=== PATIENT | male | born 1955 | race African-American/Black ===

== ENCOUNTER → 2016-09-01 | Outpatient (CLI) | payer MEDICAID ==
--- NOTE | 2016-09-01 10:53 | RADIOLOGY REPORT (SQ) ---
EXAM DESCRIPTION: HIP RIGHT AP/LATERAL COMPLETED DATE/TIME: 09/01/2016 10:40 am REASON FOR STUDY: PAIN IN RIGHT HIP M25.551 PAIN IN RIGHT HIP COMPARISON: None. NUMBER OF VIEWS: Two views. TECHNIQUE: AP and frog-leg view of the right hip. LIMITATIONS: None. FINDINGS: MINERALIZATION: Normal. RIGHT HIP: There is asymmetric flattening of the right femoral head. There is asymmetric sclerosis. Avascular necrosis cannot be excluded. MRI is recommended for further evaluation. No acute fractur e or dislocation. OPPOSITE HIP: No fracture or dislocation. No worrisome bone lesions. SOFT TISSUES: No findings. OTHER: No other significant finding. IMPRESSION: Asymmetric remodeling and sclerosis of the superior aspect of the femoral head. Recomme nd MRI for further evaluation. Avascular necrosis cannot be excluded. TECHNICAL DOCUMENTATION: JOB ID: [id number] [employer]- All Rights Reserved
== END ==
LOC: OD 10:01
PROVIDERS: ATTEND Family Medicine
DX: M25.551 Pain in right hip (principal)

== ENCOUNTER 2016-11-01 16:22 | Emergency (ER) | payer MEDICAID ==
[2016-11-01] MEDS ORDERED: NORMAL SALINE 1000 ML 1,000 ML IV ONE (17:35)
[2016-11-01] MEDS ORDERED: KETOROLAC TROMETHAMINE INJ/PF 30 MG/1 ML SDV IV ONE (17:36)
[2016-11-01] MEDS ORDERED: ONDANSETRON HCL INJ/PF 4 MG/2 ML SDV IV ONE (17:36)
--- NOTE | 2016-11-01 17:39 | ER Document Report ---
ED Medical Screen (RME) - General Chief Complaint: Nausea/Vomiting Stated Complaint: NAUSEA Time Seen by Provider: 11/01/16 17:35 Mode of Arrival: Wheelchair Information source: Patient TRAVEL OUTSIDE OF THE [place] IN LAST 30 DAYS: No - HPI Patient complains to provider of: Nausea Onset: This morning - pt. is scheduled to see ortho for R hip pain later in the week. Ran out of his narcotic pain meds and now is having nausea - Related Data Allergies/Adverse Reactions: haloperidol [From Haldol] Adverse Reaction (Intermediate, Verified 11/01/16 16: 46) Cramping, "couldn't breathe" lorazepam [From Ativan] Adverse Reaction (Intermediate, Verified 11/01/16 16:46) Nausea, nightmares promethazine HCl [From Phenergan] Adverse Reaction (Unknown, Verified 11/01/16 16:46) "Messes my veins up" Past Medical History - Social History Frequency of alcohol use: None Drug Abuse: Marijuana - Past Medical History Cardiac Medical History: Denies: Hx Congestive Heart Failure, Hx Coronary Artery Disease, Hx Heart Attack, Hx Hypertension Pulmonary Medical History: Denies: Hx Asthma, Hx Bronchitis, Hx COPD, Hx Pneumonia Neurological Medical History: Reports: Hx Seizures - ETOH withdrawal seizures. Denies: Hx Cerebrovascular Accident Renal/ Medical History: Denies: Hx Peritoneal Dialysis Malignancy Medical History: Reports Hx Prostate Cancer GI Medical History: Reports: Hx Cirrhosis, Hx Hepatitis - Hepatitis C, Hx Liver Failure Musculoskeltal Medical History: Denies Hx Arthritis Infectious Medical History: Reports: Hx Hepatitis - Hepatitis C Past Surgical History: Reports: Hx Pancreatic Surgery - Pancreatic bx, Hx Urinary Tract Surgery - Laser TURP - Immunizations Hx Diphtheria, Pertussis, Tetanus Vaccination: No Physical Exam - Vital signs Vitals: Temp Pulse Resp BP Pulse Ox 98.7 F 57 L 22 H 143/80 H 100 11/01/16 16:47 11/01/16 16:47 11/01/16 16:47 11/01/16 16:47 11/01/16 16:47 Course - Vital Signs Vital signs: Temp Pulse Resp BP Pulse Ox 98.7 F 57 L 22 H 143/80 H 100 11/01/16 16:47 11/01/16 16:47 11/01/16 16:47 11/01/16 16:47 11/01/16 16:47
--- NOTE | 2016-11-01 19:28 | ER Document Report ---
ED General - General Chief Complaint: Nausea/Vomiting Stated Complaint: NAUSEA Time Seen by Provider: 11/01/16 17:35 Mode of Arrival: Wheelchair Notes: Patient is a 61-year-old male who presents with concerns of opiate withdrawal as well as chronic right hip pain. Patient states he is scheduled to have a right hip replacement and is being prescribed oxycodone through his primary care doctor but he ran out of this medication "over 2 weeks ago". Patient states that since that time he has felt anxious, diaphoretic, nauseated and had multiple episodes of vomiting. He contacted his primary doctor to attempt to get a refill but was unable to do so. He denies a history of similar episodes in the past. He is unable to explain why he is out of his pain medication other than taking more than he was prescribed which he does admit to. Patient does also complain of a dull, constant aching pain to the right hip which is unchanged today. Any attempt at moving or walking worsens the pain. He states the oxycodone does help control the pain. TRAVEL OUTSIDE OF THE [place] IN LAST 30 DAYS: No - Related Data Allergies/Adverse Reactions: haloperidol [From Haldol] Adverse Reaction (Intermediate, Verified 11/01/16 16: 46) Cramping, "couldn't breathe" lorazepam [From Ativan] Adverse Reaction (Intermediate, Verified 11/01/16 16:46) Nausea, nightmares promethazine HCl [From Phenergan] Adverse Reaction (Unknown, Verified 11/01/16 16:46) "Messes my veins up" Past Medical History - General Information source: Patient - Social History Smoking Status: Current Every Day Smoker Frequency of alcohol use: None Drug Abuse: Marijuana Family History: Hypertension, Malignancy - Brother with pancreatic cancer and mother with breast cancer, Other - Father was murdered, sister with lupus - Past Medical History Cardiac Medical History: Denies: Hx Congestive Heart Failure, Hx Coronary Artery Disease, Hx Heart Attack, Hx Hypertension Pulmonary Medical History: Denies: Hx Asthma, Hx Bronchitis, Hx COPD, Hx Pneumonia Neurological Medical History: Reports: Hx Seizures - ETOH withdrawal seizures. Denies: Hx Cerebrovascular Accident Renal/ Medical History: Denies: Hx Peritoneal Dialysis Malignancy Medical History: Reports Hx Prostate Cancer GI Medical History: Reports: Hx Cirrhosis, Hx Hepatitis - Hepatitis C, Hx Liver Failure Musculoskeltal Medical History: Denies Hx Arthritis Infectious Medical History: Reports: Hx Hepatitis - Hepatitis C Past Surgical History: Reports: Hx Pancreatic Surgery - Pancreatic bx, Hx Urinary Tract Surgery - Laser TURP - Immunizations Hx Diphtheria, Pertussis, Tetanus Vaccination: No Review of Systems - Review of Systems Notes: Constitutional: Negative for fever. HENT: Negative for sore throat. Eyes: Negative for visual changes. Cardiovascular: Negative for chest pain. Respiratory: Negative for shortness of breath. Gastrointestinal: Positive for nausea and vomiting Genitourinary: Negative for dysuria. Musculoskeletal: Positive for right hip pain Skin: Negative for rash. Neurological: Negative for headaches, weakness or numbness. 10 point ROS negative except as marked above and in HPI. Physical Exam - Vital signs Vitals: Temp Pulse Resp BP Pulse Ox 98.7 F 57 L 22 H 143/80 H 100 11/01/16 16:47 11/01/16 16:47 11/01/16 16:47 11/01/16 16:47 11/01/16 16:47 Interpretation: Hypertensive Notes: PHYSICAL EXAMINATION: GENERAL: Somewhat disheveled, no acute distress HEAD: Atraumatic, normocephalic. EYES: Pupils equal round and reactive to light, extraocular movements intact, sclera anicteric, conjunctiva are normal. ENT: nares patent, oropharynx clear without exudates. Moist mucous membranes. NECK: Normal range of motion, supple without lymphadenopathy LUNGS: Breath sounds clear to auscultation bilaterally and equal. No wheezes rales or rhonchi. HEART: Regular rate and rhythm without murmurs ABDOMEN: Soft, nontender, normoactive bowel sounds. No guarding, no rebound. No masses appreciated. EXTREMITIES: Normal range of motion, no pitting or edema. No cyanosis. NEUROLOGICAL: No focal neurological deficits. Moves all extremities spontaneously and on command. PSYCH: Normal mood, normal affect. SKIN: Warm, Dry, normal turgor, no rashes or lesions noted. Course - Re-evaluation Re-evalutation: 11/01/16 19:43 Patient presents with symptoms consistent with opiate withdrawal, complaining of nausea and vomiting as well as tremulousness ever since he ran out of oxycodone. He initially states to me that he ran out over 2 weeks ago. A review of the [place] controlled substance database reveals that patient did receive 60 oxycodone 5 mg tablets on 18 October and this was written as a 15 day supply. The patient should not be out of this medication. I did inform the patient that it appears that he has misused this medication and may be developing an addiction to this long-term opiate use. His development of physiologic dependence is also apparent based on his presenting symptoms. Patient did request additional opiates here which I have declined to provide. I have informed him that he should consider seeking help for withdrawal from this medication and have provided him gabapentin 600 mg nightly for withdrawal as well as Lidoderm patches for his chronic right hip pain. Basic laboratories were obtained to evaluate for alternative etiology of his epigastric abdominal pain nausea and vomiting and are noted to be unremarkable. At this time will discharge with return precautions and follow-up recommendations. Verbal discharge instructions given a the bedside and opportunity for questions given. Medication warnings reviewed. Patient is in agreement with this plan and has verbalized understanding of return precautions and the need for primary care follow-up in the next 24-72 hours. - Vital Signs Vital signs: Temp Pulse Resp BP Pulse Ox 99.8 F 53 L 22 H 162/80 H 98 11/01/16 21:05 11/01/16 21:05 11/01/16 16:47 11/01/16 21:05 11/01/16 21:05 - Laboratory Result Diagrams: 11/01/16 19:45 Laboratory results interpreted by me: 11/01/16 19:45 Sodium 147.0 H Potassium 3.5 L Carbon Dioxide 20 L Anion Gap 21 H Glucose 143 H Calcium 10.5 H Total Bilirubin 1.5 H Direct Bilirubin 0.5 H ALT 15 L Total Protein 8.8 H Albumin 5.1 H Discharge - Discharge Clinical Impression: Chronic right hip pain Opiate dependence Qualifiers: Substance use status: in withdrawal Qualified Code(s): F11.23 - Opioid dependence with withdrawal Condition: Good Disposition: HOME, SELF-CARE Additional Instructions: Your seen today for concern of withdrawal from opiates. You should not yet be out of oxycodone based on your prescription that you received on the of this month. I am worried that your developing a dependency on this dangerous and addicting medication. You should discuss with your physician alternatives to use of oxycodone as this medication is not appropriate for long-term use. You may take the Zofran that you provided as needed for nausea. You may take gabapentin 600 mg nightly until you are able to receive a refill of oxycodone to assist with withdrawals. Return if you develop worsening vomiting, abdominal pain, pass out, or have any other symptoms that are worrisome to you. Prescriptions: Gabapentin 600 mg PO QHS #10 tablet Referrals: DAFNE ZENDEJAS, [Primary Care Provider] - Follow up as needed
[2016-11-01] MEDS ORDERED: LIDOCAINE 5% (700 MG) TRANSDERMAL ADH..PATCH TP ONE (19:41)
[2016-11-01] MEDS ORDERED: GABAPENTIN 300 MG CAPSULE PO ONE (19:41)
[2016-11-01] MEDS ORDERED: PROCHLORPERAZINE EDISYLATE INJ 10 MG/2 ML VIAL IV ONE (19:47)
[2016-11-01] MEDS ORDERED: ONDANSETRON ODT 4 MG TAB (6 TAB/DSPK) PO PRN (19:47)
[2016-11-01] MEDS ORDERED: DIPHENHYDRAMINE HCL 50 MG/ML VIAL IV ONE (19:47)
[2016-11-01 20:18] LABS: ALANINE AMINOTRANSFERASE 15 U/L (21-72); ALBUMIN 5.1 g/dL (3.5-5.0); ALKALINE PHOSPHATASE 66 U/L (38-126); ASPARTATE AMINO TRANSFERASE 24 U/L (17-59); BILIRUBIN,DIRECT 0.5 mg/dL (0.0-0.4); BILIRUBIN,TOTAL 1.5 mg/dL (0.2-1.3); BLOOD UREA NITROGEN 12 mg/dL (7-20); CALCIUM 10.5 mg/dL (8.4-10.2); CARBON DIOXIDE 20 mmol/L (22-30); CHLORIDE 106 mmol/L (98-107); CREATININE RESULT 0.85 mg/dL (0.52-1.25); GLUCOSE 143 mg/dL (75-110); LIPASE 66.7 U/L (23-300); POTASSIUM 3.5 mmol/L (3.6-5.0); TOTAL PROTEIN 8.8 g/dL (6.3-8.2)
[2016-11-01 20:27] LABS: ANION GAP 21 (5-19)
[2016-11-01 21:09] VITALS: BP 162/80
== END 2016-11-01 21:09 | disposition home or self-care (01) ==
LOC: ER 16:22
DX: M25.551 Pain in right hip (principal); F11.23 Opioid dependence with withdrawal; R11.2 Nausea with vomiting, unspecified; G89.29 Other chronic pain; F17.200 Nicotine dependence, unspecified, uncomplicated
CPT/HCPCS: 99284; 96361; 96374; 96375; 36415; 83690; 80053; 84484; J1200; J3490 ×2; J1885; J0780; J2405; J7030

== ENCOUNTER 2017-07-25 13:59 | Inpatient (IN) | payer MEDICAID ==
[2017-07-25 14:46] LABS: VENOUS BLOOD BASE EXCESS 10.7 mmol/L; VENOUS BLOOD HCO3 33.1 mmol/L (20-32); VENOUS BLOOD PCO2 36.5 mmHg (35-63); VENOUS BLOOD PH 7.58 (7.30-7.42)
--- NOTE | 2017-07-25 14:49 | ER Document Report ---
ED General - General Stated Complaint: UNRESPONSIVE Time Seen by Provider: 07/25/17 14:26 Mode of Arrival: Medic Information source: Relative, Emergency Med Personnel Cannot obtain history due to: Altered mental status Notes: 62-year-old male with hep C, liver failure, alcohol abuse, polysubstance abuse presents via EMS after family found him under a mattress and box spring. History is provided by EMS who states patient was somnolent but arousable upon their arrival. He was covered in a white substance and had multiple containers of glue surrounding him. 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 Last seen well was 3 days prior to arrival. TRAVEL OUTSIDE OF THE [place] IN LAST 30 DAYS: No - HPI Onset: Just prior to arrival - Related Data Allergies/Adverse Reactions: haloperidol [From Haldol] Adverse Reaction (Intermediate, Verified 11/01/16 16: 46) Cramping, "couldn't breathe" lorazepam [From Ativan] Adverse Reaction (Intermediate, Verified 11/01/16 16:46) Nausea, nightmares promethazine HCl [From Phenergan] Adverse Reaction (Unknown, Verified 11/01/16 16:46) "Messes my veins up" Past Medical History - General Information source: Relative, Emergency Med Personnel, [facility] Records Cannot obtain history due to: Altered mental status - Social History Smoking Status: Unknown if Ever Smoked Frequency of alcohol use: Occasional Drug Abuse: Methamphetamine Lives with: Alone Family History: Hypertension, Malignancy - Brother with pancreatic cancer and mother with breast cancer, Other - Father was murdered, sister with lupus - Past Medical History Cardiac Medical History: Denies: Hx Congestive Heart Failure, Hx Coronary Artery Disease, Hx Heart Attack, Hx Hypertension Pulmonary Medical History: Denies: Hx Asthma, Hx Bronchitis, Hx COPD, Hx Pneumonia Neurological Medical History: Reports: Hx Seizures - ETOH withdrawal seizures. Denies: Hx Cerebrovascular Accident Renal/ Medical History: Denies: Hx Peritoneal Dialysis Malignancy Medical History: Reports Hx Prostate Cancer GI Medical History: Reports: Hx Cirrhosis, Hx Hepatitis - Hepatitis C, Hx Liver Failure Musculoskeltal Medical History: Denies Hx Arthritis Infectious Medical History: Reports: Hx Hepatitis - Hepatitis C Past Surgical History: Reports: Hx Pancreatic Surgery - Pancreatic bx, Hx Urinary Tract Surgery - Laser TURP - Immunizations Hx Diphtheria, Pertussis, Tetanus Vaccination: No Review of Systems - Review of Systems -: Yes ROS unobtainable due to patient's medical condition Physical Exam - Vital signs Interpretation: Normal. No: Hypotensive, Tachycardic - Notes Notes: PHYSICAL EXAMINATION: GENERAL: Alert but nonverbal. HEAD: Atraumatic, normocephalic. EYES: Pupils equal round and reactive to light, extraocular movements intact, sclera anicteric, conjunctiva are normal. ENT: Nares patent, oropharynx clear without exudates. Dry mucous membranes. NECK: Normal range of motion, supple without lymphadenopathy LUNGS: Breath sounds clear to auscultation bilaterally and equal. No wheezes rales or rhonchi. HEART: Regular rate and rhythm without murmurs ABDOMEN: Soft, nontender, nondistended abdomen. No guarding, no rebound. No masses appreciated. Musculoskeletal: Normal range of motion, no pitting or edema. No cyanosis. NEUROLOGICAL: GCS 12, nonverbal. PSYCH: Normal mood, normal affect. SKIN: Warm, Dry, normal turgor, no rashes or lesions noted. Course - Re-evaluation Re-evalutation: Laboratory 07/25/17 07/25/17 07/25/17 14:26 14:26 14:26 WBC 13.2 H RBC 5.69 H Hgb 16.9 Hct 48.2 MCV 85 MCH 29.7 MCHC 35.0 RDW 13.3 Plt Count 124 L Seg Neutrophils % 80.6 H Lymphocytes % 5.4 L Monocytes % 13.9 H Eosinophils % 0.0 Basophils % 0.1 Absolute Neutrophils 10.6 H Absolute Lymphocytes 0.7 Absolute Monocytes 1.8 H Absolute Eosinophils 0.0 Absolute Basophils 0.0 PT INR VBG pH VBG pCO2 VBG HCO3 VBG Base Excess Sodium 122.2 L Potassium 2.9 L* Chloride 65 L Carbon Dioxide 30 Anion Gap 27 H BUN 54 H Creatinine 2.14 H Est GFR ( Amer) 38 L Est GFR (Non-Af Amer) 31 L Glucose 138 H Lactic Acid Calcium 10.1 Magnesium Total Bilirubin 4.6 H Direct Bilirubin 0.9 H Neonat Total Bilirubin Not Reportable Neonat Direct Bilirubin Not Reportable Neonat Indirect Bili Not Reportable AST 454 H ALT 76 H Alkaline Phosphatase 68 Ammonia Creatine Kinase 82562 H CK-MB (CK-2) 38.00 H Troponin I 0.233 NT-Pro-B Natriuret Pep 2500 H Total Protein 10.1 H Albumin 5.5 H Lipase Urine Color Urine Appearance Urine pH Ur Specific Lamont Urine Protein Urine Glucose (UA) Urine Ketones Urine Blood Urine Nitrite Urine Bilirubin Urine Urobilinogen Ur Leukocyte Esterase Urine WBC (Auto) Urine RBC (Auto) U Hyaline Cast (Auto) Squamous Epi Cells Auto Amorphous Sediment Auto Urine Mucus (Auto) Urine Ascorbic Acid Salicylates < 1.0 L Urine Opiates Screen Urine Methadone Screen Acetaminophen < 10 L Ur Barbiturates Screen Ur Phencyclidine Scrn Ur Amphetamines Screen U Benzodiazepines Scrn Urine Cocaine Screen U Marijuana (THC) Screen Serum Alcohol < 10 07/25/17 07/25/17 07/25/17 14:26 15:46 15:46 WBC RBC Hgb Hct MCV MCH MCHC RDW Plt Count Seg Neutrophils % Lymphocytes % Monocytes % Eosinophils % Basophils % Absolute Neutrophils Absolute Lymphocytes Absolute Monocytes Absolute Eosinophils Absolute Basophils PT INR VBG pH 7.58 H VBG pCO2 36.5 VBG HCO3 33.1 H VBG Base Excess 10.7 Sodium Potassium Chloride Carbon Dioxide Anion Gap BUN Creatinine Est GFR ( Amer) Est GFR (Non-Af Amer) Glucose Lactic Acid Calcium Magnesium Total Bilirubin Direct Bilirubin Neonat Total Bilirubin Neonat Direct Bilirubin Neonat Indirect Bili AST ALT Alkaline Phosphatase Ammonia Creatine Kinase CK-MB (CK-2) Troponin I NT-Pro-B Natriuret Pep Total Protein Albumin Lipase Urine Color DIPIKA Urine Appearance CLOUDY Urine pH 5.0 Ur Specific Lamont 1.017 Urine Protein 100 H Urine Glucose (UA) NEGATIVE Urine Ketones NEGATIVE Urine Blood LARGE H Urine Nitrite NEGATIVE Urine Bilirubin NEGATIVE Urine Urobilinogen NEGATIVE Ur Leukocyte Esterase NEGATIVE Urine WBC (Auto) 2 Urine RBC (Auto) 1 U Hyaline Cast (Auto) 1 Squamous Epi Cells Auto 1 Amorphous Sediment Auto TRACE Urine Mucus (Auto) RARE Urine Ascorbic Acid 40 H Salicylates Urine Opiates Screen NEGATIVE Urine Methadone Screen NEGATIVE Acetaminophen Ur Barbiturates Screen NEGATIVE Ur Phencyclidine Scrn NEGATIVE Ur Amphetamines Screen NEGATIVE U Benzodiazepines Scrn NEGATIVE Urine Cocaine Screen NEGATIVE U Marijuana (THC) Screen UNCONFIRMED POSITIVE Serum Alcohol 07/25/17 07/25/17 07/25/17 16:14 16:14 20:15 WBC RBC Hgb Hct MCV MCH MCHC RDW Plt Count Seg Neutrophils % Lymphocytes % Monocytes % Eosinophils % Basophils % Absolute Neutrophils Absolute Lymphocytes Absolute Monocytes Absolute Eosinophils Absolute Basophils PT INR VBG pH VBG pCO2 VBG HCO3 VBG Base Excess Sodium Potassium Chloride Carbon Dioxide Anion Gap BUN Creatinine Est GFR ( Amer) Est GFR (Non-Af Amer) Glucose Lactic Acid 5.1 H Calcium Magnesium 2.4 H Total Bilirubin Direct Bilirubin Neonat Total Bilirubin Neonat Direct Bilirubin Neonat Indirect Bili AST ALT Alkaline Phosphatase Ammonia 19.2 Creatine Kinase CK-MB (CK-2) Troponin I NT-Pro-B Natriuret Pep Total Protein Albumin Lipase 147.3 Urine Color Urine Appearance Urine pH Ur Specific Lamont Urine Protein Urine Glucose (UA) Urine Ketones Urine Blood Urine Nitrite Urine Bilirubin Urine Urobilinogen Ur Leukocyte Esterase Urine WBC (Auto) Urine RBC (Auto) U Hyaline Cast (Auto) Squamous Epi Cells Auto Amorphous Sediment Auto Urine Mucus (Auto) Urine Ascorbic Acid Salicylates Urine Opiates Screen Urine Methadone Screen Acetaminophen Ur Barbiturates Screen Ur Phencyclidine Scrn Ur Amphetamines Screen U Benzodiazepines Scrn Urine Cocaine Screen U Marijuana (THC) Screen Serum Alcohol 07/25/17 07/25/17 20:15 20:15 WBC RBC Hgb Hct MCV MCH MCHC RDW Plt Count Seg Neutrophils % Lymphocytes % Monocytes % Eosinophils % Basophils % Absolute Neutrophils Absolute Lymphocytes Absolute Monocytes Absolute Eosinophils Absolute Basophils PT 18.9 H INR 1.50 VBG pH VBG pCO2 VBG HCO3 VBG Base Excess Sodium Potassium Chloride Carbon Dioxide Anion Gap BUN Creatinine Est GFR ( Amer) Est GFR (Non-Af Amer) Glucose Lactic Acid Calcium Magnesium Total Bilirubin Direct Bilirubin Neonat Total Bilirubin Neonat Direct Bilirubin Neonat Indirect Bili AST ALT Alkaline Phosphatase Ammonia < 8.7 L Creatine Kinase CK-MB (CK-2) Troponin I NT-Pro-B Natriuret Pep Total Protein Albumin Lipase Urine Color Urine Appearance Urine pH Ur Specific Lam[place] Urine Protein Urine Glucose (UA) Urine Ketones Urine Blood Urine Nitrite Urine Bilirubin Urine Urobilinogen Ur Leukocyte Esterase Urine WBC (Auto) Urine RBC (Auto) U Hyaline Cast (Auto) Squamous Epi Cells Auto Amorphous Sediment Auto Urine Mucus (Auto) Urine Ascorbic Acid Salicylates Urine Opiates Screen Urine Methadone Screen Acetaminophen Ur Barbiturates Screen Ur Phencyclidine Scrn Ur Amphetamines Screen U Benzodiazepines Scrn Urine Cocaine Screen U Marijuana (THC) Screen Serum Alcohol Head CT 07/25/17 14:30 IMPRESSION: NORMAL BRAIN CT WITHOUT CONTRAST. EVIDENCE OF ACUTE STROKE: NO. Head MRI 07/25/17 16:11 IMPRESSION: Negative for acute or sub-acute infarction. EVIDENCE OF ACUTE STROKE: NO. Chest X-Ray 07/25/17 18:28 IMPRESSION: NO ACUTE RADIOGRAPHIC FINDING IN THE CHEST. 07/25/17 14:55 62-year-old male with hep C, liver failure, alcohol abuse, polysubstance abuse presents via EMS after family found him under a mattress and box spring. History is provided by EMS who states patient was somnolent but arousable upon their arrival. He was covered in a white substance and had multiple containers of glue surrounding him. 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 Last seen well was 3 days prior to arrival. Patient was seen by myself upon arrival. Vital signs were reviewed. Patient is afebrile, normotensive and not hypoxic. Patient does not appear toxic or dehydrated. They are in no acute distress. Previous medical records and nursing notes reviewed. Patient is patient is altered, unable to provide history. GCS upon arrival is 12. Patient does not follow commands. CT of the head showed no acute process, MRI of the head showed no acute process. Chest x-ray showed no acute process. CBC does show leukocytosis. CMP is significant for hypokalemia, hyponatremia. She does have an elevated BUN and creatinine. Troponin was elevated and CK is greater than 51 ,000. Patient was provided IV fluids, aspirin. Patient did start to become more alert and began speaking and stated that he was in pain. Unclear where the pain is. He did receive 1 mg of Dilaudid for this. Repeat troponin being. I did speak to Dr. Lawson from cardiology who is comfortable with the patient being admitted here. patient did receive Potassium IV. PO potassium not attempted due to AMS. 07/25/17 16:16 Family now at the bedside and states that the patient was recently stopped on his OxyContin that he has been taking since November 2016. Family reports that the patient was taking 20 mg of OxyContin daily but his primary care physician now wants him to be detox. Family tried throughout the weekend to place the patient in a detox center. They state that Sunday they came home from [facility] and the patient refused to go to the detox center that they had acquired for him because he was feeling better. Family reports that the patient is usually very verbal, normally orientated. They report that this is a complete change from his baseline. They also report that the patient has been sober from alcohol for several months. 07/25/17 21:04 07/25/17 21:06 Patient will be admitted by the hospitalist. 07/25/17 21:11 - Laboratory Result Diagrams: 07/25/17 14:26 07/25/17 20:15 Laboratory results interpreted by me: 07/25/17 07/25/17 07/25/17 14:26 14:26 14:26 WBC 13.2 H RBC 5.69 H Plt Count 124 L Seg Neutrophils % 80.6 H Lymphocytes % 5.4 L Monocytes % 13.9 H Absolute Neutrophils 10.6 H Absolute Monocytes 1.8 H VBG pH VBG HCO3 Sodium 122.2 L Potassium 2.9 L* Chloride 65 L Anion Gap 27 H BUN 54 H Creatinine 2.14 H Est GFR ( Amer) 38 L Est GFR (Non-Af Amer) 31 L Glucose 138 H Lactic Acid Total Bilirubin 4.6 H Direct Bilirubin 0.9 H AST 454 H ALT 76 H Creatine Kinase 90037 H CK-MB (CK-2) 38.00 H NT-Pro-B Natriuret Pep 2500 H Total Protein 10.1 H Albumin 5.5 H Urine Protein Urine Blood Urine Ascorbic Acid Salicylates < 1.0 L Acetaminophen < 10 L 07/25/17 07/25/17 07/25/17 14:26 15:46 16:14 WBC RBC Plt Count Seg Neutrophils % Lymphocytes % Monocytes % Absolute Neutrophils Absolute Monocytes VBG pH 7.58 H VBG HCO3 33.1 H Sodium Potassium Chloride Anion Gap BUN Creatinine Est GFR ( Amer) Est GFR (Non-Af Amer) Glucose Lactic Acid 5.1 H Total Bilirubin Direct Bilirubin AST ALT Creatine Kinase CK-MB (CK-2) NT-Pro-B Natriuret Pep Total Protein Albumin Urine Protein 100 H Urine Blood LARGE H Urine Ascorbic Acid 40 H Salicylates Acetaminophen - Diagnostic Test Radiology reviewed: Pending, Image reviewed, Reports reviewed - EKG Interpretation by Me EKG shows normal: Sinus rhythm Rate: Normal Rhythm: Other - prolonged QTC Critical Care Note - Critical Care Note Total time excluding time spent on procedures (mins): 40 - minutes of critical care time spent in direct contact evaluating and reevaluating the patient, treating symptoms, reviewing labs and studies and speaking with family and consultants excluding any procedures Discharge - Discharge Clinical Impression: Hypokalemia, Hyponatremia Rhabdomyolysis Qualifiers: Rhabdomyolysis type: non-traumatic Qualified Code(s): M62.82 - Rhabdomyolysis Altered mental status Qualifiers: Altered mental status type: unspecified Qualified Code(s): R41.82 - Altered mental status, unspecified Leukocytosis Qualifiers: Leukocytosis type: unspecified Qualified Code(s): D72.829 - Elevated white blood cell count, unspecified Condition: Fair Admitting Provider: Hospitalist Unit Admitted: [facility]
[2017-07-25 14:53] LABS: ABSOLUTE LYMPHOCYTES (AUTO) 0.7 10^3/uL (0.5-4.7); ABSOLUTE MONOCYTES (AUTO) 1.8 10^3/uL (0.1-1.4); ABSOLUTE NEUT (AUTO) 10.6 10^3/uL (1.7-8.2); BASOPHILS % (AUTO) 0.1 % (0-2); HEMATOCRIT 48.2 % (37.9-51.0); HEMOGLOBIN 16.9 g/dL (13.5-17.0); LYMPHOCYTES % (AUTO) 5.4 % (13-45); MEAN CORPUSCULAR HEMOGLOBIN 29.7 pg (27.0-33.4); MEAN CORPUSCULAR VOLUME 85 fl (80-97); MONOCYTES % (AUTO) 13.9 % (3-13); PLATELET COUNT 124 10^3/uL (150-450); RED BLOOD COUNT 5.69 10^6/uL (4.35-5.55); RED CELL DISTRIBUTION WIDTH 13.3 % (11.5-14.0); SEGMENTED NEUTROPHILS % (AUTO) 80.6 % (42-78); TOTAL CELLS COUNTED % (AUTO) 100 %; WHITE BLOOD COUNT 13.2 10^3/uL (4.0-10.5)
--- NOTE | 2017-07-25 15:33 | RADIOLOGY REPORT (SQ) ---
EXAM DESCRIPTION: CT HEAD WITHOUT COMPLETED DATE/TIME: 07/25/2017 3:21 pm REASON FOR STUDY: ams COMPARISON: 03/10/2014. TECHNIQUE: Axial images acquired through the brain without intravenous contrast. Images reviewed wi th bone, brain and subdural windows. Additional sagittal and coronal reconstructions were generated. Images stored on PACS. All CT scanners at this facility use dose modulation, iterative reconstruction, and/or weight based d osing when appropriate to reduce radiation dose to as low as reasonably achievable (ALARA). [facility]: Dose Right [facility]: CareDose [facility]: Dose Right [facility]: Teradose 4D [facility]: My Luv My Life My Heartbeats RADIATION DOSE: CT Rad equipment meets quality standard of care and radiation dose reduction techniq ues were employed. CTDIvol: 53.2 mGy. DLP: 1017 mGy-cm. mGy. LIMITATIONS: None. FINDINGS: VENTRICLES: Normal size and contour. CEREBRUM: No masses. No hemorrhage. No midline shift. No evidence for acute infarction. Normal gra y/white matter differentiation. No areas of low density in the white matter. CEREBELLUM: No masses. No hemorrhage. No alteration of density. No evidence for acute infarction. EXTRAAXIAL SPACES: No fluid collections. No masses. ORBITS AND GLOBE: No intra- or extraconal masses. Normal contour of globe without masses. CALVARIUM: No fracture. PARANASAL SINUSES: Fluid in the right maxillary sinus. SOFT TISSUES: No mass or hematoma. OTHER: No other significant finding. IMPRESSION: NORMAL BRAIN CT WITHOUT CONTRAST. EVIDENCE OF ACUTE STROKE: NO. COMMENT: Quality ID # [id number]: Final reports with documentation of one or more dose reduction techniques (e.g., Automated exposure control, adjustment of the mA and/or kV according to patient size, use of iterative reconstruction technique) TECHNICAL DOCUMENTATION: JOB ID: [id number] [employer]- All Rights Reserved Reading location - IP/workstation name: [facility] / [email or web address]
[2017-07-25 15:58] LABS: AMORPHOUS SEDIMENT,URINE TRACE /HPF; APPEARANCE,URINE CLOUDY; BILIRUBIN,URINE NEGATIVE (NEGATIVE); COLOR,URINE AMBER; GLUCOSE, URINE NEGATIVE (NEGATIVE); KETONES,URINE NEGATIVE (NEGATIVE); LEUKOCYTE ESTERASE,URINE NEGATIVE (NEGATIVE); NITRITE,URINE NEGATIVE (NEGATIVE); PROTEIN,URINE 100 mg/dL (NEGATIVE); URINE SPECIFIC GRAVITY 1.017; UROBILINOGEN,URINE NEGATIVE mg/dL (<2.0)
[2017-07-25 16:11] LABS: URINE AMPHETAMINES SCREEN NEGATIVE; URINE BARBITURATES SCREEN NEGATIVE; URINE BENZODIAZEPINES SCREEN NEGATIVE; URINE COCAINE SCREEN NEGATIVE; URINE MARIJUANA (THC) SCREEN UNCONFIRMED POSITIVE; URINE METHADONE SCREEN NEGATIVE; URINE PHENCYCLIDINE SCREEN NEGATIVE
[2017-07-25 16:17] LABS: ALANINE AMINOTRANSFERASE 76 U/L (21-72); ALBUMIN 5.5 g/dL (3.5-5.0); ALKALINE PHOSPHATASE 68 U/L (38-126); BILIRUBIN,DIRECT 0.9 mg/dL (0.0-0.4); BILIRUBIN,TOTAL 4.6 mg/dL (0.2-1.3); BLOOD UREA NITROGEN 54 mg/dL (7-20); CALCIUM 10.1 mg/dL (8.4-10.2); GLUCOSE 138 mg/dL (75-110); TOTAL PROTEIN 10.1 g/dL (6.3-8.2)
[2017-07-25 16:22] LABS: CARBON DIOXIDE 30 mmol/L (22-30); CHLORIDE 65 mmol/L (98-107); SODIUM 122.2 mmol/L (137-145)
[2017-07-25 16:23] LABS: ASPARTATE AMINO TRANSFERASE 454 U/L (17-59)
[2017-07-25] MEDS: NORMAL SALINE 1000 ML 1,000 ML IV PRN (16:26)
[2017-07-25 16:34] LABS: TROPONIN I 0.233 ng/mL
[2017-07-25] MEDS ORDERED: ASPIRIN 81 MG TABLET, CHEWABLE PO ONE (16:52)
[2017-07-25] MEDS ORDERED: DIPHENHYDRAMINE HCL 50 MG/ML VIAL IV ONE (16:52)
[2017-07-25 17:45] LABS: ACETAMINOPHEN < 10 ug/mL (10-30); ALCOHOL < 10 mg/dL (NONE DETECTED); CREATINE KINASE 51393 U/L (55-170); SALICYLATE < 1.0 mg/dL (2.0-20.0)
[2017-07-25 17:46] LABS: ANION GAP 27 (5-19)
[2017-07-25 17:47] LABS: POTASSIUM 2.9 mmol/L (3.6-5.0)
[2017-07-25] MEDS ORDERED: POTASSI CL 20 MEQ/50 ML RIDER 20 MEQ/50 ML RTUPB IV ONE (18:26)
[2017-07-25] MEDS ORDERED: NORMAL SALINE 1000 ML 1,000 ML IV ONE (18:27)
--- NOTE | 2017-07-25 18:35 | RADIOLOGY REPORT (SQ) ---
EXAM DESCRIPTION: MRI HEAD WITHOUT COMPLETED DATE/TIME: 07/25/2017 6:11 pm REASON FOR STUDY: ams COMPARISON: Earlier CT TECHNIQUE: Multiplanar imaging includes non-contrasted T1, T2, FLAIR, and diffusion with ADC map seq uences. Images stored on PACS. LIMITATIONS: Motion artifact. FINDINGS: ANATOMY: No anomalies. Normal vascular flow voids. Pituitary fossa normal. CSF SPACES: Normal in size and contour. No hemorrhage. CEREBRUM: Sulci and gyri normal in size and contour. Age-appropriate white matter signal on FLAIR im aging. No evidence of hemorrhage, mass, or extraaxial fluid collection. POSTERIOR FOSSA: No signal alteration. No hemorrhage. No edema, masses or mass effect. Internal dorie tory canals, cerebello-pontine angles, mastoids normal. DIFFUSION IMAGING: Negative for acute or sub-acute infarction. ORBITS: No masses. Globes normal. PARANASAL SINUSES: Small right maxillary sinus fluid. . OTHER: No other significant finding. IMPRESSION: Negative for acute or sub-acute infarction. EVIDENCE OF ACUTE STROKE: NO. TECHNICAL DOCUMENTATION: JOB ID: [id number] 2010 [employer]- All Rights Reserved Reading location - IP/workstation name: [email or web address]
[2017-07-25] MEDS ORDERED: HYDROMORPHONE HCL INJ/PF 2 MG/ML AMPULE ONE (19:17)
--- NOTE | 2017-07-25 19:20 | RADIOLOGY REPORT (SQ) ---
EXAM DESCRIPTION: CHEST SINGLE VIEW COMPLETED DATE/TIME: 07/25/2017 6:45 pm REASON FOR STUDY: ams COMPARISON: 03/10/2015 EXAM PARAMETERS: NUMBER OF VIEWS: One view. TECHNIQUE: Single frontal radiographic view of the chest acquired. RADIATION DOSE: NA LIMITATIONS: None. FINDINGS: LUNGS AND PLEURA: No acute opacities, masses or pneumothorax. No pleural effusion. MEDIASTINUM AND HILAR STRUCTURES: Stable. HEART AND VASCULAR STRUCTURES: Stable. BONES: No acute findings. HARDWARE: None in the chest. OTHER: No other significant finding. IMPRESSION: NO ACUTE RADIOGRAPHIC FINDING IN THE CHEST. TECHNICAL DOCUMENTATION: JOB ID: [id number] 2010 [employer]- All Rights Reserved Reading location - IP/workstation name: [email or web address]
[2017-07-25] MEDS ORDERED: IPRATROPIUM/ALBUTEROL 0.5-2.5 MG/3 ML AMPUL NEB PRN (19:23)
[2017-07-25] MEDS ORDERED: MAG HYDROX/AL HYDROX/SIMETH SUSP 30 ML UDCUP PO PRN (19:23)
[2017-07-25] MEDS ORDERED: POTASSI CL 20 MEQ/D5-1/2NS 1L 1,000 ML IV ONE (19:26)
[2017-07-25 20:35] LABS: PROTHROMBIN TIME 18.9 SEC (11.4-15.4)
[2017-07-25 20:58] LABS: LIPASE 147.3 U/L (23-300)
[2017-07-25 21:01] LABS: ANION GAP 9 (5-19); BLOOD UREA NITROGEN 42 mg/dL (7-20); CALCIUM 7.7 mg/dL (8.4-10.2); CARBON DIOXIDE 32 mmol/L (22-30); CHLORIDE 85 mmol/L (98-107); GLUCOSE 116 mg/dL (75-110); SODIUM 125.8 mmol/L (137-145)
[2017-07-25 21:08] LABS: POTASSIUM 2.7 mmol/L (3.6-5.0)
[2017-07-25] MEDS ORDERED: POTASSIUM CHLORIDE 10 MEQ CAPSULE.ER PO ONE (21:41)
[2017-07-25] MEDS: HEPARIN SOD (PORCINE) 5,000 UNIT/ML 1 ML SYRINGE SUBCUT SCH (22:27)
[2017-07-25] MEDS: CLONIDINE HCL 0.1 MG TABLET PO SCH (22:30)
[2017-07-25] MEDS: GABAPENTIN 100 MG CAPSULE PO SCH (22:30)
[2017-07-25] MEDS: MAGNESIUM SULFATE/D5W 1 GM/100 ML RTUPB IV SCH ×2 (22:30→23:07)
--- NOTE | 2017-07-25 22:35 | EKG REPORT ---
SEVERITY:- ABNORMAL ECG - SINUS RHYTHM PROLONGED QT INTERVAL : Confirmed by: Emi Flores MD 25-Jul-2017 22:34:21
[2017-07-26] MEDS: DIAZEPAM INJ 10 MG/2 ML DISP.SYRIN IV SCH ×4 (00:59→19:13)
[2017-07-26] MEDS ORDERED: THIAMINE HCL INJ 200 MG/2 ML VIAL ONE (01:10)
[2017-07-26] MEDS ORDERED: FOLIC ACID INJ 5 MG/1 ML 10 ML VIAL ONE (01:11)
[2017-07-26] MEDS: THIAMINE HCL 100 MG, FOLIC ACID 1 MG in NORMAL SALINE 250 ML IV SCH ×2 (01:27→21:55)
[2017-07-26] MEDS: POTASSI CL 20 MEQ/50 ML RIDER 20 MEQ/50 ML RTUPB IV SCH ×2 (02:11→03:37)
[2017-07-26] MEDS: NORMAL SALINE 1000 ML 1,000 ML IV PRN (03:49)
--- NOTE | 2017-07-26 04:33 | PDOC H&P ---
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 He presents after family found him under a mattress and box spring found somnolent but arousable with odd affect covered in a white substance with containers of glue. Patient is unable to provide any history in the emergency room distant odd affect intermittently following commands with clear speech. Workup is notable for rhabdomyolysis with a total CK 50,000, hyponatremia, hypokalemia, acute renal failure and a prolonged QT interval. He started on IV fluids and referred to the hospitalist for admission. Past Medical History Cardiac Medical History: Denies: Congestive Heart Failure, Coronary Artery Disease, Myocardial Infarction, Hypertension Pulmonary Medical History: Denies: Asthma, Bronchitis, Chronic Obstructive Pulmonary Disease (COPD), Pneumonia Neurological Medical History: Reports: Seizures - ETOH withdrawal seizures GI Medical History: Reports: Cirrhosis, Hepatitis - Hepatitis C Musculoskeltal Medical History: Denies: Arthritis Psychiatric Medical History: Denies: Depression Hematology: Denies: Anemia Past Surgical History Past Surgical History: Reports: None Social History Information Source: Patient Lives with: Alone Smoking Status: Unknown if Ever Smoked Frequency of Alcohol Use: None Hx Recreational Drug Use: Yes Drugs: Marijuana Hx Prescription Drug Abuse: Yes - Advance Directive Resuscitation Status: Full Code Family History Family History: Hypertension, Malignancy - Brother with pancreatic cancer and mother with breast cancer, Other - Father was murdered, sister with lupus Parental Family History Reviewed: Yes Children Family History Reviewed: Yes Sibling(s) Family History Reviewed.: Yes Medication/Allergy Home Medications: Clonidine HCl [Catapres 0.1 mg Tablet] 0.1 mg PO Q12 07/25/17 Gabapentin [Neurontin 100 mg Capsule] 100 mg PO Q8 07/25/17 Oxycodone HCl [Oxycodone HCl 10 MG Tablet] 10 mg PO Q6HP PRN 07/25/17 Tramadol HCl [Ultram 50 mg Tablet] 50 mg PO Q6HP PRN 07/25/17 Allergies/Adverse Reactions: haloperidol [From Haldol] Adverse Reaction (Intermediate, Verified 11/01/16 16: 46) Cramping, "couldn't breathe" lorazepam [From Ativan] Adverse Reaction (Intermediate, Verified 11/01/16 16:46) Nausea, nightmares promethazine HCl [From Phenergan] Adverse Reaction (Unknown, Verified 11/01/16 16:46) "Messes my veins up" Review of Systems ROS unobtainable: Due to mental status - Obtunded Physical Exam Vital Signs: Temp Pulse Resp BP Pulse Ox 97.9 F 81 18 140/93 H 97 07/26/17 03:14 07/26/17 03:14 07/26/17 03:14 07/26/17 03:14 07/26/17 03:14 Intake & Output 07/24/17 07/25/17 07/26/17 11:59 11:59 11:59 Weight 76.1 kg General appearance: PRESENT: disheveled, mild distress, thin Head exam: PRESENT: atraumatic, normocephalic Eye exam: PRESENT: conjunctiva pink, EOMI, PERRLA. ABSENT: scleral icterus Ear exam: PRESENT: normal external ear exam Mouth exam: PRESENT: dry mucosa, neck supple, tongue midline Neck exam: ABSENT: carotid bruit, JVD, lymphadenopathy, thyromegaly Respiratory exam: PRESENT: crackles, prolonged expiratory phas. ABSENT: accessory muscle use, chest wall tenderness, rales, rhonchi, wheezes Cardiovascular exam: PRESENT: RRR. ABSENT: diastolic murmur, rubs, systolic murmur Pulses: PRESENT: normal dorsalis pedis pul Vascular exam: PRESENT: other - Chronic skin changes changes of peripheral vascular disease GI/Abdominal exam: PRESENT: normal bowel sounds, soft. ABSENT: distended, guarding, mass, organolmegaly, rebound, tenderness Rectal exam: PRESENT: deferred Extremities exam: PRESENT: other - Global atrophy Neurological exam: PRESENT: altered, oriented to person, CN II-XII grossly intact Psychiatric exam: PRESENT: unusual affect Skin exam: PRESENT: dry, intact, warm. ABSENT: cyanosis, rash Results Laboratory Results: 07/25/17 20:15 07/25/17 07/25/17 07/25/17 20:15 20:15 20:15 Sodium 125.8 L Potassium 2.7 L* Chloride 85 L Carbon Dioxide 32 H Anion Gap 9 BUN 42 H Creatinine 1.38 H Est GFR ( Amer) > 60 Est GFR (Non-Af Amer) 52 L Glucose 116 H Calcium 7.7 L Magnesium 2.4 H Ammonia < 8.7 L Lipase 147.3 07/25/17 07/25/17 07/25/17 20:15 20:15 20:15 Creatine Kinase 87291 H CK-MB (CK-2) 40.00 H Troponin I 0.119 Cancelled Impressions: Head CT 07/25/17 14:30 IMPRESSION: NORMAL BRAIN CT WITHOUT CONTRAST. EVIDENCE OF ACUTE STROKE: NO. Head MRI 07/25/17 16:11 IMPRESSION: Negative for acute or sub-acute infarction. EVIDENCE OF ACUTE STROKE: NO. Chest X-Ray 07/25/17 18:28 IMPRESSION: NO ACUTE RADIOGRAPHIC FINDING IN THE CHEST. Assessment & Plan - Diagnosis (1) Acute encephalopathy Is this a current diagnosis for this admission?: Yes Plan: Likely toxic secondary to details of the history of present illness, supportive care (2) Hypokalemia Is this a current diagnosis for this admission?: Yes Plan: Evaluate magnesium replete and recheck chemistry (3) Hyponatremia Is this a current diagnosis for this admission?: Yes Plan: Likely secondary to polysubstance abuse, normal saline initiated reevaluate chemistry every 6 hours. (4) Rhabdomyolysis Qualifiers: Rhabdomyolysis type: non-traumatic Qualified Code(s): M62.82 - Rhabdomyolysis Is this a current diagnosis for this admission?: Yes Plan: Likely secondary to polysubstance abuse, IV fluid challenge, reevaluate chemistry and total CK every 12 hours - Time Time Spent: 50 to 70 Minutes - Inpatient Certification Medical Necessity: Need Close Monitoring Due to Risk of Patient Decompensation
[2017-07-26 04:56] LABS: HEMATOCRIT 39.4 % (37.9-51.0); MEAN CORPUSCULAR HEMOGLOBIN 30.2 pg (27.0-33.4); MEAN CORPUSCULAR HGB CONC 35.3 g/dL (32.0-36.0); MEAN CORPUSCULAR VOLUME 85 fl (80-97); PLATELET COUNT 100 10^3/uL (150-450); RED BLOOD COUNT 4.62 10^6/uL (4.35-5.55); RED CELL DISTRIBUTION WIDTH 12.9 % (11.5-14.0); WHITE BLOOD COUNT 14.8 10^3/uL (4.0-10.5)
[2017-07-26 05:03] LABS: HEMOGLOBIN 13.9 g/dL (13.5-17.0)
[2017-07-26 05:15] LABS: ALANINE AMINOTRANSFERASE 114 U/L (21-72); ALBUMIN 3.4 g/dL (3.5-5.0); ALKALINE PHOSPHATASE 52 U/L (38-126); ANION GAP 10 (5-19); ASPARTATE AMINO TRANSFERASE 679 U/L (17-59); BLOOD UREA NITROGEN 27 mg/dL (7-20); CARBON DIOXIDE 31 mmol/L (22-30); CHLORIDE 91 mmol/L (98-107); GLUCOSE 122 mg/dL (75-110); SODIUM 131.6 mmol/L (137-145)
[2017-07-26 05:16] LABS: ABSOLUTE LYMPHOCYTES# (MANUAL) 0.4 10^3/uL (0.5-4.7); ABSOLUTE MONOCYTES # (MANUAL) 0.6 10^3/uL (0.1-1.4); ABSOLUTE NEUTROPHILS# (MANUAL) 13.8 10^3/uL (1.7-8.2); BAND NEUTROPHILS % (MANUAL) 1 % (3-5); BASOPHILS % (MANUAL) 0 % (0-2); BILIRUBIN,DIRECT 0.4 mg/dL (0.0-0.4); EOSINOPHILS % (MANUAL) 0 % (0-6); LYMPHOCYTES % (MANUAL) 2 % (13-45); MONOCYTES % (MANUAL) 4 % (3-13); SEGMENTED NEUTROPHILS % (MAN) 92 % (42-78); TOTAL CELLS COUNTED 100; TOTAL PROTEIN 6.4 g/dL (6.3-8.2)
[2017-07-26 05:17] LABS: OVALOCYTES SLIGHT; PLATELET COMMENT DECREASED; POIKILOCYTOSIS SLIGHT
[2017-07-26 05:22] LABS: CREATINE KINASE MB 27.4 ng/mL (<4.55); TROPONIN I 0.075 ng/mL
[2017-07-26] MEDS: HEPARIN SOD (PORCINE) 5,000 UNIT/ML 1 ML SYRINGE SUBCUT SCH ×3 (05:23→21:45)
[2017-07-26 05:29] LABS: BILIRUBIN,TOTAL 1.9 mg/dL (0.2-1.3)
[2017-07-26] MEDS: GABAPENTIN 100 MG CAPSULE PO SCH ×3 (05:29→21:55)
[2017-07-26 05:51] LABS: POTASSIUM 2.9 mmol/L (3.6-5.0)
[2017-07-26 05:54] LABS: CREATINE KINASE 77269 U/L (55-170)
[2017-07-26] MEDS: CLONIDINE HCL 0.1 MG TABLET PO SCH ×2 (09:16→22:01)
[2017-07-26 13:17] LABS: ANION GAP 8 (5-19); BLOOD UREA NITROGEN 24 mg/dL (7-20); CALCIUM 8.3 mg/dL (8.4-10.2); CARBON DIOXIDE 31 mmol/L (22-30); CHLORIDE 94 mmol/L (98-107); GLUCOSE 125 mg/dL (75-110); SODIUM 133.3 mmol/L (137-145)
[2017-07-26 13:23] LABS: POTASSIUM 2.7 mmol/L (3.6-5.0)
[2017-07-26 13:27] LABS: CREATINE KINASE MB 12.4 ng/mL (<4.55); TROPONIN I 0.046 ng/mL
[2017-07-26] MEDS: POTASSIUM CHLORIDE 10 MEQ CAPSULE.ER PO SCH ×3 (14:00→21:55)
[2017-07-26] MEDS: TRAMADOL HCL 50 MG TABLET PO PRN ×2 (14:01→19:46)
--- NOTE | 2017-07-26 15:45 | PDOC PROGRESS REPORT ---
Subjective Progress Note for:: 07/26/17 Subjective:: Patient seen resting in bed. He is awake and alert able to answer questions. He denies any chest pain, shortness breath or dyspnea. He denies any nausea or diarrhea. He states he has intermittent abdominal pain after he ate his breakfast. He is complaining of pain in the right hip. He states this is chronic he is slated for an upcoming hip replacement. He denies any other complaints at the present time. Remaining review of systems are negative. Reason For Visit: ETOH W/D SEIZURE, ARF RHABDO, HYPONATREMIA Physical Exam Vital Signs: Temp Pulse Resp BP Pulse Ox 99.9 F 81 16 124/78 98 07/26/17 11:37 07/26/17 14:00 07/26/17 11:41 07/26/17 11:37 07/26/17 11:41 Intake & Output 07/25/17 07/26/17 07/27/17 06:59 06:59 06:59 Intake Total 2705 200 Output Total 2400 650 Balance 305 -450 Weight 76.1 kg General appearance: PRESENT: no acute distress, thin, well-developed Head exam: PRESENT: atraumatic, normocephalic Eye exam: PRESENT: conjunctiva pink, EOMI, PERRLA. ABSENT: scleral icterus Ear exam: PRESENT: normal external ear exam Mouth exam: PRESENT: moist, tongue midline Teeth exam: PRESENT: poor dentation Neck exam: ABSENT: carotid bruit, JVD, lymphadenopathy, thyromegaly Respiratory exam: PRESENT: clear to auscultation taryn. ABSENT: rales, rhonchi, wheezes Cardiovascular exam: PRESENT: RRR. ABSENT: diastolic murmur, rubs, systolic murmur Pulses: PRESENT: normal dorsalis pedis pul Vascular exam: PRESENT: normal capillary refill GI/Abdominal exam: PRESENT: normal bowel sounds, soft. ABSENT: distended, guarding, mass, organolmegaly, rebound, tenderness Rectal exam: PRESENT: deferred Extremities exam: PRESENT: full ROM. ABSENT: calf tenderness, clubbing, pedal edema Neurological exam: PRESENT: alert, awake, oriented to person, oriented to place , oriented to situation, CN II-XII grossly intact. ABSENT: motor sensory deficit Psychiatric exam: PRESENT: flat affect Skin exam: PRESENT: dry, intact, warm. ABSENT: cyanosis, rash Results Laboratory Results: 07/26/17 04:14 07/26/17 12:41 07/25/17 07/25/17 07/25/17 20:15 20:15 20:15 WBC RBC Hgb Hct MCV MCH MCHC RDW Plt Count Seg Neutrophils % Lymphocytes % Monocytes % Eosinophils % Basophils % Absolute Neutrophils Absolute Lymphocytes Absolute Monocytes Absolute Eosinophils Absolute Basophils Sodium 125.8 L Potassium 2.7 L* Chloride 85 L Carbon Dioxide 32 H Anion Gap 9 BUN 42 H Creatinine 1.38 H Est GFR ( Amer) > 60 Est GFR (Non-Af Amer) 52 L Glucose 116 H Calcium 7.7 L Magnesium 2.4 H Total Bilirubin AST ALT Alkaline Phosphatase Ammonia < 8.7 L Total Protein Albumin Lipase 147.3 07/26/17 07/26/17 07/26/17 04:14 04:14 12:41 WBC 14.8 H RBC 4.62 Hgb 13.9 D Hct 39.4 MCV 85 MCH 30.2 MCHC 35.3 RDW 12.9 Plt Count 100 L Seg Neutrophils % Not Reportable Lymphocytes % Not Reportable Monocytes % Not Reportable Eosinophils % Not Reportable Basophils % Not Reportable Absolute Neutrophils Not Reportable Absolute Lymphocytes Not Reportable Absolute Monocytes Not Reportable Absolute Eosinophils Not Reportable Absolute Basophils Not Reportable Sodium 131.6 L 133.3 L Potassium 2.9 L* 2.7 L* Chloride 91 L 94 L Carbon Dioxide 31 H 31 H Anion Gap 10 8 BUN 27 H 24 H Creatinine 0.95 0.73 Est GFR ( Amer) > 60 > 60 Est GFR (Non-Af Amer) > 60 > 60 Glucose 122 H 125 H Calcium 8.0 L 8.3 L Magnesium Total Bilirubin 1.9 H D AST 679 H ALT 114 H Alkaline Phosphatase 52 Ammonia Total Protein 6.4 Albumin 3.4 L Lipase 07/25/17 07/25/17 07/25/17 20:15 20:15 20:15 Creatine Kinase 45787 H CK-MB (CK-2) 40.00 H Troponin I 0.119 Cancelled 07/26/17 07/26/17 07/26/17 04:14 04:14 12:41 Creatine Kinase 62602 H CK-MB (CK-2) 27.40 H 12.40 H Troponin I 0.075 0.046 Impressions: Head CT 07/25/17 14:30 IMPRESSION: NORMAL BRAIN CT WITHOUT CONTRAST. EVIDENCE OF ACUTE STROKE: NO. Head MRI 07/25/17 16:11 IMPRESSION: Negative for acute or sub-acute infarction. EVIDENCE OF ACUTE STROKE: NO. Chest X-Ray 07/25/17 18:28 IMPRESSION: NO ACUTE RADIOGRAPHIC FINDING IN THE CHEST. Assessment & Plan - Diagnosis (1) Acute encephalopathy Is this a current diagnosis for this admission?: Yes Plan: Improved. Awake, alert and able to answer questions. Liver enzymes elevated but ammonia normal . History of alcoholic and hepatitis C cirrhosis. UTD positive for marijuana only (2) Hypokalemia Is this a current diagnosis for this admission?: Yes Plan: Replete and monitor (3) Hyponatremia Is this a current diagnosis for this admission?: Yes Plan: Secondary to dehydration improving with hydration (4) Rhabdomyolysis Qualifiers: Rhabdomyolysis type: non-traumatic Qualified Code(s): M62.82 - Rhabdomyolysis Is this a current diagnosis for this admission?: Yes Plan: Continue hydration and monitor CPKs - Time Time Spent with patient: 25-34 minutes Total Critical Time (Minutes): 20 Medications reviewed and adjusted accordingly: Yes
--- NOTE | 2017-07-26 20:18 | PDOC CONSULTATION ---
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 He presents after family found him under a mattress and box spring found somnolent but arousable with odd affect covered in a white substance with containers of glue. Patient is unable to provide any history in the emergency room distant odd affect intermittently following commands with clear speech. Workup is notable for rhabdomyolysis with a total CK 50,000, hyponatremia, hypokalemia, acute renal failure and a prolonged QT interval. He started on IV fluids and referred to the hospitalist for admission. Patient was seen earlier this morning. He was noted to be complaining of pain. He still is felt to be not mentating properly. Patient is noted to be generally very weak. Past Medical History Cardiac Medical History: Denies: Congestive Heart Failure, Coronary Artery Disease, Myocardial Infarction, Hypertension Pulmonary Medical History: Denies: Asthma, Bronchitis, Chronic Obstructive Pulmonary Disease (COPD), Pneumonia Neurological Medical History: Reports: Seizures - ETOH withdrawal seizures GI Medical History: Reports: Cirrhosis, Hepatitis - Hepatitis C Musculoskeltal Medical History: Denies: Arthritis Hematology: Denies: Anemia Social History Information Source: [facility] Records Lives with: Alone Smoking Status: Unknown if Ever Smoked Frequency of Alcohol Use: Heavy Hx Recreational Drug Use: Yes Drugs: Marijuana Hx Prescription Drug Abuse: Yes - Advance Directive Resuscitation Status: Full Code Surrogate healthcare decision maker:: Surrogate medical decision-maker not identified by the patient Family History Family History: Hypertension, Malignancy - Brother with pancreatic cancer and mother with breast cancer, Other - Father was murdered, sister with lupus Parental Family History Reviewed: No - Patient not able to comment Children Family History Reviewed: NA Sibling(s) Family History Reviewed.: NA Medication/Allergy Home Medications: Clonidine HCl [Catapres 0.1 mg Tablet] 0.1 mg PO Q12 07/25/17 Gabapentin [Neurontin 100 mg Capsule] 100 mg PO Q8 07/25/17 Oxycodone HCl [Oxycodone HCl 10 MG Tablet] 10 mg PO Q6HP PRN 07/25/17 Tramadol HCl [Ultram 50 mg Tablet] 50 mg PO Q6HP PRN 07/25/17 Allergies/Adverse Reactions: haloperidol [From Haldol] Adverse Reaction (Intermediate, Verified 11/01/16 16: 46) Cramping, "couldn't breathe" lorazepam [From Ativan] Adverse Reaction (Intermediate, Verified 11/01/16 16:46) Nausea, nightmares promethazine HCl [From Phenergan] Adverse Reaction (Unknown, Verified 11/01/16 16:46) "Messes my veins up" Review of Systems ROS unobtainable: Due to mental status Physical Exam Exam: GENERAL: well-nourished and in no acute distress. Patient is alert but orientation cannot be checked because of marked lethargy and inability to verbalize properly. HEAD: Atraumatic, normocephalic. EYES: Pupils equal round and reactive to light, extraocular movements intact, sclera anicteric, conjunctiva are normal. ENT: TMs normal, nares patent, oropharynx clear without exudates. Moist mucous membranes. No oral ulcerations or bleeding gums noted NECK: supple without lymphadenopathy or JVD. Trachea is central. No cervical or axillary lymphadenopathy noted. Carotids are 2+ LUNGS: Breath sounds bibasilar fine crackles at bases. No significant dullness noted. CHEST: Palpation of chest wall shows no significant chest wall tenderness. 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 ABDOMEN: Soft, no significant tenderness appreciated, normoactive bowel sounds. No guarding, no rebound. No rigidity noted . No masses appreciated. EXTREMITIES: Pedal pulses are 1-2+, no calf tenderness noted, Trace + pedal edema noted. No clubbing or cyanosis. NEUROLOGICAL: Patient is alert but is not able to participate in neurological exam because of patient's current mental status. Patient however noted to have extreme difficulty in moving all 4 extremities. PSYCH: Patient cannot participate in a neurologic and psych exam because of the patient's current mental status SKIN: No significant ecchymosis, rash, ulcerations or signs of pruritus noted. MUSCULOSKELETAL EXAM: No significant joint swelling noted. Results EKG Comments: Sinus rhythm with QT prolongation, no acute ST-T wave changes are noted Impressions: Head CT 07/25/17 14:30 IMPRESSION: NORMAL BRAIN CT WITHOUT CONTRAST. EVIDENCE OF ACUTE STROKE: NO. Head MRI 07/25/17 16:11 IMPRESSION: Negative for acute or sub-acute infarction. EVIDENCE OF ACUTE STROKE: NO. Chest X-Ray 07/25/17 18:28 IMPRESSION: NO ACUTE RADIOGRAPHIC FINDING IN THE CHEST. Assessment & Plan - Diagnosis (1) Elevated troponin I level Is this a current diagnosis for this admission?: Yes (2) Rhabdomyolysis Qualifiers: Rhabdomyolysis type: non-traumatic Qualified Code(s): M62.82 - Rhabdomyolysis Is this a current diagnosis for this admission?: Yes (3) Prolonged Q-T interval on ECG Is this a current diagnosis for this admission?: Yes (4) Hypokalemia Is this a current diagnosis for this admission?: Yes (5) Altered mental status Qualifiers: Altered mental status type: unspecified Qualified Code(s): R41.82 - Altered mental status, unspecified Is this a current diagnosis for this admission?: Yes - Notes Notes: Elevated troponin I: Most likely related to metabolic issues related to rhabdomyolysis, nonspecific inflammatory syndrome rather than acute coronary syndrome. EKG not showing any acute ST-T wave changes. Recommend treating abnormal metabolic condition. Rhabdomyolysis: This is a major problem. Continue with IV fluids, may consider nephrology consultation and evaluation. Prolonged QT interval on EKG: When ER physician had called me last night about this patient with altered mental status, inability to speak and also prolonged QT on EKG, I related to the ER physician that this could be related to acute stroke which can cause these kind of's QT prolongation. However this was ruled out by CT and MRI of the brain. Now QTC prolongation is felt to be related to severe hypokalemia. Hypokalemia: Recommend expeditious correction of hypokalemia. Altered mental status: Multifactorial, could be medications, could be other conditions and metabolic in nature. - Time Time Spent: 30 to 50 Minutes - More than 50% of the time spent coordinating care , discussing management plans with involved caregivers. Management plans discussed with involved personnels. Medical decision making was of moderate to high complexity, patient's has multiple comorbidities. Medications reviewed and adjusted accordingly: Yes
[2017-07-26 21:29] LABS: ANION GAP 9 (5-19); BLOOD UREA NITROGEN 20 mg/dL (7-20); CALCIUM 8.4 mg/dL (8.4-10.2); CARBON DIOXIDE 32 mmol/L (22-30); CHLORIDE 92 mmol/L (98-107); GLUCOSE 112 mg/dL (75-110); POTASSIUM 3.4 mmol/L (3.6-5.0); SODIUM 132.5 mmol/L (137-145)
[2017-07-27] MEDS: DIAZEPAM INJ 10 MG/2 ML DISP.SYRIN IV SCH ×3 (02:34→20:16)
[2017-07-27] MEDS: HEPARIN SOD (PORCINE) 5,000 UNIT/ML 1 ML SYRINGE SUBCUT SCH ×3 (05:38→21:18)
[2017-07-27] MEDS: GABAPENTIN 100 MG CAPSULE PO SCH ×3 (05:40→21:18)
[2017-07-27 05:47] LABS: ANION GAP 10 (5-19); BLOOD UREA NITROGEN 16 mg/dL (7-20); CALCIUM 8.5 mg/dL (8.4-10.2); CARBON DIOXIDE 28 mmol/L (22-30); CHLORIDE 96 mmol/L (98-107); GLUCOSE 101 mg/dL (75-110); POTASSIUM 3.8 mmol/L (3.6-5.0); SODIUM 133.9 mmol/L (137-145)
[2017-07-27] MEDS: CLONIDINE HCL 0.1 MG TABLET PO SCH ×2 (10:13→21:18)
[2017-07-27] MEDS: TRAMADOL HCL 50 MG TABLET PO PRN ×2 (10:14→20:16)
--- NOTE | 2017-07-27 11:34 | PDOC PROGRESS REPORT ---
Subjective Progress Note for:: 07/26/17 Subjective:: Patient was seen on morning rounds but somehow dictation was missed. Patient had problems with IV and blood draws. He had 2 IVs in the 2 greater saphenous vein at the ankle. This was replaced with another IV in the right forearm. Patient on questioning denied any chest pain. He denied any shortness of breath. His speech is gradually improving. Reason For Visit: ETOH W/D SEIZURE, ARF RHABDO, HYPONATREMIA Physical Exam Vital Signs: Temp Pulse Resp BP Pulse Ox 98.8 F 72 16 134/74 H 100 07/27/17 07:19 07/27/17 07:19 07/27/17 07:19 07/27/17 07:19 07/27/17 07:19 Intake & Output 07/26/17 07/27/17 07/28/17 06:59 06:59 06:59 Intake Total 2705 1255 Output Total 2400 1750 Balance 305 -495 Weight 76.1 kg 76.7 kg Exam: GENERAL: well-nourished and in no acute distress. Alert and oriented x2 HEAD: Atraumatic, normocephalic. EYES: Pupils equal round and reactive to light, extraocular movements intact, sclera anicteric, conjunctiva are normal. ENT: TMs normal, nares patent, oropharynx clear without exudates. Moist mucous membranes. No oral ulcerations or bleeding gums noted NECK: supple without lymphadenopathy. Trachea is central. No cervical or axillary lymphadenopathy noted. Carotids are 2+, JVD WNL LUNGS: Respiration seems nonlabored, no significant accessory muscle action noted. Breath sounds clear to auscultation bilaterally and equal noted. No wheezes rales or rhonchi noted. No significant dullness noted on percussion. CHEST: Palpation of the chest wall shows no significant chest wall tenderness. 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 ABDOMEN: Soft, no significant tenderness appreciated, normoactive bowel sounds. No guarding, no rebound. No rigidity noted . No masses appreciated. EXTREMITIES: Pedal pulses are 1-2+, no calf tenderness noted. No clubbing or cyanosis. negative pedal edema noted NEUROLOGICAL: Patient has marked difficulty in moving his both lower extremity which he claims because of arthritis. He also describes difficulty moving his upper extremity because of arthritis. PSYCH: Normal mood, normal affect. Judgment and insight within normal limits. SKIN: No significant ecchymosis, skin is noted to be warm. MUSCULOSKELETAL EXAM: No significant acute joint swelling noted. Results Laboratory Results: 07/26/17 04:14 07/27/17 04:55 07/26/17 07/26/17 07/27/17 12:41 20:55 04:55 Sodium 133.3 L 132.5 L 133.9 L Potassium 2.7 L* 3.4 L 3.8 Chloride 94 L 92 L 96 L Carbon Dioxide 31 H 32 H 28 Anion Gap 8 9 10 BUN 24 H 20 16 Creatinine 0.73 0.68 0.57 Est GFR ( Amer) > 60 > 60 > 60 Est GFR (Non-Af Amer) > 60 > 60 > 60 Glucose 125 H 112 H 101 Calcium 8.3 L 8.4 8.5 Magnesium 2.2 07/25/17 07/25/17 07/25/17 20:15 20:15 20:15 Creatine Kinase 95525 H CK-MB (CK-2) 40.00 H Troponin I 0.119 Cancelled 07/26/17 07/26/17 07/26/17 04:14 04:14 12:41 Creatine Kinase 42786 H 95674 H CK-MB (CK-2) 27.40 H Troponin I 0.075 07/26/17 07/27/17 12:41 04:55 Creatine Kinase 78833 H CK-MB (CK-2) 12.40 H Troponin I 0.046 EKG Comments: Telemetry strip shows sinus rhythm without any sustained tachycardia or bradycardia Impressions: Head CT 07/25/17 14:30 IMPRESSION: NORMAL BRAIN CT WITHOUT CONTRAST. EVIDENCE OF ACUTE STROKE: NO. Head MRI 07/25/17 16:11 IMPRESSION: Negative for acute or sub-acute infarction. EVIDENCE OF ACUTE STROKE: NO. Chest X-Ray 07/25/17 18:28 IMPRESSION: NO ACUTE RADIOGRAPHIC FINDING IN THE CHEST. Assessment & Plan - Diagnosis (1) Elevated troponin I level Is this a current diagnosis for this admission?: Yes (2) Rhabdomyolysis Qualifiers: Rhabdomyolysis type: non-traumatic Qualified Code(s): M62.82 - Rhabdomyolysis Is this a current diagnosis for this admission?: Yes (3) Prolonged Q-T interval on ECG Is this a current diagnosis for this admission?: Yes (4) Hypokalemia Is this a current diagnosis for this admission?: Yes (5) Altered mental status Qualifiers: Altered mental status type: unspecified Qualified Code(s): R41.82 - Altered mental status, unspecified Is this a current diagnosis for this admission?: Yes - Notes Notes: 2D echo ordered is still pending. Elevated troponin I: Most likely related to metabolic issues related to rhabdomyolysis, nonspecific inflammatory syndrome rather than acute coronary syndrome. EKG not showing any acute ST-T wave changes. Recommend treating abnormal metabolic condition. Rhabdomyolysis: This is a major problem. Continue with IV fluids, may consider nephrology consultation and evaluation. Muscle enzymes are trending down. Prolonged QT interval on EKG: QTC prolongation is felt to be related to severe hypokalemia. Will repeat an EKG once potassium has been corrected and within normal range. Hypokalemia: Recommend expeditious correction of hypokalemia. Altered mental status: Multifactorial, could be medications, could be other conditions and metabolic in nature. This seems to be gradually improving. - Time Time with patient: 15-25 minutes
--- NOTE | 2017-07-27 11:39 | PDOC PROGRESS REPORT ---
Subjective Progress Note for:: 07/27/17 Subjective:: Patient tells me that he is scheduled for surgery on the at [facility]. Will repeat an EKG today. Patient however is denying any chest pain or shortness of breath. He seems to be in significant bodily discomfort which is mainly musculoskeletal. Patient denied ever having any cardiac related issues. Reason For Visit: ETOH W/D SEIZURE, ARF RHABDO, HYPONATREMIA Physical Exam Vital Signs: Temp Pulse Resp BP Pulse Ox 98.8 F 72 16 134/74 H 100 07/27/17 07:19 07/27/17 07:19 07/27/17 07:19 07/27/17 07:19 07/27/17 07:19 Intake & Output 07/26/17 07/27/17 07/28/17 06:59 06:59 06:59 Intake Total 2705 1255 Output Total 2400 1750 Balance 305 -495 Weight 76.1 kg 76.7 kg Exam: GENERAL: well-nourished and in no acute distress. Alert and oriented x3 HEAD: Atraumatic, normocephalic. EYES: Pupils equal round and reactive to light, extraocular movements intact, sclera anicteric, conjunctiva are normal. ENT: TMs normal, nares patent, oropharynx clear without exudates. Moist mucous membranes. No oral ulcerations or bleeding gums noted NECK: supple without lymphadenopathy. Trachea is central. No cervical or axillary lymphadenopathy noted. Carotids are 2+, JVD WNL LUNGS: Respiration seems nonlabored, no significant accessory muscle action noted. Breath sounds clear to auscultation bilaterally and equal noted. No wheezes rales or rhonchi noted. No significant dullness noted on percussion. CHEST: Palpation of the chest wall shows no significant chest wall tenderness. 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 ABDOMEN: Soft, no significant tenderness appreciated, normoactive bowel sounds. No guarding, no rebound. No rigidity noted . No masses appreciated. EXTREMITIES: Pedal pulses are 1-2+, no calf tenderness noted. No clubbing or cyanosis. negative pedal edema noted NEUROLOGICAL: No sensory deficit noted on quick exam. Cranial nerves are noted to be WNL. Muscle strength exam limited because of significant discomfort. PSYCH: Normal mood, normal affect. Judgment and insight within normal limits. SKIN: No significant ecchymosis, skin is noted to be warm. MUSCULOSKELETAL EXAM: No significant acute joint swelling noted. Results Laboratory Results: 07/26/17 04:14 07/27/17 04:55 07/26/17 07/26/17 07/27/17 12:41 20:55 04:55 Sodium 133.3 L 132.5 L 133.9 L Potassium 2.7 L* 3.4 L 3.8 Chloride 94 L 92 L 96 L Carbon Dioxide 31 H 32 H 28 Anion Gap 8 9 10 BUN 24 H 20 16 Creatinine 0.73 0.68 0.57 Est GFR ( Amer) > 60 > 60 > 60 Est GFR (Non-Af Amer) > 60 > 60 > 60 Glucose 125 H 112 H 101 Calcium 8.3 L 8.4 8.5 Magnesium 2.2 07/25/17 07/25/17 07/25/17 20:15 20:15 20:15 Creatine Kinase 77700 H CK-MB (CK-2) 40.00 H Troponin I 0.119 Cancelled 07/26/17 07/26/17 07/26/17 04:14 04:14 12:41 Creatine Kinase 46269 H 31816 H CK-MB (CK-2) 27.40 H Troponin I 0.075 07/26/17 07/27/17 12:41 04:55 Creatine Kinase 75328 H CK-MB (CK-2) 12.40 H Troponin I 0.046 EKG Comments: Telemetry strip shows sinus rhythm without any sustained tachycardia or bradycardia. Impressions: Head CT 07/25/17 14:30 IMPRESSION: NORMAL BRAIN CT WITHOUT CONTRAST. EVIDENCE OF ACUTE STROKE: NO. Head MRI 07/25/17 16:11 IMPRESSION: Negative for acute or sub-acute infarction. EVIDENCE OF ACUTE STROKE: NO. Chest X-Ray 07/25/17 18:28 IMPRESSION: NO ACUTE RADIOGRAPHIC FINDING IN THE CHEST. Assessment & Plan - Diagnosis (1) Elevated troponin I level Is this a current diagnosis for this admission?: Yes (2) Rhabdomyolysis Qualifiers: Rhabdomyolysis type: non-traumatic Qualified Code(s): M62.82 - Rhabdomyolysis Is this a current diagnosis for this admission?: Yes (3) Prolonged Q-T interval on ECG Is this a current diagnosis for this admission?: Yes (4) Hypokalemia Is this a current diagnosis for this admission?: Yes (5) Altered mental status Qualifiers: Altered mental status type: unspecified Qualified Code(s): R41.82 - Altered mental status, unspecified Is this a current diagnosis for this admission?: Yes - Notes Notes: Repeat an EKG today. If EKG shows any evolving signs of ischemia will consider a stress test otherwise, troponin I abnormality could be explained by just metabolic abnormalities. Addendum: Repeat EKG shows normalization of QTC. Patient also not showing any evolving changes of ischemia. Therefore in the absence of any chest pain or other signs of ongoing ischemia, have opted not to schedule patient for ischemia evaluation at this time. Elevated troponin I: Most likely related to metabolic issues related to rhabdomyolysis, nonspecific inflammatory syndrome rather than acute coronary syndrome. EKG not showing any acute ST-T wave changes. Recommend treating abnormal metabolic condition. Rhabdomyolysis: This is a major problem. Continue with IV fluids, may consider nephrology consultation and evaluation. Prolonged QT interval on EKG: When ER physician had called me last night about this patient with altered mental status, inability to speak and also prolonged QT on EKG, I related to the ER physician that this could be related to acute stroke which can cause these kind of's QT prolongation. However this was ruled out by CT and MRI of the brain. Now QTC prolongation is felt to be related to severe hypokalemia. Repeat an EKG to look for normalization of QTC. EKG repeated shows almost normalization of QTC. Hypokalemia: This seems corrected. Will repeat an EKG. this was done report above. Altered mental status: Multifactorial, could be medications, could be other conditions and metabolic in nature. This seems to have resolved. Patient today noted to be alert and oriented 3. - Time Time with patient: Greater than 35 minutes - CODE STATUS was discussed, patient remains full code. More than 50% of the time spent coordinating care, discussing management plans with involved caregivers. Management plans discussed with involved personnels. Medical decision making was of moderate to high complexity, patient's has multiple comorbidities. Medications reviewed and adjusted accordingly: Yes
[2017-07-27 14:23] LABS: ANION GAP 8 (5-19); BLOOD UREA NITROGEN 15 mg/dL (7-20); CALCIUM 8.5 mg/dL (8.4-10.2); CARBON DIOXIDE 30 mmol/L (22-30); CHLORIDE 96 mmol/L (98-107); GLUCOSE 99 mg/dL (75-110); POTASSIUM 3.6 mmol/L (3.6-5.0); SODIUM 133.9 mmol/L (137-145)
--- NOTE | 2017-07-27 16:44 | PDOC PROGRESS REPORT ---
Subjective Progress Note for:: 07/27/17 Subjective:: Complains of hip pain, worse on the right. States he has surgery pending in [place] on 08/06. Doing better otherwise. No chest pain or palpitations, no abdominal pain, no nausea vomiting. Reason For Visit: ETOH W/D SEIZURE, ARF RHABDO, HYPONATREMIA Physical Exam Vital Signs: Temp Pulse Resp BP Pulse Ox 97.8 F 86 16 116/81 97 07/27/17 15:17 07/27/17 15:17 07/27/17 15:17 07/27/17 15:17 07/27/17 15:17 Intake & Output 07/26/17 07/27/17 07/28/17 06:59 06:59 06:59 Intake Total 2705 1255 236 Output Total 2400 1750 300 Balance 305 -270 -79 Weight 76.1 kg 76.7 kg GEN: NAD, well-developed CV: RRR, NL S1S2 LUNGS: CTA bilaterally ABDOMEN Soft, NT, +BS EXTERMITIES: No e/c/c NEURO: Alert, oriented 3, no acute weakness Results Laboratory Results: 07/26/17 04:14 07/27/17 13:17 07/26/17 07/27/17 07/27/17 20:55 04:55 13:17 Sodium 132.5 L 133.9 L 133.9 L Potassium 3.4 L 3.8 3.6 Chloride 92 L 96 L 96 L Carbon Dioxide 32 H 28 30 Anion Gap 9 10 8 BUN 20 16 15 Creatinine 0.68 0.57 0.59 Est GFR ( Amer) > 60 > 60 > 60 Est GFR (Non-Af Amer) > 60 > 60 > 60 Glucose 112 H 101 99 Calcium 8.4 8.5 8.5 Magnesium 2.2 07/25/17 07/25/17 07/25/17 20:15 20:15 20:15 Creatine Kinase 07486 H CK-MB (CK-2) 40.00 H Troponin I 0.119 Cancelled 07/26/17 07/26/17 07/26/17 04:14 04:14 12:41 Creatine Kinase 99574 H 32258 H CK-MB (CK-2) 27.40 H Troponin I 0.075 07/26/17 07/27/17 12:41 04:55 Creatine Kinase 21425 H CK-MB (CK-2) 12.40 H Troponin I 0.046 Impressions: Head CT 07/25/17 14:30 IMPRESSION: NORMAL BRAIN CT WITHOUT CONTRAST. EVIDENCE OF ACUTE STROKE: NO. Head MRI 07/25/17 16:11 IMPRESSION: Negative for acute or sub-acute infarction. EVIDENCE OF ACUTE STROKE: NO. Chest X-Ray 07/25/17 18:28 IMPRESSION: NO ACUTE RADIOGRAPHIC FINDING IN THE CHEST. Assessment & Plan - Plan Summary Plan Summary: (1) Acute encephalopathy Is this a current diagnosis for this admission?: Yes Plan: Improved. Awake, alert and able to answer questions. Liver enzymes were elevated but ammonia normal . History of alcoholic and hepatitis C cirrhosis. UTD positive for marijuana only. We will follow-up LFTs in a.m. (2) Hypokalemia Is this a current diagnosis for this admission?: Yes Plan: Corrected at this time. We will continue to monitor (3) Hyponatremia Is this a current diagnosis for this admission?: Yes Plan: Secondary to dehydration improving with hydration (4) Rhabdomyolysis Qualifiers: Rhabdomyolysis type: non-traumatic Qualified Code(s): M62.82 - Rhabdomyolysis Is this a current diagnosis for this admission?: Yes Plan: CPKs trending down but still markedly elevated. Continue hydration and monitor CPKs (5) bilateral hip pain Is this a current diagnosis for this admission?: Yes Plan: Continue Neurontin, tramadol as needed. Trying to limit patient's narcotics.
--- NOTE | 2017-07-27 18:04 | XCELERA REPORT ---
[address] [address] Transthoracic Echocardiogram Report Name: CEM MONROY Age: 62 yrs Gender: Male : 1955 Patient Status: Inpatient Patient Location: [address] [place] [address] Study Date: 07/27/2017 04:33 PM Height: 73 in Weight: 169 lb BSA: 2.0 m2 Procedure: A complete two-dimensional transthoracic echocardiogram was performed (2D, M-mode, spectral and color flow Doppler). The study was technically difficult with many images being suboptimal in quality. Reason For Study: Troponin I elevation Ordering Physician: MARIAJOSE VERDUGO Performed By: Jacki Burns Interpretation Summary The study was technically difficult with many images being suboptimal in quality. The left ventricle is hyperdynamic. The left ventricular ejection fraction is within normal limits. The left ventricle is grossly normal size. There is mild concentric left ventricular hypertrophy. Wall motion cannot be accurately commented on, but no definite regional wall motion abnormalities noted. Doppler measurements suggest pseudonormalized left ventricular relaxation, which is associated with grade II/IV or mild to moderate diastolic dysfunction The right ventricular systolic function is normal. The right atrium is normal in size The left atrial size is normal. There is no mitral regurgitation noted. There is no mitral valve stenosis. No aortic regurgitation is present. There is no aortic valve stenosis There is no tricuspid stenosis. No tricuspid regurgitation. The aortic root is not well visualized but is probably normal size. The inferior vena cava appeared normal and decreased > 50% with respiration (RAP 5-10 mmHg) There is no pericardial effusion. MMode/2D Measurements & Calculations RVDd: 3.8 cm LVIDd: 4.7 cm FS: 40.3 % Ao root diam: 3.3 cm IVSd: 1.2 cm LVIDs: 2.8 cm EDV(Teich): 104.9 ml LVPWd: 1.2 cm ESV(Teich): 30.5 ml Ao root area: 8.3 cm2 EF(Teich): 70.9 % LA dimension: 2.8 cm Doppler Measurements & Calculations MV E max javier: MV P1/2t max javier: Ao V2 max: LV V1 max P.4 cm/sec 47.9 cm/sec 129.7 cm/sec 5.7 mmHg MV A max javier: MV P1/2t: 68.1 msec Ao max PG: LV V1 max: 60.7 cm/sec 6.7 mmHg 119.4 cm/sec MV E/A: 0.76 MVA(P1/2t): 3.2 cm2 MV dec slope: 206.0 cm/sec2 MV dec time: 0.23 sec PA V2 max: 93.8 cm/sec PA max P.5 mmHg Left Ventricle The left ventricle is grossly normal size. There is mild concentric left ventricular hypertrophy. The left ventricle is hyperdynamic. The left ventricular ejection fraction is within normal limits. Doppler measurements suggest pseudonormalized left ventricular relaxation, which is associated with grade II/IV or mild to moderate diastolic dysfunction. Wall motion cannot be accurately commented on, but no definite regional wall motion abnormalities noted. Right Ventricle The right ventricle is grossly normal size. There is normal right ventricular wall thickness. The right ventricular systolic function is normal. Atria The right atrium is normal in size. The left atrial size is normal. Interarterial septum not well visualized and not well dopplered. Cannot comment on ASD/PFO presence. Mitral Valve The mitral valve is grossly normal. There is no mitral valve stenosis. There is no mitral regurgitation noted. Aortic Valve The aortic valve is grossly normal. There is no aortic valve stenosis. No aortic regurgitation is present. Tricuspid Valve The tricuspid valve is not well visualized secondary to technical limitations. There is no tricuspid stenosis. No tricuspid regurgitation. Pulmonic Valve The pulmonic valve is not well visualized. Great Vessels The aortic root is not well visualized but is probably normal size. The inferior vena cava appeared normal and decreased > 50% with respiration (RAP 5-10 mmHg). Effusions There is no pericardial effusion. : MARIAJOSE VERDUGO > Mariajose Verdugo
[2017-07-27] MEDS: NORMAL SALINE 1000 ML 1,000 ML IV PRN (18:36)
[2017-07-27] MEDS: THIAMINE HCL 100 MG, FOLIC ACID 1 MG in NORMAL SALINE 250 ML IV SCH (21:17)
--- NOTE | 2017-07-27 21:48 | EKG REPORT ---
SEVERITY:- BORDERLINE ECG - SINUS RHYTHM BORDERLINE PROLONGED QT INTERVAL : Confirmed by: Emi Flores MD 27-Jul-2017 21:47:41
[2017-07-28] MEDS: DIAZEPAM INJ 10 MG/2 ML DISP.SYRIN IV SCH ×2 (03:15→11:02)
[2017-07-28 05:00] LABS: ABSOLUTE BASOPHILS # (AUTO) 0.1 10^3/uL (0.0-0.2); ABSOLUTE LYMPHOCYTES (AUTO) 0.8 10^3/uL (0.5-4.7); ABSOLUTE MONOCYTES (AUTO) 1.1 10^3/uL (0.1-1.4); ABSOLUTE NEUT (AUTO) 8.9 10^3/uL (1.7-8.2); BASOPHILS % (AUTO) 0.5 % (0-2); EOSINOPHILS % (AUTO) 0.4 % (0-6); HEMATOCRIT 35.1 % (37.9-51.0); HEMOGLOBIN 12.4 g/dL (13.5-17.0); LYMPHOCYTES % (AUTO) 7.5 % (13-45); MEAN CORPUSCULAR HEMOGLOBIN 30.5 pg (27.0-33.4); MEAN CORPUSCULAR HGB CONC 35.3 g/dL (32.0-36.0); MEAN CORPUSCULAR VOLUME 87 fl (80-97); RED BLOOD COUNT 4.05 10^6/uL (4.35-5.55); RED CELL DISTRIBUTION WIDTH 13.2 % (11.5-14.0); SEGMENTED NEUTROPHILS % (AUTO) 81.6 % (42-78); TOTAL CELLS COUNTED % (AUTO) 100 %; WHITE BLOOD COUNT 10.8 10^3/uL (4.0-10.5)
[2017-07-28 05:13] LABS: ALANINE AMINOTRANSFERASE 118 U/L (21-72); ALBUMIN 2.8 g/dL (3.5-5.0); ALKALINE PHOSPHATASE 43 U/L (38-126); ANION GAP 9 (5-19); ASPARTATE AMINO TRANSFERASE 517 U/L (17-59); BILIRUBIN,DIRECT 0.3 mg/dL (0.0-0.4); BLOOD UREA NITROGEN 16 mg/dL (7-20); CALCIUM 8.2 mg/dL (8.4-10.2); CARBON DIOXIDE 28 mmol/L (22-30); CHLORIDE 98 mmol/L (98-107); GLUCOSE 129 mg/dL (75-110); POTASSIUM 3.4 mmol/L (3.6-5.0); SODIUM 134.5 mmol/L (137-145); TOTAL PROTEIN 5.5 g/dL (6.3-8.2)
[2017-07-28] MEDS: GABAPENTIN 100 MG CAPSULE PO SCH ×3 (05:21→22:16)
[2017-07-28] MEDS: HEPARIN SOD (PORCINE) 5,000 UNIT/ML 1 ML SYRINGE SUBCUT SCH ×3 (05:24→21:15)
[2017-07-28 05:34] LABS: CREATINE KINASE 30545 U/L (55-170)
[2017-07-28 05:40] LABS: PLATELET COUNT 99 10^3/uL (150-450)
[2017-07-28] MEDS: CLONIDINE HCL 0.1 MG TABLET PO SCH ×2 (10:07→22:16)
[2017-07-28] MEDS: TRAMADOL HCL 50 MG TABLET PO PRN ×2 (10:12→18:24)
[2017-07-28] MEDS ORDERED: POTASSIUM CHLORIDE 10 MEQ CAPSULE.ER PO ONE (11:00)
[2017-07-28] MEDS: ONDANSETRON HCL INJ/PF 4 MG/2 ML SDV IV PRN (11:02)
--- NOTE | 2017-07-28 12:36 | PDOC PROGRESS REPORT ---
Subjective Progress Note for:: 07/28/17 Subjective:: Complains of hip pain, worse on the right. States he has surgery pending in [place] on 08/06. Tramadol helping some with the pain, although not as well as Oxycodone, which he states he was trying to wean himself off of. No chest pain or palpitations, no abdominal pain, no nausea vomiting. Reason For Visit: ETOH W/D SEIZURE, ARF RHABDO, HYPONATREMIA Physical Exam Vital Signs: Temp Pulse Resp BP Pulse Ox 98.4 F 87 16 127/77 H 100 07/28/17 08:00 07/28/17 08:00 07/28/17 08:00 07/28/17 08:00 07/28/17 08:00 Intake & Output 07/27/17 07/28/17 07/29/17 06:59 06:59 06:59 Intake Total 1255 2481 Output Total 1750 975 Balance -495 1506 Weight 76.7 kg 80.2 kg GEN: NAD, well-developed CV: RRR, NL S1S2 LUNGS: CTA bilaterally ABDOMEN Soft, NT, +BS EXTERMITIES: No e/c/c NEURO: Alert, oriented 3, no acute weakness Results Laboratory Results: 07/28/17 04:22 07/28/17 04:22 07/27/17 07/28/17 07/28/17 13:17 04:22 04:22 WBC 10.8 H RBC 4.05 L Hgb 12.4 L Hct 35.1 L MCV 87 MCH 30.5 MCHC 35.3 RDW 13.2 Plt Count 99 L Seg Neutrophils % 81.6 H Lymphocytes % 7.5 L Monocytes % 10.0 Eosinophils % 0.4 Basophils % 0.5 Absolute Neutrophils 8.9 H Absolute Lymphocytes 0.8 Absolute Monocytes 1.1 Absolute Eosinophils 0.0 Absolute Basophils 0.1 Sodium 133.9 L 134.5 L Potassium 3.6 3.4 L Chloride 96 L 98 Carbon Dioxide 30 28 Anion Gap 8 9 BUN 15 16 Creatinine 0.59 0.58 Est GFR ( Amer) > 60 > 60 Est GFR (Non-Af Amer) > 60 > 60 Glucose 99 129 H Calcium 8.5 8.2 L Total Bilirubin 1.0 AST 517 H ALT 118 H Alkaline Phosphatase 43 Total Protein 5.5 L Albumin 2.8 L 07/25/17 07/25/17 07/25/17 20:15 20:15 20:15 Creatine Kinase 77719 H CK-MB (CK-2) 40.00 H Troponin I 0.119 Cancelled 07/26/17 07/26/17 07/26/17 04:14 04:14 12:41 Creatine Kinase 07099 H 43939 H CK-MB (CK-2) 27.40 H Troponin I 0.075 07/26/17 07/27/17 07/28/17 12:41 04:55 04:22 Creatine Kinase 88201 H 57462 H CK-MB (CK-2) 12.40 H Troponin I 0.046 Impressions: Head CT 07/25/17 14:30 IMPRESSION: NORMAL BRAIN CT WITHOUT CONTRAST. EVIDENCE OF ACUTE STROKE: NO. Head MRI 07/25/17 16:11 IMPRESSION: Negative for acute or sub-acute infarction. EVIDENCE OF ACUTE STROKE: NO. Chest X-Ray 07/25/17 18:28 IMPRESSION: NO ACUTE RADIOGRAPHIC FINDING IN THE CHEST. Assessment & Plan - Plan Summary Plan Summary: (1) Acute encephalopathy Is this a current diagnosis for this admission?: Yes Plan: Improved. Awake, alert and able to answer questions. Liver enzymes remains elevated but stable and ammonia normal. History of alcoholic and hepatitis C cirrhosis. UTD positive for marijuana only, patient states he was on oxycodone as outpatient bur he was trying to wean himself off that is why urine was negative for it. (2) Hypokalemia Is this a current diagnosis for this admission?: Yes Plan: Improved but still slightly low today. We will replete and continue to monitor (3) Hyponatremia Is this a current diagnosis for this admission?: Yes Plan: Improving with hydration to stable (4) Rhabdomyolysis Qualifiers: Rhabdomyolysis type: non-traumatic Qualified Code(s): M62.82 - Rhabdomyolysis Is this a current diagnosis for this admission?: Yes Plan: CPKs trending down but still markedly elevated. Continue hydration and monitor CPKs (5) bilateral hip pain Is this a current diagnosis for this admission?: Yes Plan: Continue Neurontin, tramadol as needed. Trying to limit narcotics.
--- NOTE | 2017-07-28 15:44 | Operative Report ---
Nonrecallable Operative Report DATE OF SURGERY: 07/28/17 PREOPERATIVE DIAGNOSIS: 1. phlebosclerosis. 2. Delirium tremens. 3. rhabdomyolysis POSTOPERATIVE DIAGNOSIS: Same as above OPERATION: 1. Ultrasound-guided central venous puncture. 2. Left internal jugular vein central line placement SURGEON: MALACHI ROWAN ANESTHESIA: Local TISSUE REMOVED OR ALTERED: None COMPLICATIONS: None apparent ESTIMATED BLOOD LOSS: Minimal PROCEDURE: Drains/implants: Left IJ central line at 14 cm. Procedure in detail: After informed consent was obtained from the patient, he was laid in the Trendelenburg position. The area of the left neck and chest were prepped and draped in a normal sterile fashion. The ultrasound was used to identify the left internal jugular vein. It was compressible with normal flow. Under direct ultrasonic guidance, the needle was used to access the left internal jugular vein. Dark venous nonpulsatile blood was returned in the syringe. The wire was inserted into the lumen of the vein very easily. The wire was confirmed to be within the lumen of the vein using the ultrasound device. Photodocumentation was saved. The catheter was then slid over the wire using a modified Seldinger technique. The catheter was then aspirated and flushed 3 without difficulty. The catheter returned dark venous nonpulsatile blood. The catheter was sutured to the skin using the supplied silk suture. A dressing was fashioned and the procedure was concluded. All sponge, instrument , and needle counts were correct 2. Condition: Stable.
--- NOTE | 2017-07-28 17:01 | RADIOLOGY REPORT (SQ) ---
EXAM DESCRIPTION: CHEST SINGLE VIEW COMPLETED DATE/TIME: 07/28/2017 4:18 pm REASON FOR STUDY: central line placement COMPARISON: 07/25/2017. EXAM PARAMETERS: NUMBER OF VIEWS: One view. TECHNIQUE: Single frontal radiographic view of the chest acquired. RADIATION DOSE: NA LIMITATIONS: None. FINDINGS: LUNGS AND PLEURA: No opacities, masses or pneumothorax. No pleural effusion. MEDIASTINUM AND HILAR STRUCTURES: No masses. Contour normal. HEART AND VASCULAR STRUCTURES: Heart remains unchanged in size with uncoiling thoracic aorta. Pulmon radha vasculature normal. BONES: No acute findings. HARDWARE: None in the chest. OTHER: Interval placement of left IJ line overlying SVC. IMPRESSION: NO ACUTE DISEASE. TECHNICAL DOCUMENTATION: JOB ID: [id number] [employer]- All Rights Reserved Reading location - IP/workstation name: [email or web address]
[2017-07-28] MEDS: NORMAL SALINE 1000 ML 1,000 ML IV PRN (22:16)
[2017-07-28] MEDS: THIAMINE HCL 100 MG, FOLIC ACID 1 MG in NORMAL SALINE 250 ML IV SCH (22:16)
[2017-07-28] MEDS: DIAZEPAM 5 MG TABLET PO PRN (22:25)
[2017-07-29] MEDS: HEPARIN SOD (PORCINE) 5,000 UNIT/ML 1 ML SYRINGE SUBCUT SCH ×3 (04:07→22:28)
[2017-07-29] MEDS: ONDANSETRON HCL INJ/PF 4 MG/2 ML SDV IV PRN (04:30)
[2017-07-29] MEDS: NORMAL SALINE 1000 ML 1,000 ML IV PRN ×2 (04:58→15:59)
[2017-07-29] MEDS: GABAPENTIN 100 MG CAPSULE PO SCH ×3 (05:39→22:39)
[2017-07-29] MEDS: TRAMADOL HCL 50 MG TABLET PO PRN ×4 (05:39→22:41)
[2017-07-29 05:52] LABS: ANION GAP 7 (5-19); BLOOD UREA NITROGEN 11 mg/dL (7-20); CALCIUM 8.3 mg/dL (8.4-10.2); CARBON DIOXIDE 26 mmol/L (22-30); CHLORIDE 104 mmol/L (98-107); GLUCOSE 120 mg/dL (75-110); POTASSIUM 4.1 mmol/L (3.6-5.0); SODIUM 136.8 mmol/L (137-145)
[2017-07-29] MEDS: CLONIDINE HCL 0.1 MG TABLET PO SCH ×2 (09:44→22:38)
[2017-07-29 10:26] LABS: CREATINE KINASE 26418 U/L (55-170)
--- NOTE | 2017-07-29 16:51 | PDOC PROGRESS REPORT ---
Subjective Progress Note for:: 07/29/17 Subjective:: Still with pain right hip, worse on the right. States he has surgery pending in [place] on 08/06. Tramadol helping some with the pain, although not as well as Oxycodone, which he states he was trying to wean himself off of. States tramadol q 6 hrs not working long enough. No chest pain or palpitations, no abdominal pain, no nausea vomiting. Reason For Visit: ETOH W/D SEIZURE, ARF RHABDO, HYPONATREMIA Physical Exam Vital Signs: Temp Pulse Resp BP Pulse Ox 98.2 F 97 16 132/92 H 100 07/29/17 12:00 07/29/17 12:00 07/29/17 12:00 07/29/17 12:00 07/29/17 12:00 Intake & Output 07/28/17 07/29/17 07/30/17 06:59 06:59 06:59 Intake Total 2481 2505 591 Output Total 975 0 Balance 1506 2505 591 Weight 80.2 kg 73.6 kg GEN: NAD, well-developed CV: RRR, NL S1S2 LUNGS: CTA bilaterally ABDOMEN Soft, NT, +BS EXTERMITIES: No e/c/c NEURO: Alert, oriented 3, generalized weakness Results Laboratory Results: 07/28/17 04:22 07/29/17 04:54 07/29/17 04:54 Sodium 136.8 L Potassium 4.1 Chloride 104 Carbon Dioxide 26 Anion Gap 7 BUN 11 Creatinine 0.57 Est GFR ( Amer) > 60 Est GFR (Non-Af Amer) > 60 Glucose 120 H Calcium 8.3 L 07/25/17 07/25/17 07/25/17 20:15 20:15 20:15 Creatine Kinase 20629 H CK-MB (CK-2) 40.00 H Troponin I 0.119 Cancelled 07/26/17 07/26/17 07/26/17 04:14 04:14 12:41 Creatine Kinase 62011 H 82989 H CK-MB (CK-2) 27.40 H Troponin I 0.075 07/26/17 07/27/17 07/28/17 12:41 04:55 04:22 Creatine Kinase 47007 H 16616 H CK-MB (CK-2) 12.40 H Troponin I 0.046 07/29/17 04:54 Creatine Kinase 51558 H CK-MB (CK-2) Troponin I Impressions: Head CT 07/25/17 14:30 IMPRESSION: NORMAL BRAIN CT WITHOUT CONTRAST. EVIDENCE OF ACUTE STROKE: NO. Head MRI 07/25/17 16:11 IMPRESSION: Negative for acute or sub-acute infarction. EVIDENCE OF ACUTE STROKE: NO. Chest X-Ray 07/28/17 00:00 IMPRESSION: NO ACUTE DISEASE. Assessment & Plan - Plan Summary Plan Summary: (1) Acute encephalopathy Is this a current diagnosis for this admission?: Yes Plan: Improved. Awake, alert. Liver enzymes remains elevated but stable and ammonia normal. History of alcoholic and hepatitis C cirrhosis. UTD positive for marijuana only, patient states he was on oxycodone as outpatient but he was trying to wean himself off that is why urine was negative for it. -We will change tramadol from every 6 hours to every 4 hours as needed (2) Hypokalemia Is this a current diagnosis for this admission?: Yes Plan: Improved but still slightly low today. We will replete and continue to monitor (3) Hyponatremia Is this a current diagnosis for this admission?: Yes Plan: Corrected (4) Rhabdomyolysis Qualifiers: Rhabdomyolysis type: non-traumatic Qualified Code(s): M62.82 - Rhabdomyolysis Is this a current diagnosis for this admission?: Yes Plan: CPKs trending down but still markedly elevated. Continue hydration and monitor CPKs (5) bilateral hip pain Is this a current diagnosis for this admission?: Yes Plan: Continue Neurontin, tramadol as needed. Trying to limit narcotics.
[2017-07-29] MEDS: THIAMINE HCL 100 MG, FOLIC ACID 1 MG in NORMAL SALINE 250 ML IV SCH (22:38)
[2017-07-29] MEDS: DIAZEPAM 5 MG TABLET PO PRN (22:41)
[2017-07-30] MEDS: HEPARIN SOD (PORCINE) 5,000 UNIT/ML 1 ML SYRINGE SUBCUT SCH (06:03)
[2017-07-30] MEDS: GABAPENTIN 100 MG CAPSULE PO SCH ×3 (06:22→23:05)
[2017-07-30 07:32] LABS: ABSOLUTE EOSINOPHILS # (AUTO) 0.1 10^3/uL (0.0-0.6); ABSOLUTE LYMPHOCYTES (AUTO) 0.9 10^3/uL (0.5-4.7); ABSOLUTE NEUT (AUTO) 5.7 10^3/uL (1.7-8.2); BASOPHILS % (AUTO) 0.3 % (0-2); EOSINOPHILS % (AUTO) 1.8 % (0-6); HEMATOCRIT 34.4 % (37.9-51.0); HEMOGLOBIN 11.8 g/dL (13.5-17.0); LYMPHOCYTES % (AUTO) 11.4 % (13-45); MEAN CORPUSCULAR HEMOGLOBIN 30.5 pg (27.0-33.4); MEAN CORPUSCULAR HGB CONC 34.4 g/dL (32.0-36.0); MEAN CORPUSCULAR VOLUME 88 fl (80-97); MONOCYTES % (AUTO) 13.4 % (3-13); PLATELET COUNT 138 10^3/uL (150-450); RED BLOOD COUNT 3.89 10^6/uL (4.35-5.55); RED CELL DISTRIBUTION WIDTH 13.3 % (11.5-14.0); SEGMENTED NEUTROPHILS % (AUTO) 73.1 % (42-78); TOTAL CELLS COUNTED % (AUTO) 100 %; WHITE BLOOD COUNT 7.8 10^3/uL (4.0-10.5)
[2017-07-30 07:56] LABS: ANION GAP 9 (5-19); BLOOD UREA NITROGEN 9 mg/dL (7-20); CALCIUM 8.6 mg/dL (8.4-10.2); CARBON DIOXIDE 26 mmol/L (22-30); CHLORIDE 104 mmol/L (98-107); GLUCOSE 82 mg/dL (75-110); POTASSIUM 4.2 mmol/L (3.6-5.0); SODIUM 139.3 mmol/L (137-145)
[2017-07-30] MEDS: THIAMINE HCL 100 MG TABLET PO SCH (09:43)
[2017-07-30] MEDS: CLONIDINE HCL 0.1 MG TABLET PO SCH ×2 (09:44→23:05)
[2017-07-30] MEDS: TRAMADOL HCL 50 MG TABLET PO PRN (09:44)
[2017-07-30] MEDS: NORMAL SALINE 1000 ML 1,000 ML IV PRN ×2 (09:45→23:05)
[2017-07-30 10:20] LABS: PHOSPHORUS 3.4 mg/dL (2.5-4.5)
[2017-07-30] MEDS ORDERED: MAGNESIUM OXIDE 400 MG TABLET PO ONE (12:00)
[2017-07-30] MEDS ORDERED: ENOXAPARIN SODIUM INJ 40 MG/0.4 ML DISP.SYRIN SUBCUT ONE (12:30)
[2017-07-30] MEDS: DOCUSATE SODIUM 100 MG CAPSULE PO SCH (13:45)
[2017-07-30] MEDS: OXYCODONE HCL IR 5 MG TABLET PO PRN ×3 (13:47→22:57)
[2017-07-30] MEDS: ONDANSETRON HCL INJ/PF 4 MG/2 ML SDV IV PRN (13:53)
--- NOTE | 2017-07-30 14:47 | PDOC PROGRESS REPORT ---
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 In the ER his creatinine kinase was found to be 50,000, he was hyponatremic and had acute renal failure and a prolonged QT interval. He was started on IV fluids and electrolyte abnormalities were corrected. Rhabdomyolysis is secondary to polysubstance abuse. Creatinine kinase levels are now improving. He has chronic right hip pain for which she was supposed to get surgery done however he will need some rehab and treatment of his medical condition prior to being cleared for surgery. Reason For Visit: ETOH W/D SEIZURE, ARF RHABDO, HYPONATREMIA Physical Exam Vital Signs: Temp Pulse Resp BP Pulse Ox 99.1 F 80 18 132/77 H 99 07/30/17 10:50 07/30/17 10:50 07/30/17 10:50 07/30/17 10:50 07/30/17 10:50 Intake & Output 07/29/17 07/30/17 07/31/17 06:59 06:59 06:59 Intake Total 2505 3491 475 Output Total 0 Balance 2505 3491 475 Weight 73.6 kg 76.6 kg General appearance: PRESENT: no acute distress Ear exam: PRESENT: normal external ear exam Mouth exam: PRESENT: moist Teeth exam: PRESENT: poor dentation Respiratory exam: PRESENT: symmetrical, unlabored. ABSENT: crackles, wheezes Cardiovascular exam: PRESENT: RRR GI/Abdominal exam: PRESENT: normal bowel sounds, soft. ABSENT: tenderness Rectal exam: PRESENT: deferred Extremities exam: ABSENT: pedal edema Neurological exam: PRESENT: alert, awake, oriented to person, oriented to place , oriented to time, oriented to situation Skin exam: ABSENT: petechiae Results Laboratory Results: 07/30/17 06:18 07/30/17 06:18 07/30/17 07/30/17 07/30/17 06:18 06:18 06:18 WBC 7.8 RBC 3.89 L Hgb 11.8 L Hct 34.4 L MCV 88 MCH 30.5 MCHC 34.4 RDW 13.3 Plt Count 138 L Seg Neutrophils % 73.1 Lymphocytes % 11.4 L Monocytes % 13.4 H Eosinophils % 1.8 Basophils % 0.3 Absolute Neutrophils 5.7 Absolute Lymphocytes 0.9 Absolute Monocytes 1.0 Absolute Eosinophils 0.1 Absolute Basophils 0.0 Sodium 139.3 Potassium 4.2 Chloride 104 Carbon Dioxide 26 Anion Gap 9 BUN 9 Creatinine 0.54 Est GFR ( Amer) > 60 Est GFR (Non-Af Amer) > 60 Glucose 82 Calcium 8.6 Phosphorus 3.4 Magnesium 1.7 07/25/17 07/25/17 07/25/17 20:15 20:15 20:15 Creatine Kinase 06639 H CK-MB (CK-2) 40.00 H Troponin I 0.119 Cancelled NT-Pro-B Natriuret Pep 07/26/17 07/26/17 07/26/17 04:14 04:14 12:41 Creatine Kinase 25016 H 70420 H CK-MB (CK-2) 27.40 H Troponin I 0.075 NT-Pro-B Natriuret Pep 07/26/17 07/27/17 07/28/17 12:41 04:55 04:22 Creatine Kinase 93712 H 95261 H CK-MB (CK-2) 12.40 H Troponin I 0.046 NT-Pro-B Natriuret Pep 07/29/17 07/30/17 07/30/17 04:54 06:18 06:18 Creatine Kinase 69529 H 07313 H CK-MB (CK-2) Troponin I NT-Pro-B Natriuret Pep 262 Impressions: Head CT 07/25/17 14:30 IMPRESSION: NORMAL BRAIN CT WITHOUT CONTRAST. EVIDENCE OF ACUTE STROKE: NO. Head MRI 07/25/17 16:11 IMPRESSION: Negative for acute or sub-acute infarction. EVIDENCE OF ACUTE STROKE: NO. Chest X-Ray 07/28/17 00:00 IMPRESSION: NO ACUTE DISEASE. Assessment & Plan - Diagnosis (1) Acute encephalopathy Is this a current diagnosis for this admission?: Yes Plan: [place] to be secondary to polysubstance abuse and multiple electrolyte abnormalities. Resolved (2) Hypokalemia Is this a current diagnosis for this admission?: Yes Plan: Repleted (3) Hyponatremia Is this a current diagnosis for this admission?: Yes Plan: Resolved (4) Prolonged Q-T interval on ECG Is this a current diagnosis for this admission?: Yes Plan: Avoid QT prolonging agents (5) Rhabdomyolysis Qualifiers: Rhabdomyolysis type: non-traumatic Qualified Code(s): M62.82 - Rhabdomyolysis Is this a current diagnosis for this admission?: Yes Plan: Improving with IV fluids. Continue to monitor creatinine kinase (6) Thrombocytopenia Is this a current diagnosis for this admission?: Yes Plan: Improving. - Time Time Spent with patient: 25-34 minutes
[2017-07-30] MEDS: MAGNESIUM OXIDE 400 MG TABLET PO SCH (18:41)
[2017-07-30] MEDS: SENNOSIDES/DOCUSATE 8.6-50 MG 1 EACH TABLET PO SCH (23:04)
[2017-07-31] MEDS: OXYCODONE HCL IR 5 MG TABLET PO PRN ×5 (03:49→23:12)
[2017-07-31] MEDS: GABAPENTIN 100 MG CAPSULE PO SCH ×3 (05:44→23:12)
[2017-07-31] MEDS: MAGNESIUM OXIDE 400 MG TABLET PO SCH ×2 (09:56→18:34)
[2017-07-31] MEDS: DIAZEPAM 5 MG TABLET PO PRN (09:56)
[2017-07-31] MEDS: THIAMINE HCL 100 MG TABLET PO SCH (09:56)
[2017-07-31] MEDS: CLONIDINE HCL 0.1 MG TABLET PO SCH ×2 (09:57→23:12)
[2017-07-31] MEDS: NORMAL SALINE 1000 ML 1,000 ML IV PRN ×2 (09:59→18:35)
[2017-07-31] MEDS ORDERED: ENOXAPARIN SODIUM INJ 40 MG/0.4 ML DISP.SYRIN SUBCUT SCH (10:00)
--- NOTE | 2017-07-31 13:33 | PDOC PROGRESS REPORT ---
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 In the ER his creatinine kinase was found to be 50,000, he was hyponatremic and had acute renal failure and a prolonged QT interval. He was started on IV fluids and electrolyte abnormalities were corrected. Rhabdomyolysis is secondary to polysubstance abuse. Creatinine kinase levels are now improving. He has chronic right hip pain and had elective surgery scheduled. Will need some rehab first. Doing better, CK improving. Reason For Visit: ETOH W/D SEIZURE, ARF RHABDO, HYPONATREMIA Physical Exam Vital Signs: Temp Pulse Resp BP Pulse Ox 98.9 F 76 18 138/77 H 100 07/31/17 07:35 07/31/17 07:35 07/31/17 07:35 07/31/17 07:35 07/31/17 07:35 Intake & Output 07/30/17 07/31/17 08/01/17 06:59 06:59 06:59 Intake Total 3491 3194 350 Balance 3491 3194 350 Weight 76.6 kg 76.2 kg General appearance: PRESENT: no acute distress, thin Head exam: PRESENT: normocephalic Mouth exam: PRESENT: moist Respiratory exam: PRESENT: symmetrical, unlabored. ABSENT: crackles Cardiovascular exam: PRESENT: RRR GI/Abdominal exam: PRESENT: normal bowel sounds, soft Rectal exam: PRESENT: deferred Neurological exam: PRESENT: alert, awake, oriented to person, oriented to place , oriented to time, oriented to situation Results Laboratory Results: 07/30/17 06:18 07/30/17 06:18 07/25/17 07/25/17 07/25/17 20:15 20:15 20:15 Creatine Kinase 65927 H CK-MB (CK-2) 40.00 H Troponin I 0.119 Cancelled NT-Pro-B Natriuret Pep 07/26/17 07/26/17 07/26/17 04:14 04:14 12:41 Creatine Kinase 26431 H 24517 H CK-MB (CK-2) 27.40 H Troponin I 0.075 NT-Pro-B Natriuret Pep 07/26/17 07/27/17 07/28/17 12:41 04:55 04:22 Creatine Kinase 24307 H 29894 H CK-MB (CK-2) 12.40 H Troponin I 0.046 NT-Pro-B Natriuret Pep 07/29/17 07/30/17 07/30/17 04:54 06:18 06:18 Creatine Kinase 61759 H 26986 H CK-MB (CK-2) Troponin I NT-Pro-B Natriuret Pep 262 07/31/17 04:14 Creatine Kinase 7400 H CK-MB (CK-2) Troponin I NT-Pro-B Natriuret Pep Impressions: Head CT 07/25/17 14:30 IMPRESSION: NORMAL BRAIN CT WITHOUT CONTRAST. EVIDENCE OF ACUTE STROKE: NO. Head MRI 07/25/17 16:11 IMPRESSION: Negative for acute or sub-acute infarction. EVIDENCE OF ACUTE STROKE: NO. Chest X-Ray 07/28/17 00:00 IMPRESSION: NO ACUTE DISEASE. Assessment & Plan - Diagnosis (1) Acute encephalopathy Is this a current diagnosis for this admission?: Yes Plan: Secondary to polysubstance abuse and multiple electrolyte abnormalities. Resolved (2) Hypokalemia Is this a current diagnosis for this admission?: Yes Plan: Repleted (3) Hyponatremia Is this a current diagnosis for this admission?: Yes Plan: Resolved (4) Prolonged Q-T interval on ECG Is this a current diagnosis for this admission?: Yes Plan: Avoid QT prolonging agents (5) Rhabdomyolysis Qualifiers: Rhabdomyolysis type: non-traumatic Qualified Code(s): M62.82 - Rhabdomyolysis Is this a current diagnosis for this admission?: Yes Plan: Improving with IV fluids. Improved creatinine kinase levels (6) Thrombocytopenia Is this a current diagnosis for this admission?: Yes Plan: Improving. - Time Time Spent with patient: 25-34 minutes - Plan Summary Plan Summary: Awaiting rehab
[2017-07-31] MEDS: DOCUSATE SODIUM 100 MG CAPSULE PO SCH (15:01)
[2017-07-31] MEDS: MAGNESIUM HYDROXIDE SUSP 30 ML UDCUP PO PRN (15:02)
[2017-07-31] MEDS ORDERED: LIDOCAINE 5% (700 MG) TRANSDERMAL ADH..PATCH TP ONE (20:30)
[2017-07-31] MEDS ORDERED: LIDOCAINE 5% (700 MG) TRANSDERMAL ADH..PATCH ONE (22:36)
[2017-07-31] MEDS: SENNOSIDES/DOCUSATE 8.6-50 MG 1 EACH TABLET PO SCH (23:08)
[2017-07-31] MEDS: LIDOCAINE 5% (700 MG) TRANSDERMAL ADH..PATCH TP PRN (23:12)
[2017-08-01] MEDS: NORMAL SALINE 1000 ML 1,000 ML IV PRN ×3 (02:58→20:45)
[2017-08-01] MEDS: OXYCODONE HCL IR 5 MG TABLET PO PRN ×5 (02:59→20:39)
[2017-08-01] MEDS: GABAPENTIN 100 MG CAPSULE PO SCH ×3 (05:40→22:51)
[2017-08-01] MEDS: CLONIDINE HCL 0.1 MG TABLET PO SCH ×2 (09:19→22:51)
[2017-08-01] MEDS: MAGNESIUM OXIDE 400 MG TABLET PO SCH ×2 (09:19→17:20)
[2017-08-01] MEDS: THIAMINE HCL 100 MG TABLET PO SCH (09:19)
[2017-08-01] MEDS: ENOXAPARIN SODIUM INJ 40 MG/0.4 ML DISP.SYRIN SUBCUT SCH (09:20)
[2017-08-01] MEDS: DOCUSATE SODIUM 100 MG CAPSULE PO SCH (11:11)
--- NOTE | 2017-08-01 12:08 | PDOC PROGRESS REPORT ---
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 In the ER his creatinine kinase was found to be 50,000, he was hyponatremic and had acute renal failure and a prolonged QT interval. He was started on IV fluids and electrolyte abnormalities were corrected. Rhabdomyolysis is secondary to polysubstance abuse. Creatinine kinase levels are now improving. He has chronic right hip pain and had elective surgery scheduled. Doing better, CK improved. The patient states that he takes 10 mg of oxycodone at home every 4 hours as needed He reports being constipated. He is currently awaiting acute rehab placement. Reason For Visit: ETOH W/D SEIZURE, ARF RHABDO, HYPONATREMIA Physical Exam Vital Signs: Temp Pulse Resp BP Pulse Ox 98.6 F 84 12 125/73 100 08/01/17 11:59 08/01/17 11:59 08/01/17 11:59 08/01/17 11:59 08/01/17 11:59 Intake & Output 07/31/17 08/01/17 08/02/17 06:59 06:59 06:59 Intake Total 3194 4023 Balance 3194 4023 Weight 76.2 kg 79 kg General appearance: PRESENT: no acute distress Eye exam: ABSENT: scleral icterus Ear exam: PRESENT: normal external ear exam Mouth exam: PRESENT: moist Teeth exam: PRESENT: poor dentation Neck exam: ABSENT: tracheal deviation Respiratory exam: PRESENT: symmetrical, unlabored. ABSENT: crackles Cardiovascular exam: PRESENT: RRR GI/Abdominal exam: PRESENT: normal bowel sounds, soft. ABSENT: tenderness Rectal exam: PRESENT: deferred Extremities exam: ABSENT: pedal edema Neurological exam: PRESENT: alert, awake, oriented to person, oriented to place , oriented to time, oriented to situation Psychiatric exam: PRESENT: appropriate affect Skin exam: ABSENT: rash Results Laboratory Results: 07/30/17 06:18 07/30/17 06:18 07/25/17 07/25/17 07/25/17 20:15 20:15 20:15 Creatine Kinase 85615 H CK-MB (CK-2) 40.00 H Troponin I 0.119 Cancelled NT-Pro-B Natriuret Pep 07/26/17 07/26/17 07/26/17 04:14 04:14 12:41 Creatine Kinase 19007 H 07157 H CK-MB (CK-2) 27.40 H Troponin I 0.075 NT-Pro-B Natriuret Pep 07/26/17 07/27/17 07/28/17 12:41 04:55 04:22 Creatine Kinase 44246 H 71162 H CK-MB (CK-2) 12.40 H Troponin I 0.046 NT-Pro-B Natriuret Pep 07/29/17 07/30/17 07/30/17 04:54 06:18 06:18 Creatine Kinase 26994 H 22538 H CK-MB (CK-2) Troponin I NT-Pro-B Natriuret Pep 262 07/31/17 08/01/17 04:14 03:16 Creatine Kinase 7400 H 3073 H CK-MB (CK-2) Troponin I NT-Pro-B Natriuret Pep Impressions: Head CT 07/25/17 14:30 IMPRESSION: NORMAL BRAIN CT WITHOUT CONTRAST. EVIDENCE OF ACUTE STROKE: NO. Head MRI 07/25/17 16:11 IMPRESSION: Negative for acute or sub-acute infarction. EVIDENCE OF ACUTE STROKE: NO. Chest X-Ray 07/28/17 00:00 IMPRESSION: NO ACUTE DISEASE. Assessment & Plan - Diagnosis (1) Acute encephalopathy Is this a current diagnosis for this admission?: Yes Plan: Secondary to polysubstance abuse and multiple electrolyte abnormalities. Resolved (2) Hypokalemia Is this a current diagnosis for this admission?: Yes Plan: Repleted (3) Hyponatremia Is this a current diagnosis for this admission?: Yes Plan: Resolved (4) Prolonged Q-T interval on ECG Is this a current diagnosis for this admission?: Yes Plan: Avoid QT prolonging agents (5) Rhabdomyolysis Qualifiers: Rhabdomyolysis type: non-traumatic Qualified Code(s): M62.82 - Rhabdomyolysis Is this a current diagnosis for this admission?: Yes Plan: Improving with IV fluids. Improved creatinine kinase levels (6) Thrombocytopenia Is this a current diagnosis for this admission?: Yes Plan: This is a chronic problem. - Time Time Spent with patient: 25-34 minutes
[2017-08-01] MEDS: DIAZEPAM 5 MG TABLET PO PRN (13:05)
[2017-08-01] MEDS: LACTULOSE SYRUP 20 GM/30 ML UDCUP PO SCH (17:20)
[2017-08-01] MEDS: LIDOCAINE 5% (700 MG) TRANSDERMAL ADH..PATCH TP PRN (22:51)
[2017-08-01] MEDS: SENNOSIDES/DOCUSATE 8.6-50 MG 1 EACH TABLET PO SCH (22:51)
[2017-08-02] MEDS: OXYCODONE HCL IR 5 MG TABLET PO PRN ×6 (00:46→21:16)
[2017-08-02] MEDS: NORMAL SALINE 1000 ML 1,000 ML IV PRN ×2 (04:51→14:04)
[2017-08-02] MEDS: GABAPENTIN 100 MG CAPSULE PO SCH ×3 (05:01→21:15)
[2017-08-02 05:54] LABS: ANION GAP 7 (5-19); BLOOD UREA NITROGEN 16 mg/dL (7-20); CALCIUM 8.3 mg/dL (8.4-10.2); CARBON DIOXIDE 27 mmol/L (22-30); CHLORIDE 107 mmol/L (98-107); CREATINE KINASE 1409 U/L (55-170); GLUCOSE 74 mg/dL (75-110); PHOSPHORUS 4.5 mg/dL (2.5-4.5); POTASSIUM 4.3 mmol/L (3.6-5.0); SODIUM 140.6 mmol/L (137-145)
[2017-08-02] MEDS: DIAZEPAM 5 MG TABLET PO PRN (09:17)
[2017-08-02] MEDS: CLONIDINE HCL 0.1 MG TABLET PO SCH ×2 (09:18→21:16)
[2017-08-02] MEDS: MAGNESIUM OXIDE 400 MG TABLET PO SCH ×2 (09:18→17:13)
[2017-08-02] MEDS: THIAMINE HCL 100 MG TABLET PO SCH (09:18)
[2017-08-02] MEDS: LACTULOSE SYRUP 20 GM/30 ML UDCUP PO SCH ×2 (09:20→17:14)
[2017-08-02] MEDS: ENOXAPARIN SODIUM INJ 40 MG/0.4 ML DISP.SYRIN SUBCUT SCH (09:22)
--- NOTE | 2017-08-02 15:03 | PDOC PROGRESS REPORT ---
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 In the ER his creatinine kinase was found to be 50,000, he was hyponatremic and had acute renal failure and a prolonged QT interval. He was started on IV fluids and electrolyte abnormalities were corrected. Rhabdomyolysis is secondary to polysubstance abuse. Creatinine kinase levels are now improving. He has chronic right hip pain and had elective surgery scheduled. Doing better, CK improved. Awaiting acute rehab placement. Reason For Visit: ETOH W/D SEIZURE, ARF RHABDO, HYPONATREMIA Physical Exam Vital Signs: Temp Pulse Resp BP Pulse Ox 99.2 F 83 18 122/72 100 08/02/17 11:32 08/02/17 11:32 08/02/17 07:41 08/02/17 11:32 08/02/17 11:32 Intake & Output 08/01/17 08/02/17 08/03/17 06:59 06:59 06:59 Intake Total 4023 4422 354 Output Total 875 0345 Balance 4023 0126 -1125 Weight 79 kg 76.5 kg General appearance: PRESENT: no acute distress, thin Head exam: PRESENT: normocephalic Eye exam: ABSENT: scleral icterus Ear exam: PRESENT: normal external ear exam Mouth exam: PRESENT: moist Respiratory exam: PRESENT: symmetrical, unlabored. ABSENT: crackles Cardiovascular exam: PRESENT: RRR GI/Abdominal exam: PRESENT: normal bowel sounds, soft. ABSENT: tenderness Rectal exam: PRESENT: deferred Neurological exam: PRESENT: alert, awake, oriented to person Results Laboratory Results: 07/30/17 06:18 08/02/17 05:00 08/02/17 05:00 Sodium 140.6 Potassium 4.3 Chloride 107 Carbon Dioxide 27 Anion Gap 7 BUN 16 Creatinine 0.56 Est GFR ( Amer) > 60 Est GFR (Non-Af Amer) > 60 Glucose 74 L Calcium 8.3 L Phosphorus 4.5 Magnesium 1.9 07/25/17 07/25/17 07/25/17 20:15 20:15 20:15 Creatine Kinase 71880 H CK-MB (CK-2) 40.00 H Troponin I 0.119 Cancelled NT-Pro-B Natriuret Pep 07/26/17 07/26/17 07/26/17 04:14 04:14 12:41 Creatine Kinase 02591 H 40848 H CK-MB (CK-2) 27.40 H Troponin I 0.075 NT-Pro-B Natriuret Pep 07/26/17 07/27/17 07/28/17 12:41 04:55 04:22 Creatine Kinase 33331 H 36615 H CK-MB (CK-2) 12.40 H Troponin I 0.046 NT-Pro-B Natriuret Pep 07/29/17 07/30/17 07/30/17 04:54 06:18 06:18 Creatine Kinase 11968 H 34417 H CK-MB (CK-2) Troponin I NT-Pro-B Natriuret Pep 262 07/31/17 08/01/17 08/02/17 04:14 03:16 05:00 Creatine Kinase 7400 H 3073 H 1409 H CK-MB (CK-2) Troponin I NT-Pro-B Natriuret Pep Impressions: Head CT 07/25/17 14:30 IMPRESSION: NORMAL BRAIN CT WITHOUT CONTRAST. EVIDENCE OF ACUTE STROKE: NO. Head MRI 07/25/17 16:11 IMPRESSION: Negative for acute or sub-acute infarction. EVIDENCE OF ACUTE STROKE: NO. Chest X-Ray 07/28/17 00:00 IMPRESSION: NO ACUTE DISEASE. Assessment & Plan - Diagnosis (1) Acute encephalopathy Is this a current diagnosis for this admission?: Yes Plan: Secondary to polysubstance abuse and multiple electrolyte abnormalities. Resolved (2) Hypokalemia Is this a current diagnosis for this admission?: Yes Plan: Repleted (3) Hyponatremia Is this a current diagnosis for this admission?: Yes Plan: Resolved (4) Prolonged Q-T interval on ECG Is this a current diagnosis for this admission?: Yes Plan: Avoid QT prolonging agents (5) Rhabdomyolysis Qualifiers: Rhabdomyolysis type: non-traumatic Qualified Code(s): M62.82 - Rhabdomyolysis Is this a current diagnosis for this admission?: Yes Plan: resolved with IV fluids. Improved creatinine kinase levels (6) Thrombocytopenia Is this a current diagnosis for this admission?: Yes Plan: This is a chronic problem. - Time Time Spent with patient: 25-34 minutes
[2017-08-02] MEDS: SENNOSIDES/DOCUSATE 8.6-50 MG 1 EACH TABLET PO SCH (21:15)
[2017-08-02] MEDS: LIDOCAINE 5% (700 MG) TRANSDERMAL ADH..PATCH TP PRN (22:21)
[2017-08-03] MEDS: OXYCODONE HCL IR 5 MG TABLET PO PRN ×6 (02:06→23:29)
[2017-08-03] MEDS: NORMAL SALINE 1000 ML 1,000 ML IV PRN ×2 (02:46→14:47)
[2017-08-03] MEDS: DIAZEPAM 5 MG TABLET PO PRN (03:54)
[2017-08-03] MEDS: GABAPENTIN 100 MG CAPSULE PO SCH ×3 (05:38→23:29)
[2017-08-03] MEDS: THIAMINE HCL 100 MG TABLET PO SCH (10:45)
[2017-08-03] MEDS: ENOXAPARIN SODIUM INJ 40 MG/0.4 ML DISP.SYRIN SUBCUT SCH (10:46)
[2017-08-03] MEDS: MAGNESIUM OXIDE 400 MG TABLET PO SCH ×2 (10:46→19:34)
[2017-08-03] MEDS: CLONIDINE HCL 0.1 MG TABLET PO SCH ×2 (10:46→23:29)
[2017-08-03] MEDS: LACTULOSE SYRUP 20 GM/30 ML UDCUP PO SCH ×2 (10:46→17:40)
--- NOTE | 2017-08-03 16:13 | PDOC PROGRESS REPORT ---
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 In the ER his creatinine kinase was found to be 50,000, he was hyponatremic and had acute renal failure and a prolonged QT interval. He was started on IV fluids and electrolyte abnormalities were corrected. Rhabdomyolysis is secondary to polysubstance abuse. Creatinine kinase levels are now improving. He has chronic right hip pain and had elective surgery scheduled. Doing better, CK improved. Awaiting acute rehab placement. Complaining of L hand numbness and weakness of fingers. He has a healed laceration on the flexor/ulnar aspect of the left wrist with trouble opposing the fingers to the thumb. He reports having perhaps sustained an injury when he fell and was down on the floor at home. X-ray of the left hand ordered. We will proceed with MRI depending on x-ray results. Reason For Visit: ETOH W/D SEIZURE, ARF RHABDO, HYPONATREMIA Physical Exam Vital Signs: Temp Pulse Resp BP Pulse Ox 98.5 F 85 17 114/67 99 08/03/17 15:20 08/03/17 15:20 08/03/17 15:20 08/03/17 15:20 08/03/17 15:20 Intake & Output 08/02/17 08/03/17 08/04/17 06:59 06:59 06:59 Intake Total 4422 4012 1300 Output Total 875 1775 825 Balance 3547 2237 475 Weight 76.5 kg 78.6 kg General appearance: PRESENT: thin Head exam: PRESENT: normocephalic Eye exam: ABSENT: scleral icterus Mouth exam: PRESENT: moist Teeth exam: PRESENT: poor dentation Neck exam: ABSENT: tracheal deviation Respiratory exam: PRESENT: symmetrical, tachypnea. ABSENT: wheezes Cardiovascular exam: PRESENT: RRR GI/Abdominal exam: PRESENT: normal bowel sounds, soft. ABSENT: tenderness Rectal exam: PRESENT: deferred Gentrourinary exam: ABSENT: indwelling catheter Extremities exam: ABSENT: pedal edema Musculoskeletal exam: PRESENT: other - He has a healed laceration on the flexor/ ulnar aspect of the left wrist with trouble opposing the fingers to the thumb. Numbness and decreased sensation of the left hand. Neurological exam: PRESENT: alert, awake, oriented to person, oriented to place , oriented to time, oriented to situation Psychiatric exam: PRESENT: appropriate affect Skin exam: ABSENT: petechiae Results Laboratory Results: 07/30/17 06:18 08/02/17 05:00 07/25/17 07/25/17 07/25/17 20:15 20:15 20:15 Creatine Kinase 70751 H CK-MB (CK-2) 40.00 H Troponin I 0.119 Cancelled NT-Pro-B Natriuret Pep 07/26/17 07/26/17 07/26/17 04:14 04:14 12:41 Creatine Kinase 97269 H 81547 H CK-MB (CK-2) 27.40 H Troponin I 0.075 NT-Pro-B Natriuret Pep 07/26/17 07/27/17 07/28/17 12:41 04:55 04:22 Creatine Kinase 89866 H 72760 H CK-MB (CK-2) 12.40 H Troponin I 0.046 NT-Pro-B Natriuret Pep 07/29/17 07/30/17 07/30/17 04:54 06:18 06:18 Creatine Kinase 55719 H 14296 H CK-MB (CK-2) Troponin I NT-Pro-B Natriuret Pep 262 07/31/17 08/01/17 08/02/17 04:14 03:16 05:00 Creatine Kinase 7400 H 3073 H 1409 H CK-MB (CK-2) Troponin I NT-Pro-B Natriuret Pep Impressions: Head CT 07/25/17 14:30 IMPRESSION: NORMAL BRAIN CT WITHOUT CONTRAST. EVIDENCE OF ACUTE STROKE: NO. Head MRI 07/25/17 16:11 IMPRESSION: Negative for acute or sub-acute infarction. EVIDENCE OF ACUTE STROKE: NO. Chest X-Ray 07/28/17 00:00 IMPRESSION: NO ACUTE DISEASE. Assessment & Plan - Diagnosis (1) Acute encephalopathy Is this a current diagnosis for this admission?: Yes Plan: Secondary to polysubstance abuse and multiple electrolyte abnormalities. Resolved (2) Hypokalemia Is this a current diagnosis for this admission?: Yes Plan: Repleted (3) Hyponatremia Is this a current diagnosis for this admission?: Yes Plan: Resolved (4) Prolonged Q-T interval on ECG Is this a current diagnosis for this admission?: Yes Plan: Avoid QT prolonging agents (5) Rhabdomyolysis Qualifiers: Rhabdomyolysis type: non-traumatic Qualified Code(s): M62.82 - Rhabdomyolysis Is this a current diagnosis for this admission?: Yes Plan: Resolved with IV fluids. Improved creatinine kinase levels (6) Thrombocytopenia Is this a current diagnosis for this admission?: Yes Plan: This is chronic. (7) Numbness of left hand Is this a current diagnosis for this admission?: Yes Plan: Possibly related to injury. And so patient is claiming that there was a breech of etiologyX-ray ordered. We will follow-up on results. This - Time Time Spent with patient: 25-34 minutes
--- NOTE | 2017-08-03 17:02 | RADIOLOGY REPORT (SQ) ---
EXAM DESCRIPTION: HAND LEFT 3 VIEWS COMPLETED DATE/TIME: 08/03/2017 4:49 pm REASON FOR STUDY: Trauma pain COMPARISON: None. EXAM PARAMETERS: NUMBER OF VIEWS: Three views. TECHNIQUE: AP, lateral and oblique radiographic images acquired of the left hand. LIMITATIONS: None. FINDINGS: MINERALIZATION: Normal. BONES: No acute fracture or dislocation. No worrisome bone lesions. JOINTS: No effusions. SOFT TISSUES: No soft tissue swelling. No foreign body. OTHER: No other significant finding. IMPRESSION: NEGATIVE STUDY OF THE LEFT HAND. NO RADIOGRAPHIC EVIDENCE OF ACUTE INJURY. TECHNICAL DOCUMENTATION: JOB ID: [id number] [employer]- All Rights Reserved Reading location - IP/workstation name: [email or web address]
[2017-08-03] MEDS: SENNOSIDES/DOCUSATE 8.6-50 MG 1 EACH TABLET PO SCH (23:28)
[2017-08-04] MEDS: LIDOCAINE 5% (700 MG) TRANSDERMAL ADH..PATCH TP PRN (01:37)
[2017-08-04] MEDS: NORMAL SALINE 1000 ML 1,000 ML IV PRN (01:38)
[2017-08-04] MEDS: OXYCODONE HCL IR 5 MG TABLET PO PRN ×4 (04:05→16:10)
[2017-08-04] MEDS: GABAPENTIN 100 MG CAPSULE PO SCH ×3 (05:23→21:13)
[2017-08-04 06:04] LABS: ANION GAP 10 (5-19); BLOOD UREA NITROGEN 14 mg/dL (7-20); CALCIUM 9.1 mg/dL (8.4-10.2); CARBON DIOXIDE 28 mmol/L (22-30); CHLORIDE 105 mmol/L (98-107); CREATINE KINASE 765 U/L (55-170); GLUCOSE 81 mg/dL (75-110); PHOSPHORUS 4.7 mg/dL (2.5-4.5); POTASSIUM 4.3 mmol/L (3.6-5.0)
[2017-08-04 06:05] LABS: HEMOGLOBIN 11.7 g/dL (13.5-17.0); MEAN CORPUSCULAR HGB CONC 33.5 g/dL (32.0-36.0); MEAN CORPUSCULAR VOLUME 90 fl (80-97); PLATELET COUNT 188 10^3/uL (150-450); RED BLOOD COUNT 3.91 10^6/uL (4.35-5.55); RED CELL DISTRIBUTION WIDTH 13.9 % (11.5-14.0)
[2017-08-04 07:17] LABS: ABSOLUTE LYMPHOCYTES# (MANUAL) 0.9 10^3/uL (0.5-4.7); ABSOLUTE MONOCYTES # (MANUAL) 0.5 10^3/uL (0.1-1.4); ABSOLUTE NEUTROPHILS# (MANUAL) 4.4 10^3/uL (1.7-8.2); BAND NEUTROPHILS % (MANUAL) 3 % (3-5); BASOPHILS % (MANUAL) 1 % (0-2); EOSINOPHILS % (MANUAL) 1 % (0-6); LYMPHOCYTES % (MANUAL) 15 % (13-45); MONOCYTES % (MANUAL) 9 % (3-13); SEGMENTED NEUTROPHILS % (MAN) 71 % (42-78); TOTAL CELLS COUNTED 100
[2017-08-04 07:19] LABS: ANISOCYTOSIS 1+; HYPOCHROMASIA 1+; PLATELET COMMENT ADEQUATE
[2017-08-04] MEDS: MAGNESIUM OXIDE 400 MG TABLET PO SCH ×2 (08:14→16:08)
[2017-08-04] MEDS: ENOXAPARIN SODIUM INJ 40 MG/0.4 ML DISP.SYRIN SUBCUT SCH (08:14)
[2017-08-04] MEDS: CLONIDINE HCL 0.1 MG TABLET PO SCH ×2 (08:14→21:14)
[2017-08-04] MEDS: THIAMINE HCL 100 MG TABLET PO SCH (08:14)
[2017-08-04] MEDS: LACTULOSE SYRUP 20 GM/30 ML UDCUP PO SCH ×2 (08:15→16:10)
--- NOTE | 2017-08-04 14:07 | PDOC PROGRESS REPORT ---
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 In the ER his creatinine kinase was found to be 50,000, he was hyponatremic and had acute renal failure and a prolonged QT interval. He was started on IV fluids and electrolyte abnormalities were corrected. Rhabdomyolysis is secondary to polysubstance abuse. Creatinine kinase levels are now improving. He has chronic right hip pain and had elective surgery scheduled. Complaining of L hand numbness and weakness of fingers. He has a healed laceration on the flexor/ulnar aspect of the left wrist with trouble opposing the fingers to the thumb. He reports having perhaps sustained an injury when he fell and was down on the floor at home. X-ray of the left hand showed no fracture or dislocation. The case was discussed with Dr. Bartlett the orthopedic surgeon on-call who will evaluate the patient and requested an MRI. Creatinine kinase levels have improved. IV fluids stopped. Awaiting rehab. Reason For Visit: ETOH W/D SEIZURE, ARF RHABDO, HYPONATREMIA Physical Exam Vital Signs: Temp Pulse Resp BP Pulse Ox 98.4 F 76 18 118/70 100 08/04/17 11:22 08/04/17 11:22 08/04/17 11:22 08/04/17 11:22 08/04/17 11:22 Intake & Output 08/03/17 08/04/17 08/05/17 06:59 06:59 06:59 Intake Total 4012 2986 625 Output Total 4455 6385 300 Balance 2237 511 325 Weight 78.6 kg 78.5 kg General appearance: PRESENT: no acute distress, thin Head exam: PRESENT: normocephalic Eye exam: ABSENT: scleral icterus Ear exam: PRESENT: normal external ear exam Mouth exam: PRESENT: moist Respiratory exam: PRESENT: symmetrical, unlabored. ABSENT: crackles Cardiovascular exam: PRESENT: RRR GI/Abdominal exam: PRESENT: normal bowel sounds, soft. ABSENT: tenderness Rectal exam: PRESENT: deferred Gentrourinary exam: ABSENT: indwelling catheter Extremities exam: ABSENT: pedal edema Neurological exam: PRESENT: alert, awake, oriented to person, oriented to place , oriented to time, oriented to situation Psychiatric exam: PRESENT: appropriate affect Results Laboratory Results: 08/04/17 05:04 08/04/17 05:04 08/04/17 08/04/17 05:04 05:04 WBC 6.0 RBC 3.91 L Hgb 11.7 L Hct 35.0 L MCV 90 MCH 30.0 MCHC 33.5 RDW 13.9 Plt Count 188 Seg Neutrophils % Not Reportable Lymphocytes % Not Reportable Monocytes % Not Reportable Eosinophils % Not Reportable Basophils % Not Reportable Absolute Neutrophils Not Reportable Absolute Lymphocytes Not Reportable Absolute Monocytes Not Reportable Absolute Eosinophils Not Reportable Absolute Basophils Not Reportable Sodium 143.0 Potassium 4.3 Chloride 105 Carbon Dioxide 28 Anion Gap 10 BUN 14 Creatinine 0.68 Est GFR ( Amer) > 60 Est GFR (Non-Af Amer) > 60 Glucose 81 Calcium 9.1 Phosphorus 4.7 H Magnesium 2.1 07/25/17 07/25/17 07/25/17 20:15 20:15 20:15 Creatine Kinase 89758 H CK-MB (CK-2) 40.00 H Troponin I 0.119 Cancelled NT-Pro-B Natriuret Pep 07/26/17 07/26/17 07/26/17 04:14 04:14 12:41 Creatine Kinase 70688 H 59647 H CK-MB (CK-2) 27.40 H Troponin I 0.075 NT-Pro-B Natriuret Pep 07/26/17 07/27/17 07/28/17 12:41 04:55 04:22 Creatine Kinase 86782 H 74703 H CK-MB (CK-2) 12.40 H Troponin I 0.046 NT-Pro-B Natriuret Pep 07/29/17 07/30/17 07/30/17 04:54 06:18 06:18 Creatine Kinase 77603 H 62680 H CK-MB (CK-2) Troponin I NT-Pro-B Natriuret Pep 262 07/31/17 08/01/17 08/02/17 04:14 03:16 05:00 Creatine Kinase 7400 H 3073 H 1409 H CK-MB (CK-2) Troponin I NT-Pro-B Natriuret Pep 08/04/17 05:04 Creatine Kinase 765 H CK-MB (CK-2) Troponin I NT-Pro-B Natriuret Pep Impressions: Head CT 07/25/17 14:30 IMPRESSION: NORMAL BRAIN CT WITHOUT CONTRAST. EVIDENCE OF ACUTE STROKE: NO. Head MRI 07/25/17 16:11 IMPRESSION: Negative for acute or sub-acute infarction. EVIDENCE OF ACUTE STROKE: NO. Chest X-Ray 07/28/17 00:00 IMPRESSION: NO ACUTE DISEASE. Hand X-Ray 08/03/17 00:00 IMPRESSION: NEGATIVE STUDY OF THE LEFT HAND. NO RADIOGRAPHIC EVIDENCE OF ACUTE INJURY. Assessment & Plan - Diagnosis (1) Acute encephalopathy Is this a current diagnosis for this admission?: Yes Plan: Secondary to polysubstance abuse and multiple electrolyte abnormalities. Resolved (2) Hypokalemia Is this a current diagnosis for this admission?: Yes Plan: Repleted (3) Hyponatremia Is this a current diagnosis for this admission?: Yes Plan: Resolved (4) Prolonged Q-T interval on ECG Is this a current diagnosis for this admission?: Yes Plan: Avoid QT prolonging agents (5) Rhabdomyolysis Qualifiers: Rhabdomyolysis type: non-traumatic Qualified Code(s): M62.82 - Rhabdomyolysis Is this a current diagnosis for this admission?: Yes Plan: Resolved with IV fluids. Improved creatinine kinase levels (6) Thrombocytopenia Is this a current diagnosis for this admission?: Yes Plan: This is chronic. (7) Numbness of left hand Is this a current diagnosis for this admission?: Yes Plan: Possibly secondary to nerve injury MRI ordered. Orthopedic consult requested. - Time Time Spent with patient: 25-34 minutes
[2017-08-04] MEDS: DIAZEPAM 5 MG TABLET PO PRN (20:03)
[2017-08-04] MEDS: SENNOSIDES/DOCUSATE 8.6-50 MG 1 EACH TABLET PO SCH (21:14)
[2017-08-05] MEDS: OXYCODONE HCL IR 5 MG TABLET PO PRN ×5 (04:17→23:10)
[2017-08-05] MEDS: GABAPENTIN 100 MG CAPSULE PO SCH (05:10)
[2017-08-05] MEDS: ENOXAPARIN SODIUM INJ 40 MG/0.4 ML DISP.SYRIN SUBCUT SCH (10:08)
[2017-08-05] MEDS: MAGNESIUM OXIDE 400 MG TABLET PO SCH ×2 (10:08→17:20)
[2017-08-05] MEDS: CLONIDINE HCL 0.1 MG TABLET PO SCH ×2 (10:08→21:06)
[2017-08-05] MEDS: THIAMINE HCL 100 MG TABLET PO SCH (10:08)
[2017-08-05] MEDS: LACTULOSE SYRUP 20 GM/30 ML UDCUP PO SCH ×2 (10:09→17:21)
--- NOTE | 2017-08-05 10:19 | RADIOLOGY REPORT (SQ) ---
EXAM DESCRIPTION: MRI LT UPPER JOINT WITHOUT COMPLETED DATE/TIME: 08/03/2017 11:07 pm REASON FOR STUDY: L wrist injury, numbness ? nerve injury COMPARISON: LEFT HAND FILMS 08/03/2017 TECHNIQUE: Left wrist images acquired and stored on PACS. Multiplanar images include fat sensitive sequences as T1, fluid sensitive sequences as FST2/STIR, cartilage sensitive sequences as FSPD, gradi ent echo sequences. LIMITATIONS: Motion artifact throughout the study FINDINGS: BONE MARROW: No alteration of signal to suggest marrow replacement or edema. No occult fra cture. No large osteophytes. CARPAL ALIGNMENT AND ARTICULATION: Mild negative ulnar variance. Normal capitolunate angle. No wideni ng of scapholunate articulation. EFFUSION: None noted. No loose bodies. SCAPHOLUNATE LIGAMENT: Grossly intact LUNATE-TRIQUETRAL LIGAMENT: Grossly intact TFC COMPLEX: Radial attachments are intact. Ulnar attachments not well seen. EXTRINSIC LIGAMENTS AND DISTAL RADIO-ULNAR JOINT: Dorsal and volar distal RUJ intact without subluxat ion of the distal ulna. 1-6 EXTENSOR COMPARTMENTS: Normal. Specifically no tendinopathy of the abductor pollicis longus or ex tensor pollicis brevis to suggest de Quervain's Syndrome. CARPAL TUNNEL AND MEDIAN NERVE: Very limited view due to motion artifact. No abnormal of gross incre ased signal in median nerve OTHER: No other significant finding. IMPRESSION: Very limited negative study. TECHNICAL DOCUMENTATION: JOB ID: [id number] [employer]- All Rights Reserved Reading location - IP/workstation name: [email or web address]
--- NOTE | 2017-08-05 12:51 | PDOC PROGRESS REPORT ---
Subjective Progress Note for:: 08/05/17 Subjective:: Continues to complain of left hand pain/numbness (which is acute/subacute) and right hip pain (which is chronic). Feels that pain is moderately controlled, worst at 4/10. Otherwise no complaints. Denies fevers, chills, CP, SOB, abdominal pain, NV. Good PO intake. Reason For Visit: ETOH W/D SEIZURE, ARF RHABDO, HYPONATREMIA Physical Exam Vital Signs: Temp Pulse Resp BP Pulse Ox 98.3 F 72 16 132/83 H 96 08/05/17 08:06 08/05/17 08:06 08/05/17 08:06 08/05/17 08:06 08/05/17 08:06 Intake & Output 08/04/17 08/05/17 08/06/17 06:59 06:59 06:59 Intake Total 2986 1990 Output Total 4915 7405 Balance 511 66 Weight 78.5 kg 77.4 kg General appearance: PRESENT: no acute distress, cooperative, thin Head exam: PRESENT: normocephalic Mouth exam: PRESENT: moist Respiratory exam: PRESENT: unlabored Cardiovascular exam: PRESENT: +S1, +S2 GI/Abdominal exam: PRESENT: soft. ABSENT: tenderness Neurological exam: PRESENT: alert, awake, CN II-XII grossly intact, other - Decreased left hand drip strength. Intact flexion/extension at wrist level. Psychiatric exam: PRESENT: appropriate affect Results Laboratory Results: 08/04/17 05:04 08/04/17 05:04 07/25/17 07/25/17 07/25/17 20:15 20:15 20:15 Creatine Kinase 66616 H CK-MB (CK-2) 40.00 H Troponin I 0.119 Cancelled NT-Pro-B Natriuret Pep 07/26/17 07/26/17 07/26/17 04:14 04:14 12:41 Creatine Kinase 61482 H 64410 H CK-MB (CK-2) 27.40 H Troponin I 0.075 NT-Pro-B Natriuret Pep 07/26/17 07/27/17 07/28/17 12:41 04:55 04:22 Creatine Kinase 04819 H 51306 H CK-MB (CK-2) 12.40 H Troponin I 0.046 NT-Pro-B Natriuret Pep 07/29/17 07/30/17 07/30/17 04:54 06:18 06:18 Creatine Kinase 16096 H 10874 H CK-MB (CK-2) Troponin I NT-Pro-B Natriuret Pep 262 07/31/17 08/01/17 08/02/17 04:14 03:16 05:00 Creatine Kinase 7400 H 3073 H 1409 H CK-MB (CK-2) Troponin I NT-Pro-B Natriuret Pep 08/04/17 05:04 Creatine Kinase 765 H CK-MB (CK-2) Troponin I NT-Pro-B Natriuret Pep Impressions: Head CT 07/25/17 14:30 IMPRESSION: NORMAL BRAIN CT WITHOUT CONTRAST. EVIDENCE OF ACUTE STROKE: NO. Head MRI 07/25/17 16:11 IMPRESSION: Negative for acute or sub-acute infarction. EVIDENCE OF ACUTE STROKE: NO. Chest X-Ray 07/28/17 00:00 IMPRESSION: NO ACUTE DISEASE. Hand X-Ray 08/03/17 00:00 IMPRESSION: NEGATIVE STUDY OF THE LEFT HAND. NO RADIOGRAPHIC EVIDENCE OF ACUTE INJURY. Upper Extremity MRI 08/03/17 00:00 IMPRESSION: Very limited negative study. Assessment & Plan - Diagnosis (1) Numbness of left hand Is this a current diagnosis for this admission?: Yes Plan: New issues, noted after patient was found down. Has healed scare on left wrist. On exam notable for weakness. Concerning for nerve injury - MRI reviewed today and per radiology read, "limited study but negative" - Gabapentin increased from 100mg q8 hours to 200mg q8 hours - Given history of polysubstance abuse, will not increase narcotics - Ortho following (Dr. Cali), appreciate imaging review and treatment recommendations - Consult PT/OT (2) Rhabdomyolysis Qualifiers: Rhabdomyolysis type: non-traumatic Qualified Code(s): M62.82 - Rhabdomyolysis Is this a current diagnosis for this admission?: Yes Plan: Found down prior to presentation to ED, CK trending down, was 15,000 at admission, 765 on 08/04, will not continue to trend given improvement (3) Altered mental status Qualifiers: Altered mental status type: unspecified Qualified Code(s): R41.82 - Altered mental status, unspecified Is this a current diagnosis for this admission?: Yes (4) Hypokalemia Is this a current diagnosis for this admission?: Yes Plan: Resolved (5) Hyponatremia Is this a current diagnosis for this admission?: Yes Plan: Resolved (6) Polysubstance abuse Is this a current diagnosis for this admission?: Yes Plan: Known history. Likely etiology for presenting symptom. - Time Time Spent with patient: Less than 15 minutes Anticipated discharge: Acute Rehab - Pending placement
[2017-08-05] MEDS: GABAPENTIN 300 MG CAPSULE PO SCH ×2 (14:10→21:06)
[2017-08-05] MEDS: DIAZEPAM 5 MG TABLET PO PRN (17:20)
--- NOTE | 2017-08-05 19:08 | PDOC CONSULTATION ---
Consultation Consult Date: 08/04/17 Consult reason:: Left hand weakness History of Present Illness Admission Date/PCP: 07/25/17 19:42 DAFNE ZENDEJAS DO History of Present Illness: CEM MONROY is a 62 year old male patient that was fell down a long period of time onto the left upper extremity. Complains of paresthesias of his fingers especially his thumb index and middle finger. Complains of decreased potato grader strength. Able to move his digits but complains of the mostly paresthesias and loss of strength. Able to move his wrist and states he had a little abrasion on the hand but no obvious cut. Denies any previous injury to extremity or surgery. Past Medical History Cardiac Medical History: Denies: Congestive Heart Failure, Coronary Artery Disease, Myocardial Infarction, Hypertension Pulmonary Medical History: Denies: Asthma, Bronchitis, Chronic Obstructive Pulmonary Disease (COPD), Pneumonia Neurological Medical History: Reports: Seizures - ETOH withdrawal seizures GI Medical History: Reports: Cirrhosis, Hepatitis - Hepatitis C Musculoskeltal Medical History: Denies: Arthritis Psychiatric Medical History: Denies: Depression Hematology: Denies: Anemia Past Surgical History Past Surgical History: Reports: None Social History Lives with: Alone Smoking Status: Unknown if Ever Smoked Frequency of Alcohol Use: Heavy Hx Recreational Drug Use: Yes Drugs: Marijuana Hx Prescription Drug Abuse: Yes - Advance Directive Resuscitation Status: Full Code Family History Family History: Hypertension, Malignancy - Brother with pancreatic cancer and mother with breast cancer, Other - Father was murdered, sister with lupus Parental Family History Reviewed: No Children Family History Reviewed: No Sibling(s) Family History Reviewed.: No Medication/Allergy Home Medications: Clonidine HCl [Catapres 0.1 mg Tablet] 0.1 mg PO Q12 07/25/17 Gabapentin [Neurontin 100 mg Capsule] 100 mg PO Q8 07/25/17 Oxycodone HCl [Oxycodone HCl 10 MG Tablet] 10 mg PO Q6HP PRN 07/25/17 Tramadol HCl [Ultram 50 mg Tablet] 50 mg PO Q6HP PRN 07/25/17 Allergies/Adverse Reactions: haloperidol [From Haldol] Adverse Reaction (Intermediate, Verified 11/01/16 16: 46) Cramping, "couldn't breathe" lorazepam [From Ativan] Adverse Reaction (Intermediate, Verified 11/01/16 16:46) Nausea, nightmares promethazine HCl [From Phenergan] Adverse Reaction (Unknown, Verified 11/01/16 16:46) "Messes my veins up" Review of Systems Constitutional: ABSENT: fever(s), night sweats Eyes: ABSENT: visual disturbances Ears: ABSENT: hearing changes Nose, Mouth, and Throat: ABSENT: sore throat Cardiovascular: ABSENT: chest pain, orthropnea Respiratory: ABSENT: dyspnea, hemoptysis Gastrointestinal: ABSENT: diarrhea, dysphagia Musculoskeletal: PRESENT: as per HPI. ABSENT: deformity, dislocation Integumentary: ABSENT: erythema, lesions, rash Neurological: PRESENT: as per HPI Psychiatric: ABSENT: homidical ideation, suicidal ideation Endocrine: ABSENT: cold intolerance, heat intolerance Hematologic/Lymphatic: ABSENT: lymphadenopathy Allergic/Immunologic: ABSENT: seasonal rhinorrhea Physical Exam Vital Signs: Temp Pulse Resp BP Pulse Ox 37.2 C 80 16 111/66 99 08/05/17 15:32 08/05/17 15:32 08/05/17 15:32 08/05/17 15:32 08/05/17 15:32 Intake & Output 08/04/17 08/05/17 08/06/17 06:59 06:59 06:59 Intake Total 2986 1991 829 Output Total 2475 1925 940 Balance 511 66 -111 Weight 78.5 kg 77.4 kg General appearance: PRESENT: no acute distress, thin Head exam: PRESENT: atraumatic, normocephalic Eye exam: PRESENT: EOMI, PERRLA. ABSENT: nystagmus Ear exam: PRESENT: normal external ear exam Mouth exam: PRESENT: neck supple Teeth exam: PRESENT: poor dentation Neck exam: ABSENT: lymphadenopathy, thyromegaly Respiratory exam: PRESENT: symmetrical, unlabored. ABSENT: accessory muscle use , tachypnea Cardiovascular exam: PRESENT: RRR Pulses: PRESENT: normal radial pulses Vascular exam: PRESENT: normal capillary refill GI/Abdominal exam: PRESENT: soft. ABSENT: organolmegaly, rebound Neurological exam: PRESENT: alert, awake, oriented to person, oriented to place , oriented to time, oriented to situation Psychiatric exam: PRESENT: appropriate affect, normal mood Skin exam: PRESENT: intact. ABSENT: erythema, rash, skin tears Adult Front & Back Image: 1 - Examination of the le he does have a positive compression test and a positive Phalen test. Ft hand shows no thenar atrophy or muscle atrophy. Has intact gross sensation to light touch but decreased two-point discrimination. Die Operator strength is 4 out of 5 compared to the opposite side. Intact wrist extension and wrist flexion and intact MCP PIP and DIP range of motion. Good capillary refill. No deformity. Results Laboratory Results: 08/04/17 05:04 08/04/17 05:04 07/25/17 07/25/17 07/25/17 20:15 20:15 20:15 Creatine Kinase 77170 H CK-MB (CK-2) 40.00 H Troponin I 0.119 Cancelled NT-Pro-B Natriuret Pep 07/26/17 07/26/17 07/26/17 04:14 04:14 12:41 Creatine Kinase 79412 H 67752 H CK-MB (CK-2) 27.40 H Troponin I 0.075 NT-Pro-B Natriuret Pep 07/26/17 07/27/17 07/28/17 12:41 04:55 04:22 Creatine Kinase 06159 H 75056 H CK-MB (CK-2) 12.40 H Troponin I 0.046 NT-Pro-B Natriuret Pep 07/29/17 07/30/17 07/30/17 04:54 06:18 06:18 Creatine Kinase 44823 H 48433 H CK-MB (CK-2) Troponin I NT-Pro-B Natriuret Pep 262 07/31/17 08/01/17 08/02/17 04:14 03:16 05:00 Creatine Kinase 7400 H 3073 H 1409 H CK-MB (CK-2) Troponin I NT-Pro-B Natriuret Pep 08/04/17 05:04 Creatine Kinase 765 H CK-MB (CK-2) Troponin I NT-Pro-B Natriuret Pep Impressions: Head CT 07/25/17 14:30 IMPRESSION: NORMAL BRAIN CT WITHOUT CONTRAST. EVIDENCE OF ACUTE STROKE: NO. Head MRI 07/25/17 16:11 IMPRESSION: Negative for acute or sub-acute infarction. EVIDENCE OF ACUTE STROKE: NO. Chest X-Ray 07/28/17 00:00 IMPRESSION: NO ACUTE DISEASE. Hand X-Ray 08/03/17 00:00 IMPRESSION: NEGATIVE STUDY OF THE LEFT HAND. NO RADIOGRAPHIC EVIDENCE OF ACUTE INJURY. Upper Extremity MRI 08/03/17 00:00 IMPRESSION: Very limited negative study. 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 Potential acute carpal tunnel syndrome. MRI was negative and no obvious lesions or injury to the nerve. My recommendation would do a EMG study of the left upper extremity but this can be done as an outpatient. Patient can follow- up with a upper extremity surgeon as an outpatient.
[2017-08-05] MEDS: SENNOSIDES/DOCUSATE 8.6-50 MG 1 EACH TABLET PO SCH (21:05)
[2017-08-06] MEDS: OXYCODONE HCL IR 5 MG TABLET PO PRN ×4 (04:53→20:17)
[2017-08-06] MEDS: GABAPENTIN 300 MG CAPSULE PO SCH ×3 (06:22→22:20)
[2017-08-06] MEDS: ENOXAPARIN SODIUM INJ 40 MG/0.4 ML DISP.SYRIN SUBCUT SCH (10:07)
[2017-08-06] MEDS: CLONIDINE HCL 0.1 MG TABLET PO SCH ×2 (10:08→22:20)
[2017-08-06] MEDS: THIAMINE HCL 100 MG TABLET PO SCH (10:08)
[2017-08-06] MEDS: MAGNESIUM OXIDE 400 MG TABLET PO SCH ×2 (10:08→17:35)
[2017-08-06] MEDS: LACTULOSE SYRUP 20 GM/30 ML UDCUP PO SCH ×2 (10:08→17:35)
[2017-08-06] MEDS: DIAZEPAM 5 MG TABLET PO PRN ×2 (12:31→20:17)
[2017-08-06] MEDS: SENNOSIDES/DOCUSATE 8.6-50 MG 1 EACH TABLET PO SCH (22:20)
--- NOTE | 2017-08-06 23:05 | PDOC PROGRESS REPORT ---
Subjective Progress Note for:: 08/06/17 Subjective:: Continue on normal saline IV fluid given his recovering rhabdomyolysis. Continues to complain of significant right hip pain. 10 numbness and weakness appears to be nerve injury secondary to his being found down. I do agree that he could benefit from an EMG study after discharge. No significant carpal tunnel noted on imaging performed so far. Nerve injury distribution appears to encompass both median and ulnar nerves and his hand. Reason For Visit: ETOH W/D SEIZURE, ARF RHABDO, HYPONATREMIA Physical Exam Vital Signs: Temp Pulse Resp BP Pulse Ox 98.7 F 87 20 122/79 99 08/06/17 20:32 08/06/17 20:32 08/06/17 20:32 08/06/17 20:32 08/06/17 20:32 Intake & Output 08/05/17 08/06/17 08/07/17 06:59 06:59 06:59 Intake Total 1990 2028 552 Output Total 1924 1290 375 Balance 66 739 177 Weight 77.4 kg 78.5 kg General appearance: PRESENT: no acute distress, cooperative Head exam: PRESENT: atraumatic, normocephalic Eye exam: PRESENT: EOMI, PERRLA Ear exam: PRESENT: normal external ear exam. ABSENT: drainage Mouth exam: PRESENT: moist, neck supple Throat exam: ABSENT: tonsillar erythema, tonsillar exudate Neck exam: PRESENT: JVD. ABSENT: full ROM Respiratory exam: ABSENT: accessory muscle use, rales, rhonchi, wheezes Cardiovascular exam: PRESENT: RRR, +S1, +S2 Pulses: PRESENT: normal radial pulses, normal dorsalis pedis pul Vascular exam: PRESENT: normal capillary refill. ABSENT: pallor GI/Abdominal exam: PRESENT: normal bowel sounds, soft. ABSENT: rigid Extremities exam: PRESENT: other - Numbness in left hand. ABSENT: tenderness Musculoskeletal exam: PRESENT: full ROM. ABSENT: deformity Neurological exam: PRESENT: alert, oriented to person, oriented to place, oriented to time, oriented to situation, CN II-XII grossly intact Psychiatric exam: ABSENT: agitated, anxious Focused psych exam: ABSENT: delusional, paranoid Skin exam: PRESENT: normal color. ABSENT: mottled Results Laboratory Results: 08/04/17 05:04 08/04/17 05:04 07/25/17 07/25/17 07/25/17 20:15 20:15 20:15 Creatine Kinase 09905 H CK-MB (CK-2) 40.00 H Troponin I 0.119 Cancelled NT-Pro-B Natriuret Pep 07/26/17 07/26/17 07/26/17 04:14 04:14 12:41 Creatine Kinase 21137 H 07758 H CK-MB (CK-2) 27.40 H Troponin I 0.075 NT-Pro-B Natriuret Pep 07/26/17 07/27/17 07/28/17 12:41 04:55 04:22 Creatine Kinase 83159 H 30805 H CK-MB (CK-2) 12.40 H Troponin I 0.046 NT-Pro-B Natriuret Pep 07/29/17 07/30/17 07/30/17 04:54 06:18 06:18 Creatine Kinase 61717 H 23415 H CK-MB (CK-2) Troponin I NT-Pro-B Natriuret Pep 262 07/31/17 08/01/17 08/02/17 04:14 03:16 05:00 Creatine Kinase 7400 H 3073 H 1409 H CK-MB (CK-2) Troponin I NT-Pro-B Natriuret Pep 08/04/17 05:04 Creatine Kinase 765 H CK-MB (CK-2) Troponin I NT-Pro-B Natriuret Pep Impressions: Head CT 07/25/17 14:30 IMPRESSION: NORMAL BRAIN CT WITHOUT CONTRAST. EVIDENCE OF ACUTE STROKE: NO. Head MRI 07/25/17 16:11 IMPRESSION: Negative for acute or sub-acute infarction. EVIDENCE OF ACUTE STROKE: NO. Chest X-Ray 07/28/17 00:00 IMPRESSION: NO ACUTE DISEASE. Hand X-Ray 08/03/17 00:00 IMPRESSION: NEGATIVE STUDY OF THE LEFT HAND. NO RADIOGRAPHIC EVIDENCE OF ACUTE INJURY. Upper Extremity MRI 08/03/17 00:00 IMPRESSION: Very limited negative study. Assessment & Plan - Diagnosis (1) Rhabdomyolysis Qualifiers: Rhabdomyolysis type: non-traumatic Qualified Code(s): M62.82 - Rhabdomyolysis Is this a current diagnosis for this admission?: Yes Plan: Continue supportive IV fluids, monitor CK level. (2) Numbness of left hand Is this a current diagnosis for this admission?: Yes Plan: Recommend EMG study after discharge. (3) Acute encephalopathy Is this a current diagnosis for this admission?: Yes Plan: Resolved, appears to be at mental baseline. likely secondary to substance abuse. (4) Prolonged Q-T interval on ECG Is this a current diagnosis for this admission?: Yes Plan: Avoid QT prolonging agents. - Time Time Spent with patient: 15-24 minutes - Inpatient Certification I certify that my determination is in accordance with my understanding of Medicare's requirements for reasonable and necessary INPATIENT services [42 CFR 412.3e].: Yes Medical Necessity: Need Close Monitoring Due to Risk of Patient Decompensation
[2017-08-07] MEDS: OXYCODONE HCL IR 5 MG TABLET PO PRN ×5 (02:08→22:55)
[2017-08-07] MEDS: DIAZEPAM 5 MG TABLET PO PRN (04:29)
[2017-08-07] MEDS: NORMAL SALINE 1000 ML 1,000 ML IV PRN ×2 (04:30→17:26)
[2017-08-07] MEDS: GABAPENTIN 300 MG CAPSULE PO SCH ×3 (05:02→22:56)
[2017-08-07 05:59] LABS: ABSOLUTE EOSINOPHILS # (AUTO) 0.1 10^3/uL (0.0-0.6); ABSOLUTE LYMPHOCYTES (AUTO) 0.9 10^3/uL (0.5-4.7); ABSOLUTE MONOCYTES (AUTO) 0.7 10^3/uL (0.1-1.4); BASOPHILS % (AUTO) 0.8 % (0-2); EOSINOPHILS % (AUTO) 1.7 % (0-6); HEMATOCRIT 33.7 % (37.9-51.0); HEMOGLOBIN 11.1 g/dL (13.5-17.0); LYMPHOCYTES % (AUTO) 15.9 % (13-45); MEAN CORPUSCULAR HEMOGLOBIN 29.7 pg (27.0-33.4); MEAN CORPUSCULAR VOLUME 90 fl (80-97); MONOCYTES % (AUTO) 11.8 % (3-13); PLATELET COUNT 176 10^3/uL (150-450); RED BLOOD COUNT 3.75 10^6/uL (4.35-5.55); RED CELL DISTRIBUTION WIDTH 14.2 % (11.5-14.0); SEGMENTED NEUTROPHILS % (AUTO) 69.8 % (42-78); TOTAL CELLS COUNTED % (AUTO) 100 %; WHITE BLOOD COUNT 5.8 10^3/uL (4.0-10.5)
[2017-08-07 06:25] LABS: ALBUMIN 2.9 g/dL (3.5-5.0); ANION GAP 9 (5-19); BLOOD UREA NITROGEN 18 mg/dL (7-20); CALCIUM 8.8 mg/dL (8.4-10.2); CARBON DIOXIDE 29 mmol/L (22-30); CHLORIDE 104 mmol/L (98-107); CREATINE KINASE 324 U/L (55-170); GLUCOSE 87 mg/dL (75-110); PHOSPHORUS 4.8 mg/dL (2.5-4.5); POTASSIUM 4.6 mmol/L (3.6-5.0); SODIUM 142.4 mmol/L (137-145)
[2017-08-07] MEDS: LACTULOSE SYRUP 20 GM/30 ML UDCUP PO SCH ×2 (09:21→17:27)
[2017-08-07] MEDS: CLONIDINE HCL 0.1 MG TABLET PO SCH ×2 (09:21→22:55)
[2017-08-07] MEDS: ENOXAPARIN SODIUM INJ 40 MG/0.4 ML DISP.SYRIN SUBCUT SCH (09:21)
[2017-08-07] MEDS: THIAMINE HCL 100 MG TABLET PO SCH (09:22)
[2017-08-07] MEDS: MAGNESIUM OXIDE 400 MG TABLET PO SCH ×2 (09:22→17:25)
[2017-08-07] MEDS: SENNOSIDES/DOCUSATE 8.6-50 MG 1 EACH TABLET PO SCH (22:57)
--- NOTE | 2017-08-08 02:17 | PDOC PROGRESS REPORT ---
Subjective Progress Note for:: 08/07/17 Subjective:: The patient is a 62-year-old gentleman with a past medical history of hepatitis c, cirrhosis, alcohol use, polysubstance abuse, and prostate cancer. She was initially found to have an elevated CK of 50,000, hyponatremia and prolonged QT interval. His rhabdomyolysis was thought to be secondary to polysubstance abuse. He received significant IV fluid wrist support, with now normalization to low levels of CK. Patient has numbness and weakness in his left hand likely a nerve compression injury. Imaging was not significant for any severe carpal tunnel. Patient has been advised to have an EMG study after discharge. Patient has chronic right hip pain. At present discharge planning is assisting and placing patient in acute rehab setting for his immobility and left hand weakness. She is medically stable at this point and can go to a rehab setting when this is established. Reason For Visit: ETOH W/D SEIZURE, ARF RHABDO, HYPONATREMIA Physical Exam Vital Signs: Temp Pulse Resp BP Pulse Ox 98.3 F 72 16 101/65 100 08/07/17 23:51 08/07/17 23:51 08/07/17 23:51 08/07/17 23:51 08/07/17 23:51 Intake & Output 08/06/17 08/07/17 08/08/17 06:59 06:59 06:59 Intake Total 2029 1007 1534 Output Total 1290 1550 400 Balance 739 -543 1134 Weight 78.5 kg 77.2 kg General appearance: PRESENT: no acute distress Head exam: PRESENT: atraumatic, normocephalic Eye exam: PRESENT: EOMI, PERRLA Ear exam: PRESENT: normal external ear exam. ABSENT: drainage Mouth exam: PRESENT: moist, neck supple Throat exam: ABSENT: tonsillar erythema, tonsillar exudate Neck exam: PRESENT: JVD. ABSENT: full ROM, tenderness Respiratory exam: ABSENT: rales, rhonchi, wheezes Cardiovascular exam: PRESENT: RRR, +S1, +S2 Pulses: PRESENT: normal radial pulses, normal dorsalis pedis pul Vascular exam: PRESENT: normal capillary refill. ABSENT: pallor GI/Abdominal exam: PRESENT: normal bowel sounds, soft. ABSENT: mass, rigid Extremities exam: ABSENT: joint swelling, pedal edema Musculoskeletal exam: PRESENT: full ROM. ABSENT: deformity Neurological exam: PRESENT: alert, oriented to person, oriented to place, oriented to time, oriented to situation Psychiatric exam: ABSENT: anxious, flat affect Focused psych exam: ABSENT: delusional, paranoid Skin exam: PRESENT: normal color. ABSENT: abrasion, mottled Results Laboratory Results: 08/07/17 05:10 08/07/17 05:10 08/07/17 08/07/17 05:10 05:10 WBC 5.8 RBC 3.75 L Hgb 11.1 L Hct 33.7 L MCV 90 MCH 29.7 MCHC 33.0 RDW 14.2 H Plt Count 176 Seg Neutrophils % 69.8 Lymphocytes % 15.9 Monocytes % 11.8 Eosinophils % 1.7 Basophils % 0.8 Absolute Neutrophils 4.0 Absolute Lymphocytes 0.9 Absolute Monocytes 0.7 Absolute Eosinophils 0.1 Absolute Basophils 0.0 Sodium 142.4 Potassium 4.6 Chloride 104 Carbon Dioxide 29 Anion Gap 9 BUN 18 Creatinine 0.65 Est GFR ( Amer) > 60 Est GFR (Non-Af Amer) > 60 Glucose 87 Calcium 8.8 Phosphorus 4.8 H Albumin 2.9 L 07/25/17 07/25/17 07/25/17 20:15 20:15 20:15 Creatine Kinase 95114 H CK-MB (CK-2) 40.00 H Troponin I 0.119 Cancelled NT-Pro-B Natriuret Pep 07/26/17 07/26/17 07/26/17 04:14 04:14 12:41 Creatine Kinase 53236 H 03317 H CK-MB (CK-2) 27.40 H Troponin I 0.075 NT-Pro-B Natriuret Pep 07/26/17 07/27/17 07/28/17 12:41 04:55 04:22 Creatine Kinase 16369 H 64224 H CK-MB (CK-2) 12.40 H Troponin I 0.046 NT-Pro-B Natriuret Pep 07/29/17 07/30/17 07/30/17 04:54 06:18 06:18 Creatine Kinase 39025 H 66769 H CK-MB (CK-2) Troponin I NT-Pro-B Natriuret Pep 262 07/31/17 08/01/17 08/02/17 04:14 03:16 05:00 Creatine Kinase 7400 H 3073 H 1409 H CK-MB (CK-2) Troponin I NT-Pro-B Natriuret Pep 08/04/17 08/07/17 05:04 05:10 Creatine Kinase 765 H 324 H CK-MB (CK-2) Troponin I NT-Pro-B Natriuret Pep Impressions: Head CT 07/25/17 14:30 IMPRESSION: NORMAL BRAIN CT WITHOUT CONTRAST. EVIDENCE OF ACUTE STROKE: NO. Head MRI 07/25/17 16:11 IMPRESSION: Negative for acute or sub-acute infarction. EVIDENCE OF ACUTE STROKE: NO. Chest X-Ray 07/28/17 00:00 IMPRESSION: NO ACUTE DISEASE. Hand X-Ray 08/03/17 00:00 IMPRESSION: NEGATIVE STUDY OF THE LEFT HAND. NO RADIOGRAPHIC EVIDENCE OF ACUTE INJURY. Upper Extremity MRI 08/03/17 00:00 IMPRESSION: Very limited negative study. Assessment & Plan - Diagnosis (1) Rhabdomyolysis Qualifiers: Rhabdomyolysis type: non-traumatic Qualified Code(s): M62.82 - Rhabdomyolysis Is this a current diagnosis for this admission?: Yes Plan: Completing IV fluid today, CK level relatively benign at this point. Medically stable for disposition. (2) Numbness of left hand Is this a current diagnosis for this admission?: Yes Plan: Likely compressive nerve injury with being found down at home after polysubstance abuse. Will need rehab for further evaluation and improvement. (3) Acute encephalopathy Is this a current diagnosis for this admission?: Yes Plan: Back to baseline with his mentation. (4) Prolonged Q-T interval on ECG Is this a current diagnosis for this admission?: Yes Plan: resolved - Time Time Spent with patient: 15-24 minutes - Inpatient Certification I certify that my determination is in accordance with my understanding of Medicare's requirements for reasonable and necessary INPATIENT services [42 CFR 412.3e].: Yes Medical Necessity: Need Close Monitoring Due to Risk of Patient Decompensation
[2017-08-08] MEDS: OXYCODONE HCL IR 5 MG TABLET PO PRN ×5 (04:37→21:57)
[2017-08-08] MEDS: GABAPENTIN 300 MG CAPSULE PO SCH ×3 (05:20→21:55)
[2017-08-08] MEDS: LACTULOSE SYRUP 20 GM/30 ML UDCUP PO SCH ×2 (10:22→10:39)
[2017-08-08] MEDS: CLONIDINE HCL 0.1 MG TABLET PO SCH ×2 (10:24→21:55)
[2017-08-08] MEDS: MAGNESIUM OXIDE 400 MG TABLET PO SCH ×2 (10:24→17:29)
[2017-08-08] MEDS: THIAMINE HCL 100 MG TABLET PO SCH (10:24)
[2017-08-08] MEDS: ENOXAPARIN SODIUM INJ 40 MG/0.4 ML DISP.SYRIN SUBCUT SCH (10:26)
--- NOTE | 2017-08-08 15:06 | PDOC PROGRESS REPORT ---
Subjective Progress Note for:: 08/08/17 Subjective:: Still with pain right hip, slightly improved. Declined by inpatient rehab, refusing [facility] facility placement as he does not want to give up his check. No chest pain or palpitations, no abdominal pain, no nausea vomiting. Reason For Visit: ETOH W/D SEIZURE, ARF RHABDO, HYPONATREMIA Physical Exam Vital Signs: Temp Pulse Resp BP Pulse Ox 99.3 F 75 16 118/74 100 08/08/17 07:45 08/08/17 07:45 08/08/17 07:45 08/08/17 07:45 08/08/17 07:45 Intake & Output 08/07/17 08/08/17 08/09/17 06:59 06:59 06:59 Intake Total 1007 3219 685 Output Total 1550 1150 1450 Balance -543 2069 -765 Weight 77.2 kg 79.4 kg GEN: NAD, well-developed, well-nourished CV: RRR, NL S1S2 LUNGS: CTA bilaterally ABDOMEN Soft, NT, +BS EXTERMITIES: No e/c/c NEURO: Alert, oriented 3, no acute weakness Results Laboratory Results: 08/07/17 05:10 08/07/17 05:10 07/25/17 07/25/17 07/25/17 20:15 20:15 20:15 Creatine Kinase 66487 H CK-MB (CK-2) 40.00 H Troponin I 0.119 Cancelled NT-Pro-B Natriuret Pep 07/26/17 07/26/17 07/26/17 04:14 04:14 12:41 Creatine Kinase 71393 H 10378 H CK-MB (CK-2) 27.40 H Troponin I 0.075 NT-Pro-B Natriuret Pep 07/26/17 07/27/17 07/28/17 12:41 04:55 04:22 Creatine Kinase 43006 H 48376 H CK-MB (CK-2) 12.40 H Troponin I 0.046 NT-Pro-B Natriuret Pep 07/29/17 07/30/17 07/30/17 04:54 06:18 06:18 Creatine Kinase 08152 H 54850 H CK-MB (CK-2) Troponin I NT-Pro-B Natriuret Pep 262 0608/01/17 08/02/17 04:14 03:16 05:00 Creatine Kinase 7400 H 3073 H 1409 H CK-MB (CK-2) Troponin I NT-Pro-B Natriuret Pep 08/04/17 08/07/17 05:04 05:10 Creatine Kinase 765 H 324 H CK-MB (CK-2) Troponin I NT-Pro-B Natriuret Pep Impressions: Head CT 07/25/17 14:30 IMPRESSION: NORMAL BRAIN CT WITHOUT CONTRAST. EVIDENCE OF ACUTE STROKE: NO. Head MRI 07/25/17 16:11 IMPRESSION: Negative for acute or sub-acute infarction. EVIDENCE OF ACUTE STROKE: NO. Chest X-Ray 07/28/17 00:00 IMPRESSION: NO ACUTE DISEASE. Hand X-Ray 08/03/17 00:00 IMPRESSION: NEGATIVE STUDY OF THE LEFT HAND. NO RADIOGRAPHIC EVIDENCE OF ACUTE INJURY. Upper Extremity MRI 08/03/17 00:00 IMPRESSION: Very limited negative study. Assessment & Plan - Plan Summary Plan Summary: (1) Rhabdomyolysis Qualifiers: Rhabdomyolysis type: non-traumatic Qualified Code(s): M62.82 - Rhabdomyolysis Is this a current diagnosis for this admission?: Yes Plan: Completed IV fluid today, CK level relatively benign at this point. Medically stable for disposition. Discharge planning for possible discharge home with home health services at home PT (2) Numbness of left hand Is this a current diagnosis for this admission?: Yes Plan: Likely compressive nerve injury with being found down at home after polysubstance abuse. Will need rehab for further evaluation and improvement. (3) Acute encephalopathy Is this a current diagnosis for this admission?: Yes Plan: Back to baseline with his mentation. (4) Prolonged Q-T interval on ECG Is this a current diagnosis for this admission?: Yes Plan: resolved
[2017-08-08] MEDS: SENNOSIDES/DOCUSATE 8.6-50 MG 1 EACH TABLET PO SCH (21:56)
[2017-08-09] MEDS: OXYCODONE HCL IR 5 MG TABLET PO PRN ×5 (02:01→19:20)
[2017-08-09] MEDS: GABAPENTIN 300 MG CAPSULE PO SCH ×3 (06:36→21:32)
[2017-08-09 07:09] LABS: ABSOLUTE EOSINOPHILS # (AUTO) 0.1 10^3/uL (0.0-0.6); ABSOLUTE LYMPHOCYTES (AUTO) 0.8 10^3/uL (0.5-4.7); ABSOLUTE MONOCYTES (AUTO) 0.6 10^3/uL (0.1-1.4); ABSOLUTE NEUT (AUTO) 3.1 10^3/uL (1.7-8.2); BASOPHILS % (AUTO) 0.9 % (0-2); EOSINOPHILS % (AUTO) 1.9 % (0-6); HEMATOCRIT 32.2 % (37.9-51.0); HEMOGLOBIN 10.7 g/dL (13.5-17.0); LYMPHOCYTES % (AUTO) 16.7 % (13-45); MEAN CORPUSCULAR HGB CONC 33.2 g/dL (32.0-36.0); MEAN CORPUSCULAR VOLUME 90 fl (80-97); MONOCYTES % (AUTO) 12.2 % (3-13); PLATELET COUNT 145 10^3/uL (150-450); RED BLOOD COUNT 3.57 10^6/uL (4.35-5.55); RED CELL DISTRIBUTION WIDTH 14.2 % (11.5-14.0); SEGMENTED NEUTROPHILS % (AUTO) 68.3 % (42-78); TOTAL CELLS COUNTED % (AUTO) 100 %; WHITE BLOOD COUNT 4.6 10^3/uL (4.0-10.5)
[2017-08-09 07:22] LABS: ANION GAP 8 (5-19); BLOOD UREA NITROGEN 17 mg/dL (7-20); CARBON DIOXIDE 28 mmol/L (22-30); CHLORIDE 106 mmol/L (98-107); GLUCOSE 82 mg/dL (75-110); POTASSIUM 4.1 mmol/L (3.6-5.0); SODIUM 141.9 mmol/L (137-145)
[2017-08-09] MEDS: ENOXAPARIN SODIUM INJ 40 MG/0.4 ML DISP.SYRIN SUBCUT SCH (10:17)
[2017-08-09] MEDS: CLONIDINE HCL 0.1 MG TABLET PO SCH ×2 (10:19→21:39)
[2017-08-09] MEDS: MAGNESIUM OXIDE 400 MG TABLET PO SCH ×2 (10:19→18:14)
[2017-08-09] MEDS: THIAMINE HCL 100 MG TABLET PO SCH (10:19)
[2017-08-09] MEDS: LACTULOSE SYRUP 20 GM/30 ML UDCUP PO SCH ×2 (10:20→18:11)
--- NOTE | 2017-08-09 16:00 | PDOC PROGRESS REPORT ---
Subjective Progress Note for:: 08/09/17 Subjective:: Still with pain right hip, slightly improved. Declined by inpatient rehab,now open to [facility] placement for rehab although he is reluctant to give up his check. No chest pain or palpitations, no abdominal pain, no nausea vomiting. Reason For Visit: ETOH W/D SEIZURE, ARF RHABDO, HYPONATREMIA Physical Exam Vital Signs: Temp Pulse Resp BP Pulse Ox 98.1 F 74 18 129/76 H 100 08/09/17 11:38 08/09/17 14:00 08/09/17 11:38 08/09/17 11:38 08/09/17 11:38 Intake & Output 08/08/17 08/09/17 08/10/17 06:59 06:59 06:59 Intake Total 3219 1603 758 Output Total 1150 2350 1200 Balance 2069 -747 -442 Weight 79.4 kg 78.4 kg GEN: NAD, well-developed, well-nourished CV: RRR, NL S1S2 LUNGS: CTA bilaterally ABDOMEN Soft, NT, +BS EXTERMITIES: No e/c/c NEURO: Alert, oriented 3, no acute weakness Results Laboratory Results: 08/09/17 06:35 08/09/17 06:35 08/09/17 08/09/17 06:35 06:35 WBC 4.6 RBC 3.57 L Hgb 10.7 L Hct 32.2 L MCV 90 MCH 30.0 MCHC 33.2 RDW 14.2 H Plt Count 145 L Seg Neutrophils % 68.3 Lymphocytes % 16.7 Monocytes % 12.2 Eosinophils % 1.9 Basophils % 0.9 Absolute Neutrophils 3.1 Absolute Lymphocytes 0.8 Absolute Monocytes 0.6 Absolute Eosinophils 0.1 Absolute Basophils 0.0 Sodium 141.9 Potassium 4.1 Chloride 106 Carbon Dioxide 28 Anion Gap 8 BUN 17 Creatinine 0.68 Est GFR ( Amer) > 60 Est GFR (Non-Af Amer) > 60 Glucose 82 Calcium 9.0 07/25/17 07/25/17 07/25/17 20:15 20:15 20:15 Creatine Kinase 91346 H CK-MB (CK-2) 40.00 H Troponin I 0.119 Cancelled NT-Pro-B Natriuret Pep 07/26/17 07/26/17 07/26/17 04:14 04:14 12:41 Creatine Kinase 32662 H 56590 H CK-MB (CK-2) 27.40 H Troponin I 0.075 NT-Pro-B Natriuret Pep 07/26/17 07/27/17 07/28/17 12:41 04:55 04:22 Creatine Kinase 60070 H 95436 H CK-MB (CK-2) 12.40 H Troponin I 0.046 NT-Pro-B Natriuret Pep 07/29/17 07/30/17 07/30/17 04:54 06:18 06:18 Creatine Kinase 22813 H 45764 H CK-MB (CK-2) Troponin I NT-Pro-B Natriuret Pep 262 07/31/17 08/01/17 08/02/17 04:14 03:16 05:00 Creatine Kinase 7400 H 3073 H 1409 H CK-MB (CK-2) Troponin I NT-Pro-B Natriuret Pep 08/04/17 08/07/17 05:04 05:10 Creatine Kinase 765 H 324 H CK-MB (CK-2) Troponin I NT-Pro-B Natriuret Pep Impressions: Head CT 07/25/17 14:30 IMPRESSION: NORMAL BRAIN CT WITHOUT CONTRAST. EVIDENCE OF ACUTE STROKE: NO. Head MRI 07/25/17 16:11 IMPRESSION: Negative for acute or sub-acute infarction. EVIDENCE OF ACUTE STROKE: NO. Chest X-Ray 07/28/17 00:00 IMPRESSION: NO ACUTE DISEASE. Hand X-Ray 08/03/17 00:00 IMPRESSION: NEGATIVE STUDY OF THE LEFT HAND. NO RADIOGRAPHIC EVIDENCE OF ACUTE INJURY. Upper Extremity MRI 08/03/17 00:00 IMPRESSION: Very limited negative study. Assessment & Plan - Plan Summary Plan Summary: (1) Rhabdomyolysis Qualifiers: Rhabdomyolysis type: non-traumatic Qualified Code(s): M62.82 - Rhabdomyolysis Is this a current diagnosis for this admission?: Yes Plan: Completed IV fluid today, CK level relatively benign at this point. Medically stable for disposition. Discharge planning in progress for possible discharge to [facility] with rehab (2) Numbness of left hand Is this a current diagnosis for this admission?: Yes Plan: Likely compressive nerve injury with being found down at home after polysubstance abuse. Will need rehab for further evaluation and improvement. (3) Acute encephalopathy Is this a current diagnosis for this admission?: Yes Plan: Back to baseline with his mentation. (4) Prolonged Q-T interval on ECG Is this a current diagnosis for this admission?: Yes Plan: resolved
[2017-08-09] MEDS: SENNOSIDES/DOCUSATE 8.6-50 MG 1 EACH TABLET PO SCH (21:32)
[2017-08-10] MEDS: OXYCODONE HCL IR 5 MG TABLET PO PRN ×6 (02:09→23:38)
[2017-08-10] MEDS: GABAPENTIN 300 MG CAPSULE PO SCH ×3 (06:14→21:17)
[2017-08-10] MEDS: THIAMINE HCL 100 MG TABLET PO SCH (09:17)
[2017-08-10] MEDS: MAGNESIUM OXIDE 400 MG TABLET PO SCH ×2 (09:17→17:11)
[2017-08-10] MEDS: LACTULOSE SYRUP 20 GM/30 ML UDCUP PO SCH ×2 (09:18→17:02)
[2017-08-10] MEDS: CLONIDINE HCL 0.1 MG TABLET PO SCH (09:18)
[2017-08-10] MEDS: ENOXAPARIN SODIUM INJ 40 MG/0.4 ML DISP.SYRIN SUBCUT SCH (09:18)
--- NOTE | 2017-08-10 09:53 | PDOC PROGRESS REPORT ---
Subjective Progress Note for:: 08/10/17 Subjective:: Patient seen resting in bed. He is awake and alert, oriented 3. He denies any chest pain, shortness breath or dyspnea. He denies any nausea or diarrhea. He is complaining of pain in the right hip after physical therapy yesterday.. He states this is chronic he is slated for an upcoming hip replacement. He denies any other complaints at the present time. Remaining review of systems are negative. Reason For Visit: ETOH W/D SEIZURE, ARF RHABDO, HYPONATREMIA Physical Exam Vital Signs: Temp Pulse Resp BP Pulse Ox 98.2 F 73 20 130/76 H 100 08/10/17 03:31 08/10/17 07:00 08/10/17 03:31 08/10/17 03:31 08/10/17 03:31 Intake & Output 08/09/17 08/10/17 08/11/17 06:59 06:59 06:59 Intake Total 1603 2130 Output Total 2350 3050 Balance -747 -920 Weight 78.4 kg 77.1 kg General appearance: PRESENT: no acute distress, thin, well-developed Head exam: PRESENT: atraumatic, normocephalic Eye exam: PRESENT: conjunctiva pink, EOMI, PERRLA. ABSENT: scleral icterus Ear exam: PRESENT: normal external ear exam Teeth exam: PRESENT: poor dentation Neck exam: ABSENT: carotid bruit, JVD, lymphadenopathy, thyromegaly Respiratory exam: PRESENT: clear to auscultation taryn. ABSENT: rales, rhonchi, wheezes Cardiovascular exam: PRESENT: RRR. ABSENT: diastolic murmur, rubs, systolic murmur Pulses: PRESENT: normal dorsalis pedis pul Vascular exam: PRESENT: normal capillary refill GI/Abdominal exam: PRESENT: normal bowel sounds, soft. ABSENT: distended, guarding, mass, organolmegaly, rebound, tenderness Rectal exam: PRESENT: deferred Extremities exam: PRESENT: full ROM, tenderness Musculoskeletal exam: PRESENT: ambulatory, full ROM, normal inspection, tenderness Neurological exam: PRESENT: alert, awake, oriented to person, oriented to place , oriented to time, oriented to situation, CN II-XII grossly intact. ABSENT: motor sensory deficit Psychiatric exam: PRESENT: appropriate affect, normal mood. ABSENT: homicidal ideation, suicidal ideation Skin exam: PRESENT: dry, intact, warm. ABSENT: cyanosis, rash Results Laboratory Results: 08/09/17 06:35 08/09/17 06:35 07/25/17 07/25/17 07/25/17 20:15 20:15 20:15 Creatine Kinase 78390 H CK-MB (CK-2) 40.00 H Troponin I 0.119 Cancelled NT-Pro-B Natriuret Pep 07/26/17 07/26/17 07/26/17 04:14 04:14 12:41 Creatine Kinase 61132 H 77443 H CK-MB (CK-2) 27.40 H Troponin I 0.075 NT-Pro-B Natriuret Pep 07/26/17 07/27/17 07/28/17 12:41 04:55 04:22 Creatine Kinase 45468 H 21861 H CK-MB (CK-2) 12.40 H Troponin I 0.046 NT-Pro-B Natriuret Pep 07/29/17 07/30/17 07/30/17 04:54 06:18 06:18 Creatine Kinase 82732 H 73798 H CK-MB (CK-2) Troponin I NT-Pro-B Natriuret Pep 262 07/31/17 08/01/17 08/02/17 04:14 03:16 05:00 Creatine Kinase 7400 H 3073 H 1409 H CK-MB (CK-2) Troponin I NT-Pro-B Natriuret Pep 08/04/17 08/07/17 05:04 05:10 Creatine Kinase 765 H 324 H CK-MB (CK-2) Troponin I NT-Pro-B Natriuret Pep Impressions: Head CT 07/25/17 14:30 IMPRESSION: NORMAL BRAIN CT WITHOUT CONTRAST. EVIDENCE OF ACUTE STROKE: NO. Head MRI 07/25/17 16:11 IMPRESSION: Negative for acute or sub-acute infarction. EVIDENCE OF ACUTE STROKE: NO. Chest X-Ray 07/28/17 00:00 IMPRESSION: NO ACUTE DISEASE. Hand X-Ray 08/03/17 00:00 IMPRESSION: NEGATIVE STUDY OF THE LEFT HAND. NO RADIOGRAPHIC EVIDENCE OF ACUTE INJURY. Upper Extremity MRI 08/03/17 00:00 IMPRESSION: Very limited negative study. Assessment & Plan - Diagnosis (1) Acute encephalopathy Is this a current diagnosis for this admission?: Yes Plan: Resolved. Secondary to substance abuse and dehydration (2) Hypokalemia Is this a current diagnosis for this admission?: Yes Plan: Replete and monitor (3) Hyponatremia Is this a current diagnosis for this admission?: Yes Plan: Resolved. Secondary to dehydration. Will stop IV hydration. (4) Rhabdomyolysis Qualifiers: Rhabdomyolysis type: non-traumatic Qualified Code(s): M62.82 - Rhabdomyolysis Is this a current diagnosis for this admission?: Yes (5) Numbness of left hand Is this a current diagnosis for this admission?: Yes Plan: Likely secondary to ulnar nerve compression from being on the floor, solving the lateral left 2 fingers. (6) Polysubstance abuse Is this a current diagnosis for this admission?: Yes (7) Hepatitis C Qualifiers: Viral hepatitis chronicity: chronic Is this a current diagnosis for this admission?: Yes (8) Chronic right hip pain Is this a current diagnosis for this admission?: Yes Plan: Continue physical therapy. Patient states he needs to go to acute rehab because of his debility. We will continue physical therapy. Case management is consulted and working on discharge planning - Time Time Spent with patient: 25-34 minutes Total Critical Time (Minutes): 15 Anticipated discharge: SNF Within: when bed available
[2017-08-10] MEDS: SENNOSIDES/DOCUSATE 8.6-50 MG 1 EACH TABLET PO SCH (21:17)
[2017-08-11] MEDS: OXYCODONE HCL IR 5 MG TABLET PO PRN ×2 (03:39→08:27)
[2017-08-11] MEDS: GABAPENTIN 300 MG CAPSULE PO SCH ×3 (06:19→21:49)
[2017-08-11 07:02] LABS: ALANINE AMINOTRANSFERASE 36 U/L (21-72); ALBUMIN 3.3 g/dL (3.5-5.0); ALKALINE PHOSPHATASE 85 U/L (38-126); ANION GAP 9 (5-19); ASPARTATE AMINO TRANSFERASE 32 U/L (17-59); BILIRUBIN,DIRECT 0.4 mg/dL (0.0-0.4); BILIRUBIN,TOTAL 0.5 mg/dL (0.2-1.3); BLOOD UREA NITROGEN 16 mg/dL (7-20); CALCIUM 9.3 mg/dL (8.4-10.2); CARBON DIOXIDE 27 mmol/L (22-30); CHLORIDE 104 mmol/L (98-107); GLUCOSE 119 mg/dL (75-110); POTASSIUM 4.6 mmol/L (3.6-5.0); SODIUM 139.8 mmol/L (137-145); TOTAL PROTEIN 6.6 g/dL (6.3-8.2)
[2017-08-11] MEDS: THIAMINE HCL 100 MG TABLET PO SCH (08:26)
[2017-08-11] MEDS: MAGNESIUM OXIDE 400 MG TABLET PO SCH ×2 (08:26→17:18)
[2017-08-11] MEDS: ENOXAPARIN SODIUM INJ 40 MG/0.4 ML DISP.SYRIN SUBCUT SCH (08:30)
[2017-08-11] MEDS: LACTULOSE SYRUP 20 GM/30 ML UDCUP PO SCH (08:31)
[2017-08-11] MEDS ORDERED: ACETAMINOPHEN 325 MG TABLET PO PRN (09:56)
--- NOTE | 2017-08-11 13:27 | PDOC PROGRESS REPORT ---
Subjective Progress Note for:: 08/11/17 - patient see this morning around 10am Subjective:: Patient states that he still having right-sided hip pain. He also is complaining of left hand numbness office thumb and the rest of all his fingers. He tells me that he has nerve damage which is most likely causing his pain. I asked him what is causing his right hip pain and he states he does not know but he has had it for years. He has been work on a pain medicine I can give him for his pain. I had a long discussion about his pain meds I said I will adjusted to better suit his pain. Reason For Visit: ETOH W/D SEIZURE, ARF RHABDO, HYPONATREMIA Physical Exam Vital Signs: Temp Pulse Resp BP Pulse Ox 99.0 F 79 16 126/73 H 100 08/11/17 12:00 08/11/17 12:00 08/11/17 12:00 08/11/17 12:00 08/11/17 12:00 Intake & Output 08/10/17 08/11/17 08/12/17 06:59 06:59 06:59 Intake Total 2130 948 237 Output Total 3050 2625 550 Balance -920 -1677 -313 Weight 169 lb 15.622 oz 147 lb 7.828 oz General appearance: PRESENT: no acute distress Head exam: PRESENT: atraumatic, normocephalic Eye exam: PRESENT: EOMI, other - Sclera normal Ear exam: PRESENT: normal external ear exam Mouth exam: PRESENT: moist, tongue midline Neck exam: PRESENT: other - Trachea midline Respiratory exam: PRESENT: clear to auscultation taryn, symmetrical Cardiovascular exam: PRESENT: RRR, +S1, +S2 Vascular exam: PRESENT: normal capillary refill GI/Abdominal exam: PRESENT: normal bowel sounds, soft, other - Nontender Extremities exam: PRESENT: tenderness - Right hip tender to palpation laterally , other - Left hand-good strength, sensation intact, radial pulses 2+, Refill less than 2 seconds. Normal elbow exam Neurological exam: PRESENT: alert, awake, oriented to person, oriented to place , oriented to time Skin exam: PRESENT: dry, warm Results Laboratory Results: 08/09/17 06:35 08/11/17 06:20 08/11/17 08/11/17 06:20 06:20 Sodium 139.8 Potassium 4.6 Chloride 104 Carbon Dioxide 27 Anion Gap 9 BUN 16 Creatinine 0.65 Est GFR ( Amer) > 60 Est GFR (Non-Af Amer) > 60 Glucose 119 H Calcium 9.3 Total Bilirubin 0.5 AST 32 ALT 36 Alkaline Phosphatase 85 Ammonia < 8.7 L Total Protein 6.6 Albumin 3.3 L 07/25/17 07/25/17 07/25/17 20:15 20:15 20:15 Creatine Kinase 21507 H CK-MB (CK-2) 40.00 H Troponin I 0.119 Cancelled NT-Pro-B Natriuret Pep 07/26/17 07/26/17 07/26/17 04:14 04:14 12:41 Creatine Kinase 44612 H 73668 H CK-MB (CK-2) 27.40 H Troponin I 0.075 NT-Pro-B Natriuret Pep 07/26/17 07/27/17 07/28/17 12:41 04:55 04:22 Creatine Kinase 70043 H 14838 H CK-MB (CK-2) 12.40 H Troponin I 0.046 NT-Pro-B Natriuret Pep 07/29/17 07/30/17 07/30/17 04:54 06:18 06:18 Creatine Kinase 69542 H 01400 H CK-MB (CK-2) Troponin I NT-Pro-B Natriuret Pep 262 07/31/17 08/01/17 08/02/17 04:14 03:16 05:00 Creatine Kinase 7400 H 3073 H 1409 H CK-MB (CK-2) Troponin I NT-Pro-B Natriuret Pep 08/04/17 08/07/17 05:04 05:10 Creatine Kinase 765 H 324 H CK-MB (CK-2) Troponin I NT-Pro-B Natriuret Pep Impressions: Head CT 07/25/17 14:30 IMPRESSION: NORMAL BRAIN CT WITHOUT CONTRAST. EVIDENCE OF ACUTE STROKE: NO. Head MRI 07/25/17 16:11 IMPRESSION: Negative for acute or sub-acute infarction. EVIDENCE OF ACUTE STROKE: NO. Chest X-Ray 07/28/17 00:00 IMPRESSION: NO ACUTE DISEASE. Hand X-Ray 08/03/17 00:00 IMPRESSION: NEGATIVE STUDY OF THE LEFT HAND. NO RADIOGRAPHIC EVIDENCE OF ACUTE INJURY. Upper Extremity MRI 08/03/17 00:00 IMPRESSION: Very limited negative study. Assessment & Plan - Diagnosis (1) Rhabdomyolysis Qualifiers: Rhabdomyolysis type: non-traumatic Qualified Code(s): M62.82 - Rhabdomyolysis Is this a current diagnosis for this admission?: Yes Plan: Resolved, we will get another CPK tomorrow. (2) Right hip pain Is this a current diagnosis for this admission?: Yes Plan: He has history of chronic right hip pain-not sure what his hip pain from. Consider getting repeat right hip x-ray since he has not had one in this visit. I have changed his pain medicine-he was getting oxycodone 10 mg every 4 as needed. I have changed her to OxyContin 10 mg twice daily and increased his gabapentin to 600 mg 3 times a day. I have also added Tylenol and Motrin to his regimen. I think he has chronic opioid dependence and hence is constantly asking for pain medicine. He had a long conversation with him today about pain medicine and his chronic pain. I think he would benefit from a pain management consult once he is discharged. We will continue to get him physical therapy. (3) Acute encephalopathy Is this a current diagnosis for this admission?: Yes Plan: Resolved-patient is alert and awake. (4) Numbness of left hand Is this a current diagnosis for this admission?: Yes Plan: Unclear etiology-likely nerve related-possibly that could have happened when he was found on the floor-I will increased his gabapentin from 300 to 600 mg 3 times daily (5) Polysubstance abuse Is this a current diagnosis for this admission?: Yes
--- NOTE | 2017-08-11 15:17 | RADIOLOGY REPORT (SQ) ---
EXAM DESCRIPTION: HIP RIGHT AP/LATERAL COMPLETED DATE/TIME: 08/11/2017 3:02 pm REASON FOR STUDY: right hip pain COMPARISON: 09/01/2016. NUMBER OF VIEWS: Two views. TECHNIQUE: AP pelvis and additional frog-leg view of the right hip. LIMITATIONS: None. FINDINGS: MINERALIZATION: Normal. RIGHT HIP: Femoral neck fracture. LEFT HIP: No fracture or dislocation. No worrisome bone lesions. PUBIS AND ISCHIUM: No fracture. PELVIS: No fracture. SACRUM: No fracture or dislocation. No worrisome bone lesions. LOWER LUMBAR SPINE: No fracture or dislocation. No worrisome bone lesions. Degenerative disc disease . SOFT TISSUES: No findings. OTHER: No other significant finding. IMPRESSION: FRACTURE OF THE RIGHT FEMORAL NECK. TECHNICAL DOCUMENTATION: JOB ID: [id number] [employer]- All Rights Reserved Reading location - IP/workstation name: [email or web address]
[2017-08-11] MEDS: OXYCODONE HCL SR 10 MG TABLET PO SCH (17:18)
[2017-08-11] MEDS: IBUPROFEN 600 MG TABLET PO PRN (20:12)
[2017-08-11] MEDS: SENNOSIDES/DOCUSATE 8.6-50 MG 1 EACH TABLET PO SCH (21:49)
[2017-08-12] MEDS: IBUPROFEN 600 MG TABLET PO PRN ×2 (03:31→13:27)
[2017-08-12] MEDS: GABAPENTIN 300 MG CAPSULE PO SCH ×3 (06:27→21:35)
[2017-08-12] MEDS: OXYCODONE HCL SR 10 MG TABLET PO SCH ×2 (06:27→17:04)
--- NOTE | 2017-08-12 07:20 | PDOC CONSULTATION ---
Consultation Consult Date: 08/12/17 Consult reason:: Right hip pain/displaced femoral neck fracture History of Present Illness Admission Date/PCP: 07/25/17 19:42 DAFNE ZENDEJAS DO History of Present Illness: CEM MONROY is a 62 year old male The patient is a 62-year-old black male with multiple ongoing medical issues and greater than 1 year history of right hip pain. The patient reports that he was scheduled to have a right hip replacement by Dr. shields in [place] at the end of August. The patient was having right hip pain and had an x-ray and [place] in June. This was interpreted as normal. The patient has been hospitalized for medical conditions, began to complain of right hip pain again, and an x-ray demonstrated a displaced right femoral neck fracture. Orthopedics is consulted for fracture management. Past Medical History Cardiac Medical History: Denies: Congestive Heart Failure, Coronary Artery Disease, Myocardial Infarction, Hypertension Pulmonary Medical History: Denies: Asthma, Bronchitis, Chronic Obstructive Pulmonary Disease (COPD), Pneumonia Neurological Medical History: Reports: Seizures - ETOH withdrawal seizures GI Medical History: Reports: Cirrhosis, Hepatitis - Hepatitis C Musculoskeltal Medical History: Denies: Arthritis Psychiatric Medical History: Denies: Depression Hematology: Denies: Anemia Past Surgical History Past Surgical History: Reports: None Social History Information Source: Patient, [facility] Records Lives with: Alone Smoking Status: Unknown if Ever Smoked Frequency of Alcohol Use: Heavy Hx Recreational Drug Use: Yes Drugs: Marijuana Hx Prescription Drug Abuse: Yes - Advance Directive Resuscitation Status: Full Code Family History Family History: Hypertension, Malignancy - Brother with pancreatic cancer and mother with breast cancer, Other - Father was murdered, sister with lupus Parental Family History Reviewed: No Children Family History Reviewed: No Sibling(s) Family History Reviewed.: No Medication/Allergy Home Medications: Clonidine HCl [Catapres 0.1 mg Tablet] 0.1 mg PO Q12 07/25/17 Gabapentin [Neurontin 100 mg Capsule] 100 mg PO Q8 07/25/17 Oxycodone HCl [Oxycodone HCl 10 MG Tablet] 10 mg PO Q6HP PRN 07/25/17 Tramadol HCl [Ultram 50 mg Tablet] 50 mg PO Q6HP PRN 07/25/17 Allergies/Adverse Reactions: haloperidol [From Haldol] Adverse Reaction (Intermediate, Verified 11/01/16 16: 46) Cramping, "couldn't breathe" lorazepam [From Ativan] Adverse Reaction (Intermediate, Verified 11/01/16 16:46) Nausea, nightmares promethazine HCl [From Phenergan] Adverse Reaction (Unknown, Verified 11/01/16 16:46) "Messes my veins up" Review of Systems All systems: as per PMH Physical Exam Vital Signs: Temp Pulse Resp BP Pulse Ox 36.5 C 64 20 125/79 100 08/12/17 03:29 08/12/17 03:29 08/12/17 03:29 08/12/17 03:29 08/12/17 03:29 Intake & Output 08/11/17 08/12/17 08/13/17 06:59 06:59 06:59 Intake Total 948 357 Output Total 2621 1742 Balance -1969 -9398 Weight 66.9 kg 71.2 kg Physical Exam: Patient is a relatively thin middle-aged black male lying in hospital bed. He does not seem to be unduly uncomfortable. Patient is requesting increased doses of pain medication. General appearance: PRESENT: mild distress Head exam: PRESENT: normocephalic Respiratory exam: PRESENT: unlabored Cardiovascular exam: PRESENT: RRR Pulses: PRESENT: +1 pedal pulses bilateral Vascular exam: PRESENT: normal capillary refill GI/Abdominal exam: PRESENT: soft Rectal exam: PRESENT: deferred Extremities exam: PRESENT: other - Right lower extremity is shortened with a rotational deformity. Distal neurovascular examination is intact. Neurological exam: PRESENT: alert, awake, oriented to person, oriented to place , oriented to time, oriented to situation. ABSENT: motor sensory deficit Psychiatric exam: PRESENT: appropriate affect, normal mood. ABSENT: homicidal ideation, suicidal ideation Skin exam: PRESENT: dry, intact, warm. ABSENT: cyanosis, rash Results Laboratory Results: 08/09/17 06:35 08/11/17 06:20 07/25/17 07/25/17 07/25/17 20:15 20:15 20:15 Creatine Kinase 15917 H CK-MB (CK-2) 40.00 H Troponin I 0.119 Cancelled NT-Pro-B Natriuret Pep 07/26/17 07/26/17 07/26/17 04:14 04:14 12:41 Creatine Kinase 93098 H 35888 H CK-MB (CK-2) 27.40 H Troponin I 0.075 NT-Pro-B Natriuret Pep 07/26/17 07/27/17 07/28/17 12:41 04:55 04:22 Creatine Kinase 26909 H 37434 H CK-MB (CK-2) 12.40 H Troponin I 0.046 NT-Pro-B Natriuret Pep 07/29/17 07/30/17 07/30/17 04:54 06:18 06:18 Creatine Kinase 74407 H 86584 H CK-MB (CK-2) Troponin I NT-Pro-B Natriuret Pep 262 07/31/17 08/01/17 08/02/17 04:14 03:16 05:00 Creatine Kinase 7400 H 3073 H 1409 H CK-MB (CK-2) Troponin I NT-Pro-B Natriuret Pep 08/04/17 08/07/17 05:04 05:10 Creatine Kinase 765 H 324 H CK-MB (CK-2) Troponin I NT-Pro-B Natriuret Pep Impressions: Head CT 07/25/17 14:30 IMPRESSION: NORMAL BRAIN CT WITHOUT CONTRAST. EVIDENCE OF ACUTE STROKE: NO. Head MRI 07/25/17 16:11 IMPRESSION: Negative for acute or sub-acute infarction. EVIDENCE OF ACUTE STROKE: NO. Chest X-Ray 07/28/17 00:00 IMPRESSION: NO ACUTE DISEASE. Hand X-Ray 08/03/17 00:00 IMPRESSION: NEGATIVE STUDY OF THE LEFT HAND. NO RADIOGRAPHIC EVIDENCE OF ACUTE INJURY. Upper Extremity MRI 08/03/17 00:00 IMPRESSION: Very limited negative study. Hip/Pelvis X-Ray 08/11/17 00:00 IMPRESSION: FRACTURE OF THE RIGHT FEMORAL NECK. Status: Imported from PACS Assessment & Plan - Diagnosis (1) Fracture of femoral neck, right, closed Is this a current diagnosis for this admission?: Yes Plan: 62-year-old black male with a right femoral neck fracture. In retrospect he probably had a stress fracture back in June at the time of the x-ray. At this point I think the patient would be best served either with a hemiarthroplasty and/or total hip arthroplasty. The patient was scheduled to have this done in [place] and one option would be to transfer the patient to [place] to have Dr. shields performed the procedure. Alternatively, I tentatively placed the patient on the schedule for tomorrow for right hemiarthroplasty under regional anesthesia. This is a surgical procedure that required approximately 30 minutes with 100 cc of blood loss the patient can be weightbearing as tolerated postoperatively. - Time Time Spent: 50 to 70 Minutes Anticipated discharge: SNF Within: Other
[2017-08-12] MEDS ORDERED: RINGERS SOLUTION,LACTATED 1,000 ML IV PRN (07:39)
[2017-08-12] MEDS ORDERED: VANCOMYCIN HCL 1,000 MG in DEXTROSE 5%-WATER 250 ML IV ONE (07:45)
[2017-08-12] MEDS ORDERED: TRANEXAMIC ACID 1,000 MG in DEXTROSE 5%-WATER 50 ML IV ONE (07:45)
[2017-08-12] MEDS: MAGNESIUM OXIDE 400 MG TABLET PO SCH ×2 (10:36→17:04)
[2017-08-12] MEDS: THIAMINE HCL 100 MG TABLET PO SCH (10:36)
[2017-08-12] MEDS: ENOXAPARIN SODIUM INJ 40 MG/0.4 ML DISP.SYRIN SUBCUT SCH (11:13)
[2017-08-12 12:06] LABS: INTERNATIONAL RATION (INR) 1.05; PROTHROMBIN TIME 14.2 SEC (11.4-15.4)
[2017-08-12 12:07] LABS: PARTIAL THROMBOPLASTIN TIME 34.6 SEC (23.5-35.8)
[2017-08-12 12:14] LABS: ABSOLUTE EOSINOPHILS # (AUTO) 0.1 10^3/uL (0.0-0.6); ABSOLUTE LYMPHOCYTES (AUTO) 0.9 10^3/uL (0.5-4.7); ABSOLUTE MONOCYTES (AUTO) 0.6 10^3/uL (0.1-1.4); ABSOLUTE NEUT (AUTO) 4.6 10^3/uL (1.7-8.2); BASOPHILS % (AUTO) 0.7 % (0-2); EOSINOPHILS % (AUTO) 1.6 % (0-6); HEMATOCRIT 36.7 % (37.9-51.0); HEMOGLOBIN 12.4 g/dL (13.5-17.0); LYMPHOCYTES % (AUTO) 14.7 % (13-45); MEAN CORPUSCULAR HEMOGLOBIN 30.4 pg (27.0-33.4); MEAN CORPUSCULAR HGB CONC 33.9 g/dL (32.0-36.0); MEAN CORPUSCULAR VOLUME 90 fl (80-97); MONOCYTES % (AUTO) 8.9 % (3-13); PLATELET COUNT 178 10^3/uL (150-450); RED BLOOD COUNT 4.09 10^6/uL (4.35-5.55); RED CELL DISTRIBUTION WIDTH 14.5 % (11.5-14.0); SEGMENTED NEUTROPHILS % (AUTO) 74.1 % (42-78); TOTAL CELLS COUNTED % (AUTO) 100 %; WHITE BLOOD COUNT 6.2 10^3/uL (4.0-10.5)
[2017-08-12 12:36] LABS: ANION GAP 13 (5-19); BLOOD UREA NITROGEN 17 mg/dL (7-20); CALCIUM 9.5 mg/dL (8.4-10.2); CARBON DIOXIDE 26 mmol/L (22-30); CHLORIDE 103 mmol/L (98-107); GLUCOSE 116 mg/dL (75-110); POTASSIUM 4.2 mmol/L (3.6-5.0)
--- NOTE | 2017-08-12 14:33 | PDOC PROGRESS REPORT ---
Subjective Progress Note for:: 08/12/17 - seen on rounds this morning Reason For Visit: ETOH W/D SEIZURE, ARF RHABDO, HYPONATREMIA Physical Exam Vital Signs: Temp Pulse Resp BP Pulse Ox 97.7 F 64 20 125/79 100 08/12/17 03:29 08/12/17 03:29 08/12/17 03:29 08/12/17 03:29 08/12/17 03:29 Intake & Output 08/11/17 08/12/17 08/13/17 06:59 06:59 06:59 Intake Total 948 357 Output Total 2625 1838 Balance -1744 -3429 Weight 147 lb 7.828 oz 156 lb 15.506 oz Results Laboratory Results: 08/09/17 06:35 08/11/17 06:20 07/25/17 07/25/17 07/25/17 20:15 20:15 20:15 Creatine Kinase 88912 H CK-MB (CK-2) 40.00 H Troponin I 0.119 Cancelled NT-Pro-B Natriuret Pep 07/26/17 07/26/17 07/26/17 04:14 04:14 12:41 Creatine Kinase 09412 H 01014 H CK-MB (CK-2) 27.40 H Troponin I 0.075 NT-Pro-B Natriuret Pep 07/26/17 07/27/17 07/28/17 12:41 04:55 04:22 Creatine Kinase 61081 H 72770 H CK-MB (CK-2) 12.40 H Troponin I 0.046 NT-Pro-B Natriuret Pep 07/29/17 07/30/17 07/30/17 04:54 06:18 06:18 Creatine Kinase 55920 H 36935 H CK-MB (CK-2) Troponin I NT-Pro-B Natriuret Pep 262 07/31/17 08/01/17 08/02/17 04:14 03:16 05:00 Creatine Kinase 7400 H 3073 H 1409 H CK-MB (CK-2) Troponin I NT-Pro-B Natriuret Pep 08/04/17 08/07/17 08/12/17 05:04 05:10 06:50 Creatine Kinase 765 H 324 H 114 CK-MB (CK-2) Troponin I NT-Pro-B Natriuret Pep Impressions: Head CT 07/25/17 14:30 IMPRESSION: NORMAL BRAIN CT WITHOUT CONTRAST. EVIDENCE OF ACUTE STROKE: NO. Head MRI 07/25/17 16:11 IMPRESSION: Negative for acute or sub-acute infarction. EVIDENCE OF ACUTE STROKE: NO. Chest X-Ray 07/28/17 00:00 IMPRESSION: NO ACUTE DISEASE. Hand X-Ray 08/03/17 00:00 IMPRESSION: NEGATIVE STUDY OF THE LEFT HAND. NO RADIOGRAPHIC EVIDENCE OF ACUTE INJURY. Upper Extremity MRI 08/03/17 00:00 IMPRESSION: Very limited negative study. Hip/Pelvis X-Ray 08/11/17 00:00 IMPRESSION: FRACTURE OF THE RIGHT FEMORAL NECK. Assessment & Plan - Diagnosis (1) Fracture of femoral neck, right, closed Qualifiers: Encounter type: initial encounter Qualified Code(s): S72.001A - Fracture of unspecified part of neck of right femur, initial encounter for closed fracture Is this a current diagnosis for this admission?: Yes Plan: seen on hip xray yesterday- unclear as to when he had the fracture- he has had right hip pain for months now he told me and he has been evaluated by Ortho in [place]. I consulted Ortho yesterday and I appreciate Dr Gore's assistance with this gentleman. Plan is for surgical intervention on Sunday. I had ajdusted his pain meds but now he states its not enough and his pain is 8/10- will add Morphine IV 2mg Q4 PRN for breakthrough pain. (2) Acute encephalopathy Is this a current diagnosis for this admission?: Yes Plan: Resolved-patient is alert and awake. (3) Rhabdomyolysis Qualifiers: Rhabdomyolysis type: non-traumatic Qualified Code(s): M62.82 - Rhabdomyolysis Is this a current diagnosis for this admission?: Yes Plan: Resolved (4) Polysubstance abuse Is this a current diagnosis for this admission?: Yes Plan: will need follow up with outpatient rehab - Plan Summary Plan Summary: possible right hemiarthroplasty in AM
[2017-08-12] MEDS: MORPHINE SULFATE 10 MG/ML INJ IV PRN ×2 (15:55→20:17)
[2017-08-12] MEDS: SENNOSIDES/DOCUSATE 8.6-50 MG 1 EACH TABLET PO SCH (21:35)
[2017-08-13] MEDS: MORPHINE SULFATE 10 MG/ML INJ IV PRN ×6 (00:57→22:50)
[2017-08-13] MEDS ORDERED: VANCOMYCIN HCL 1,000 MG in DEXTROSE 5%-WATER 250 ML IV PRN (05:00)
[2017-08-13] MEDS ORDERED: TRANEXAMIC ACID INJ/PF 1,000 MG/10 ML SDV IV PRN (05:00)
[2017-08-13] MEDS: GABAPENTIN 300 MG CAPSULE PO SCH ×3 (06:16→22:44)
[2017-08-13] MEDS: OXYCODONE HCL SR 10 MG TABLET PO SCH ×2 (06:17→22:44)
[2017-08-13] MEDS: THIAMINE HCL 100 MG TABLET PO SCH (09:27)
[2017-08-13] MEDS: ENOXAPARIN SODIUM INJ 40 MG/0.4 ML DISP.SYRIN SUBCUT SCH (09:27)
[2017-08-13] MEDS: MAGNESIUM OXIDE 400 MG TABLET PO SCH ×2 (09:27→18:33)
[2017-08-13] MEDS ORDERED: THROMBIN (BOVINE) TOPICAL 20000 UNIT VIAL ONE (09:29)
[2017-08-13] MEDS ORDERED: THROMBIN (BOVINE) 5000 UNIT EPITAXIS KIT ONE (09:30)
[2017-08-13] MEDS ORDERED: BUPIVACAINE INJ/PF LIPOSOME/PF 266 MG/20 ML SDV ONE (09:30)
[2017-08-13] MEDS ORDERED: MIDAZOLAM 2 MG/2 ML INJ ONE (11:21)
[2017-08-13] MEDS ORDERED: EPHEDRINE SULFATE INJ 50 MG/1 ML AMPULE ONE (11:21)
[2017-08-13] MEDS ORDERED: FENTANYL CITRATE INJ/PF 100 MCG/2 ML AMPUL ONE (11:21)
[2017-08-13] MEDS ORDERED: TRANEXAMIC ACID INJ/PF 1,000 MG/10 ML SDV IV ONE ×2 (11:22→15:30)
[2017-08-13] MEDS ORDERED: PROPOFOL INJ 200 MG/20 ML VIAL IV ONE (11:22)
[2017-08-13] MEDS ORDERED: BUPIVACAINE HCL/DEX-WATER/PF 15 MG/2 ML AMPULE ONE (11:58)
[2017-08-13] MEDS ORDERED: EPINEPHRINE INJ/PF 1 MG/1 ML AMPULE ONE (11:58)
[2017-08-13] MEDS ORDERED: KETAMINE HCL INJ 500 MG/10 ML VIAL ONE (12:05)
--- NOTE | 2017-08-13 12:23 | PDOC PROGRESS REPORT ---
Subjective Progress Note for:: 08/13/17 - Seen on rounds this morning. Subjective:: Patient states that he continues to have right hip pain but it is better since I started him on IV morphine. He is aware that he is pending surgery this afternoon. He is currently n.p.o. Reason For Visit: ETOH W/D SEIZURE, ARF RHABDO, HYPONATREMIA Physical Exam Vital Signs: Temp Pulse Resp BP Pulse Ox 98.1 F 80 18 113/64 97 08/13/17 12:08 08/13/17 12:08 08/13/17 12:08 08/13/17 12:08 08/13/17 12:08 Intake & Output 08/12/17 08/13/17 08/14/17 06:59 06:59 06:59 Intake Total 357 1002 Output Total 1500 775 Balance -1143 227 Weight 156 lb 15.506 oz 164 lb 14.492 oz General appearance: PRESENT: no acute distress, thin Head exam: PRESENT: atraumatic, normocephalic Eye exam: PRESENT: EOMI. ABSENT: scleral icterus Mouth exam: PRESENT: moist, neck supple Neck exam: ABSENT: tenderness, tracheal deviation Respiratory exam: PRESENT: clear to auscultation taryn, symmetrical Cardiovascular exam: PRESENT: +S1, +S2 Pulses: PRESENT: +2 pedal pulses bilateral GI/Abdominal exam: PRESENT: normal bowel sounds, soft. ABSENT: tenderness Extremities exam: PRESENT: tenderness - Right hip tender to palpation laterally and also of the thigh-no focal areas Musculoskeletal exam: PRESENT: tenderness - See above. Decreased range of motion of the right hip secondary to his pain Neurological exam: PRESENT: alert, awake, CN II-XII grossly intact Skin exam: PRESENT: dry, warm Results Laboratory Results: 08/12/17 11:22 08/12/17 11:22 08/12/17 08/12/17 11:22 11:22 Sodium 142.0 Potassium 4.2 Chloride 103 Carbon Dioxide 26 Anion Gap 13 BUN 17 Creatinine 0.64 Est GFR ( Amer) > 60 Est GFR (Non-Af Amer) > 60 Glucose 116 H Calcium 9.5 Blood Type O POSITIVE Antibody Screen NEGATIVE 07/25/17 07/25/17 07/25/17 20:15 20:15 20:15 Creatine Kinase 22826 H CK-MB (CK-2) 40.00 H Troponin I 0.119 Cancelled NT-Pro-B Natriuret Pep 07/26/17 07/26/17 07/26/17 04:14 04:14 12:41 Creatine Kinase 16432 H 69566 H CK-MB (CK-2) 27.40 H Troponin I 0.075 NT-Pro-B Natriuret Pep 07/26/17 07/27/17 07/28/17 12:41 04:55 04:22 Creatine Kinase 75014 H 61771 H CK-MB (CK-2) 12.40 H Troponin I 0.046 NT-Pro-B Natriuret Pep 07/29/17 07/30/17 07/30/17 04:54 06:18 06:18 Creatine Kinase 37492 H 90868 H CK-MB (CK-2) Troponin I NT-Pro-B Natriuret Pep 262 07/31/17 08/01/17 08/02/17 04:14 03:16 05:00 Creatine Kinase 7400 H 3073 H 1409 H CK-MB (CK-2) Troponin I NT-Pro-B Natriuret Pep 08/04/17 08/07/17 08/12/17 05:04 05:10 06:50 Creatine Kinase 765 H 324 H 114 CK-MB (CK-2) Troponin I NT-Pro-B Natriuret Pep Impressions: Head CT 07/25/17 14:30 IMPRESSION: NORMAL BRAIN CT WITHOUT CONTRAST. EVIDENCE OF ACUTE STROKE: NO. Head MRI 07/25/17 16:11 IMPRESSION: Negative for acute or sub-acute infarction. EVIDENCE OF ACUTE STROKE: NO. Chest X-Ray 07/28/17 00:00 IMPRESSION: NO ACUTE DISEASE. Hand X-Ray 08/03/17 00:00 IMPRESSION: NEGATIVE STUDY OF THE LEFT HAND. NO RADIOGRAPHIC EVIDENCE OF ACUTE INJURY. Upper Extremity MRI 08/03/17 00:00 IMPRESSION: Very limited negative study. Hip/Pelvis X-Ray 08/11/17 00:00 IMPRESSION: FRACTURE OF THE RIGHT FEMORAL NECK. Assessment & Plan - Diagnosis (1) Fracture of femoral neck, right, closed Qualifiers: Encounter type: initial encounter Qualified Code(s): S72.001A - Fracture of unspecified part of neck of right femur, initial encounter for closed fracture Is this a current diagnosis for this admission?: Yes (2) Acute encephalopathy Is this a current diagnosis for this admission?: Yes (3) Rhabdomyolysis Qualifiers: Rhabdomyolysis type: non-traumatic Qualified Code(s): M62.82 - Rhabdomyolysis Is this a current diagnosis for this admission?: Yes (4) Polysubstance abuse Is this a current diagnosis for this admission?: Yes - Plan Summary Plan Summary: He is planned for surgery this afternoon for his right femoral neck fracture. I think he will be able to be discharged to acute rehab after surgery in a few days if recommended by PT. given his new findings of right femoral neck fracture I have started him on morphine IV pain medication. I think he does have some components of pain seeking behavior and he is opioid dependent. At this time because of his acute symptoms we will continue with IV pain meds but after surgery his pain meds should be weaned down.
[2017-08-13] MEDS ORDERED: MEPERIDINE HCL/PF INJ 25 MG/1 ML DISP.SYRIN IV PRN (13:01)
[2017-08-13] MEDS ORDERED: ONDANSETRON HCL INJ/PF 4 MG/2 ML SDV IV PRN ×2 (13:01→13:23)
[2017-08-13] MEDS ORDERED: DIPHENHYDRAMINE HCL 50 MG/ML VIAL IV PRN ×2 (13:01→13:23)
[2017-08-13] MEDS ORDERED: MORPHINE SULFATE 10 MG/ML INJ IV PRN ×3 (13:01→13:23)
[2017-08-13] MEDS ORDERED: FENTANYL CITRATE INJ/PF 100 MCG/2 ML AMPUL IV PRN ×3 (13:01)
[2017-08-13] MEDS ORDERED: OXYCODONE-ACETAMINOPHEN 5-325 MG TABLET PO PRN ×2 (13:01)
[2017-08-13] MEDS ORDERED: OXYCODONE HCL IR 5 MG TABLET PO PRN (13:23)
[2017-08-13] MEDS ORDERED: ACETAMINOPHEN 325 MG TABLET PO PRN (13:23)
[2017-08-13] MEDS ORDERED: MAG HYDROX/AL HYDROX/SIMETH SUSP 30 ML UDCUP PO PRN (13:23)
[2017-08-13] MEDS ORDERED: RINGERS SOLUTION,LACTATED 1,000 ML IV PRN ×2 (13:23)
[2017-08-13] MEDS ORDERED: ZOLPIDEM TARTRATE 5 MG TABLET PO PRN (13:23)
--- NOTE | 2017-08-13 13:23 | Operative Report ---
Operative Report DATE OF SURGERY: 08/13/17 PREOPERATIVE DIAGNOSIS: Right femoral neck fracture. Avascular necrosis right femoral head POSTOPERATIVE DIAGNOSIS: Same as above OPERATION: Right proximal femoral hemiarthroplasty SURGEON: BILLY MCCOY ANESTHESIA: Spinal TISSUE REMOVED OR ALTERED: Femoral head to pathology ESTIMATED BLOOD LOSS: 100 PROCEDURE: With the patient in a left lateral decubitus position the right lower extremity hindquarter prepped and draped in a sterile fashion. A curvilinear incision made over the greater trochanter a posterior approach the hip was taken. The femur was retracted anteriorly and underlying femoral neck and head are retrieved using a corkscrew. The femoral head was measured and noted to be 52 millimeters. Attention is now turned to the femur. Access is gained to the femoral canal using a box osteotome to the piriformis fossa. The femur is then prepared using a series of tapered broaches until a Fortuna Accolade 2 number 6 broach is seated. A trial reduction was now performed using a 52 head and standard neck. Leg length was restored and there is excellent anterior posterior stability. A decision was made to proceed with this construct. All trial implants were removed. The final number 6 femoral stem is impacted into the canal. The standard neck is impacted onto the trunnion. Final unipolar head 52 millimeters is impacted onto the neck. The hip was reduced. The wound is copiously irrigated with pulsed lavage. A subsequent closed in layers using Vicryl and kian. A sterile dressing is applied. The patient was returned to the recovery room in satisfactory condition.
--- NOTE | 2017-08-13 14:19 | RADIOLOGY REPORT (SQ) ---
EXAM DESCRIPTION: PELVIS AP COMPLETED DATE/TIME: 08/13/2017 2:06 pm REASON FOR STUDY: Post Op Long Cassette in PACU COMPARISON: 08/11/2017. NUMBER OF VIEWS: One view TECHNIQUE: Digital radiographic images of the pelvis post-procedure LIMITATIONS: None. FINDINGS: BONES: No worrisome or unexpected findings post-procedure. DEVICE: Bi-polar prothesis. Device appears in appropriate location. SOFT TISSUES: No worrisome findings. Expected postoperative soft tissue changes. IMPRESSION: SATISFACTORY POSTOPERATIVE PELVIS. TECHNICAL DOCUMENTATION: JOB ID: [id number] [employer]- All Rights Reserved Reading location - IP/workstation name: [email or web address]
[2017-08-13] MEDS: ONDANSETRON 4 MG TAB.RAPDIS PO PRN (17:04)
[2017-08-13] MEDS: SENNOSIDES/DOCUSATE 8.6-50 MG 1 EACH TABLET PO SCH (18:33)
[2017-08-13] MEDS: OXYCODONE HCL IR 5 MG TABLET PO PRN (18:33)
[2017-08-13] MEDS: MORPHINE SULFATE 10 MG/ML INJ IM PRN (20:44)
[2017-08-13] MEDS: IBUPROFEN 800 MG in NORMAL SALINE 250 ML IV SCH (22:46)
[2017-08-14] MEDS: OXYCODONE HCL IR 5 MG TABLET PO PRN ×3 (01:22→14:43)
[2017-08-14] MEDS: MORPHINE SULFATE 10 MG/ML INJ IV PRN ×4 (01:24→16:58)
[2017-08-14] MEDS ORDERED: VANCOMYCIN HCL 1,000 MG in DEXTROSE 5%-WATER 250 ML IV ONE (01:30)
[2017-08-14] MEDS: IBUPROFEN 800 MG in NORMAL SALINE 250 ML IV SCH ×2 (05:05→14:38)
[2017-08-14] MEDS: GABAPENTIN 300 MG CAPSULE PO SCH ×3 (05:05→22:36)
[2017-08-14] MEDS: LANSOPRAZOLE 30 MG TAB.RAP.DR PO SCH (05:06)
[2017-08-14 05:42] LABS: HEMATOCRIT 33.3 % (37.9-51.0); HEMOGLOBIN 11.3 g/dL (13.5-17.0); MEAN CORPUSCULAR HEMOGLOBIN 30.5 pg (27.0-33.4); MEAN CORPUSCULAR HGB CONC 33.8 g/dL (32.0-36.0); MEAN CORPUSCULAR VOLUME 90 fl (80-97); PLATELET COUNT 157 10^3/uL (150-450); RED BLOOD COUNT 3.69 10^6/uL (4.35-5.55); RED CELL DISTRIBUTION WIDTH 14.2 % (11.5-14.0); WHITE BLOOD COUNT 6.2 10^3/uL (4.0-10.5)
[2017-08-14 06:05] LABS: ANION GAP 8 (5-19); BLOOD UREA NITROGEN 15 mg/dL (7-20); CALCIUM 8.9 mg/dL (8.4-10.2); CARBON DIOXIDE 29 mmol/L (22-30); CHLORIDE 104 mmol/L (98-107); GLUCOSE 84 mg/dL (75-110); POTASSIUM 4.2 mmol/L (3.6-5.0); SODIUM 140.7 mmol/L (137-145)
--- NOTE | 2017-08-14 06:44 | PDOC PROGRESS REPORT ---
Subjective Progress Note for:: 08/14/17 Reason For Visit: RIGHT FEMORAL NECK FRACTURE 62-year-old black male postop day 1 from right proximal femoral hemiarthroplasty for femoral neck fracture/AVN. Patient with some complaints of discomfort but seems to be better this morning. Physical Exam Vital Signs: Temp Pulse Resp BP Pulse Ox 37.7 C 98 16 119/71 98 08/14/17 04:00 08/14/17 04:00 08/14/17 04:00 08/14/17 04:00 08/14/17 04:00 Intake & Output 08/12/17 08/13/17 08/14/17 06:59 06:59 06:59 Intake Total 357 1002 6440 Output Total 1334 406 0371 Balance -8938 660 9281 Weight 71.2 kg 74.8 kg 74.8 kg General appearance: PRESENT: no acute distress, mild distress Head exam: PRESENT: normocephalic Respiratory exam: PRESENT: unlabored Cardiovascular exam: PRESENT: RRR Pulses: PRESENT: +1 pedal pulses bilateral Vascular exam: PRESENT: normal capillary refill GI/Abdominal exam: PRESENT: soft Rectal exam: PRESENT: deferred Extremities exam: PRESENT: other - Right hip dressing with minor drainage which appears to be old. Leg lengths are equal. Distal neurovascular examination is intact. Neurological exam: PRESENT: alert, awake, oriented to person, oriented to place , oriented to time, oriented to situation. ABSENT: motor sensory deficit Psychiatric exam: PRESENT: appropriate affect, normal mood. ABSENT: homicidal ideation, suicidal ideation Skin exam: PRESENT: dry, intact, warm. ABSENT: cyanosis, rash Results Laboratory Results: 08/14/17 04:35 08/14/17 04:35 08/14/17 08/14/17 04:35 04:35 WBC 6.2 RBC 3.69 L Hgb 11.3 L Hct 33.3 L MCV 90 MCH 30.5 MCHC 33.8 RDW 14.2 H Plt Count 157 Sodium 140.7 Potassium 4.2 Chloride 104 Carbon Dioxide 29 Anion Gap 8 BUN 15 Creatinine 0.75 Est GFR ( Amer) > 60 Est GFR (Non-Af Amer) > 60 Glucose 84 Calcium 8.9 07/25/17 07/25/17 07/25/17 20:15 20:15 20:15 Creatine Kinase 33059 H CK-MB (CK-2) 40.00 H Troponin I 0.119 Cancelled NT-Pro-B Natriuret Pep 07/26/17 07/26/17 07/26/17 04:14 04:14 12:41 Creatine Kinase 84646 H 00598 H CK-MB (CK-2) 27.40 H Troponin I 0.075 NT-Pro-B Natriuret Pep 07/26/17 07/27/17 07/28/17 12:41 04:55 04:22 Creatine Kinase 46892 H 19831 H CK-MB (CK-2) 12.40 H Troponin I 0.046 NT-Pro-B Natriuret Pep 07/29/17 07/30/17 07/30/17 04:54 06:18 06:18 Creatine Kinase 52899 H 84863 H CK-MB (CK-2) Troponin I NT-Pro-B Natriuret Pep 262 07/31/17 08/01/17 08/02/17 04:14 03:16 05:00 Creatine Kinase 7400 H 3073 H 1409 H CK-MB (CK-2) Troponin I NT-Pro-B Natriuret Pep 08/04/17 08/07/17 08/12/17 05:04 05:10 06:50 Creatine Kinase 765 H 324 H 114 CK-MB (CK-2) Troponin I NT-Pro-B Natriuret Pep Impressions: Head CT 07/25/17 14:30 IMPRESSION: NORMAL BRAIN CT WITHOUT CONTRAST. EVIDENCE OF ACUTE STROKE: NO. Head MRI 07/25/17 16:11 IMPRESSION: Negative for acute or sub-acute infarction. EVIDENCE OF ACUTE STROKE: NO. Chest X-Ray 07/28/17 00:00 IMPRESSION: NO ACUTE DISEASE. Hand X-Ray 08/03/17 00:00 IMPRESSION: NEGATIVE STUDY OF THE LEFT HAND. NO RADIOGRAPHIC EVIDENCE OF ACUTE INJURY. Upper Extremity MRI 08/03/17 00:00 IMPRESSION: Very limited negative study. Hip/Pelvis X-Ray 08/11/17 00:00 IMPRESSION: FRACTURE OF THE RIGHT FEMORAL NECK. Pelvis X-Ray 08/13/17 13:25 IMPRESSION: SATISFACTORY POSTOPERATIVE PELVIS. Status: Imported from PACS Assessment & Plan - Diagnosis (1) Fracture of femoral neck, right, closed Qualifiers: Encounter type: initial encounter Qualified Code(s): S72.001A - Fracture of unspecified part of neck of right femur, initial encounter for closed fracture Is this a current diagnosis for this admission?: Yes Plan: Patient status post hemiarthroplasty. Mobilization with physical therapy and weightbearing as tolerated amatory basis. - Time Time Spent with patient: 15-24 minutes Anticipated discharge: SNF Within: Other
[2017-08-14] MEDS: ENOXAPARIN SODIUM INJ 40 MG/0.4 ML DISP.SYRIN SUBCUT SCH (09:26)
[2017-08-14] MEDS: ASPIRIN 81 MG TABLET, CHEWABLE PO SCH (09:34)
[2017-08-14] MEDS: MAGNESIUM OXIDE 400 MG TABLET PO SCH ×2 (09:34→18:19)
[2017-08-14] MEDS: MORPHINE SULFATE 10 MG/ML INJ IM PRN (09:34)
[2017-08-14] MEDS: PRENATAL VITAMIN W DHA CAPSULE PO SCH (09:34)
[2017-08-14] MEDS: SENNOSIDES/DOCUSATE 8.6-50 MG 1 EACH TABLET PO SCH ×2 (09:34→18:19)
[2017-08-14] MEDS: THIAMINE HCL 100 MG TABLET PO SCH (09:35)
[2017-08-14] MEDS: OXYCODONE HCL SR 10 MG TABLET PO SCH ×2 (11:15→22:36)
--- NOTE | 2017-08-14 16:29 | PDOC PROGRESS REPORT ---
Subjective Progress Note for:: 08/14/17 Subjective:: The patient was seen earlier today on rounds. She was lying in bed. The patient denies any nausea, vomiting, diarrhea, shortness of breath, dizziness, chest pain, heart palpitations, fevers, or chills. The patient has remained afebrile. This time the patient's pain is manageable. Currently awaiting physical therapy evaluation. Blood pressures have been in a good range. When prompted the patient voices no other concerns at this time. Review of systems: The rest of the review of systems is negative. Reason For Visit: RIGHT FEMORAL NECK FRACTURE Physical Exam Vital Signs: Temp Pulse Resp BP Pulse Ox 98.1 F 95 20 118/68 96 08/14/17 11:23 08/14/17 11:23 08/14/17 11:23 08/14/17 11:23 08/14/17 11:23 Intake & Output 08/12/17 08/13/17 08/14/17 23:59 23:59 23:59 Intake Total 592 5280 1912 Output Total 800 4075 730 Balance -208 1205 1182 Weight 71.2 kg 74.8 kg 74.8 kg General appearance: PRESENT: no acute distress, cooperative Head exam: PRESENT: atraumatic, normocephalic Eye exam: PRESENT: conjunctiva pink, EOMI, other - amblyopia. ABSENT: scleral icterus Ear exam: PRESENT: normal external ear exam Mouth exam: PRESENT: moist, tongue midline Neck exam: ABSENT: carotid bruit, JVD, lymphadenopathy, thyromegaly Respiratory exam: PRESENT: decreased breath sounds, symmetrical, unlabored. ABSENT: rales, rhonchi, wheezes Cardiovascular exam: PRESENT: RRR. ABSENT: diastolic murmur, rubs, systolic murmur Pulses: PRESENT: normal dorsalis pedis pul Vascular exam: PRESENT: normal capillary refill GI/Abdominal exam: PRESENT: normal bowel sounds, soft. ABSENT: distended, guarding, mass, organolmegaly, rebound, tenderness Rectal exam: PRESENT: deferred Extremities exam: ABSENT: calf tenderness, clubbing, pedal edema Neurological exam: PRESENT: alert, awake, oriented to person, oriented to place , oriented to time, oriented to situation. ABSENT: motor sensory deficit Psychiatric exam: PRESENT: appropriate affect, normal mood. ABSENT: homicidal ideation, suicidal ideation Skin exam: PRESENT: dry, intact, warm. ABSENT: cyanosis, rash Results Laboratory Results: 08/14/17 08/14/17 04:35 04:35 WBC 6.2 RBC 3.69 L Hgb 11.3 L Hct 33.3 L MCV 90 MCH 30.5 MCHC 33.8 RDW 14.2 H Plt Count 157 Sodium 140.7 Potassium 4.2 Chloride 104 Carbon Dioxide 29 Anion Gap 8 BUN 15 Creatinine 0.75 Est GFR ( Amer) > 60 Est GFR (Non-Af Amer) > 60 Glucose 84 Calcium 8.9 Impressions: Head CT 07/25/17 14:30 IMPRESSION: NORMAL BRAIN CT WITHOUT CONTRAST. EVIDENCE OF ACUTE STROKE: NO. Head MRI 07/25/17 16:11 IMPRESSION: Negative for acute or sub-acute infarction. EVIDENCE OF ACUTE STROKE: NO. Chest X-Ray 07/28/17 00:00 IMPRESSION: NO ACUTE DISEASE. Hand X-Ray 08/03/17 00:00 IMPRESSION: NEGATIVE STUDY OF THE LEFT HAND. NO RADIOGRAPHIC EVIDENCE OF ACUTE INJURY. Upper Extremity MRI 08/03/17 00:00 IMPRESSION: Very limited negative study. Hip/Pelvis X-Ray 08/11/17 00:00 IMPRESSION: FRACTURE OF THE RIGHT FEMORAL NECK. Pelvis X-Ray 08/13/17 13:25 IMPRESSION: SATISFACTORY POSTOPERATIVE PELVIS. Assessment & Plan - Diagnosis (1) Rhabdomyolysis Qualifiers: Qualified Code(s): M62.82 - Rhabdomyolysis Is this a current diagnosis for this admission?: Yes Plan: Resolved. 07/25/17 08/12/17 14:26 06:50 Creatine Kinase 05927 H 114 (2) Fracture of femoral neck, right, closed Qualifiers: Encounter type: initial encounter Qualified Code(s): S72.001A - Fracture of unspecified part of neck of right femur, initial encounter for closed fracture Is this a current diagnosis for this admission?: Yes Plan: Do appreciate orthopedic input on this. The the patient is postoperative day # 1. Currently awaiting physical therapy. The patient will need rehab at discharge. (3) Hyponatremia Is this a current diagnosis for this admission?: Yes Plan: Beer potomania has resolved. Slowly corrected over 5 days. 07/25/17 08/14/17 14:26 04:35 Sodium 122.2 L 140.7 (4) Acute encephalopathy Is this a current diagnosis for this admission?: Yes Plan: Resolved. Has completed withdrawals. (5) Hypokalemia Is this a current diagnosis for this admission?: Yes Plan: Resolved. 07/25/17 08/14/17 14:26 04:35 Potassium 2.9 L* 4.2 (6) Polysubstance abuse Is this a current diagnosis for this admission?: Yes (7) Coagulopathy Is this a current diagnosis for this admission?: Yes Plan: Has improved over the past couple years. 08/12/17 11:22 INR 1.05 (8) Alcohol abuse Is this a current diagnosis for this admission?: Yes Plan: Negative on admission 07/25/17 07/25/17 14:26 20:15 Serum Alcohol < 10 chronic magnesium supplementation. (9) Hepatitis C Qualifiers: Viral hepatitis chronicity: chronic Hepatic coma status: without hepatic coma Qualified Code(s): B18.2 - Chronic viral hepatitis C Is this a current diagnosis for this admission?: Yes Plan: Gunner to treatment. (10) Thrombocytopenia Is this a current diagnosis for this admission?: Yes Plan: Improved. 07/28/17 08/14/17 04:22 04:35 Plt Count 99 L 157 (11) Prostate CA Is this a current diagnosis for this admission?: No (12) S/P radiation therapy > 12 wks ago Is this a current diagnosis for this admission?: No (13) Hemorrhage of gastrointestinal tract Is this a current diagnosis for this admission?: Yes Plan: Patient has a significant history of GI bleeding. Monitor DVT prophylaxis carefully. 08/14/17 06:00 Lansoprazole [Prevacid 30 mg Odt Tablet] 30 mg PO Q6AM 07/25/17 08/14/17 14:26 04:35 Hgb 16.9 11.3 L - Time Time Spent with patient: 35 or more minutes Medications reviewed and adjusted accordingly: Yes Anticipated discharge: SNF Within: when bed available Disposition: The patient is a full code. Pending patient's symptomatology, specialty input, and diagnostic findings will reevaluate in the a.m.
[2017-08-15] MEDS: OXYCODONE HCL IR 5 MG TABLET PO PRN ×3 (01:52→23:56)
[2017-08-15] MEDS: MORPHINE SULFATE 10 MG/ML INJ IV PRN ×5 (02:05→21:50)
[2017-08-15] MEDS: GABAPENTIN 300 MG CAPSULE PO SCH ×3 (05:18→21:48)
[2017-08-15] MEDS: LANSOPRAZOLE 30 MG TAB.RAP.DR PO SCH (05:18)
[2017-08-15 06:11] LABS: HEMATOCRIT 30.3 % (37.9-51.0); HEMOGLOBIN 10.3 g/dL (13.5-17.0); MEAN CORPUSCULAR HEMOGLOBIN 30.7 pg (27.0-33.4); MEAN CORPUSCULAR HGB CONC 33.9 g/dL (32.0-36.0); MEAN CORPUSCULAR VOLUME 91 fl (80-97); PLATELET COUNT 141 10^3/uL (150-450); RED BLOOD COUNT 3.34 10^6/uL (4.35-5.55); RED CELL DISTRIBUTION WIDTH 14.5 % (11.5-14.0); WHITE BLOOD COUNT 8.2 10^3/uL (4.0-10.5)
--- NOTE | 2017-08-15 06:52 | PDOC PROGRESS REPORT ---
Subjective Progress Note for:: 08/15/17 Reason For Visit: RIGHT FEMORAL NECK FRACTURE 62-year-old black male status post right proximal femoral hemiarthroplasty for femoral neck fracture / AVN. Patient's pain seems to be improving and is making progress with physical therapy. Physical Exam Vital Signs: Temp Pulse Resp BP Pulse Ox 38.3 C H 90 20 115/71 96 08/15/17 03:55 08/15/17 03:55 08/15/17 03:55 08/15/17 03:55 08/15/17 03:55 Intake & Output 08/13/17 08/14/17 08/15/17 06:59 06:59 06:59 Intake Total 1002 6440 2276 Output Total 775 4630 675 Balance 227 1810 1601 Weight 74.8 kg 74.8 kg General appearance: PRESENT: no acute distress Head exam: PRESENT: normocephalic Respiratory exam: PRESENT: unlabored Cardiovascular exam: PRESENT: RRR Pulses: PRESENT: +1 pedal pulses bilateral Vascular exam: PRESENT: normal capillary refill GI/Abdominal exam: PRESENT: soft Rectal exam: PRESENT: deferred Musculoskeletal exam: PRESENT: other - Patient's right hip dressing is changed today. The wound is dry. Is well approximated with kian. There is minimal erythema and ecchymosis. Leg lengths are equal. Distal neurovascular examination is intact. Neurological exam: PRESENT: alert, awake, oriented to person, oriented to place , oriented to time, oriented to situation. ABSENT: motor sensory deficit Psychiatric exam: PRESENT: appropriate affect, normal mood. ABSENT: homicidal ideation, suicidal ideation Skin exam: PRESENT: dry, intact, warm. ABSENT: cyanosis, rash Results Laboratory Results: 08/15/17 05:15 08/14/17 04:35 08/15/17 05:15 WBC 8.2 RBC 3.34 L Hgb 10.3 L Hct 30.3 L MCV 91 MCH 30.7 MCHC 33.9 RDW 14.5 H Plt Count 141 L 07/25/17 07/25/17 07/25/17 20:15 20:15 20:15 Creatine Kinase 20074 H CK-MB (CK-2) 40.00 H Troponin I 0.119 Cancelled NT-Pro-B Natriuret Pep 07/26/17 07/26/17 07/26/17 04:14 04:14 12:41 Creatine Kinase 41855 H 58681 H CK-MB (CK-2) 27.40 H Troponin I 0.075 NT-Pro-B Natriuret Pep 07/26/17 07/27/17 07/28/17 12:41 04:55 04:22 Creatine Kinase 45367 H 74731 H CK-MB (CK-2) 12.40 H Troponin I 0.046 NT-Pro-B Natriuret Pep 07/29/17 07/30/17 07/30/17 04:54 06:18 06:18 Creatine Kinase 29529 H 44427 H CK-MB (CK-2) Troponin I NT-Pro-B Natriuret Pep 262 07/31/17 08/01/17 08/02/17 04:14 03:16 05:00 Creatine Kinase 7400 H 3073 H 1409 H CK-MB (CK-2) Troponin I NT-Pro-B Natriuret Pep 08/04/17 08/07/17 08/12/17 05:04 05:10 06:50 Creatine Kinase 765 H 324 H 114 CK-MB (CK-2) Troponin I NT-Pro-B Natriuret Pep Impressions: Head CT 07/25/17 14:30 IMPRESSION: NORMAL BRAIN CT WITHOUT CONTRAST. EVIDENCE OF ACUTE STROKE: NO. Head MRI 07/25/17 16:11 IMPRESSION: Negative for acute or sub-acute infarction. EVIDENCE OF ACUTE STROKE: NO. Chest X-Ray 07/28/17 00:00 IMPRESSION: NO ACUTE DISEASE. Hand X-Ray 08/03/17 00:00 IMPRESSION: NEGATIVE STUDY OF THE LEFT HAND. NO RADIOGRAPHIC EVIDENCE OF ACUTE INJURY. Upper Extremity MRI 08/03/17 00:00 IMPRESSION: Very limited negative study. Hip/Pelvis X-Ray 08/11/17 00:00 IMPRESSION: FRACTURE OF THE RIGHT FEMORAL NECK. Pelvis X-Ray 08/13/17 13:25 IMPRESSION: SATISFACTORY POSTOPERATIVE PELVIS. Status: Imported from PACS Assessment & Plan - Diagnosis (1) Fracture of femoral neck, right, closed Qualifiers: Encounter type: initial encounter Qualified Code(s): S72.001A - Fracture of unspecified part of neck of right femur, initial encounter for closed fracture Is this a current diagnosis for this admission?: Yes Plan: Patient making excellent progress. - Time Time Spent with patient: 15-24 minutes Anticipated discharge: SNF Within: when bed available
[2017-08-15] MEDS: SENNOSIDES/DOCUSATE 8.6-50 MG 1 EACH TABLET PO SCH ×2 (09:26→17:32)
[2017-08-15] MEDS: THIAMINE HCL 100 MG TABLET PO SCH (09:26)
[2017-08-15] MEDS: ENOXAPARIN SODIUM INJ 40 MG/0.4 ML DISP.SYRIN SUBCUT SCH (09:27)
[2017-08-15] MEDS: PRENATAL VITAMIN W DHA CAPSULE PO SCH (09:27)
[2017-08-15] MEDS: OXYCODONE HCL SR 10 MG TABLET PO SCH (09:27)
[2017-08-15] MEDS: ASPIRIN 81 MG TABLET, CHEWABLE PO SCH (09:27)
[2017-08-15] MEDS: MAGNESIUM OXIDE 400 MG TABLET PO SCH ×2 (09:27→17:32)
--- NOTE | 2017-08-15 17:01 | PDOC PROGRESS REPORT ---
Subjective Progress Note for:: 08/15/17 Subjective:: No adverse events overnight. No new complaints. He had a temperature of 101 Fahrenheit this morning and is subsequently resolved. He also had a temperature yesterday morning was afebrile the rest of the day. His cultures have been negative. He has no cough or shortness of breath. No dysuria. No abdominal pain. Reason For Visit: RIGHT FEMORAL NECK FRACTURE Physical Exam Vital Signs: Temp Pulse Resp BP Pulse Ox 99.0 F 80 20 119/64 97 08/15/17 15:36 08/15/17 15:36 08/15/17 15:36 08/15/17 15:36 08/15/17 15:36 Intake & Output 08/14/17 08/15/17 08/16/17 06:59 06:59 06:59 Intake Total 6440 2276 Output Total 4630 915 Balance 1810 1361 Weight 74.8 kg 77.2 kg General appearance: PRESENT: no acute distress, disheveled, well-developed, well -nourished Head exam: PRESENT: atraumatic, normocephalic Teeth exam: PRESENT: poor dentation Respiratory exam: PRESENT: clear to auscultation taryn. ABSENT: rales, rhonchi, wheezes Cardiovascular exam: PRESENT: RRR. ABSENT: diastolic murmur, rubs, systolic murmur Vascular exam: PRESENT: normal capillary refill GI/Abdominal exam: PRESENT: normal bowel sounds, soft. ABSENT: distended, guarding, mass, organolmegaly, rebound, tenderness Extremities exam: ABSENT: clubbing, pedal edema Neurological exam: PRESENT: alert, awake, oriented to person, oriented to place , oriented to time Results Laboratory Results: 08/15/17 05:15 08/14/17 04:35 08/15/17 05:15 WBC 8.2 RBC 3.34 L Hgb 10.3 L Hct 30.3 L MCV 91 MCH 30.7 MCHC 33.9 RDW 14.5 H Plt Count 141 L 07/25/17 07/25/17 07/25/17 20:15 20:15 20:15 Creatine Kinase 62864 H CK-MB (CK-2) 40.00 H Troponin I 0.119 Cancelled NT-Pro-B Natriuret Pep 07/26/17 07/26/1707/26/18 04:14 04:14 12:41 Creatine Kinase 56159 H 63424 H CK-MB (CK-2) 27.40 H Troponin I 0.075 NT-Pro-B Natriuret Pep 07/26/17 07/27/17 07/28/17 12:41 04:55 04:22 Creatine Kinase 05621 H 77037 H CK-MB (CK-2) 12.40 H Troponin I 0.046 NT-Pro-B Natriuret Pep 07/29/17 07/30/17 07/30/17 04:54 06:18 06:18 Creatine Kinase 90074 H 96737 H CK-MB (CK-2) Troponin I NT-Pro-B Natriuret Pep 262 07/31/17 08/01/17 08/02/17 04:14 03:16 05:00 Creatine Kinase 7400 H 3073 H 1409 H CK-MB (CK-2) Troponin I NT-Pro-B Natriuret Pep 08/04/17 08/07/17 08/12/17 05:04 05:10 06:50 Creatine Kinase 765 H 324 H 114 CK-MB (CK-2) Troponin I NT-Pro-B Natriuret Pep Impressions: Head CT 07/25/17 14:30 IMPRESSION: NORMAL BRAIN CT WITHOUT CONTRAST. EVIDENCE OF ACUTE STROKE: NO. Head MRI 07/25/17 16:11 IMPRESSION: Negative for acute or sub-acute infarction. EVIDENCE OF ACUTE STROKE: NO. Chest X-Ray 07/28/17 00:00 IMPRESSION: NO ACUTE DISEASE. Hand X-Ray 08/03/17 00:00 IMPRESSION: NEGATIVE STUDY OF THE LEFT HAND. NO RADIOGRAPHIC EVIDENCE OF ACUTE INJURY. Upper Extremity MRI 08/03/17 00:00 IMPRESSION: Very limited negative study. Hip/Pelvis X-Ray 08/11/17 00:00 IMPRESSION: FRACTURE OF THE RIGHT FEMORAL NECK. Pelvis X-Ray 08/13/17 13:25 IMPRESSION: SATISFACTORY POSTOPERATIVE PELVIS. Assessment & Plan - Diagnosis (1) Fracture of femoral neck, right, closed Qualifiers: Encounter type: initial encounter Qualified Code(s): S72.001A - Fracture of unspecified part of neck of right femur, initial encounter for closed fracture Is this a current diagnosis for this admission?: Yes Plan: Management and activity recommendations per orthopedics (2) Rhabdomyolysis Qualifiers: Qualified Code(s): M62.82 - Rhabdomyolysis Is this a current diagnosis for this admission?: Yes Plan: Resolved (3) Polysubstance abuse Is this a current diagnosis for this admission?: Yes Plan: Strongly encourage cessation (4) Fever Qualifiers: Fever type: unspecified Qualified Code(s): R50.9 - Fever, unspecified Is this a current diagnosis for this admission?: Yes Plan: Uncertain as to the etiology. He is not showing any systemic signs other than the fever. This could be isolated phenomena in this postoperative patient, but will keep an eye on him to see if something announces itself. - Time Time Spent with patient: 15-24 minutes Medications reviewed and adjusted accordingly: Yes
[2017-08-15] MEDS: IBUPROFEN 600 MG TABLET PO PRN (21:48)
[2017-08-15] MEDS: MAGNESIUM HYDROXIDE SUSP 30 ML UDCUP PO PRN (22:02)
[2017-08-16] MEDS: MORPHINE SULFATE 10 MG/ML INJ IV PRN ×5 (05:11→20:37)
[2017-08-16] MEDS: GABAPENTIN 300 MG CAPSULE PO SCH ×3 (05:16→21:32)
[2017-08-16] MEDS: LANSOPRAZOLE 30 MG TAB.RAP.DR PO SCH (05:17)
[2017-08-16 06:04] LABS: HEMATOCRIT 31.6 % (37.9-51.0); HEMOGLOBIN 10.6 g/dL (13.5-17.0); MEAN CORPUSCULAR HEMOGLOBIN 30.3 pg (27.0-33.4); MEAN CORPUSCULAR HGB CONC 33.6 g/dL (32.0-36.0); MEAN CORPUSCULAR VOLUME 90 fl (80-97); PLATELET COUNT 156 10^3/uL (150-450); RED CELL DISTRIBUTION WIDTH 14.2 % (11.5-14.0); WHITE BLOOD COUNT 6.5 10^3/uL (4.0-10.5)
[2017-08-16] MEDS: OXYCODONE HCL IR 5 MG TABLET PO PRN ×3 (07:46→20:05)
[2017-08-16] MEDS: SENNOSIDES/DOCUSATE 8.6-50 MG 1 EACH TABLET PO SCH ×2 (10:21→17:02)
[2017-08-16] MEDS: ASPIRIN 81 MG TABLET, CHEWABLE PO SCH (10:21)
[2017-08-16] MEDS: THIAMINE HCL 100 MG TABLET PO SCH (10:21)
[2017-08-16] MEDS: PRENATAL VITAMIN W DHA CAPSULE PO SCH (10:21)
[2017-08-16] MEDS: MAGNESIUM OXIDE 400 MG TABLET PO SCH ×2 (10:22→17:02)
[2017-08-16] MEDS: ENOXAPARIN SODIUM INJ 40 MG/0.4 ML DISP.SYRIN SUBCUT SCH (10:22)
--- NOTE | 2017-08-16 17:29 | PDOC PROGRESS REPORT ---
Subjective Progress Note for:: 08/16/17 Subjective:: No adverse events overnight. No new complaints. Said his leg was hurting a little bit this morning so he wanted to work with therapy, but he did agree to try to work with him and they came back by later in the day. Afebrile overnight. Reason For Visit: RIGHT FEMORAL NECK FRACTURE Physical Exam Vital Signs: Temp Pulse Resp BP Pulse Ox 99.9 F 85 11 L 112/69 98 08/16/17 15:39 08/16/17 15:39 08/16/17 15:39 08/16/17 15:39 08/16/17 15:39 Intake & Output 08/15/17 08/16/17 08/17/17 06:59 06:59 06:59 Intake Total 2276 324 118 Output Total 915 175 350 Balance 1361 149 -232 Weight 77.2 kg 82.4 kg General appearance: PRESENT: no acute distress, cooperative, well-developed, well-nourished Teeth exam: PRESENT: poor dentation Respiratory exam: PRESENT: clear to auscultation taryn. ABSENT: rales, rhonchi, wheezes Cardiovascular exam: PRESENT: RRR. ABSENT: diastolic murmur, rubs, systolic murmur GI/Abdominal exam: PRESENT: normal bowel sounds, soft. ABSENT: distended, guarding, mass, organolmegaly, rebound, tenderness Extremities exam: PRESENT: other - He has a clean bandage overlying the surgical incision on the right hip. ABSENT: clubbing, pedal edema Neurological exam: PRESENT: alert, awake, oriented to person, oriented to place , oriented to time Results Laboratory Results: 08/16/17 04:30 08/14/17 04:35 08/16/17 04:30 WBC 6.5 RBC 3.50 L Hgb 10.6 L Hct 31.6 L MCV 90 MCH 30.3 MCHC 33.6 RDW 14.2 H Plt Count 156 08/13/17 12:46 Hip - Right Gram Stain - Final 08/13/17 12:46 Hip - Right Wound Culture - Final NO AEROBIC OR ANAEROBIC ORGANISMS RECOVERED 07/25/17 07/25/17 07/25/17 20:15 20:15 20:15 Creatine Kinase 44488 H CK-MB (CK-2) 40.00 H Troponin I 0.119 Cancelled NT-Pro-B Natriuret Pep 07/26/17 07/26/17 07/26/17 04:14 04:14 12:41 Creatine Kinase 99620 H 89276 H CK-MB (CK-2) 27.40 H Troponin I 0.075 NT-Pro-B Natriuret Pep 07/26/17 07/27/17 07/28/17 12:41 04:55 04:22 Creatine Kinase 28693 H 34879 H CK-MB (CK-2) 12.40 H Troponin I 0.046 NT-Pro-B Natriuret Pep 07/29/17 07/30/17 07/30/17 04:54 06:18 06:18 Creatine Kinase 99065 H 95481 H CK-MB (CK-2) Troponin I NT-Pro-B Natriuret Pep 262 07/31/17 08/01/17 08/02/17 04:14 03:16 05:00 Creatine Kinase 7400 H 3073 H 1409 H CK-MB (CK-2) Troponin I NT-Pro-B Natriuret Pep 08/04/17 08/07/17 08/12/17 05:04 05:10 06:50 Creatine Kinase 765 H 324 H 114 CK-MB (CK-2) Troponin I NT-Pro-B Natriuret Pep Impressions: Head CT 07/25/17 14:30 IMPRESSION: NORMAL BRAIN CT WITHOUT CONTRAST. EVIDENCE OF ACUTE STROKE: NO. Head MRI 07/25/17 16:11 IMPRESSION: Negative for acute or sub-acute infarction. EVIDENCE OF ACUTE STROKE: NO. Chest X-Ray 07/28/17 00:00 IMPRESSION: NO ACUTE DISEASE. Hand X-Ray 08/03/17 00:00 IMPRESSION: NEGATIVE STUDY OF THE LEFT HAND. NO RADIOGRAPHIC EVIDENCE OF ACUTE INJURY. Upper Extremity MRI 08/03/17 00:00 IMPRESSION: Very limited negative study. Hip/Pelvis X-Ray 08/11/17 00:00 IMPRESSION: FRACTURE OF THE RIGHT FEMORAL NECK. Pelvis X-Ray 08/13/17 13:25 IMPRESSION: SATISFACTORY POSTOPERATIVE PELVIS. Assessment & Plan - Diagnosis (1) Fracture of femoral neck, right, closed Qualifiers: Encounter type: initial encounter Qualified Code(s): S72.001A - Fracture of unspecified part of neck of right femur, initial encounter for closed fracture Is this a current diagnosis for this admission?: Yes Plan: Management and activity recommendations per orthopedics. Awaiting placement for rehab. (2) Rhabdomyolysis Qualifiers: Qualified Code(s): M62.82 - Rhabdomyolysis Is this a current diagnosis for this admission?: Yes Plan: Resolved (3) Polysubstance abuse Is this a current diagnosis for this admission?: Yes Plan: Strongly encourage cessation (4) Fever Qualifiers: Fever type: unspecified Qualified Code(s): R50.9 - Fever, unspecified Is this a current diagnosis for this admission?: Yes Plan: Resolved - Time Time Spent with patient: 15-24 minutes
[2017-08-17] MEDS: MORPHINE SULFATE 10 MG/ML INJ IV PRN ×8 (00:08→23:56)
[2017-08-17] MEDS: OXYCODONE HCL IR 5 MG TABLET PO PRN ×3 (05:43→20:30)
[2017-08-17] MEDS: GABAPENTIN 300 MG CAPSULE PO SCH ×3 (05:43→21:47)
[2017-08-17] MEDS: LANSOPRAZOLE 30 MG TAB.RAP.DR PO SCH (05:43)
[2017-08-17] MEDS: PRENATAL VITAMIN W DHA CAPSULE PO SCH (09:21)
[2017-08-17] MEDS: THIAMINE HCL 100 MG TABLET PO SCH (09:21)
[2017-08-17] MEDS: MAGNESIUM OXIDE 400 MG TABLET PO SCH ×2 (09:21→17:09)
[2017-08-17] MEDS: ASPIRIN 81 MG TABLET, CHEWABLE PO SCH (10:26)
[2017-08-17] MEDS: SENNOSIDES/DOCUSATE 8.6-50 MG 1 EACH TABLET PO SCH ×2 (10:26→18:02)
[2017-08-17] MEDS: ENOXAPARIN SODIUM INJ 40 MG/0.4 ML DISP.SYRIN SUBCUT SCH (10:26)
--- NOTE | 2017-08-17 15:58 | PDOC PROGRESS REPORT ---
Subjective Progress Note for:: 08/17/17 Subjective:: No adverse events overnight. No new complaints. Vital signs been stable. Pain has been well controlled. Reason For Visit: RIGHT FEMORAL NECK FRACTURE Physical Exam Vital Signs: Temp Pulse Resp BP Pulse Ox 99.5 F 100 16 129/75 H 99 08/17/17 11:28 08/17/17 11:28 08/17/17 11:28 08/17/17 11:28 08/17/17 11:28 Intake & Output 08/16/17 08/17/17 08/18/17 06:59 06:59 06:59 Intake Total 324 728 354 Output Total 175 1075 375 Balance 149 -347 -21 Weight 82.4 kg 82.9 kg General appearance: PRESENT: no acute distress, well-developed, well-nourished Respiratory exam: PRESENT: clear to auscultation taryn. ABSENT: rales, rhonchi, wheezes Cardiovascular exam: PRESENT: RRR. ABSENT: diastolic murmur, rubs, systolic murmur Vascular exam: PRESENT: normal capillary refill GI/Abdominal exam: PRESENT: normal bowel sounds, soft. ABSENT: distended, guarding, mass, organolmegaly, rebound, tenderness Extremities exam: PRESENT: other - Clean bandage overlies surgical incisional on the right hip. ABSENT: clubbing, pedal edema Musculoskeletal exam: PRESENT: normal inspection. ABSENT: deformity Neurological exam: PRESENT: alert, awake, oriented to person, oriented to place , oriented to time Results Laboratory Results: 08/16/17 04:30 08/14/17 04:35 07/25/17 07/25/17 07/25/17 20:15 20:15 20:15 Creatine Kinase 06837 H CK-MB (CK-2) 40.00 H Troponin I 0.119 Cancelled NT-Pro-B Natriuret Pep 07/26/17 07/26/17 07/26/17 04:14 04:14 12:41 Creatine Kinase 70756 H 49533 H CK-MB (CK-2) 27.40 H Troponin I 0.075 NT-Pro-B Natriuret Pep 07/26/17 07/27/17 07/28/17 12:41 04:55 04:22 Creatine Kinase 22747 H 26212 H CK-MB (CK-2) 12.40 H Troponin I 0.046 NT-Pro-B Natriuret Pep 07/29/17 07/30/17 07/30/17 04:54 06:18 06:18 Creatine Kinase 13174 H 65861 H CK-MB (CK-2) Troponin I NT-Pro-B Natriuret Pep 262 07/31/17 08/01/17 08/02/17 04:14 03:16 05:00 Creatine Kinase 7400 H 3073 H 1409 H CK-MB (CK-2) Troponin I NT-Pro-B Natriuret Pep 08/04/17 08/07/17 08/12/17 05:04 05:10 06:50 Creatine Kinase 765 H 324 H 114 CK-MB (CK-2) Troponin I NT-Pro-B Natriuret Pep Impressions: Head CT 07/25/17 14:30 IMPRESSION: NORMAL BRAIN CT WITHOUT CONTRAST. EVIDENCE OF ACUTE STROKE: NO. Head MRI 07/25/17 16:11 IMPRESSION: Negative for acute or sub-acute infarction. EVIDENCE OF ACUTE STROKE: NO. Chest X-Ray 07/28/17 00:00 IMPRESSION: NO ACUTE DISEASE. Hand X-Ray 08/03/17 00:00 IMPRESSION: NEGATIVE STUDY OF THE LEFT HAND. NO RADIOGRAPHIC EVIDENCE OF ACUTE INJURY. Upper Extremity MRI 08/03/17 00:00 IMPRESSION: Very limited negative study. Hip/Pelvis X-Ray 08/11/17 00:00 IMPRESSION: FRACTURE OF THE RIGHT FEMORAL NECK. Pelvis X-Ray 08/13/17 13:25 IMPRESSION: SATISFACTORY POSTOPERATIVE PELVIS. Assessment & Plan - Diagnosis (1) Fracture of femoral neck, right, closed Qualifiers: Encounter type: initial encounter Qualified Code(s): S72.001A - Fracture of unspecified part of neck of right femur, initial encounter for closed fracture Is this a current diagnosis for this admission?: Yes Plan: Management and activity recommendations per orthopedics. Awaiting placement for rehab. (2) Rhabdomyolysis Qualifiers: Qualified Code(s): M62.82 - Rhabdomyolysis Is this a current diagnosis for this admission?: Yes Plan: Resolved (3) Polysubstance abuse Is this a current diagnosis for this admission?: Yes Plan: Strongly encourage cessation (4) Fever Qualifiers: Fever type: unspecified Qualified Code(s): R50.9 - Fever, unspecified Is this a current diagnosis for this admission?: Yes Plan: Resolved - Time Time Spent with patient: 15-24 minutes Medications reviewed and adjusted accordingly: Yes
[2017-08-18] MEDS: MORPHINE SULFATE 10 MG/ML INJ IV PRN ×10 (01:24→21:51)
[2017-08-18] MEDS: LANSOPRAZOLE 30 MG TAB.RAP.DR PO SCH (06:08)
[2017-08-18] MEDS: GABAPENTIN 300 MG CAPSULE PO SCH ×3 (06:08→21:51)
[2017-08-18] MEDS: OXYCODONE HCL IR 5 MG TABLET PO PRN ×3 (06:08→19:34)
[2017-08-18] MEDS: PRENATAL VITAMIN W DHA CAPSULE PO SCH (10:19)
[2017-08-18] MEDS: MAGNESIUM OXIDE 400 MG TABLET PO SCH ×2 (10:19→18:16)
[2017-08-18] MEDS: SENNOSIDES/DOCUSATE 8.6-50 MG 1 EACH TABLET PO SCH ×2 (10:19→18:12)
[2017-08-18] MEDS: THIAMINE HCL 100 MG TABLET PO SCH (10:19)
[2017-08-18] MEDS: ASPIRIN 81 MG TABLET, CHEWABLE PO SCH (10:19)
[2017-08-18] MEDS: ENOXAPARIN SODIUM INJ 40 MG/0.4 ML DISP.SYRIN SUBCUT SCH (10:20)
[2017-08-18] MEDS: ONDANSETRON 4 MG TAB.RAPDIS PO PRN (11:29)
--- NOTE | 2017-08-18 13:51 | PDOC PROGRESS REPORT ---
Subjective Progress Note for:: 08/18/17 Subjective:: No adverse events overnight. No new complaints. Vital signs been stable. He was up ambulating in the hallway with physical therapy today. Reason For Visit: RIGHT FEMORAL NECK FRACTURE Physical Exam Vital Signs: Temp Pulse Resp BP Pulse Ox 100.2 F 86 14 118/66 99 08/18/17 11:59 08/18/17 11:59 08/18/17 11:59 08/18/17 11:59 08/18/17 11:59 Intake & Output 08/17/17 08/18/17 08/19/17 06:59 06:59 06:59 Intake Total 728 1194 Output Total 1075 1535 Balance -347 -341 Weight 82.9 kg 83 kg General appearance: PRESENT: no acute distress, disheveled, well-developed, well -nourished Teeth exam: PRESENT: poor dentation Respiratory exam: PRESENT: clear to auscultation taryn. ABSENT: rales, rhonchi, wheezes Cardiovascular exam: PRESENT: RRR. ABSENT: diastolic murmur, rubs, systolic murmur GI/Abdominal exam: PRESENT: normal bowel sounds, soft. ABSENT: distended, guarding, mass, organolmegaly, rebound, tenderness Extremities exam: ABSENT: clubbing, pedal edema Musculoskeletal exam: PRESENT: ambulatory - With assistance of a 2 wheeled walker. ABSENT: deformity Neurological exam: PRESENT: alert, awake, oriented to person, oriented to place , oriented to time Results Laboratory Results: 08/16/17 04:30 08/14/17 04:35 07/25/17 07/25/17 07/25/17 20:15 20:15 20:15 Creatine Kinase 48309 H CK-MB (CK-2) 40.00 H Troponin I 0.119 Cancelled NT-Pro-B Natriuret Pep 07/26/17 07/26/17 07/26/17 04:14 04:14 12:41 Creatine Kinase 04833 H 24957 H CK-MB (CK-2) 27.40 H Troponin I 0.075 NT-Pro-B Natriuret Pep 07/26/17 07/27/17 07/28/17 12:41 04:55 04:22 Creatine Kinase 73359 H 68442 H CK-MB (CK-2) 12.40 H Troponin I 0.046 NT-Pro-B Natriuret Pep 07/29/17 07/30/17 07/30/17 04:54 06:18 06:18 Creatine Kinase 70126 H 98528 H CK-MB (CK-2) Troponin I NT-Pro-B Natriuret Pep 262 07/31/17 08/01/17 08/02/17 04:14 03:16 05:00 Creatine Kinase 7400 H 3073 H 1409 H CK-MB (CK-2) Troponin I NT-Pro-B Natriuret Pep 08/04/17 08/07/17 08/12/17 05:04 05:10 06:50 Creatine Kinase 765 H 324 H 114 CK-MB (CK-2) Troponin I NT-Pro-B Natriuret Pep Impressions: Head CT 07/25/17 14:30 IMPRESSION: NORMAL BRAIN CT WITHOUT CONTRAST. EVIDENCE OF ACUTE STROKE: NO. Head MRI 07/25/17 16:11 IMPRESSION: Negative for acute or sub-acute infarction. EVIDENCE OF ACUTE STROKE: NO. Chest X-Ray 07/28/17 00:00 IMPRESSION: NO ACUTE DISEASE. Hand X-Ray 08/03/17 00:00 IMPRESSION: NEGATIVE STUDY OF THE LEFT HAND. NO RADIOGRAPHIC EVIDENCE OF ACUTE INJURY. Upper Extremity MRI 08/03/17 00:00 IMPRESSION: Very limited negative study. Hip/Pelvis X-Ray 08/11/17 00:00 IMPRESSION: FRACTURE OF THE RIGHT FEMORAL NECK. Pelvis X-Ray 08/13/17 13:25 IMPRESSION: SATISFACTORY POSTOPERATIVE PELVIS. Assessment & Plan - Diagnosis (1) Fracture of femoral neck, right, closed Qualifiers: Encounter type: initial encounter Qualified Code(s): S72.001A - Fracture of unspecified part of neck of right femur, initial encounter for closed fracture Is this a current diagnosis for this admission?: Yes Plan: Management and activity recommendations per orthopedics. Awaiting placement for rehab. (2) Rhabdomyolysis Qualifiers: Qualified Code(s): M62.82 - Rhabdomyolysis Is this a current diagnosis for this admission?: Yes Plan: Resolved (3) Polysubstance abuse Is this a current diagnosis for this admission?: Yes Plan: Strongly encourage cessation (4) Fever Qualifiers: Fever type: unspecified Qualified Code(s): R50.9 - Fever, unspecified Is this a current diagnosis for this admission?: Yes Plan: Resolved
[2017-08-19] MEDS: MORPHINE SULFATE 10 MG/ML INJ IV PRN ×11 (01:21→23:18)
[2017-08-19] MEDS: OXYCODONE HCL IR 5 MG TABLET PO PRN ×2 (06:07→20:45)
[2017-08-19] MEDS: MAGNESIUM HYDROXIDE SUSP 30 ML UDCUP PO PRN (06:08)
[2017-08-19] MEDS: GABAPENTIN 300 MG CAPSULE PO SCH ×3 (06:08→21:00)
[2017-08-19] MEDS: LANSOPRAZOLE 30 MG TAB.RAP.DR PO SCH (06:11)
[2017-08-19] MEDS: ONDANSETRON 4 MG TAB.RAPDIS PO PRN (09:45)
--- NOTE | 2017-08-19 10:15 | PDOC PROGRESS REPORT ---
Subjective Progress Note for:: 08/19/17 Subjective:: Patient was ambulating with a walker and physical therapy was with him. Complains of hip pain but ambulating well. Reason For Visit: RIGHT FEMORAL NECK FRACTURE Physical Exam Vital Signs: Temp Pulse Resp BP Pulse Ox 36.9 C 77 12 132/77 H 98 08/19/17 08:04 08/19/17 08:04 08/19/17 08:04 08/19/17 08:04 08/19/17 08:04 Intake & Output 08/18/17 08/19/17 08/20/17 06:59 06:59 06:59 Intake Total 1194 886 Output Total 1533 1825 Balance -341 -939 Weight 83 kg 81.2 kg General appearance: PRESENT: no acute distress Adult Front & Back Image: 1 - Dressing is saturated in bloody drainage. This was changed incision is dry clean and intact. Limb lengths are grossly equal. Neurovascularly intact distally. Results Laboratory Results: 08/16/17 04:30 08/14/17 04:35 07/25/17 07/25/17 07/25/17 20:15 20:15 20:15 Creatine Kinase 68432 H CK-MB (CK-2) 40.00 H Troponin I 0.119 Cancelled NT-Pro-B Natriuret Pep 07/26/17 07/26/17 07/26/17 04:14 04:14 12:41 Creatine Kinase 27137 H 02960 H CK-MB (CK-2) 27.40 H Troponin I 0.075 NT-Pro-B Natriuret Pep 07/26/17 07/27/17 07/28/17 12:41 04:55 04:22 Creatine Kinase 64594 H 83806 H CK-MB (CK-2) 12.40 H Troponin I 0.046 NT-Pro-B Natriuret Pep 07/29/17 07/30/17 07/30/17 04:54 06:18 06:18 Creatine Kinase 55031 H 78557 H CK-MB (CK-2) Troponin I NT-Pro-B Natriuret Pep 262 07/31/17 08/01/17 08/02/17 04:14 03:16 05:00 Creatine Kinase 7400 H 3073 H 1409 H CK-MB (CK-2) Troponin I NT-Pro-B Natriuret Pep 08/04/17 08/07/17 08/12/17 05:04 05:10 06:50 Creatine Kinase 765 H 324 H 114 CK-MB (CK-2) Troponin I NT-Pro-B Natriuret Pep Impressions: Head CT 07/25/17 14:30 IMPRESSION: NORMAL BRAIN CT WITHOUT CONTRAST. EVIDENCE OF ACUTE STROKE: NO. Head MRI 07/25/17 16:11 IMPRESSION: Negative for acute or sub-acute infarction. EVIDENCE OF ACUTE STROKE: NO. Chest X-Ray 07/28/17 00:00 IMPRESSION: NO ACUTE DISEASE. Hand X-Ray 08/03/17 00:00 IMPRESSION: NEGATIVE STUDY OF THE LEFT HAND. NO RADIOGRAPHIC EVIDENCE OF ACUTE INJURY. Upper Extremity MRI 08/03/17 00:00 IMPRESSION: Very limited negative study. Hip/Pelvis X-Ray 08/11/17 00:00 IMPRESSION: FRACTURE OF THE RIGHT FEMORAL NECK. Pelvis X-Ray 08/13/17 13:25 IMPRESSION: SATISFACTORY POSTOPERATIVE PELVIS. Assessment & Plan - Diagnosis (1) Fracture of femoral neck, right, closed Qualifiers: Encounter type: initial encounter Qualified Code(s): S72.001A - Fracture of unspecified part of neck of right femur, initial encounter for closed fracture Is this a current diagnosis for this admission?: Yes Plan: Patient is status post right hip hemiarthroplasty. Continue therapy and pain control. Continue DVT prophylaxis. Daily dressing changes.
[2017-08-19] MEDS: SENNOSIDES/DOCUSATE 8.6-50 MG 1 EACH TABLET PO SCH ×2 (11:11→19:34)
[2017-08-19] MEDS: ENOXAPARIN SODIUM INJ 40 MG/0.4 ML DISP.SYRIN SUBCUT SCH (11:12)
[2017-08-19] MEDS: MAGNESIUM OXIDE 400 MG TABLET PO SCH ×2 (11:29→17:16)
[2017-08-19] MEDS: THIAMINE HCL 100 MG TABLET PO SCH (11:29)
[2017-08-19] MEDS: ASPIRIN 81 MG TABLET, CHEWABLE PO SCH (11:29)
[2017-08-19] MEDS: PRENATAL VITAMIN W DHA CAPSULE PO SCH (11:29)
--- NOTE | 2017-08-19 16:16 | PDOC PROGRESS REPORT ---
Subjective Progress Note for:: 08/19/17 Subjective:: No adverse events overnight. No new complaints. Vital signs been stable. His had no change in his clinical condition awaiting placement.. Reason For Visit: RIGHT FEMORAL NECK FRACTURE Physical Exam Vital Signs: Temp Pulse Resp BP Pulse Ox 98.9 F 87 12 108/73 100 08/19/17 12:02 08/19/17 12:02 08/19/17 12:02 08/19/17 12:02 08/19/17 12:02 Intake & Output 08/18/17 08/19/17 08/20/17 06:59 06:59 06:59 Intake Total 1194 886 768 Output Total 1535 1825 250 Balance -341 -939 518 Weight 83 kg 81.2 kg General appearance: PRESENT: no acute distress, well-developed, well-nourished Pulses: ABSENT: normal carotid pulses GI/Abdominal exam: PRESENT: normal bowel sounds, soft. ABSENT: distended, guarding, mass, organolmegaly, rebound, tenderness Extremities exam: PRESENT: clubbing, full ROM. ABSENT: pedal edema Musculoskeletal exam: PRESENT: normal inspection. ABSENT: deformity Neurological exam: PRESENT: alert, awake, oriented to person, oriented to place , oriented to time, oriented to situation. ABSENT: motor sensory deficit Results Laboratory Results: 08/16/17 04:30 08/14/17 04:35 07/25/17 07/25/17 07/25/17 20:15 20:15 20:15 Creatine Kinase 46487 H CK-MB (CK-2) 40.00 H Troponin I 0.119 Cancelled NT-Pro-B Natriuret Pep 07/26/17 07/26/17 07/26/17 04:14 04:14 12:41 Creatine Kinase 56436 H 55358 H CK-MB (CK-2) 27.40 H Troponin I 0.075 NT-Pro-B Natriuret Pep 07/26/17 07/27/17 07/28/17 12:41 04:55 04:22 Creatine Kinase 48174 H 22500 H CK-MB (CK-2) 12.40 H Troponin I 0.046 NT-Pro-B Natriuret Pep 07/29/17 07/30/17 07/30/17 04:54 06: 06:18 Creatine Kinase 41313 H 05419 H CK-MB (CK-2) Troponin I NT-Pro-B Natriuret Pep 262 07/31/17 08/01/17 08/02/17 04:14 03:16 05:00 Creatine Kinase 7400 H 3073 H 1409 H CK-MB (CK-2) Troponin I NT-Pro-B Natriuret Pep 08/04/17 08/07/17 08/12/17 05:04 05:10 06:50 Creatine Kinase 765 H 324 H 114 CK-MB (CK-2) Troponin I NT-Pro-B Natriuret Pep Impressions: Head CT 07/25/17 14:30 IMPRESSION: NORMAL BRAIN CT WITHOUT CONTRAST. EVIDENCE OF ACUTE STROKE: NO. Head MRI 07/25/17 16:11 IMPRESSION: Negative for acute or sub-acute infarction. EVIDENCE OF ACUTE STROKE: NO. Chest X-Ray 07/28/17 00:00 IMPRESSION: NO ACUTE DISEASE. Hand X-Ray 08/03/17 00:00 IMPRESSION: NEGATIVE STUDY OF THE LEFT HAND. NO RADIOGRAPHIC EVIDENCE OF ACUTE INJURY. Upper Extremity MRI 08/03/17 00:00 IMPRESSION: Very limited negative study. Hip/Pelvis X-Ray 08/11/17 00:00 IMPRESSION: FRACTURE OF THE RIGHT FEMORAL NECK. Pelvis X-Ray 08/13/17 13:25 IMPRESSION: SATISFACTORY POSTOPERATIVE PELVIS. Assessment & Plan - Diagnosis (1) Fracture of femoral neck, right, closed Qualifiers: Encounter type: initial encounter Qualified Code(s): S72.001A - Fracture of unspecified part of neck of right femur, initial encounter for closed fracture Is this a current diagnosis for this admission?: Yes Plan: Management and activity recommendations per orthopedics. Awaiting placement for rehab. (2) Rhabdomyolysis Qualifiers: Qualified Code(s): M62.82 - Rhabdomyolysis Is this a current diagnosis for this admission?: Yes Plan: Resolved (3) Polysubstance abuse Is this a current diagnosis for this admission?: Yes Plan: Strongly encourage cessation (4) Fever Qualifiers: Fever type: unspecified Qualified Code(s): R50.9 - Fever, unspecified Is this a current diagnosis for this admission?: Yes - Time Time Spent with patient: 15-24 minutes
[2017-08-20] MEDS: MORPHINE SULFATE 10 MG/ML INJ IV PRN ×6 (02:17→12:08)
[2017-08-20] MEDS: GABAPENTIN 300 MG CAPSULE PO SCH ×3 (05:50→22:12)
[2017-08-20] MEDS: LANSOPRAZOLE 30 MG TAB.RAP.DR PO SCH (05:55)
[2017-08-20] MEDS: ASPIRIN 81 MG TABLET, CHEWABLE PO SCH (09:29)
[2017-08-20] MEDS: PRENATAL VITAMIN W DHA CAPSULE PO SCH (09:29)
[2017-08-20] MEDS: ENOXAPARIN SODIUM INJ 40 MG/0.4 ML DISP.SYRIN SUBCUT SCH (09:29)
[2017-08-20] MEDS: MAGNESIUM OXIDE 400 MG TABLET PO SCH ×2 (09:29→17:17)
[2017-08-20] MEDS: THIAMINE HCL 100 MG TABLET PO SCH (09:29)
[2017-08-20] MEDS: SENNOSIDES/DOCUSATE 8.6-50 MG 1 EACH TABLET PO SCH ×2 (09:33→17:19)
[2017-08-20] MEDS ORDERED: ONDANSETRON 4 MG TAB.RAPDIS PO PRN (13:30)
--- NOTE | 2017-08-20 15:29 | PDOC PROGRESS REPORT ---
Subjective Progress Note for:: 08/20/17 Subjective:: No adverse events overnight. No new complaints. Vital signs been stable. His had no change in his clinical condition awaiting placement.. Reason For Visit: RIGHT FEMORAL NECK FRACTURE Physical Exam Vital Signs: Temp Pulse Resp BP Pulse Ox 97.5 F 80 12 118/69 100 08/20/17 12:58 08/20/17 12:58 08/20/17 12:58 08/20/17 12:58 08/20/17 12:58 Intake & Output 08/19/17 08/20/17 08/21/17 06:59 06:59 06:59 Intake Total 886 2078 118 Output Total 1825 720 100 Balance -939 1358 18 Weight 81.2 kg 81.5 kg General appearance: PRESENT: no acute distress, disheveled, well-developed, well -nourished Neurological exam: PRESENT: alert, awake, oriented to person, oriented to place , oriented to time Results Laboratory Results: 08/16/17 04:30 08/14/17 04:35 07/25/17 07/25/17 07/25/17 20:15 20:15 20:15 Creatine Kinase 33755 H CK-MB (CK-2) 40.00 H Troponin I 0.119 Cancelled NT-Pro-B Natriuret Pep 07/26/17 07/26/17 07/26/17 04:14 04:14 12:41 Creatine Kinase 01760 H 70194 H CK-MB (CK-2) 27.40 H Troponin I 0.075 NT-Pro-B Natriuret Pep 07/26/17 07/27/17 07/28/17 12:41 04:55 04:22 Creatine Kinase 07949 H 14419 H CK-MB (CK-2) 12.40 H Troponin I 0.046 NT-Pro-B Natriuret Pep 07/29/17 07/30/17 07/30/17 04:54 06:18 06:18 Creatine Kinase 95067 H 26317 H CK-MB (CK-2) Troponin I NT-Pro-B Natriuret Pep 262 07/31/17 08/01/17 08/02/17 04:14 03:16 05:00 Creatine Kinase 7400 H 3073 H 1409 H CK-MB (CK-2) Troponin I NT-Pro-B Natriuret Pep 08/04/17 08/07/17 08/12/17 05:04 05:10 06:50 Creatine Kinase 765 H 324 H 114 CK-MB (CK-2) Troponin I NT-Pro-B Natriuret Pep Impressions: Head CT 07/25/17 14:30 IMPRESSION: NORMAL BRAIN CT WITHOUT CONTRAST. EVIDENCE OF ACUTE STROKE: NO. Head MRI 07/25/17 16:11 IMPRESSION: Negative for acute or sub-acute infarction. EVIDENCE OF ACUTE STROKE: NO. Chest X-Ray 07/28/17 00:00 IMPRESSION: NO ACUTE DISEASE. Hand X-Ray 08/03/17 00:00 IMPRESSION: NEGATIVE STUDY OF THE LEFT HAND. NO RADIOGRAPHIC EVIDENCE OF ACUTE INJURY. Upper Extremity MRI 08/03/17 00:00 IMPRESSION: Very limited negative study. Hip/Pelvis X-Ray 08/11/17 00:00 IMPRESSION: FRACTURE OF THE RIGHT FEMORAL NECK. Pelvis X-Ray 08/13/17 13:25 IMPRESSION: SATISFACTORY POSTOPERATIVE PELVIS. Assessment & Plan - Diagnosis (1) Fracture of femoral neck, right, closed Qualifiers: Encounter type: initial encounter Qualified Code(s): S72.001A - Fracture of unspecified part of neck of right femur, initial encounter for closed fracture Is this a current diagnosis for this admission?: Yes Plan: Management and activity recommendations per orthopedics. Awaiting placement for rehab. (2) Rhabdomyolysis Qualifiers: Qualified Code(s): M62.82 - Rhabdomyolysis Is this a current diagnosis for this admission?: Yes Plan: Resolved (3) Polysubstance abuse Is this a current diagnosis for this admission?: Yes Plan: Strongly encourage cessation
[2017-08-20] MEDS: OXYCODONE HCL IR 5 MG TABLET PO PRN ×2 (16:03→22:12)
[2017-08-21] MEDS: OXYCODONE HCL IR 5 MG TABLET PO PRN ×4 (04:20→23:49)
[2017-08-21] MEDS: LANSOPRAZOLE 30 MG TAB.RAP.DR PO SCH (06:09)
[2017-08-21] MEDS: GABAPENTIN 300 MG CAPSULE PO SCH ×3 (06:09→21:55)
[2017-08-21] MEDS: ASPIRIN 81 MG TABLET, CHEWABLE PO SCH (09:48)
[2017-08-21] MEDS: SENNOSIDES/DOCUSATE 8.6-50 MG 1 EACH TABLET PO SCH ×2 (09:48→17:17)
[2017-08-21] MEDS: MAGNESIUM OXIDE 400 MG TABLET PO SCH ×2 (09:48→17:17)
[2017-08-21] MEDS: PRENATAL VITAMIN W DHA CAPSULE PO SCH (09:49)
[2017-08-21] MEDS: ENOXAPARIN SODIUM INJ 40 MG/0.4 ML DISP.SYRIN SUBCUT SCH (09:49)
[2017-08-21] MEDS: THIAMINE HCL 100 MG TABLET PO SCH (09:50)
--- NOTE | 2017-08-21 16:19 | RADIOLOGY REPORT (SQ) ---
EXAM DESCRIPTION: HIP RIGHT AP/LATERAL COMPLETED DATE/TIME: 08/21/2017 4:04 pm REASON FOR STUDY: hip pain post-ORIF COMPARISON: AP pelvis 08/13/2017 Right hip and pelvis films 08/11/2017 NUMBER OF VIEWS: Two views. TECHNIQUE: AP pelvis and additional frog-leg view of the right hip. LIMITATIONS: None. FINDINGS: MINERALIZATION: Osteoporotic RIGHT HIP: Post right hip replacement, non cemented prosthesis. Good alignment. No dislocation. LEFT HIP: No fracture or dislocation. No worrisome bone lesions. PUBIS AND ISCHIUM: No fracture. PELVIS: No fracture. SACRUM: No fracture or dislocation. No worrisome bone lesions. LOWER LUMBAR SPINE: Degenerative disc changes lower lumbar spine SOFT TISSUES: Prostate radiotherapy treatment seeds OTHER: No other significant finding. IMPRESSION: Right hip prosthesis in good alignment. No dislocation. No right femur or hemipelvis f racture TECHNICAL DOCUMENTATION: JOB ID: [id number] [employer]- All Rights Reserved Reading location - IP/workstation name: [email or web address]
--- NOTE | 2017-08-21 17:46 | PDOC PROGRESS REPORT ---
Subjective Progress Note for:: 08/21/17 Subjective:: No adverse events overnight. He was very upset that his IV morphine was discontinued. He has never really appeared to be in pain. He is also getting Percocet every 6 hours as needed. When I proposed to him that since it did not seem that the narcotics were effective and controlling his pain because he was keeping on having to take repeated doses that we should stop the narcotics altogether and try different methods of pain control, he quickly reversed course. Reason For Visit: RIGHT FEMORAL NECK FRACTURE Physical Exam Vital Signs: Temp Pulse Resp BP Pulse Ox 99.7 F 84 12 123/82 98 08/21/17 15:38 08/21/17 15:38 08/21/17 15:38 08/21/17 15:38 08/21/17 15:38 Intake & Output 08/20/17 08/21/17 08/22/17 06:59 06:59 06:59 Intake Total 2078 556 2044 Output Total 720 775 500 Balance 1358 -219 1544 Weight 81.5 kg 76.1 kg General appearance: PRESENT: no acute distress, disheveled, well-developed, well -nourished Respiratory exam: PRESENT: clear to auscultation taryn. ABSENT: rales, rhonchi, wheezes Cardiovascular exam: PRESENT: RRR. ABSENT: diastolic murmur, rubs, systolic murmur Vascular exam: PRESENT: normal capillary refill GI/Abdominal exam: PRESENT: normal bowel sounds, soft. ABSENT: distended, guarding, mass, organolmegaly, rebound, tenderness Extremities exam: ABSENT: clubbing, pedal edema Neurological exam: PRESENT: alert, awake, oriented to person, oriented to place , oriented to time Results Laboratory Results: 08/16/17 04:30 08/14/17 04:35 07/25/17 07/25/17 07/25/17 20:15 20:15 20:15 Creatine Kinase 24194 H CK-MB (CK-2) 40.00 H Troponin I 0.119 Cancelled NT-Pro-B Natriuret Pep 07/26/17 07/26/17 07/26/17 04:14 04:14 12:41 Creatine Kinase 58360 H 64521 H CK-MB (CK-2) 27.40 H Troponin I 0.075 NT-Pro-B Natriuret Pep 07/26/17 07/27/17 07/28/17 12:41 04:55 04:22 Creatine Kinase 12747 H 69353 H CK-MB (CK-2) 12.40 H Troponin I 0.046 NT-Pro-B Natriuret Pep 07/29/17 07/30/17 07/30/17 04:54 06:18 06:18 Creatine Kinase 20604 H 53628 H CK-MB (CK-2) Troponin I NT-Pro-B Natriuret Pep 262 07/31/17 08/01/17 08/02/17 04:14 03:16 05:00 Creatine Kinase 7400 H 3073 H 1409 H CK-MB (CK-2) Troponin I NT-Pro-B Natriuret Pep 08/04/17 08/07/17 08/12/17 05:04 05:10 06:50 Creatine Kinase 765 H 324 H 114 CK-MB (CK-2) Troponin I NT-Pro-B Natriuret Pep Impressions: Head CT 07/25/17 14:30 IMPRESSION: NORMAL BRAIN CT WITHOUT CONTRAST. EVIDENCE OF ACUTE STROKE: NO. Head MRI 07/25/17 16:11 IMPRESSION: Negative for acute or sub-acute infarction. EVIDENCE OF ACUTE STROKE: NO. Chest X-Ray 07/28/17 00:00 IMPRESSION: NO ACUTE DISEASE. Hand X-Ray 08/03/17 00:00 IMPRESSION: NEGATIVE STUDY OF THE LEFT HAND. NO RADIOGRAPHIC EVIDENCE OF ACUTE INJURY. Upper Extremity MRI 08/03/17 00:00 IMPRESSION: Very limited negative study. Pelvis X-Ray 08/13/17 13:25 IMPRESSION: SATISFACTORY POSTOPERATIVE PELVIS. Hip/Pelvis X-Ray 08/21/17 00:00 IMPRESSION: Right hip prosthesis in good alignment. No dislocation. No right femur or hemipelvis fracture Assessment & Plan - Diagnosis (1) Fracture of femoral neck, right, closed Qualifiers: Encounter type: initial encounter Qualified Code(s): S72.001A - Fracture of unspecified part of neck of right femur, initial encounter for closed fracture Is this a current diagnosis for this admission?: Yes Plan: Management and activity recommendations per orthopedics. Awaiting placement for rehab. I got an x-ray of his hip and femur today and it showed good alignment without evidence of surrounding fracture. (2) Rhabdomyolysis Qualifiers: Qualified Code(s): M62.82 - Rhabdomyolysis Is this a current diagnosis for this admission?: Yes Plan: Resolved (3) Polysubstance abuse Is this a current diagnosis for this admission?: Yes Plan: Strongly encourage cessation - Time Time Spent with patient: 25-34 minutes Medications reviewed and adjusted accordingly: Yes
[2017-08-21] MEDS: IBUPROFEN 600 MG TABLET PO PRN (21:56)
[2017-08-22] MEDS: IBUPROFEN 600 MG TABLET PO PRN (04:19)
[2017-08-22] MEDS: GABAPENTIN 300 MG CAPSULE PO SCH ×3 (06:33→22:15)
[2017-08-22] MEDS: LANSOPRAZOLE 30 MG TAB.RAP.DR PO SCH (06:34)
[2017-08-22] MEDS: OXYCODONE HCL IR 5 MG TABLET PO PRN ×2 (06:34→13:17)
[2017-08-22] MEDS: SENNOSIDES/DOCUSATE 8.6-50 MG 1 EACH TABLET PO SCH ×2 (10:31→18:30)
[2017-08-22] MEDS: ASPIRIN 81 MG TABLET, CHEWABLE PO SCH (10:31)
[2017-08-22] MEDS: THIAMINE HCL 100 MG TABLET PO SCH (10:34)
[2017-08-22] MEDS: ENOXAPARIN SODIUM INJ 40 MG/0.4 ML DISP.SYRIN SUBCUT SCH (10:40)
[2017-08-22] MEDS: MAGNESIUM OXIDE 400 MG TABLET PO SCH ×2 (10:40→18:30)
[2017-08-22] MEDS: PRENATAL VITAMIN W DHA CAPSULE PO SCH (10:40)
--- NOTE | 2017-08-22 16:05 | PDOC PROGRESS REPORT ---
Subjective Progress Note for:: 08/22/17 Subjective:: Patient has had a prolonged hospital stay. Is currently awaiting transfer to long term once his Medicaid is approved. I did encourage him to go without IV narcotics as I told him that this will delay his possible placement in a long term if he is seen to be requiring too much narcotics Reason For Visit: RIGHT FEMORAL NECK FRACTURE Physical Exam Vital Signs: Temp Pulse Resp BP Pulse Ox 98.3 F 86 16 126/84 H 100 08/22/17 11:00 08/22/17 11:00 08/22/17 11:00 08/22/17 11:00 08/22/17 11:00 Intake & Output 08/21/17 08/22/17 08/23/17 06:59 06:59 06:59 Intake Total 556 2170 Output Total 775 825 Balance -219 1345 Weight 76.1 kg 76.1 kg General appearance: PRESENT: no acute distress, well-developed, well-nourished Head exam: PRESENT: atraumatic, normocephalic Eye exam: PRESENT: conjunctiva pink, EOMI, PERRLA. ABSENT: scleral icterus Ear exam: PRESENT: normal external ear exam Mouth exam: PRESENT: moist, tongue midline Neck exam: ABSENT: carotid bruit, JVD, lymphadenopathy, thyromegaly Respiratory exam: PRESENT: clear to auscultation taryn. ABSENT: rales, rhonchi, wheezes Cardiovascular exam: PRESENT: RRR. ABSENT: diastolic murmur, rubs, systolic murmur Pulses: PRESENT: normal dorsalis pedis pul Vascular exam: PRESENT: normal capillary refill GI/Abdominal exam: PRESENT: normal bowel sounds, soft. ABSENT: distended, guarding, mass, organolmegaly, rebound, tenderness Rectal exam: PRESENT: deferred Extremities exam: PRESENT: full ROM. ABSENT: calf tenderness, clubbing, pedal edema Neurological exam: PRESENT: alert, awake, oriented to person, oriented to place , oriented to time, oriented to situation, CN II-XII grossly intact. ABSENT: motor sensory deficit Psychiatric exam: PRESENT: appropriate affect, normal mood. ABSENT: homicidal ideation, suicidal ideation Skin exam: PRESENT: dry, intact, warm. ABSENT: cyanosis, rash Results Laboratory Results: 08/16/17 04:30 08/14/17 04:35 07/25/17 07/25/17 07/25/17 20:15 20:15 20:15 Creatine Kinase 05340 H CK-MB (CK-2) 40.00 H Troponin I 0.119 Cancelled NT-Pro-B Natriuret Pep 07/26/17 07/26/17 07/26/17 04:14 04:14 12:41 Creatine Kinase 86569 H 08173 H CK-MB (CK-2) 27.40 H Troponin I 0.075 NT-Pro-B Natriuret Pep 07/26/17 07/27/17 07/28/17 12:41 04:55 04:22 Creatine Kinase 14674 H 47399 H CK-MB (CK-2) 12.40 H Troponin I 0.046 NT-Pro-B Natriuret Pep 07/29/17 07/30/17 07/30/17 04:54 06:18 06:18 Creatine Kinase 27924 H 67919 H CK-MB (CK-2) Troponin I NT-Pro-B Natriuret Pep 262 07/31/17 08/01/17 08/02/17 04:14 03:16 05:00 Creatine Kinase 7400 H 3073 H 1409 H CK-MB (CK-2) Troponin I NT-Pro-B Natriuret Pep 08/04/17 08/07/17 08/12/17 05:04 05:10 06:50 Creatine Kinase 765 H 324 H 114 CK-MB (CK-2) Troponin I NT-Pro-B Natriuret Pep Impressions: Head CT 07/25/17 14:30 IMPRESSION: NORMAL BRAIN CT WITHOUT CONTRAST. EVIDENCE OF ACUTE STROKE: NO. Head MRI 07/25/17 16:11 IMPRESSION: Negative for acute or sub-acute infarction. EVIDENCE OF ACUTE STROKE: NO. Chest X-Ray 07/28/17 00:00 IMPRESSION: NO ACUTE DISEASE. Hand X-Ray 08/03/17 00:00 IMPRESSION: NEGATIVE STUDY OF THE LEFT HAND. NO RADIOGRAPHIC EVIDENCE OF ACUTE INJURY. Upper Extremity MRI 08/03/17 00:00 IMPRESSION: Very limited negative study. Pelvis X-Ray 08/13/17 13:25 IMPRESSION: SATISFACTORY POSTOPERATIVE PELVIS. Hip/Pelvis X-Ray 08/21/17 00:00 IMPRESSION: Right hip prosthesis in good alignment. No dislocation. No right femur or hemipelvis fracture Assessment & Plan - Time Time Spent with patient: 15-24 minutes Medications reviewed and adjusted accordingly: Yes Anticipated discharge: Acute Rehab - Inpatient Certification Based on my medical assessment, after consideration of the patient's comorbidities, presenting symptoms, or acuity I expect that the services needed warrant INPATIENT care.: Yes Medical Necessity: Other - Awaiting rehab placement - Plan Summary Plan Summary: 1. Fracture femoral neck right closed awaiting placement for rehab 2. Rhabdomyolysis resolved 3. Polysubstance abuse will try to limit narcotics
[2017-08-23] MEDS: OXYCODONE HCL IR 5 MG TABLET PO PRN ×4 (02:01→20:48)
[2017-08-23] MEDS: GABAPENTIN 300 MG CAPSULE PO SCH ×3 (06:36→22:01)
[2017-08-23] MEDS: LANSOPRAZOLE 30 MG TAB.RAP.DR PO SCH (06:37)
[2017-08-23 06:55] LABS: ABSOLUTE EOSINOPHILS # (AUTO) 0.2 10^3/uL (0.0-0.6); ABSOLUTE LYMPHOCYTES (AUTO) 1.4 10^3/uL (0.5-4.7); ABSOLUTE MONOCYTES (AUTO) 1.2 10^3/uL (0.1-1.4); ABSOLUTE NEUT (AUTO) 4.6 10^3/uL (1.7-8.2); BASOPHILS % (AUTO) 0.5 % (0-2); EOSINOPHILS % (AUTO) 2.5 % (0-6); HEMATOCRIT 34.9 % (37.9-51.0); HEMOGLOBIN 11.7 g/dL (13.5-17.0); LYMPHOCYTES % (AUTO) 19.1 % (13-45); MEAN CORPUSCULAR HEMOGLOBIN 29.4 pg (27.0-33.4); MEAN CORPUSCULAR HGB CONC 33.4 g/dL (32.0-36.0); MEAN CORPUSCULAR VOLUME 88 fl (80-97); MONOCYTES % (AUTO) 15.9 % (3-13); PLATELET COUNT 294 10^3/uL (150-450); RED BLOOD COUNT 3.97 10^6/uL (4.35-5.55); RED CELL DISTRIBUTION WIDTH 14.2 % (11.5-14.0); TOTAL CELLS COUNTED % (AUTO) 100 %; WHITE BLOOD COUNT 7.4 10^3/uL (4.0-10.5)
[2017-08-23 07:11] LABS: ANION GAP 10 (5-19); BLOOD UREA NITROGEN 16 mg/dL (7-20); CALCIUM 9.4 mg/dL (8.4-10.2); CARBON DIOXIDE 28 mmol/L (22-30); CHLORIDE 105 mmol/L (98-107); GLUCOSE 91 mg/dL (75-110); POTASSIUM 4.2 mmol/L (3.6-5.0); SODIUM 143.3 mmol/L (137-145)
[2017-08-23] MEDS: MAGNESIUM OXIDE 400 MG TABLET PO SCH ×2 (10:23→17:52)
[2017-08-23] MEDS: ASPIRIN 81 MG TABLET, CHEWABLE PO SCH (10:23)
[2017-08-23] MEDS: THIAMINE HCL 100 MG TABLET PO SCH (10:24)
[2017-08-23] MEDS: SENNOSIDES/DOCUSATE 8.6-50 MG 1 EACH TABLET PO SCH ×2 (10:24→17:52)
[2017-08-23] MEDS: ENOXAPARIN SODIUM INJ 40 MG/0.4 ML DISP.SYRIN SUBCUT SCH (10:25)
[2017-08-23] MEDS: PRENATAL VITAMIN W DHA CAPSULE PO SCH (10:25)
[2017-08-24] MEDS: OXYCODONE HCL IR 5 MG TABLET PO PRN ×3 (02:54→15:20)
[2017-08-24] MEDS: GABAPENTIN 300 MG CAPSULE PO SCH (05:50)
[2017-08-24] MEDS: LANSOPRAZOLE 30 MG TAB.RAP.DR PO SCH (05:52)
[2017-08-24] MEDS: ENOXAPARIN SODIUM INJ 40 MG/0.4 ML DISP.SYRIN SUBCUT SCH (08:52)
[2017-08-24] MEDS: MAGNESIUM OXIDE 400 MG TABLET PO SCH ×2 (08:54→17:35)
[2017-08-24] MEDS: THIAMINE HCL 100 MG TABLET PO SCH (08:54)
[2017-08-24] MEDS: ASPIRIN 81 MG TABLET, CHEWABLE PO SCH (08:54)
[2017-08-24] MEDS: PRENATAL VITAMIN W DHA CAPSULE PO SCH (08:54)
[2017-08-24] MEDS: SENNOSIDES/DOCUSATE 8.6-50 MG 1 EACH TABLET PO SCH ×2 (09:00→17:35)
--- NOTE | 2017-08-24 09:05 | PDOC PROGRESS REPORT ---
Subjective Progress Note for:: 08/23/17 Subjective:: Patient has had a prolonged hospital stay. Is currently awaiting transfer to alf once his Medicaid is approved. Patient appears to be willing to go home and if he can be arranged the plan is to discharge in a.m. Reason For Visit: RIGHT FEMORAL NECK FRACTURE Physical Exam Vital Signs: Temp Pulse Resp BP Pulse Ox 98.0 F 65 14 116/80 100 08/23/17 23:20 08/23/17 23:20 08/23/17 23:20 08/23/17 23:20 08/23/17 23:20 Intake & Output 08/23/17 08/24/17 08/25/17 06:59 06:59 06:59 Intake Total 9 486 Output Total 275 525 Balance -266 -39 Weight 74.9 kg 74.5 kg General appearance: PRESENT: no acute distress, thin Eye exam: PRESENT: conjunctiva pink, EOMI, PERRLA. ABSENT: scleral icterus Neck exam: ABSENT: carotid bruit, JVD, lymphadenopathy, thyromegaly GI/Abdominal exam: PRESENT: normal bowel sounds, soft. ABSENT: distended, guarding, mass, organolmegaly, rebound, tenderness Extremities exam: PRESENT: other - R hip appears intact Neurological exam: PRESENT: alert, awake, oriented to person, oriented to place , oriented to time, oriented to situation, CN II-XII grossly intact. ABSENT: motor sensory deficit Results Laboratory Results: 08/23/17 06:35 08/23/17 06:35 07/25/17 07/25/17 07/25/17 20:15 20:15 20:15 Creatine Kinase 85847 H CK-MB (CK-2) 40.00 H Troponin I 0.119 Cancelled NT-Pro-B Natriuret Pep 07/26/17 07/26/17 07/26/17 04:14 04:14 12:41 Creatine Kinase 92878 H 82823 H CK-MB (CK-2) 27.40 H Troponin I 0.075 NT-Pro-B Natriuret Pep 07/26/17 07/27/17 07/28/17 12:41 04:55 04:22 Creatine Kinase 49777 H 62294 H CK-MB (CK-2) 12.40 H Troponin I 0.046 NT-Pro-B Natriuret Pep 07/29/17 07/30/17 07/30/17 04:54 06:18 06:18 Creatine Kinase 04524 H 20777 H CK-MB (CK-2) Troponin I NT-Pro-B Natriuret Pep 262 07/31/17 08/01/17 08/02/17 04:14 03:16 05:00 Creatine Kinase 7400 H 3073 H 1409 H CK-MB (CK-2) Troponin I NT-Pro-B Natriuret Pep 08/04/17 08/07/17 08/12/17 05:04 05:10 06:50 Creatine Kinase 765 H 324 H 114 CK-MB (CK-2) Troponin I NT-Pro-B Natriuret Pep Impressions: Head CT 07/25/17 14:30 IMPRESSION: NORMAL BRAIN CT WITHOUT CONTRAST. EVIDENCE OF ACUTE STROKE: NO. Head MRI 07/25/17 16:11 IMPRESSION: Negative for acute or sub-acute infarction. EVIDENCE OF ACUTE STROKE: NO. Chest X-Ray 07/28/17 00:00 IMPRESSION: NO ACUTE DISEASE. Hand X-Ray 08/03/17 00:00 IMPRESSION: NEGATIVE STUDY OF THE LEFT HAND. NO RADIOGRAPHIC EVIDENCE OF ACUTE INJURY. Upper Extremity MRI 08/03/17 00:00 IMPRESSION: Very limited negative study. Pelvis X-Ray 08/13/17 13:25 IMPRESSION: SATISFACTORY POSTOPERATIVE PELVIS. Hip/Pelvis X-Ray 08/21/17 00:00 IMPRESSION: Right hip prosthesis in good alignment. No dislocation. No right femur or hemipelvis fracture Assessment & Plan - Diagnosis (1) Coagulopathy Is this a current diagnosis for this admission?: Yes (2) Fracture of femoral neck, right, closed Qualifiers: Encounter type: initial encounter Qualified Code(s): S72.001A - Fracture of unspecified part of neck of right femur, initial encounter for closed fracture Is this a current diagnosis for this admission?: Yes (3) Hemorrhage of gastrointestinal tract Is this a current diagnosis for this admission?: Yes (4) Polysubstance abuse Is this a current diagnosis for this admission?: Yes (5) S/P radiation therapy > 12 wks ago Is this a current diagnosis for this admission?: No - Time Time Spent with patient: 15-24 minutes - Inpatient Certification Based on my medical assessment, after consideration of the patient's comorbidities, presenting symptoms, or acuity I expect that the services needed warrant INPATIENT care.: Yes Medical Necessity: Risk of Complication if Not Cared For in Hospital
[2017-08-24] MEDS: MAGNESIUM HYDROXIDE SUSP 30 ML UDCUP PO PRN (10:53)
[2017-08-24] MEDS ORDERED: IBUPROFEN 600 MG TABLET PO PRN (12:49)
[2017-08-24] MEDS ORDERED: GABAPENTIN 300 MG CAPSULE PO SCH (14:00)
--- NOTE | 2017-08-24 16:24 | PDOC DISCHARGE SUMMARY ---
General - Admit/Disc Date/PCP Admission Date/Primary Care Provider: 07/25/17 19:42 DAFNE ZENDEJAS, Discharge Date: 08/24/17 - Discharge Diagnosis (1) Acute kidney failure Is this a current diagnosis for this admission?: Yes (2) Fracture of femoral neck, right, closed Is this a current diagnosis for this admission?: Yes (3) Polysubstance abuse Is this a current diagnosis for this admission?: Yes (4) Rhabdomyolysis Is this a current diagnosis for this admission?: Yes (5) Alcohol abuse Is this a current diagnosis for this admission?: Yes - Additional Information Resuscitation Status: Full Code Discharge Diet: As Tolerated Discharge Activity: Activity As Tolerated Prescriptions: Ondansetron [Zofran Odt 4 mg Tablet] 4 mg PO Q6HP PRN #14 tab.rapdis PRN Reason: Oxycodone HCl [Oxycodone HCl 10 MG Tablet] 10 mg PO Q6HP PRN #14 tablet PRN Reason: For Pain Gabapentin [Neurontin 300 mg Capsule] 600 mg PO Q8 #100 capsule Lidocaine [Lidoderm 5% (700 mg) Transdermal Patch] 1 patch TP DAILYP PRN #30 adh..patch PRN Reason: Home Medications: Aspirin [Aspirin 81 mg Chewable Tablet] 81 mg PO DAILY tab.chew 08/24/17 Gabapentin [Neurontin 300 mg Capsule] 600 mg PO Q8 #100 capsule 08/24/17 Lidocaine [Lidoderm 5% (700 mg) Transdermal Patch] 1 patch TP DAILYP PRN #30 adh..patch 08/24/17 Magnesium Oxide [Mag-Ox 400 mg Tablet] 400 mg PO BID tablet 08/24/17 Ondansetron [Zofran Odt 4 mg Tablet] 4 mg PO Q6HP PRN #14 tab.rapdis 08/24/17 Oxycodone HCl [Oxycodone HCl 10 MG Tablet] 10 mg PO Q6HP PRN #14 tablet Vit/Dha [ Multi + Dha Capsule] 1 cap PO DAILY capsule Sennosides/Docusate 8.6-50 mg [Senna Plus Tablet] 1 each PO BID tablet Thiamine HCl [Thiamine 100 mg Tablet] 100 mg PO DAILY tablet 08/24/17 History of Present Illness Patient complains of: This patient presents to the emergency room with confusion after he was found somnolent but arousable on July 25 and was found to have acute rhabdomyolysis as well as hyponatremia and acute kidney injury. History of Present Illness: CEM MONROY is a 62 year old male who presents to the emergency room with confusion after he was found somnolent but arousable on July 25 and was found to have acute rhabdomyolysis as well as hyponatremia and acute kidney injury. He was also found with a prolonged QT interval. He was started on aggressive fluid hydration and his rhabdomyolysis gradually resolved. Also has a history of polysubstance abuse. He was found under a mattress when he came to hospital Hospital Course Hospital Course: This patient presents to the emergency room with confusion after he was found somnolent but arousable on July 25 and was found to have acute rhabdomyolysis as well as hyponatremia and acute kidney injury. He was also found with a prolonged QT interval. He was started on aggressive fluid hydration and his rhabdomyolysis gradually resolved. Also has a history of polysubstance abuse. He was found under mattress when he was admitted. Patient was subsequently found to have a right hip fracture on 12 August while admitted to the hospital. He subsequently had a right hemiarthroplasty done successfully. Patient has been receiving physical therapy while in hospital. Hospital stay was pretty prolonged due to concern about patient's safe discharge. He was felt to be best served with a possible rehab discharge however at this point he has been in hospital for 30 days as so far today and has been able to ambulate with physical therapy adequately with the aid of a walker. Health it has been arranged for him as well as home physical therapy. Case management has been intricately involved in his post discharge arrangements and he also has a sister that has been involved in his care. Patient has been medically stable and after staying 30 days in the hospital with continued improvement and hemodynamic stability it is felt that patient can be discharged home with home health Physical Exam Vital Signs: Temp Pulse Resp BP Pulse Ox 99.1 F 78 12 113/64 99 08/24/17 13:38 08/24/17 13:38 08/24/17 13:38 08/24/17 13:38 08/24/17 13:38 Intake & Output 08/23/17 08/24/17 08/25/17 06:59 06:59 06:59 Intake Total 9 486 Output Total 275 525 Balance -266 -39 Weight 74.9 kg 74.5 kg General appearance: PRESENT: no acute distress, thin, well-developed Head exam: PRESENT: atraumatic, normocephalic Eye exam: PRESENT: conjunctiva pink, EOMI, PERRLA. ABSENT: scleral icterus Ear exam: PRESENT: normal external ear exam Mouth exam: PRESENT: moist, tongue midline Neck exam: ABSENT: carotid bruit, JVD, lymphadenopathy, thyromegaly Respiratory exam: PRESENT: clear to auscultation taryn. ABSENT: rales, rhonchi, wheezes Cardiovascular exam: PRESENT: RRR. ABSENT: diastolic murmur, rubs, systolic murmur Pulses: PRESENT: normal dorsalis pedis pul Vascular exam: PRESENT: normal capillary refill GI/Abdominal exam: PRESENT: normal bowel sounds, soft. ABSENT: distended, guarding, mass, organolmegaly, rebound, tenderness Rectal exam: PRESENT: deferred Extremities exam: PRESENT: other - Right hip appears to be intact. ABSENT: calf tenderness, clubbing, pedal edema Neurological exam: PRESENT: alert, awake, oriented to person, oriented to place , oriented to time, oriented to situation, CN II-XII grossly intact. ABSENT: motor sensory deficit Psychiatric exam: PRESENT: appropriate affect, normal mood. ABSENT: homicidal ideation, suicidal ideation Focused psych exam: PRESENT: other - Stuttering Skin exam: PRESENT: dry, intact, warm. ABSENT: cyanosis, rash Results Laboratory Results: 08/23/17 06:35 08/23/17 06:35 07/25/17 07/25/17 07/25/17 20:15 20:15 20:15 Creatine Kinase 86615 H CK-MB (CK-2) 40.00 H Troponin I 0.119 Cancelled NT-Pro-B Natriuret Pep 07/26/17 07/26/17 07/26/17 04:14 04:14 12:41 Creatine Kinase 79051 H 00628 H CK-MB (CK-2) 27.40 H Troponin I 0.075 NT-Pro-B Natriuret Pep 07/26/17 07/27/17 07/28/17 12:41 04:55 04:22 Creatine Kinase 79337 H 10164 H CK-MB (CK-2) 12.40 H Troponin I 0.046 NT-Pro-B Natriuret Pep 07/29/17 07/30/17 07/30/17 04:54 06:18 06:18 Creatine Kinase 44641 H 31758 H CK-MB (CK-2) Troponin I NT-Pro-B Natriuret Pep 262 07/31/17 08/01/17 08/02/17 04:14 03:16 05:00 Creatine Kinase 7400 H 3073 H 1409 H CK-MB (CK-2) Troponin I NT-Pro-B Natriuret Pep 08/04/17 08/07/17 08/12/17 05:04 05:10 06:50 Creatine Kinase 765 H 324 H 114 CK-MB (CK-2) Troponin I NT-Pro-B Natriuret Pep Impressions: Head CT 07/25/17 14:30 IMPRESSION: NORMAL BRAIN CT WITHOUT CONTRAST. EVIDENCE OF ACUTE STROKE: NO. Head MRI 07/25/17 16:11 IMPRESSION: Negative for acute or sub-acute infarction. EVIDENCE OF ACUTE STROKE: NO. Chest X-Ray 07/28/17 00:00 IMPRESSION: NO ACUTE DISEASE. Hand X-Ray 08/03/17 00:00 IMPRESSION: NEGATIVE STUDY OF THE LEFT HAND. NO RADIOGRAPHIC EVIDENCE OF ACUTE INJURY. Upper Extremity MRI 08/03/17 00:00 IMPRESSION: Very limited negative study. Pelvis X-Ray 08/13/17 13:25 IMPRESSION: SATISFACTORY POSTOPERATIVE PELVIS. Hip/Pelvis X-Ray 08/21/17 00:00 IMPRESSION: Right hip prosthesis in good alignment. No dislocation. No right femur or hemipelvis fracture Qualifiers - * PATIENT BEING DISCHARGED WITH ANY OF THE FOLLOWING DIAGNOSIS: No
[2017-08-24 17:35] VITALS: BP 120/76
== END 2017-08-24 17:55 | disposition home health service (06) | DRG 981 ==
LOC: ER 13:59 → UNDOADMIN 19:42 → EH 19:42 → 3W 07-26 00:16 → 4S 08-21 01:26
PROVIDERS: ADMIT Internal Medicine; ATTEND Internal Medicine
PROC: 3E0F73Z Introduction of Anti-inflammatory into Respiratory Tract, Via Natural or Artificial Opening (ICD-10-PCS; 2017-07-26)
PROC: 02HV33Z Insertion of Infusion Device into Superior Vena Cava, Percutaneous Approach (ICD-10-PCS; 2017-07-28)
PROC: B548ZZA Ultrasonography of Superior Vena Cava, Guidance (ICD-10-PCS; 2017-07-28)
PROC: 0SR902A Replacement of Right Hip Joint with Metal on Polyethylene Synthetic Substitute, Uncemented, Open Approach (ICD-10-PCS; principal; 2017-08-13 12:30)
DX: F10.231 Alcohol dependence with withdrawal delirium (principal); S72.001A Fracture of unspecified part of neck of right femur, initial encounter for closed fracture; G93.41 Metabolic encephalopathy; M62.82 Rhabdomyolysis; N17.9 Acute kidney failure, unspecified; E87.1 Hypo-osmolality and hyponatremia; K92.2 Gastrointestinal hemorrhage, unspecified; W18.30XA Fall on same level, unspecified, initial encounter; F19.10 Other psychoactive substance abuse, uncomplicated; Y90.0 Blood alcohol level of less than 20 mg/100 ml; I45.81 Long QT syndrome; K70.30 Alcoholic cirrhosis of liver without ascites; R20.0 Anesthesia of skin; E87.6 Hypokalemia; E86.0 Dehydration; K70.10 Alcoholic hepatitis without ascites; S64.8X2A Injury of other nerves at wrist and hand level of left arm, initial encounter; D69.59 Other secondary thrombocytopenia; B18.2 Chronic viral hepatitis C; Z86.19 Personal history of other infectious and parasitic diseases; Z88.8 Allergy status to other drugs, medicaments and biological substances; Z78.1 Physical restraint status; Z79.899 Other long term (current) drug therapy; Z60.2 Problems related to living alone; Z82.49 Family history of ischemic heart disease and other diseases of the circulatory system; Z80.3 Family history of malignant neoplasm of breast; Z80.8 Family history of malignant neoplasm of other organs or systems; Z84.89 Family history of other specified conditions; Z92.3 Personal history of irradiation
CPT/HCPCS: 01210; 36415; 51702; 70450; 70551; 71045; 72170; 80048; 80053; 80069; 80076; 80307; 81001; 82140; 82550; 82553; 82803; 83605; 83690; 83735; 83880; 84100; 84484; 85025; 85027; 85610; 85730; 86850; 86900; 86901; 87040; 87070; 87075; 87205; 88305; 88311; 93005; 93010; 93306; 94799; 96361; 96365; 96375; 99291; C1751; C9290; J0171; J1170; J1200; J1642; J1644; J1650; J1741; J2250; J2270; J2405; J2704; J3010; J3360; J3370; J3411; J3480; J3490; J7030; J7050; J7060; J7120; L3908; S0119

== ENCOUNTER 2017-08-30 14:09 | Emergency (ER) | payer MEDICAID ==
[2017-08-30] MEDS ORDERED: ONDANSETRON 4 MG TAB.RAPDIS PO ONE ×3 (14:53→19:25)
--- NOTE | 2017-08-30 16:14 | RADIOLOGY REPORT (SQ) ---
EXAM DESCRIPTION: HIP RIGHT AP/LATERAL COMPLETED DATE/TIME: 08/30/2017 3:52 pm REASON FOR STUDY: Right hip pain, S/P right hip surgery 2 weeks ago COMPARISON: 08/21/2017, 08/13/2017, 08/11/2017 NUMBER OF VIEWS: Two views. TECHNIQUE: AP pelvis and additional surgical lateral view of the right hip. LIMITATIONS: None. FINDINGS: MINERALIZATION: Normal. RIGHT HIP: Right hip replacement in good alignment. No bone cement. No lucency around the hardware worrisome for fracture or loosening. LEFT HIP: No fracture or dislocation. Left hip joint space well maintained. No worrisome bone lesio ns. PUBIS AND ISCHIUM: No fracture. PELVIS: No fracture. SACRUM: No fracture or dislocation. No worrisome bone lesions. LOWER LUMBAR SPINE: Degenerative disc changes lower lumbar spine SOFT TISSUES: Skin kian are still present from the operation. There is mild soft tissue stranding deep to the skin kian over the right hip soft tissues. OTHER: No other significant finding. IMPRESSION: Right hip replacement in good alignment. No acute fracture TECHNICAL DOCUMENTATION: JOB ID: [id number]- All Rights Reserved Reading location - IP/workstation name: [email or web address]
[2017-08-30 17:24] LABS: ABSOLUTE LYMPHOCYTES (AUTO) 0.6 10^3/uL (0.5-4.7); ABSOLUTE MONOCYTES (AUTO) 0.8 10^3/uL (0.1-1.4); BASOPHILS % (AUTO) 0.5 % (0-2); EOSINOPHILS % (AUTO) 0.1 % (0-6); HEMATOCRIT 36.6 % (37.9-51.0); HEMOGLOBIN 12.5 g/dL (13.5-17.0); LYMPHOCYTES % (AUTO) 6.6 % (13-45); MEAN CORPUSCULAR HEMOGLOBIN 29.9 pg (27.0-33.4); MEAN CORPUSCULAR HGB CONC 34.3 g/dL (32.0-36.0); MEAN CORPUSCULAR VOLUME 87 fl (80-97); MONOCYTES % (AUTO) 8.2 % (3-13); PLATELET COUNT 201 10^3/uL (150-450); RED CELL DISTRIBUTION WIDTH 14.6 % (11.5-14.0); SEGMENTED NEUTROPHILS % (AUTO) 84.6 % (42-78); TOTAL CELLS COUNTED % (AUTO) 100 %; WHITE BLOOD COUNT 9.5 10^3/uL (4.0-10.5)
[2017-08-30 17:46] LABS: ALANINE AMINOTRANSFERASE 16 U/L (21-72); ALBUMIN 3.8 g/dL (3.5-5.0); ALKALINE PHOSPHATASE 80 U/L (38-126); ANION GAP 17 (5-19); ASPARTATE AMINO TRANSFERASE 23 U/L (17-59); BILIRUBIN,DIRECT 0.4 mg/dL (0.0-0.4); BILIRUBIN,TOTAL 0.7 mg/dL (0.2-1.3); BLOOD UREA NITROGEN 7 mg/dL (7-20); CALCIUM 9.6 mg/dL (8.4-10.2); CARBON DIOXIDE 23 mmol/L (22-30); CHLORIDE 103 mmol/L (98-107); GLUCOSE 126 mg/dL (75-110); POTASSIUM 3.6 mmol/L (3.6-5.0); SODIUM 142.5 mmol/L (137-145); TOTAL PROTEIN 7.5 g/dL (6.3-8.2)
--- NOTE | 2017-08-30 19:10 | ER Document Report ---
ED Hip Pain/Injury - General TRAVEL OUTSIDE OF THE [place] IN LAST 30 DAYS: No <DAFNE GUIDRY - Last Filed: 08/30/17 19:20> <MICHOACANO MISTRY - Last Filed: 08/31/17 12:48> - General Chief Complaint: Hip Pain Stated Complaint: HIP PAIN Time Seen by Provider: 08/30/17 14:53 Notes: Patient is here because he is having continued pain in his right hip since having surgical replacement of the hip a couple of weeks ago in this hospital. He was discharged home last August 24. He supposedly has set up for visiting nurses and other home care, but the patient says he is not getting any of these scheduled benefits. He says he cannot walk, he lives alone, and is unable to get pain medications. He had an appointment to see Dr. Mccoy at 2 PM today, but missed that appointment because he did not have transportation to get there. He called EMS to bring him to the emergency department. Patient denies any nausea or vomiting or diarrhea. Denies abdominal pains. Denies chest pains. Denies shortness of breath or difficulty breathing. Denies UTI symptoms. Denies any fevers. (DAFNE GUIDRY) - Related Data Allergies/Adverse Reactions: haloperidol [From Haldol] Adverse Reaction (Intermediate, Verified 08/30/17 14: 30) Cramping, "couldn't breathe" lorazepam [From Ativan] Adverse Reaction (Intermediate, Verified 08/30/17 14:30) Nausea, nightmares promethazine HCl [From Phenergan] Adverse Reaction (Unknown, Verified 08/30/17 14:30) "Messes my veins up" Past Medical History - Social History Smoking Status: Current Every Day Smoker Chew tobacco use (# tins/day): No Frequency of alcohol use: None Drug Abuse: Marijuana Family History: Reviewed & Not Pertinent, Hypertension, Malignancy - Brother with pancreatic cancer and mother with breast cancer, Other - Father was murdered, sister with lupus Patient has suicidal ideation: No Patient has homicidal ideation: No Pulmonary Medical History: Denies: Hx Asthma, Hx Bronchitis, Hx COPD, Hx Pneumonia Neurological Medical History: Reports: Hx Seizures - ETOH withdrawal seizures. Denies: Hx Cerebrovascular Accident Endocrine Medical History: Denies: Hx Diabetes Mellitus Type 1, Hx Diabetes Mellitus Type 2 Renal/ Medical History: Malignancy Medical History: Reports Hx Prostate Cancer GI Medical History: Reports: Hx Cirrhosis, Hx Hepatitis - Hepatitis C, Hx Liver Failure Musculoskeletal Medical History: Denies Hx Arthritis Psychiatric Medical History: Denies: Hx Depression Infectious Medical History: Reports: Hx Hepatitis - Hepatitis C Past Surgical History: Reports: Hx Orthopedic Surgery - R hip replacement, Hx Pancreatic Surgery - Pancreatic bx, Hx Urinary Tract Surgery - Laser TURP - Immunizations Hx Diphtheria, Pertussis, Tetanus Vaccination: No <DAFNE GUIDRY - Last Filed: 08/30/17 19:20> Review of Systems <DAFNE GUIDRY - Last Filed: 08/30/17 19:20> <MICHOACANO MISTRY - Last Filed: 08/31/17 12:48> - Review of Systems Notes: CONSTITUTIONAL : Denies fever. CARDIOVASCULAR: Denies chest pain. RESPIRATORY: Denies cough, chest congestion, or shortness of breath. GASTROINTESTINAL: Denies abdominal pain or nausea, vomiting, or diarrhea. GENITOURINARY: Denies difficulty or painful urinating, urinary frequency, blood in urine. (DAFNE GUIDRY) Physical Exam - Vital signs Interpretation: Normal <DAFNE GUIDRY - Last Filed: 08/30/17 19:20> <MICHOACANO MISTRY - Last Filed: 08/31/17 12:48> - Vital signs Vitals: Temp Pulse Resp BP Pulse Ox 99.0 F 78 18 137/90 H 100 08/30/17 14:14 08/30/17 14:14 08/30/17 14:14 08/30/17 14:14 08/30/17 14:14 - Notes Notes: PHYSICAL EXAMINATION: GENERAL: Well-appearing, no acute distress. Vital signs are all normal. HEAD: Atraumatic, normocephalic. NECK: Normal range of motion, supple. LUNGS: Breath sounds clear and equal bilaterally. HEART: Regular rate and rhythm without murmurs heard. ABDOMEN: Soft, nontender. No guarding or rebound or masses felt. Extremities: Unable to move the patient's extremities slowly without producing much pain. Patient complains of pain with any movement but there is no true resistance to my moving the right hip and right knee. There is no swelling noted of the hip or knee. No effusion of the knee. No increased temperature to the touch of the knee or hip area. No apparent incisional infection signs. ( DAFNE GUIDRY) Course - Laboratory Result Diagrams: 08/30/17 17:05 08/30/17 17:05 <DAFNE GUIDRY - Last Filed: 08/30/17 19:20> - Laboratory Result Diagrams: 08/30/17 17:05 08/30/17 17:05 <MICHOACANO MISTRY - Last Filed: 08/31/17 12:48> - Re-evaluation Re-evalutation: 08/30/17 19:11 Just as I finish my initial evaluation of the patient, he vomited clear fluid onto the floor of the exam room. He says he has not vomited previously. He had just told me he was not having any nausea or vomiting or diarrhea. Soon after that, the patient had a loose diarrhea stool in his bed. Staff had to clean the patient up and remake the bed. This happened a couple of more times later on his visit. 08/30/17 19:13 I believe there is some concern about whether the patient is seeking pain medications. Discussed patient with him and we cannot think of any additional evaluation or treatment to do for this patient. He is over 2 weeks postop and no reasonable expectation of such continuing pain. He has an excellent pulse in the dorsalis pedis artery of his foot on the right leg. I asked that discharge planning be consulted on this patient because I am uncomfortable sending him home if the situation in his home is as he describes it, without any assistance more than a visiting nurse 2 hours a day 3 days a week. I do not know if he is getting proper care, feet, or medications. I was told by my nursing staff who spoke with discharge planning that the patient had sufficient resources to manage in his home. I did not get the opportunity to speak to discharge planning. I do not think that we should try to arrange for this patient to be sent back to his home where he may be alone without with potential for some bad outcome. I ordered some basic lab work which looks fine. His x-ray of his right hip looks to be normal and in place. I have advised the staff to plan on keeping him as a social hold overnight until the morning when discharge planning can reassess the situation and reassure us that everything is fine for him to be discharged. (DAFNE GUIDRY) - Vital Signs Vital signs: Temp Pulse Resp BP Pulse Ox 98.3 F 71 20 118/66 98 08/31/17 05:32 08/31/17 05:32 08/31/17 05:32 08/31/17 05:32 08/31/17 05:32 - Laboratory Laboratory results interpreted by me: 08/30/17 08/30/17 17:05 17:05 RBC 4.20 L Hgb 12.5 L Hct 36.6 L RDW 14.6 H Seg Neutrophils % 84.6 H Lymphocytes % 6.6 L Glucose 126 H ALT 16 L Discharge <DAFNE GUIDRY - Last Filed: 08/30/17 19:20> <MICHOACANO MISTRY - Last Filed: 08/31/17 12:48> - Discharge Clinical Impression: History of right hip replacement, Right hip pain, Vomiting and diarrhea Withdrawal symptoms, drug or narcotic Qualifiers: Substance type: opioid Qualified Code(s): F11.23 - Opioid dependence with withdrawal Condition: Stable Disposition: HOME, SELF-CARE Additional Instructions: I suspect most of your symptoms are all due to running out of the pain medication that you take on a chronic basis. [facility] home health will be contacted to ensure that they get you follow-up with your prescribing physician to continue your regularly prescribed medications. RETURN TO THE EMERGENCY ROOM IF ANY NEW OR WORSENING SYMPTOMS. Referrals: BILLY MCCOY MD [Primary Care Provider] - Follow up as needed
[2017-08-30] MEDS ORDERED: OXYCODONE-ACETAMINOPHEN 5-325 MG TABLET PO ONE (19:25)
[2017-08-30] MEDS ORDERED: ACETAMINOPHEN 325 MG TABLET PO ONE (19:26)
[2017-08-31] MEDS: MORPHINE SULFATE IR 15 MG TABLET PO PRN ×2 (00:37→08:46)
--- NOTE | 2017-08-31 10:10 | ER Document Report ---
Doctor's Note Notes: 08/31/17 10:08 Patient's records are reviewed as is the [place] controlled substance reporting system records. I suspect the patient ran out of his pain medication and went into narcotic withdrawal. That would explain the symptoms she exhibited when he came into the hospital yesterday afternoon. He is feeling better since he was given pain medicine. He even states that yesterday he could not tolerate any motion at the hip, but today it does not hurt. Prior to his surgery he was receiving oxycodone 10 mg 4 times a day on a chronic basis. He had his hip surgery about 2-1/2 weeks ago. He states now his right knee is hurting. On exam the hip is not tender to manipulate gently, he complained of pain on extending the knee, but once it was fully extended I was able to flex and extend it without much discomfort. There is no swelling noted. He does have a walker at home to get around with. I suspect again that all his symptoms are due to running out of narcotics while he is a narcotic dependent patient. I do not think his problems are due to the lack of home health care. 08/31/17 12:46 He will be discharged home and the social security benefits interviewer will contact the nursing services to ensure that he continues to get his narcotic medication that he has been prescribed on a chronic basis.
[2017-08-31 14:19] VITALS: BP 132/74
== END 2017-08-31 14:19 | disposition home or self-care (01) ==
LOC: ER 14:09
DX: M25.551 Pain in right hip (principal); F11.23 Opioid dependence with withdrawal; R11.11 Vomiting without nausea; R19.7 Diarrhea, unspecified; M25.561 Pain in right knee; F17.200 Nicotine dependence, unspecified, uncomplicated; F12.10 Cannabis abuse, uncomplicated; Z96.641 Presence of right artificial hip joint; Z85.46 Personal history of malignant neoplasm of prostate
CPT/HCPCS: 99284; 36415; 85025; 80053; 73502; J3490; S0119

== ENCOUNTER 2017-09-10 07:10 | Inpatient (IN) | payer MEDICAID ==
[~2017-09-10 07:10] MED LIST: CEFAZOLIN 2 GM/D5W RTU 2 GM/50 ML RTUPB IV PRN
[2017-09-10] MEDS ORDERED: THROMBIN (BOVINE) TOPICAL 20000 UNIT VIAL ONE (07:23)
[2017-09-10] MEDS ORDERED: THROMBIN (BOVINE) 5000 UNIT EPITAXIS KIT ONE (07:23)
[2017-09-10] MEDS ORDERED: BACITRACIN INJ 50,000 UNIT VIAL ONE (07:23)
[2017-09-10] MEDS ORDERED: LIDOCAINE 0.5% INJ-PF (5 MG/ML) 50 ML SDV ONE (07:48)
[2017-09-10 08:02] LABS: ANION GAP 14 (5-19); BLOOD UREA NITROGEN 11 mg/dL (7-20); CALCIUM 8.8 mg/dL (8.4-10.2); CARBON DIOXIDE 28 mmol/L (22-30); CHLORIDE 101 mmol/L (98-107); GLUCOSE 122 mg/dL (75-110); SODIUM 142.7 mmol/L (137-145)
[2017-09-10 08:09] LABS: POTASSIUM 2.9 mmol/L (3.6-5.0)
[2017-09-10 08:32] LABS: HEMATOCRIT 33.7 % (37.9-51.0); HEMOGLOBIN 11.6 g/dL (13.5-17.0); MEAN CORPUSCULAR HEMOGLOBIN 29.6 pg (27.0-33.4); MEAN CORPUSCULAR HGB CONC 34.3 g/dL (32.0-36.0); MEAN CORPUSCULAR VOLUME 86 fl (80-97); PLATELET COUNT 187 10^3/uL (150-450); RED BLOOD COUNT 3.91 10^6/uL (4.35-5.55); RED CELL DISTRIBUTION WIDTH 14.5 % (11.5-14.0); WHITE BLOOD COUNT 6.1 10^3/uL (4.0-10.5)
[2017-09-10] MEDS ORDERED: FENTANYL CITRATE INJ/PF 100 MCG/2 ML AMPUL ONE (09:37)
[2017-09-10] MEDS ORDERED: LIDOCAINE 2% INJ-PF (20 MG/ML) 10 ML AMPUL ONE (09:37)
[2017-09-10] MEDS ORDERED: ONDANSETRON HCL INJ/PF 4 MG/2 ML SDV ONE (09:38)
[2017-09-10] MEDS ORDERED: PROPOFOL INJ 200 MG/20 ML VIAL IV ONE (09:38)
[2017-09-10] MEDS ORDERED: DEXAMETHASONE SOD PHOSPHATE INJ 4 MG/1 ML VIAL ONE (09:38)
[2017-09-10] MEDS ORDERED: MIDAZOLAM 2 MG/2 ML INJ ONE (09:38)
[2017-09-10] MEDS ORDERED: ACETAMINOPHEN 1,000 MG/100 ML RTUPB IV ONE (09:38)
[2017-09-10] MEDS ORDERED: BUPIVACAINE INJ/PF LIPOSOME/PF 266 MG/20 ML SDV ONE (09:51)
[2017-09-10] MEDS ORDERED: VANCOMYCIN HCL INJ 1000 MG VIAL ONE (10:18)
[2017-09-10] MEDS ORDERED: TRANEXAMIC ACID INJ/PF 1,000 MG/10 ML SDV IV ONE ×3 (10:18→13:25)
[2017-09-10] MEDS ORDERED: SUCCINYLCHOLINE CHLORIDE INJ 200 MG/10 ML VIAL ONE (10:23)
[2017-09-10] MEDS ORDERED: MORPHINE SULFATE 10 MG/ML INJ ONE ×2 (10:26→14:15)
[2017-09-10] MEDS ORDERED: DIPHENHYDRAMINE HCL 50 MG/ML VIAL IV PRN ×2 (10:31→11:00)
[2017-09-10] MEDS ORDERED: MORPHINE SULFATE 10 MG/ML INJ IV PRN ×3 (10:31→11:00)
[2017-09-10] MEDS ORDERED: ONDANSETRON HCL INJ/PF 4 MG/2 ML SDV IV PRN ×2 (10:31→11:00)
[2017-09-10] MEDS ORDERED: FENTANYL CITRATE INJ/PF 100 MCG/2 ML AMPUL IV PRN ×3 (10:31)
[2017-09-10] MEDS ORDERED: MEPERIDINE HCL/PF INJ 25 MG/1 ML DISP.SYRIN IV PRN (10:31)
[2017-09-10] MEDS ORDERED: OXYCODONE-ACETAMINOPHEN 5-325 MG TABLET PO PRN ×2 (10:31)
[2017-09-10] MEDS ORDERED: MAG HYDROX/AL HYDROX/SIMETH SUSP 30 ML UDCUP PO PRN (11:00)
[2017-09-10] MEDS ORDERED: ACETAMINOPHEN 325 MG TABLET PO PRN (11:00)
[2017-09-10] MEDS ORDERED: RINGERS SOLUTION,LACTATED 1,000 ML IV PRN (11:00)
[2017-09-10] MEDS ORDERED: ZOLPIDEM TARTRATE 5 MG TABLET PO PRN (11:00)
[2017-09-10] MEDS ORDERED: ONDANSETRON 4 MG TAB.RAPDIS PO PRN (11:00)
--- NOTE | 2017-09-10 11:00 | Operative Report ---
Operative Report DATE OF SURGERY: 09/10/17 PREOPERATIVE DIAGNOSIS: Infected right proximal thumb femoral hemiarthroplasty OPERATION: 1 stage revision right proximal femoral hemiarthroplasty SURGEON: BILLY MCCOY ANESTHESIA: GA TISSUE REMOVED OR ALTERED: Cultures to microbiology. Implant to CSS ESTIMATED BLOOD LOSS: 100 PROCEDURE: With the patient in a left lateral decubitus position on the operating table the right lower extremity hindquarter prepped and draped in sterile fashion. The previous posterior approach the hip was taken. Upon entering hip capsule cultures are taken. The hip is dislocated. The femoral head easily disimpacted. Next the femoral stem is removed from the canal without any significant bone loss. Wound is then irrigated with 6 L normal saline containing bacitracin using pulse lavage. The wound is debrided. A [place] Accolade 2 size 6 stem is impacted back into the canal. Onto this a standard neck and a 52 mm unipolar head are impacted onto the trunnion. OsteoSet pellets are created using vancomycin. These are placed into the deep wound. The wound is then closed in layers using interrupted PDS followed by kian. Sterile compressive dressing is applied and the patient's return to PACU in satisfactory condition.
[2017-09-10] MEDS: FENTANYL CITRATE INJ/PF 100 MCG/2 ML AMPUL ONE ×2 (11:24→11:29)
--- NOTE | 2017-09-10 12:16 | RADIOLOGY REPORT (SQ) ---
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 FINDINGS: BONES: No worrisome or unexpected findings post-procedure. DEVICE: Total right hip arthroplasty. Multiple small opaque densities about the neck of the right fe moral stem and in the adjacent soft tissues lateral to the iliac bone. SOFT TISSUES: Partially visualized surgical metallic kian lateral soft tissues of the right hip, new finding since the prior study. Radiation implant seeds overlie the prostate region. IMPRESSION: 1 Status post operative changes right hip. Total right hip arthroplasty. TECHNICAL DOCUMENTATION: JOB ID: [id number] [employer]- All Rights Reserved Reading location - IP/workstation name: [email or web address]
[2017-09-10] MEDS ORDERED: OXYCODONE HCL IR 5 MG TABLET ONE (13:43)
[2017-09-10] MEDS ORDERED: IBUPROFEN 800 MG in NORMAL SALINE 250 ML IV SCH (14:00)
[2017-09-10] MEDS: IBUPROFEN 800 MG in NORMAL SALINE 250 ML IV SCH ×2 (18:08→21:38)
[2017-09-10] MEDS: ASPIRIN 81 MG TABLET, ENT COATED PO SCH (18:09)
[2017-09-10] MEDS: SENNOSIDES/DOCUSATE 8.6-50 MG 1 EACH TABLET PO SCH (18:12)
[2017-09-10] MEDS: MORPHINE SULFATE 10 MG/ML INJ IM PRN ×2 (18:13→22:42)
[2017-09-10] MEDS: OXYCODONE HCL SR 10 MG TABLET PO SCH (21:22)
[2017-09-10] MEDS: VANCOMYCIN HCL 1,500 MG in DEXTROSE 5%-WATER 250 ML IV SCH (21:37)
[2017-09-10] MEDS ORDERED: VANCOMYCIN HCL 1,000 MG in DEXTROSE 5%-WATER 250 ML IV ONE (23:00)
[2017-09-11] MEDS: MORPHINE SULFATE 10 MG/ML INJ IV PRN ×4 (02:48→20:08)
[2017-09-11] MEDS: LANSOPRAZOLE 30 MG TAB.RAP.DR PO SCH (06:24)
[2017-09-11] MEDS: IBUPROFEN 800 MG in NORMAL SALINE 250 ML IV SCH ×3 (06:24→21:26)
[2017-09-11 06:49] LABS: HEMATOCRIT 31.6 % (37.9-51.0); HEMOGLOBIN 10.5 g/dL (13.5-17.0); MEAN CORPUSCULAR HEMOGLOBIN 28.7 pg (27.0-33.4); MEAN CORPUSCULAR HGB CONC 33.2 g/dL (32.0-36.0); MEAN CORPUSCULAR VOLUME 86 fl (80-97); PLATELET COUNT 160 10^3/uL (150-450); RED BLOOD COUNT 3.66 10^6/uL (4.35-5.55); RED CELL DISTRIBUTION WIDTH 14.1 % (11.5-14.0); WHITE BLOOD COUNT 11.3 10^3/uL (4.0-10.5)
--- NOTE | 2017-09-11 06:53 | PDOC PROGRESS REPORT ---
Subjective Progress Note for:: 09/11/17 Reason For Visit: INFECTED RIGHT PROXIMAL FEMORAL HEMIARTHROPLASTY 62-year-old black male postop day 1 from a 1 stage revision of a right proximal femoral hemiarthroplasty for infection. Patient complaining of pain. Physical Exam Vital Signs: Temp Pulse Resp BP Pulse Ox 36.9 C 63 17 99/64 L 100 09/10/17 23:07 09/10/17 23:07 09/10/17 23:07 09/10/17 23:07 09/10/17 23:07 Intake & Output 09/09/17 09/10/17 09/11/17 06:59 06:59 06:59 Intake Total 8100 Output Total 6875 Balance 1225 Weight 75.1 kg General appearance: PRESENT: mild distress Head exam: PRESENT: normocephalic Respiratory exam: PRESENT: unlabored Cardiovascular exam: PRESENT: RRR Vascular exam: PRESENT: normal capillary refill GI/Abdominal exam: PRESENT: soft Rectal exam: PRESENT: deferred Extremities exam: PRESENT: other - Leg lengths equal. Right hip dressing clean dry and intact. Neurological exam: PRESENT: alert, awake, oriented to person, oriented to place , oriented to time, oriented to situation. ABSENT: motor sensory deficit Psychiatric exam: PRESENT: appropriate affect, normal mood. ABSENT: homicidal ideation, suicidal ideation Skin exam: PRESENT: dry, intact, warm. ABSENT: cyanosis, rash Results Laboratory Results: 09/10/17 09/10/17 09/10/17 07:25 07:25 08:16 WBC Cancelled 6.1 RBC Cancelled 3.91 L Hgb Cancelled 11.6 L Hct Cancelled 33.7 L MCV Cancelled 86 MCH Cancelled 29.6 MCHC Cancelled 34.3 RDW Cancelled 14.5 H Plt Count Cancelled 187 Sodium 142.7 Potassium 2.9 L* Chloride 101 Carbon Dioxide 28 Anion Gap 14 BUN 11 Creatinine 0.70 Est GFR ( Amer) > 60 Est GFR (Non-Af Amer) > 60 Glucose 122 H Calcium 8.8 Impressions: Pelvis X-Ray 09/10/17 11:02 IMPRESSION: 1 Status post operative changes right hip. Total right hip arthroplasty. Status: Imported from PACS Assessment & Plan - Diagnosis (1) Infection of prosthetic hip joint Qualifiers: Encounter type: initial encounter Qualified Code(s): T84.59XA - Infection and inflammatory reaction due to other internal joint prosthesis, initial encounter; Z96.649 - Presence of unspecified artificial hip joint; Z96.649 - Presence of unspecified artificial hip joint Is this a current diagnosis for this admission?: Yes Plan: Patient be mobilized with physical therapy and weightbearing as tolerated basis with strict posterior hip precautions. Currently empirically on vancomycin which will be adjusted pending microbiology results. PICC line has been ordered. Anticipate 6 weeks of antibiotic therapy. - Time Time Spent with patient: 15-24 minutes Anticipated discharge: Home with Homehealth Within: Other
[2017-09-11 07:05] LABS: ANION GAP 9 (5-19); BLOOD UREA NITROGEN 14 mg/dL (7-20); CALCIUM 8.6 mg/dL (8.4-10.2); CARBON DIOXIDE 28 mmol/L (22-30); CHLORIDE 103 mmol/L (98-107); GLUCOSE 104 mg/dL (75-110); POTASSIUM 3.7 mmol/L (3.6-5.0); SODIUM 140.4 mmol/L (137-145)
[2017-09-11] MEDS: SENNOSIDES/DOCUSATE 8.6-50 MG 1 EACH TABLET PO SCH ×2 (09:18→17:50)
[2017-09-11] MEDS: OXYCODONE HCL SR 10 MG TABLET PO SCH ×2 (09:18→21:26)
[2017-09-11] MEDS: ASPIRIN 81 MG TABLET, ENT COATED PO SCH (09:18)
[2017-09-11] MEDS: PRENATAL VITAMIN W DHA CAPSULE PO SCH (09:18)
[2017-09-11] MEDS: VANCOMYCIN HCL 1,500 MG in DEXTROSE 5%-WATER 250 ML IV SCH ×2 (09:19→22:32)
--- NOTE | 2017-09-11 11:18 | RADIOLOGY REPORT (SQ) ---
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 FLUOROSCOPY TIME: 0.25 minutes 2 images saved to PACS. TECHNIQUE: Fluoroscopic and ultrasound guided PICC placement. LIMITATIONS: None. PROCEDURE: After written consent and assessment were obtained, the patient was brought into the fluo roscopy room and place supine on the table. Ultrasound evaluation of potential access sites were perf ormed. After successfully identifying a patent left basilic vein, the left arm was prepped and draped in a sterile fashion along with the ultrasound probe. The entry site was anesthetized with 1% lidoca ine. A 21 gauge 7 cm needle was advanced through the skin and into the basilic vein under live ultras ound guidance. An ultrasound image was saved to PACS confirming access site. A .018 guide wire was then inserted through the needle and into the venous system. The needle was the removed and an 11 masoud de scalpel was used to make a 1cm skin incision. A 5 fr peel-away sheath was advanced over the wire and into the venous system. A measurement was then made using the existing wire and live fluoroscopic guidance. The wire was then removed and the trimmed. The PICC was advanced through the peel-away she ath and into the venous system. The peel-away sheath was removed and the catheter was adhered to the patients arm with a stat lock. The catheter was then aspirated and flushed and a sterile bandage was placed over the access site. A fluoroscopic spot image was saved to PACS confirming the catheter tip within the superior vena cava. IMPRESSION: SUCCESSFUL PLACEMENT OF A 5 FR DUAL LUMEN 45 CM PICC IN THE LEFT BASILIC VEIN. COMMENT: Patient medication list reviewed: Yes- Quality ID# 130:Eligible professional attests to doc umenting in the medical record they obtained, updated, or reviewed the patient's current medications. . Quality ID 145: Final reports for procedures using fluoroscopy that document radiation exposure roverto amie, or exposure time and number of fluorographic images (if radiation exposure indices are not avail able) Quality ID #76: The patient was prepped and draped using maximum sterile barrier technique including cap, mask, sterile gown, sterile gloves, a large sterile sheet, hand hygiene, and 2% Chlorhexidine fo r cutaneous antisepsis. When ultrasound is used, sterile ultrasound techniques are followed requiring sterile gel and sterile probes. TECHNICAL DOCUMENTATION: JOB ID: [id number] [employer]- All Rights Reserved rev Reading location - IP/workstation name: [email or web address]
--- NOTE | 2017-09-11 19:35 | CONSULTATION REPORT E ---
Consultation Report NAME: CEM MONROY : 1955 AGE: 62Y DATE: 09/11/2017 424 A TO: MARIEL MCKNIGHT M.D. FROM: Requesting Physician CONSULTING PHYSICIAN: Juni Gore MD REASON FOR CONSULTATION: Postoperative pain care. CHIEF COMPLAINT: Hip pain. HISTORY OF PRESENT ILLNESS: The patient is a 62-year-old -Algerian male with multiple underlying medical conditions including hepatitis C, cirrhosis, history of alcohol use, prostate cancer of unknown stage. The patient was recently admitted to the hospital in July after being found down and was treated for rhabdomyolysis, hyponatremia, hypokalemia, and acute renal failure. The patient recovered from this and subsequently was found to have a right hip fracture and underwent right hip replacement initially on 08/14/2017. The patient was discharged to home, but subsequently developed an infection in the replaced hip, and then underwent revision surgery today. He had a right hemiarthroplasty on 08/12/2017. Pain Management has been consulted for further recommendations postoperatively. The patient states the worst pain is in the right hip status post right proximal femoral hemiarthroplasty revision. The patient notes no substantial radiation of pain. The pain is mild in nature at current, but is exacerbated with movement. The patient states today that he is "doing okay" with his pain management. PAST MEDICAL HISTORY: 1. Prostate cancer. 2. Hepatitis C. 3. Cirrhosis. 4. Alcohol abuse. 5. Reported history of polysubstance abuse. 6. History of hypertension. 7. History of seizures from alcohol. 8. History of recent rhabdomyolysis and acute renal failure. PAST SURGICAL HISTORY: Status post right hemiarthroplasty in July, now requiring revision for infected hip. SOCIAL HISTORY: The patient has previously had a history of recreational drug use including marijuana as well as alcohol use with reported cirrhosis of the liver. FAMILY HISTORY: Positive for hypertension, malignancy, brother with cancer, and mother with breast cancer. Sister with lupus. Otherwise noncontributory. HOME MEDICATIONS: 1. Clonidine 0.1 mg p.o. q.12. 2. Gabapentin 100 mg p.o. daily. 3. Oxycodone 10 mg p.o. q.6. 4. Tramadol 50 mg p.o. q.6 hours as needed. ALLERGIES: 1. HALOPERIDOL. 2. LORAZEPAM. 3. PROMETHAZINE. REVIEW OF SYSTEMS: The patient endorses some hip pain. He denies any abdominal pain, dizziness, confusion, nausea, vomiting, or constipation at this time. PHYSICAL EXAMINATION: VITAL SIGNS: Temperature 98 degrees Fahrenheit, pulse 61, blood pressure 136/73, saturation 100% on room air. Denies pain. Pain is 0/5. GENERAL: The patient is a thin male, lying in bed in no acute distress. He is alert and oriented and pleasant. HEENT: Poor dentition. Head is normocephalic/atraumatic. Strabismus noted of the right eye. RESPIRATORY: Even and unlabored breathing. CARDIOVASCULAR: Pulses regular. ABDOMEN: Soft, nontender, nondistended. EXTREMITIES: There is a left upper extremity PICC line in place. Right hip incision dressed. Moves all extremities x4. Extremities are warm and well perfused. NEUROLOGIC: No gross deficits. LABORATORY: The patient's right hip gram stain is gram positive cocci in clusters. Further results waiting. ASSESSMENT: THE PATIENT IS A 62-YEAR-OLD MALE WITH MULTIPLE MEDICAL COMORBIDITIES, RECENTLY STATUS POST RIGHT HEMIARTHROPLASTY REVISION DUE TO INFECTED HIP. CULTURES ARE PENDING. PLAN: Notably, the patient reports that he is not really having any pain at this time. He is on a current regimen of OxyContin 20 mg p.o. twice daily, oxycodone 5 mg p.o. q.6 hours as needed, and morphine 2 mg IV q.1 as needed. He has not had to use any IV morphine over the past 12 hours, nor has he used any oxycodone. He states his pain is well controlled on the OxyContin and he is happy with this current regimen. I recommend no changes be made at this point. Did speak with nursing about favoring p.o. oxycodone over IV morphine if possible. IV morphine should be for severe breakthrough pain only. The patient expressed understanding. Please call if there is further need for followup. Otherwise, I will be happy to see this patient as an outpatient after hospital discharge in my clinic. Thank you again for this interesting consultation. DICTATING PHYSICIAN: MARIEL MCKNIGHT M.D. [id number] PHY#: [id number] ID: [id number] JOB#: [id number] ACCT: [id number] cc:MARIEL MCKNIGHT M.D. >
[2017-09-11] MEDS ORDERED: VANCOMYCIN HCL 1,000 MG in DEXTROSE 5%-WATER 250 ML IV SCH (23:00)
[2017-09-12] MEDS: MORPHINE SULFATE 10 MG/ML INJ IV PRN ×4 (03:40→22:50)
[2017-09-12] MEDS: IBUPROFEN 800 MG in NORMAL SALINE 250 ML IV SCH (05:02)
[2017-09-12] MEDS: LANSOPRAZOLE 30 MG TAB.RAP.DR PO SCH (05:02)
[2017-09-12 06:09] LABS: HEMATOCRIT 26.2 % (37.9-51.0); MEAN CORPUSCULAR HEMOGLOBIN 29.7 pg (27.0-33.4); MEAN CORPUSCULAR HGB CONC 34.2 g/dL (32.0-36.0); MEAN CORPUSCULAR VOLUME 87 fl (80-97); PLATELET COUNT 141 10^3/uL (150-450); RED BLOOD COUNT 3.02 10^6/uL (4.35-5.55); RED CELL DISTRIBUTION WIDTH 14.6 % (11.5-14.0); WHITE BLOOD COUNT 6.2 10^3/uL (4.0-10.5)
--- NOTE | 2017-09-12 07:15 | PDOC PROGRESS REPORT ---
Subjective Progress Note for:: 09/12/17 Reason For Visit: INFECTED RIGHT PROXIMAL FEMORAL HEMIARTHROPLASTY 62-year-old black male postop day 2 status post 1 stage vision arthroplasty for a periprosthetic infection about a right proximal femoral hemiarthroplasty. Physical Exam Vital Signs: Temp Pulse Resp BP Pulse Ox 36.7 C 61 16 136/73 H 100 09/11/17 11:56 09/11/17 11:56 09/11/17 11:56 09/11/17 11:56 09/11/17 11:56 Intake & Output 09/11/17 09/12/17 09/13/17 06:59 06:59 06:59 Intake Total 8350 1694 Output Total 6875 750 Balance 1475 944 Weight 75.1 kg 76 kg General appearance: PRESENT: no acute distress, mild distress Respiratory exam: PRESENT: unlabored Cardiovascular exam: PRESENT: RRR Pulses: PRESENT: +1 pedal pulses bilateral Vascular exam: PRESENT: normal capillary refill GI/Abdominal exam: PRESENT: soft Rectal exam: PRESENT: deferred Extremities exam: PRESENT: other - Right hip dressing is saturated with serosanguineous drainage. This is changed. Wound edges are well approximated kian. There is no surrounding erythema or induration. Leg lengths are equal. Distal neurovascular examination is intact. Results Laboratory Results: 09/12/17 06:00 09/11/17 06:22 09/12/17 06:00 WBC 6.2 RBC 3.02 L Hgb 9.0 L Hct 26.2 L MCV 87 MCH 29.7 MCHC 34.2 RDW 14.6 H Plt Count 141 L Impressions: Pelvis X-Ray 09/10/17 11:02 IMPRESSION: 1 Status post operative changes right hip. Total right hip arthroplasty. Guidance Fluoroscopy 09/11/17 00:00 IMPRESSION: SUCCESSFUL PLACEMENT OF A 5 FR DUAL LUMEN 45 CM PICC IN THE LEFT BASILIC VEIN. PICC Line Insertion 09/11/17 00:00 IMPRESSION: SUCCESSFUL PLACEMENT OF A 5 FR DUAL LUMEN 45 CM PICC IN THE LEFT BASILIC VEIN. Status: Imported from PACS Assessment & Plan - Diagnosis (1) Infection of prosthetic hip joint Qualifiers: Encounter type: initial encounter Qualified Code(s): T84.59XA - Infection and inflammatory reaction due to other internal joint prosthesis, initial encounter; Z96.649 - Presence of unspecified artificial hip joint; Z96.649 - Presence of unspecified artificial hip joint Is this a current diagnosis for this admission?: Yes Plan: Cultures growing gram-positive cocci in clusters. Sensitivities pending. Patient on empiric vancomycin. Mobilization with physical therapy in the interim. Nursing can change the right hip dressing as needed. - Time Time Spent with patient: 15-24 minutes Anticipated discharge: Other Within: Other
[2017-09-12] MEDS: ASPIRIN 81 MG TABLET, ENT COATED PO SCH (10:18)
[2017-09-12] MEDS: OXYCODONE HCL SR 10 MG TABLET PO SCH (10:18)
[2017-09-12] MEDS: PRENATAL VITAMIN W DHA CAPSULE PO SCH (10:18)
[2017-09-12] MEDS: OXYCODONE HCL IR 5 MG TABLET PO PRN ×2 (10:19→17:59)
[2017-09-12] MEDS: SENNOSIDES/DOCUSATE 8.6-50 MG 1 EACH TABLET PO SCH ×2 (10:19→17:59)
[2017-09-12] MEDS: VANCOMYCIN HCL 1,500 MG in DEXTROSE 5%-WATER 250 ML IV SCH (11:37)
[2017-09-12 12:18] LABS: VANCOMYCIN,TROUGH 10.5 ug/mL (5.0-20.0)
[2017-09-12] MEDS: MORPHINE SULFATE 10 MG/ML INJ IM PRN (15:52)
[2017-09-12] MEDS: VANCOMYCIN HCL 1,000 MG in DEXTROSE 5%-WATER 250 ML IV SCH (17:59)
[2017-09-13] MEDS: VANCOMYCIN HCL 1,000 MG in DEXTROSE 5%-WATER 250 ML IV SCH (02:37)
[2017-09-13] MEDS: MORPHINE SULFATE 10 MG/ML INJ IV PRN ×3 (02:38→20:36)
[2017-09-13] MEDS: LANSOPRAZOLE 30 MG TAB.RAP.DR PO SCH (05:13)
[2017-09-13 06:06] LABS: HEMATOCRIT 29.1 % (37.9-51.0); HEMOGLOBIN 9.8 g/dL (13.5-17.0); MEAN CORPUSCULAR HEMOGLOBIN 29.1 pg (27.0-33.4); MEAN CORPUSCULAR HGB CONC 33.5 g/dL (32.0-36.0); MEAN CORPUSCULAR VOLUME 87 fl (80-97); PLATELET COUNT 152 10^3/uL (150-450); RED BLOOD COUNT 3.36 10^6/uL (4.35-5.55); RED CELL DISTRIBUTION WIDTH 14.6 % (11.5-14.0); WHITE BLOOD COUNT 6.9 10^3/uL (4.0-10.5)
--- NOTE | 2017-09-13 06:28 | PDOC PROGRESS REPORT ---
Subjective Progress Note for:: 09/13/17 Reason For Visit: INFECTED RIGHT PROXIMAL FEMORAL HEMIARTHROPLASTY 82-year-old black male status post one stage reconstruction for a right proximal femoral hemiarthroplasty periprosthetic infection with MSSA. Patient making progress with physical therapy. Patient complaining of right thigh pain last night. Physical Exam Vital Signs: Temp Pulse Resp BP Pulse Ox 37.0 C 72 18 141/81 H 100 09/13/17 04:00 09/13/17 04:00 09/13/17 04:00 09/13/17 04:00 09/13/17 04:00 Intake & Output 09/11/17 09/12/17 09/13/17 06:59 06:59 06:59 Intake Total 8350 2944 2040 Output Total 6875 750 2950 Balance 1475 2194 -910 Weight 75.1 kg 76 kg 77.8 kg General appearance: PRESENT: no acute distress, mild distress Head exam: PRESENT: normocephalic Respiratory exam: PRESENT: unlabored Cardiovascular exam: PRESENT: RRR GI/Abdominal exam: PRESENT: soft Rectal exam: PRESENT: deferred Extremities exam: PRESENT: other - Right hip dressing is been changed by nursing recently. Is currently clean dry and intact. Leg lengths are equal. Distal neurovascular examination is intact. Neurological exam: PRESENT: alert, awake, oriented to person, oriented to place , oriented to time, oriented to situation. ABSENT: motor sensory deficit Psychiatric exam: PRESENT: appropriate affect, normal mood. ABSENT: homicidal ideation, suicidal ideation Skin exam: PRESENT: dry, intact, warm. ABSENT: cyanosis, rash Results Laboratory Results: 09/13/17 05:20 09/11/17 06:22 09/13/17 05:20 WBC 6.9 RBC 3.36 L Hgb 9.8 L Hct 29.1 L MCV 87 MCH 29.1 MCHC 33.5 RDW 14.6 H Plt Count 152 09/10/17 10:20 Hip - Right Gram Stain - Final Impressions: Pelvis X-Ray 09/10/17 11:02 IMPRESSION: 1 Status post operative changes right hip. Total right hip arthroplasty. Guidance Fluoroscopy 09/11/17 00:00 IMPRESSION: SUCCESSFUL PLACEMENT OF A 5 FR DUAL LUMEN 45 CM PICC IN THE LEFT BASILIC VEIN. PICC Line Insertion 09/11/17 00:00 IMPRESSION: SUCCESSFUL PLACEMENT OF A 5 FR DUAL LUMEN 45 CM PICC IN THE LEFT BASILIC VEIN. Status: Imported from PACS Assessment & Plan - Diagnosis (1) Infection of prosthetic hip joint Qualifiers: Encounter type: initial encounter Qualified Code(s): T84.59XA - Infection and inflammatory reaction due to other internal joint prosthesis, initial encounter; Z96.649 - Presence of unspecified artificial hip joint; Z96.649 - Presence of unspecified artificial hip joint Is this a current diagnosis for this admission?: Yes Plan: Cultures returned positive for MSSA. Antibiotics switched from vancomycin to Rocephin. Patient to continue with physical therapy and mobilization program. 6 weeks of IV Rocephin. Anticipate need for [facility] facility [facility]. - Time Time Spent with patient: 15-24 minutes Anticipated discharge: SNF Within: when bed available
[2017-09-13] MEDS: OXYCODONE HCL IR 5 MG TABLET PO PRN (06:53)
[2017-09-13] MEDS: MORPHINE SULFATE 10 MG/ML INJ IM PRN ×3 (10:03→18:15)
[2017-09-13] MEDS: PRENATAL VITAMIN W DHA CAPSULE PO SCH (10:03)
[2017-09-13] MEDS: SENNOSIDES/DOCUSATE 8.6-50 MG 1 EACH TABLET PO SCH ×2 (10:03→18:16)
[2017-09-13] MEDS: ASPIRIN 81 MG TABLET, ENT COATED PO SCH (10:04)
[2017-09-13] MEDS: CEFTRIAXONE 2 GM/D5W RTU 2 GM/50 ML RTUPB IV SCH (10:13)
--- NOTE | 2017-09-13 11:45 | RADIOLOGY REPORT (SQ) ---
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 NUMBER OF VIEWS: One view TECHNIQUE: AP Pelvis LIMITATIONS: None. FINDINGS: MINERALIZATION: Normal. HIPS: Dislocation of the bipolar prosthesis right hip superolateral. PELVIS AND SACRUM: No acute fracture or dislocation. No worrisome bone lesions. PUBIS AND ISCHIUM: No acute fracture. LOWER LUMBAR SPINE: Degenerative changes. SOFT TISSUES: Antibiotic beads present. Prostate markers. OTHER: No other significant finding. IMPRESSION: Bipolar prosthesis hip dislocation on the right. TECHNICAL DOCUMENTATION: JOB ID: [id number] [employer]- All Rights Reserved Reading location - IP/workstation name: [email or web address]
[2017-09-13] MEDS: OXYCODONE HCL SR 10 MG TABLET PO SCH ×2 (12:16→21:35)
[2017-09-14] MEDS: MORPHINE SULFATE 10 MG/ML INJ IV PRN ×3 (02:37→22:09)
[2017-09-14] MEDS: LANSOPRAZOLE 30 MG TAB.RAP.DR PO SCH (05:23)
[2017-09-14] MEDS: SENNOSIDES/DOCUSATE 8.6-50 MG 1 EACH TABLET PO SCH ×2 (08:59→18:30)
[2017-09-14] MEDS: OXYCODONE HCL SR 10 MG TABLET PO SCH ×2 (08:59→21:00)
[2017-09-14] MEDS: PRENATAL VITAMIN W DHA CAPSULE PO SCH (09:00)
[2017-09-14] MEDS: ASPIRIN 81 MG TABLET, ENT COATED PO SCH (09:00)
[2017-09-14] MEDS: CEFTRIAXONE 2 GM/D5W RTU 2 GM/50 ML RTUPB IV SCH (09:00)
[2017-09-14] MEDS ORDERED: LIDOCAINE 2% INJ-PF (20 MG/ML) 10 ML AMPUL ONE (11:42)
[2017-09-14] MEDS ORDERED: KETAMINE HCL INJ 500 MG/10 ML VIAL ONE (11:42)
[2017-09-14] MEDS ORDERED: PROPOFOL INJ 200 MG/20 ML VIAL IV ONE (11:43)
[2017-09-14] MEDS ORDERED: FENTANYL CITRATE INJ/PF 100 MCG/2 ML AMPUL ONE (11:43)
[2017-09-14] MEDS ORDERED: MIDAZOLAM 2 MG/2 ML INJ ONE (11:43)
[2017-09-14] MEDS ORDERED: FENTANYL CITRATE INJ/PF 100 MCG/2 ML AMPUL IV PRN ×3 (12:08)
[2017-09-14] MEDS ORDERED: DIPHENHYDRAMINE HCL 50 MG/ML VIAL IV PRN (12:08)
[2017-09-14] MEDS ORDERED: ONDANSETRON HCL INJ/PF 4 MG/2 ML SDV IV PRN (12:08)
--- NOTE | 2017-09-14 12:16 | Operative Report ---
Operative Report DATE OF SURGERY: 09/14/17 PREOPERATIVE DIAGNOSIS: Dislocated right proximal femoral hemiarthroplasty OPERATION: Closed reduction right dislocated hemiarthroplasty SURGEON: BILLY MCCOY ANESTHESIA: LMAC ESTIMATED BLOOD LOSS: 0 PROCEDURE: With the patient supine on the operating table under fluoroscopic guidance the right lower extremity is distracted and subsequently externally rotated to affected an anatomic reduction of the proximal hemiarthroplasty. An abduction pillow is applied. The patient's return to the PACU in satisfactory condition.
[2017-09-14] MEDS: FENTANYL CITRATE INJ/PF 100 MCG/2 ML AMPUL ONE ×2 (12:45→12:47)
--- NOTE | 2017-09-14 13:06 | RADIOLOGY REPORT (SQ) ---
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 FLUOROSCOPY TIME: 0.1 minutes 1 images saved to PACS. TECHNIQUE: Intra-operative images acquired during surgical procedure to evaluate progress. NUMBER OF IMAGES: 1 LIMITATIONS: None. FINDINGS: Single spot radiograph of the hip shows grossly intact arthroplasty. Regional tissues not included. This appears to be the left hip based on annotation. IMPRESSION: IMAGE(S) OBTAINED DURING PROCEDURE. COMMENT: Quality ID 145: Final reports for procedures using fluoroscopy that document radiation exp osure indices, or exposure time and number of fluorographic images (if radiation exposure indices are not available) Please consult full operative report of the attending physician for description of the procedure. TECHNICAL DOCUMENTATION: JOB ID: [id number] [employer]- All Rights Reserved Reading location - IP/workstation name: [email or web address]
--- NOTE | 2017-09-14 13:06 | RADIOLOGY REPORT (SQ) ---
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 FLUOROSCOPY TIME: 0.1 minutes 1 images saved to PACS. TECHNIQUE: Intra-operative images acquired during surgical procedure to evaluate progress. NUMBER OF IMAGES: 1 LIMITATIONS: None. FINDINGS: Single spot radiograph of the hip shows grossly intact arthroplasty. Regional tissues not included. This appears to be the left hip based on annotation. IMPRESSION: IMAGE(S) OBTAINED DURING PROCEDURE. COMMENT: Quality ID 145: Final reports for procedures using fluoroscopy that document radiation exp osure indices, or exposure time and number of fluorographic images (if radiation exposure indices are not available) Please consult full operative report of the attending physician for description of the procedure. TECHNICAL DOCUMENTATION: JOB ID: [id number] [employer]- All Rights Reserved Reading location - IP/workstation name: [email or web address]
[2017-09-14] MEDS ORDERED: RINGERS SOLUTION,LACTATED 1,000 ML IV PRN (15:14)
[2017-09-14] MEDS: MORPHINE SULFATE 10 MG/ML INJ IM PRN (15:31)
[2017-09-15] MEDS: LANSOPRAZOLE 30 MG TAB.RAP.DR PO SCH (05:17)
[2017-09-15 05:23] LABS: HEMATOCRIT 28.8 % (37.9-51.0); HEMOGLOBIN 9.8 g/dL (13.5-17.0); MEAN CORPUSCULAR HEMOGLOBIN 29.4 pg (27.0-33.4); MEAN CORPUSCULAR HGB CONC 34.2 g/dL (32.0-36.0); MEAN CORPUSCULAR VOLUME 86 fl (80-97); PLATELET COUNT 172 10^3/uL (150-450); RED BLOOD COUNT 3.34 10^6/uL (4.35-5.55); RED CELL DISTRIBUTION WIDTH 14.6 % (11.5-14.0); WHITE BLOOD COUNT 8.7 10^3/uL (4.0-10.5)
[2017-09-15 05:51] LABS: ANION GAP 10 (5-19); BLOOD UREA NITROGEN 14 mg/dL (7-20); CALCIUM 8.4 mg/dL (8.4-10.2); CARBON DIOXIDE 30 mmol/L (22-30); CHLORIDE 99 mmol/L (98-107); GLUCOSE 111 mg/dL (75-110); POTASSIUM 3.7 mmol/L (3.6-5.0); SODIUM 139.2 mmol/L (137-145)
[2017-09-15] MEDS: MORPHINE SULFATE 10 MG/ML INJ IV PRN ×4 (07:48→22:11)
--- NOTE | 2017-09-15 08:22 | PDOC PROGRESS REPORT ---
Subjective Progress Note for:: 09/15/17 Reason For Visit: INFECTED RIGHT PROXIMAL FEMORAL HEMIARTHROPLASTY Postop day 1 status post closed reduction of a right proximal femoral hemiarthroplasty dislocation Physical Exam Vital Signs: Temp Pulse Resp BP Pulse Ox 37.2 C 75 17 109/69 98 09/15/17 08:00 09/15/17 08:00 09/15/17 08:00 09/15/17 08:00 09/15/17 08:00 Intake & Output 09/14/17 09/15/17 09/16/17 06:59 06:59 06:59 Intake Total 790 1514 Output Total 1240 700 Balance -450 814 Weight 75.8 kg 74.3 kg General appearance: PRESENT: mild distress Head exam: PRESENT: normocephalic Respiratory exam: PRESENT: unlabored Cardiovascular exam: PRESENT: RRR Pulses: PRESENT: +1 pedal pulses bilateral Vascular exam: PRESENT: normal capillary refill GI/Abdominal exam: PRESENT: soft Rectal exam: PRESENT: deferred Extremities exam: PRESENT: other - Right hip dressing is saturated. To be changed by nursing. Neurological exam: PRESENT: alert, awake, oriented to person, oriented to place , oriented to time, oriented to situation. ABSENT: motor sensory deficit Psychiatric exam: PRESENT: appropriate affect, normal mood. ABSENT: homicidal ideation, suicidal ideation Results Laboratory Results: 09/15/17 05:05 09/15/17 05:05 09/15/17 09/15/17 05:05 05:05 WBC 8.7 RBC 3.34 L Hgb 9.8 L Hct 28.8 L MCV 86 MCH 29.4 MCHC 34.2 RDW 14.6 H Plt Count 172 Sodium 139.2 Potassium 3.7 Chloride 99 Carbon Dioxide 30 Anion Gap 10 BUN 14 Creatinine 0.63 Est GFR ( Amer) > 60 Est GFR (Non-Af Amer) > 60 Glucose 111 H Calcium 8.4 Impressions: Guidance Fluoroscopy 09/11/17 00:00 IMPRESSION: SUCCESSFUL PLACEMENT OF A 5 FR DUAL LUMEN 45 CM PICC IN THE LEFT BASILIC VEIN. PICC Line Insertion 09/11/17 00:00 IMPRESSION: SUCCESSFUL PLACEMENT OF A 5 FR DUAL LUMEN 45 CM PICC IN THE LEFT BASILIC VEIN. Pelvis X-Ray 09/13/17 00:00 IMPRESSION: Bipolar prosthesis hip dislocation on the right. Fluoroscopy 09/14/17 00:00 IMPRESSION: IMAGE(S) OBTAINED DURING PROCEDURE. Hip X-Ray 09/14/17 00:00 IMPRESSION: IMAGE(S) OBTAINED DURING PROCEDURE. Status: Imported from PACS Assessment & Plan - Diagnosis (1) Infection of prosthetic hip joint Qualifiers: Encounter type: initial encounter Qualified Code(s): T84.59XA - Infection and inflammatory reaction due to other internal joint prosthesis, initial encounter; Z96.649 - Presence of unspecified artificial hip joint; Z96.649 - Presence of unspecified artificial hip joint Is this a current diagnosis for this admission?: Yes Plan: Plan will be to mobilize with physical therapy and weightbearing as tolerated basis with strict posterior hip precautions - Time Time Spent with patient: 15-24 minutes Anticipated discharge: Other Within: Other
[2017-09-15] MEDS: ASPIRIN 81 MG TABLET, ENT COATED PO SCH (10:26)
[2017-09-15] MEDS: OXYCODONE HCL SR 10 MG TABLET PO SCH ×2 (10:26→21:21)
[2017-09-15] MEDS: PRENATAL VITAMIN W DHA CAPSULE PO SCH (10:26)
[2017-09-15] MEDS: SENNOSIDES/DOCUSATE 8.6-50 MG 1 EACH TABLET PO SCH ×2 (10:26→17:25)
[2017-09-15] MEDS: CEFTRIAXONE 2 GM/D5W RTU 2 GM/50 ML RTUPB IV SCH (10:26)
[2017-09-16] MEDS: MORPHINE SULFATE 10 MG/ML INJ IV PRN ×5 (01:48→18:32)
[2017-09-16] MEDS: LANSOPRAZOLE 30 MG TAB.RAP.DR PO SCH (05:17)
--- NOTE | 2017-09-16 07:14 | PDOC PROGRESS REPORT ---
Subjective Progress Note for:: 09/16/17 Reason For Visit: INFECTED RIGHT PROXIMAL FEMORAL HEMIARTHROPLASTY 62-year-old black male who infected right proximal femoral hemiarthroplasty with MSSA Physical Exam Vital Signs: Temp Pulse Resp BP Pulse Ox 37.2 C 77 17 99/58 L 100 09/15/17 23:00 09/15/17 23:00 09/15/17 23:00 09/15/17 23:00 09/15/17 23:00 Intake & Output 09/15/17 09/16/17 09/17/17 06:59 06:59 06:59 Intake Total 1514 1472 Output Total 700 1125 Balance 814 347 Weight 74.3 kg 74.8 kg General appearance: PRESENT: no acute distress Head exam: PRESENT: normocephalic Respiratory exam: PRESENT: unlabored Cardiovascular exam: PRESENT: RRR Vascular exam: PRESENT: normal capillary refill Extremities exam: PRESENT: other - Right hip dressing with serosanguineous drainage leg lengths are equal. Neurological exam: PRESENT: alert, awake, oriented to person, oriented to place , oriented to time, oriented to situation. ABSENT: motor sensory deficit Psychiatric exam: PRESENT: appropriate affect, normal mood. ABSENT: homicidal ideation, suicidal ideation Skin exam: PRESENT: dry, intact, warm. ABSENT: cyanosis, rash Results Laboratory Results: 09/15/17 05:05 09/15/17 05:05 Impressions: Guidance Fluoroscopy 09/11/17 00:00 IMPRESSION: SUCCESSFUL PLACEMENT OF A 5 FR DUAL LUMEN 45 CM PICC IN THE LEFT BASILIC VEIN. PICC Line Insertion 09/11/17 00:00 IMPRESSION: SUCCESSFUL PLACEMENT OF A 5 FR DUAL LUMEN 45 CM PICC IN THE LEFT BASILIC VEIN. Pelvis X-Ray 09/13/17 00:00 IMPRESSION: Bipolar prosthesis hip dislocation on the right. Fluoroscopy 09/14/17 00:00 IMPRESSION: IMAGE(S) OBTAINED DURING PROCEDURE. Hip X-Ray 09/14/17 00:00 IMPRESSION: IMAGE(S) OBTAINED DURING PROCEDURE. Status: Imported from PACS Assessment & Plan - Diagnosis (1) Infection of prosthetic hip joint Qualifiers: Encounter type: initial encounter Qualified Code(s): T84.59XA - Infection and inflammatory reaction due to other internal joint prosthesis, initial encounter; Z96.649 - Presence of unspecified artificial hip joint; Z96.649 - Presence of unspecified artificial hip joint Is this a current diagnosis for this admission?: Yes Plan: Patient making progress with physical therapy. On Rocephin for MSSA, Anticipate 6 week course. Dressing changes as needed. [facility] facility placement pending - Time Time Spent with patient: 15-24 minutes Anticipated discharge: SNF Within: when bed available
[2017-09-16] MEDS: PRENATAL VITAMIN W DHA CAPSULE PO SCH (09:15)
[2017-09-16] MEDS: ASPIRIN 81 MG TABLET, ENT COATED PO SCH (09:15)
[2017-09-16] MEDS: OXYCODONE HCL SR 10 MG TABLET PO SCH ×2 (09:15→22:11)
[2017-09-16] MEDS: SENNOSIDES/DOCUSATE 8.6-50 MG 1 EACH TABLET PO SCH ×2 (09:15→18:30)
[2017-09-16] MEDS: CEFTRIAXONE 2 GM/D5W RTU 2 GM/50 ML RTUPB IV SCH (09:16)
[2017-09-16] MEDS: OXYCODONE HCL IR 5 MG TABLET PO PRN (19:42)
[2017-09-17] MEDS: MORPHINE SULFATE 10 MG/ML INJ IV PRN ×6 (00:56→23:15)
[2017-09-17] MEDS: OXYCODONE HCL IR 5 MG TABLET PO PRN ×2 (04:24→10:17)
[2017-09-17] MEDS: LANSOPRAZOLE 30 MG TAB.RAP.DR PO SCH (05:43)
[2017-09-17] MEDS: PRENATAL VITAMIN W DHA CAPSULE PO SCH (10:17)
[2017-09-17] MEDS: ASPIRIN 81 MG TABLET, ENT COATED PO SCH (10:17)
[2017-09-17] MEDS: CEFTRIAXONE 2 GM/D5W RTU 2 GM/50 ML RTUPB IV SCH (10:17)
[2017-09-17] MEDS: SENNOSIDES/DOCUSATE 8.6-50 MG 1 EACH TABLET PO SCH ×2 (10:17→18:48)
[2017-09-17] MEDS: OXYCODONE HCL SR 10 MG TABLET PO SCH ×2 (10:17→21:24)
[2017-09-17] MEDS ORDERED: MORPHINE SULFATE 10 MG/ML INJ IM PRN (15:09)
[2017-09-17] MEDS ORDERED: ZOLPIDEM TARTRATE 5 MG TABLET PO PRN (15:10)
[2017-09-18] MEDS: MORPHINE SULFATE 10 MG/ML INJ IV PRN ×6 (02:18→23:57)
[2017-09-18] MEDS: LANSOPRAZOLE 30 MG TAB.RAP.DR PO SCH (05:07)
--- NOTE | 2017-09-18 06:30 | PDOC PROGRESS REPORT ---
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 Physical therapy has concerns about leg length inequality. Physical Exam Vital Signs: Temp Pulse Resp BP Pulse Ox 37.0 C 71 15 120/68 99 09/17/17 23:31 09/17/17 23:31 09/17/17 23:31 09/17/17 23:31 09/17/17 23:31 Intake & Output 09/16/17 09/17/17 09/18/17 06:59 06:59 06:59 Intake Total 1472 1060 618 Output Total 1125 950 750 Balance 347 110 -132 Weight 74.8 kg 76 kg 76.1 kg General appearance: PRESENT: no acute distress, mild distress Head exam: PRESENT: normocephalic Respiratory exam: PRESENT: unlabored Cardiovascular exam: PRESENT: RRR Pulses: PRESENT: +1 pedal pulses bilateral Vascular exam: PRESENT: normal capillary refill Extremities exam: PRESENT: other - Dressing with persistent bloody drainage. Changed approximately every 12 hours by nursing. Results Laboratory Results: 09/15/17 05:05 09/15/17 05:05 Impressions: Guidance Fluoroscopy 09/11/17 00:00 IMPRESSION: SUCCESSFUL PLACEMENT OF A 5 FR DUAL LUMEN 45 CM PICC IN THE LEFT BASILIC VEIN. PICC Line Insertion 09/11/17 00:00 IMPRESSION: SUCCESSFUL PLACEMENT OF A 5 FR DUAL LUMEN 45 CM PICC IN THE LEFT BASILIC VEIN. Pelvis X-Ray 09/13/17 00:00 IMPRESSION: Bipolar prosthesis hip dislocation on the right. Fluoroscopy 09/14/17 00:00 IMPRESSION: IMAGE(S) OBTAINED DURING PROCEDURE. Hip X-Ray 09/14/17 00:00 IMPRESSION: IMAGE(S) OBTAINED DURING PROCEDURE. Assessment & Plan - Diagnosis (1) Infection of prosthetic hip joint Qualifiers: Encounter type: initial encounter Qualified Code(s): T84.59XA - Infection and inflammatory reaction due to other internal joint prosthesis, initial encounter; Z96.649 - Presence of unspecified artificial hip joint; Z96.649 - Presence of unspecified artificial hip joint Is this a current diagnosis for this admission?: Yes Plan: Concerns about recurrent hip instability noted by physical therapy. X-ray ordered.
--- NOTE | 2017-09-18 09:03 | RADIOLOGY REPORT (SQ) ---
EXAM DESCRIPTION: PELVIS AP COMPLETED DATE/TIME: 09/18/2017 8:51 am REASON FOR STUDY: evaluate stability of right hip M87.051 IDIOPATHIC ASEPTIC NECROSIS OF RIGHT FEMU R COMPARISON: 09/14/2017 and 09/13/2017. NUMBER OF VIEWS: One view TECHNIQUE: Digital radiographic images of the pelvis post-procedure LIMITATIONS: None. FINDINGS: BONES: No worrisome or unexpected findings post-procedure. DEVICE: Recurrent dislocation of the right hip prosthesis. SOFT TISSUES: No worrisome findings. Expected postoperative soft tissue changes. 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 TECHNICAL DOCUMENTATION: JOB ID: [id number] [employer]- All Rights Reserved Reading location - IP/workstation name: [email or web address]
[2017-09-18] MEDS: CEFTRIAXONE 2 GM/D5W RTU 2 GM/50 ML RTUPB IV SCH (10:22)
[2017-09-18] MEDS: OXYCODONE HCL IR 5 MG TABLET PO PRN (10:23)
[2017-09-18] MEDS: PRENATAL VITAMIN W DHA CAPSULE PO SCH (10:23)
[2017-09-18] MEDS: OXYCODONE HCL SR 10 MG TABLET PO SCH ×2 (10:23→21:16)
[2017-09-18] MEDS: SENNOSIDES/DOCUSATE 8.6-50 MG 1 EACH TABLET PO SCH ×2 (10:23→18:43)
[2017-09-18] MEDS: ASPIRIN 81 MG TABLET, ENT COATED PO SCH (10:23)
[2017-09-18 17:58] LABS: HEMATOCRIT 27.9 % (37.9-51.0); HEMOGLOBIN 9.3 g/dL (13.5-17.0); MEAN CORPUSCULAR HEMOGLOBIN 28.8 pg (27.0-33.4); MEAN CORPUSCULAR HGB CONC 33.5 g/dL (32.0-36.0); MEAN CORPUSCULAR VOLUME 86 fl (80-97); PLATELET COUNT 194 10^3/uL (150-450); RED BLOOD COUNT 3.25 10^6/uL (4.35-5.55); RED CELL DISTRIBUTION WIDTH 14.9 % (11.5-14.0)
[2017-09-18 18:23] LABS: INTERNATIONAL RATION (INR) 1.11; PROTHROMBIN TIME 14.9 SEC (11.4-15.4)
[2017-09-18 18:24] LABS: PARTIAL THROMBOPLASTIN TIME 41.1 SEC (23.5-35.8)
[2017-09-18 18:29] LABS: ANION GAP 7 (5-19); BLOOD UREA NITROGEN 10 mg/dL (7-20); C-REACTIVE PROTEIN 53.8 mg/L (<10.0); CALCIUM 8.8 mg/dL (8.4-10.2); CARBON DIOXIDE 28 mmol/L (22-30); CHLORIDE 102 mmol/L (98-107); GLUCOSE 117 mg/dL (75-110); SODIUM 137.2 mmol/L (137-145)
[2017-09-18 18:38] LABS: ERYTHROCYTE SEDIMENTATION RATE 99 mm/hr (0-20)
[2017-09-19] MEDS: MORPHINE SULFATE 10 MG/ML INJ IV PRN ×2 (04:11→08:38)
[2017-09-19] MEDS ORDERED: TRANEXAMIC ACID INJ/PF 1,000 MG/10 ML SDV IV PRN (05:00)
[2017-09-19] MEDS ORDERED: VANCOMYCIN HCL 1,000 MG in DEXTROSE 5%-WATER 250 ML IV PRN (05:00)
[2017-09-19] MEDS ORDERED: RINGERS SOLUTION,LACTATED 1,000 ML IV PRN (05:00)
[2017-09-19] MEDS: LANSOPRAZOLE 30 MG TAB.RAP.DR PO SCH (05:05)
[2017-09-19] MEDS: PRENATAL VITAMIN W DHA CAPSULE PO SCH (10:44)
[2017-09-19] MEDS: SENNOSIDES/DOCUSATE 8.6-50 MG 1 EACH TABLET PO SCH ×2 (10:44→17:17)
[2017-09-19] MEDS: CEFTRIAXONE 2 GM/D5W RTU 2 GM/50 ML RTUPB IV SCH (10:49)
[2017-09-19] MEDS: OXYCODONE HCL IR 5 MG TABLET PO PRN (10:49)
[2017-09-19] MEDS: ASPIRIN 81 MG TABLET, ENT COATED PO SCH (10:49)
[2017-09-19] MEDS: OXYCODONE HCL SR 10 MG TABLET PO SCH ×2 (10:50→21:38)
[2017-09-19] MEDS ORDERED: MIDAZOLAM 2 MG/2 ML INJ ONE (13:56)
[2017-09-19] MEDS ORDERED: PROPOFOL INJ 200 MG/20 ML VIAL IV ONE (13:56)
[2017-09-19] MEDS ORDERED: FENTANYL CITRATE INJ/PF 250 MCG/5 ML AMPULE ONE (13:56)
[2017-09-19] MEDS ORDERED: BUPIVACAINE INJ/PF LIPOSOME/PF 266 MG/20 ML SDV ONE (14:01)
[2017-09-19] MEDS ORDERED: THROMBIN (BOVINE) TOPICAL 20000 UNIT VIAL ONE (14:01)
[2017-09-19] MEDS ORDERED: THROMBIN (BOVINE) 5000 UNIT EPITAXIS KIT ONE (14:01)
[2017-09-19] MEDS ORDERED: FENTANYL CITRATE INJ/PF 100 MCG/2 ML AMPUL IV PRN ×3 (15:10)
[2017-09-19] MEDS ORDERED: ONDANSETRON HCL INJ/PF 4 MG/2 ML SDV IV PRN (15:10)
[2017-09-19] MEDS ORDERED: TRANEXAMIC ACID INJ/PF 1,000 MG/10 ML SDV IV ONE ×3 (15:14→18:00)
[2017-09-19] MEDS ORDERED: HYDROMORPHONE HCL INJ/PF 2 MG/ML AMPULE ONE (16:19)
--- NOTE | 2017-09-19 16:34 | Operative Report ---
Operative Report DATE OF SURGERY: 09/19/17 PREOPERATIVE DIAGNOSIS: Dislocated right proximal femoral hemiarthroplasty OPERATION: Revision right proximal femoral hemiarthroplasty SURGEON: BILLY MCCOY ANESTHESIA: GA TISSUE REMOVED OR ALTERED: Cultures to microbiology. Implant to CSS ESTIMATED BLOOD LOSS: 1000 PROCEDURE: With the patient in a left lateral decubitus position on the operative table the right lower external hindquarter prepped and draped in sterile fashion. Opening up the previous posterior approach the. There is a large amount of apparently liquid hematoma and this is cultured. The hip is dislocated upon entering the space. The femoral head is disimpacted from the stem. Looking at the acetabulum there is a large amount of fibrotic tissue that is filling the base of the acetabulum. Previous operation I placed OsteoSet pellets with vancomycin because of infection and I wonder if this did not cause a fibrous proliferation which ended up filling the base of the acetabulum. This is debrided. The size of 52 mm femoral head is again checked and this appears to be appropriate. This is suction sound as this is placed in and out of the acetabulum suggesting that it is the appropriate size. The version of the femoral stem is checked and this is approximately 15 of anteversion. When stability is now assessed with a 2 mm head first with a standard neck and then with a +8 neck still somewhat disappointed with overall stability. A decision was made at this point that by increasing anteversion and by increasing offset that we may be able to increase stability. A decision was made to remove the size 6 [place] Accolade 2 stem which was done uneventfully. The canal was then broached to accept a 7 stem in maximal anteversion which is approximately 20. The confines of the femoral neck do not allow any more anteversion in this. A trial reduction was again performed with a standard neck. This improves stability considerably. A decision was made to proceed with this construct. The broach is removed. The wound is trudy care with pulse lavage using 3 L normal saline, bacitracin and 3 L of normal saline. A 7 Yevgeniy Accolade 2 stem was impacted into position with maximal anteversion. A 52 mm unipolar head with a standard neck is impacted onto the trunnion. The hip is reduced. The posterior capsule is closed rigorously followed by the iliotibial band, subcutaneous tissue and skin. Sterile dressing is applied followed by a knee immobilizer and abduction pillow.
[2017-09-19] MEDS ORDERED: FENTANYL CITRATE INJ/PF 100 MCG/2 ML AMPUL ONE (17:27)
--- NOTE | 2017-09-19 17:30 | RADIOLOGY REPORT (SQ) ---
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 FINDINGS: A right hip arthroplasty is present. The dislocation has been reduced. Skin kian are present overlying the right hip. IMPRESSION: Right hip arthroplasty with reduction of the dislocation. TECHNICAL DOCUMENTATION: JOB ID: [id number] [employer]- All Rights Reserved Reading location - IP/workstation name: [email or web address]
[2017-09-19] MEDS: IBUPROFEN 800 MG in NORMAL SALINE 250 ML IV SCH ×2 (17:55→21:36)
[2017-09-19 19:01] LABS: HEMATOCRIT 28.9 % (37.9-51.0); HEMOGLOBIN 9.4 g/dL (13.5-17.0); MEAN CORPUSCULAR HEMOGLOBIN 28.4 pg (27.0-33.4); MEAN CORPUSCULAR HGB CONC 32.5 g/dL (32.0-36.0); MEAN CORPUSCULAR VOLUME 87 fl (80-97); PLATELET COUNT 217 10^3/uL (150-450)
[2017-09-19 19:11] LABS: WHITE BLOOD COUNT 22.8 10^3/uL (4.0-10.5)
[2017-09-19] MEDS ORDERED: ONDANSETRON HCL INJ/PF 4 MG/2 ML SDV ONE ×2 (19:27→21:22)
[2017-09-19] MEDS ORDERED: SUCCINYLCHOLINE CHLORIDE INJ 200 MG/10 ML VIAL ONE (21:22)
[2017-09-19] MEDS ORDERED: DEXAMETHASONE SOD PHOSPHATE INJ 4 MG/1 ML VIAL ONE (21:22)
[2017-09-19] MEDS ORDERED: GLYCOPYRROLATE 1 MG/5 ML SYRINGE ONE (21:22)
[2017-09-19] MEDS ORDERED: ROCURONIUM BROMIDE INJ 50 MG/5 ML VIAL IV ONE (21:22)
[2017-09-20] MEDS: MORPHINE SULFATE 10 MG/ML INJ IV PRN ×6 (01:33→22:57)
[2017-09-20] MEDS: IBUPROFEN 800 MG in NORMAL SALINE 250 ML IV SCH ×3 (01:37→18:45)
[2017-09-20] MEDS: LANSOPRAZOLE 30 MG TAB.RAP.DR PO SCH (05:12)
[2017-09-20] MEDS ORDERED: NORMAL SALINE 250 ML IV PRN (06:02)
--- NOTE | 2017-09-20 06:39 | PDOC PROGRESS REPORT ---
Subjective Progress Note for:: 09/20/17 Reason For Visit: INFECTED RIGHT PROXIMAL FEMORAL HEMIARTHROPLASTY Patient status post revision right hip arthroplasty yesterday for prosthetic instability. Patient with no new complaints this morning. Physical Exam Vital Signs: Temp Pulse Resp BP Pulse Ox 37.1 C 85 12 116/74 100 09/20/17 00:00 09/20/17 00:00 09/20/17 00:00 09/20/17 00:00 09/20/17 00:00 Intake & Output 09/18/17 09/19/17 09/20/17 06:59 06:59 06:59 Intake Total 618 1837 2450 Output Total 750 3425 2600 Balance -132 -8828 -150 Weight 76.1 kg 73.3 kg 73.3 kg General appearance: PRESENT: no acute distress, mild distress Head exam: PRESENT: normocephalic Respiratory exam: PRESENT: unlabored Cardiovascular exam: PRESENT: RRR Pulses: PRESENT: +1 pedal pulses bilateral Vascular exam: PRESENT: normal capillary refill GI/Abdominal exam: PRESENT: soft Rectal exam: PRESENT: deferred Extremities exam: PRESENT: other - Right hip dressing with a small amount of drainage. leg lengths are equal. Distal neurovascular examination is intact. Neurological exam: PRESENT: alert, awake, oriented to person, oriented to place , oriented to time, oriented to situation, CN II-XII grossly intact. ABSENT: motor sensory deficit Skin exam: PRESENT: dry, intact, warm. ABSENT: cyanosis, rash Results Laboratory Results: 09/19/17 18:44 09/18/17 16:57 09/19/17 18:44 WBC 22.8 H D RBC 3.30 L Hgb 9.4 L Hct 28.9 L MCV 87 MCH 28.4 MCHC 32.5 RDW 15.0 H Plt Count 217 Impressions: Guidance Fluoroscopy 09/11/17 00:00 IMPRESSION: SUCCESSFUL PLACEMENT OF A 5 FR DUAL LUMEN 45 CM PICC IN THE LEFT BASILIC VEIN. PICC Line Insertion 09/11/17 00:00 IMPRESSION: SUCCESSFUL PLACEMENT OF A 5 FR DUAL LUMEN 45 CM PICC IN THE LEFT BASILIC VEIN. Fluoroscopy 09/14/17 00:00 IMPRESSION: IMAGE(S) OBTAINED DURING PROCEDURE. Hip X-Ray 09/14/17 00:00 IMPRESSION: IMAGE(S) OBTAINED DURING PROCEDURE. Pelvis X-Ray 09/19/17 00:00 IMPRESSION: Right hip arthroplasty with reduction of the dislocation. Status: Imported from PACS Assessment & Plan - Diagnosis (1) Infection of prosthetic hip joint Qualifiers: Encounter type: initial encounter Qualified Code(s): T84.59XA - Infection and inflammatory reaction due to other internal joint prosthesis, initial encounter; Z96.649 - Presence of unspecified artificial hip joint; Z96.649 - Presence of unspecified artificial hip joint Is this a current diagnosis for this admission?: Yes Plan: 62-year-old black male status post revision arthroplasty for right prosthetic instability. Overall plan will be for mobilization with physical therapy and weightbearing as tolerated basis with strict posterior hip precautions. Continued Rocephin administration for the completion of 6 weeks of IV antibiotic therapy. Anticipate the need for assisted facility placement. Dietary supplement to increase caloric intake - Time Time Spent with patient: 15-24 minutes Anticipated discharge: SNF Within: Other
[2017-09-20] MEDS: OXYCODONE HCL IR 5 MG TABLET PO PRN ×2 (08:37→13:36)
[2017-09-20] MEDS: PRENATAL VITAMIN W DHA CAPSULE PO SCH (10:52)
[2017-09-20] MEDS: SENNOSIDES/DOCUSATE 8.6-50 MG 1 EACH TABLET PO SCH ×2 (10:52→18:45)
[2017-09-20] MEDS: ASPIRIN 81 MG TABLET, ENT COATED PO SCH (10:52)
[2017-09-20] MEDS: OXYCODONE HCL SR 10 MG TABLET PO SCH (10:52)
[2017-09-20] MEDS: CEFTRIAXONE 2 GM/D5W RTU 2 GM/50 ML RTUPB IV SCH (13:37)
[2017-09-21] MEDS: OXYCODONE HCL IR 5 MG TABLET PO PRN ×4 (00:59→20:29)
[2017-09-21] MEDS: IBUPROFEN 800 MG in NORMAL SALINE 250 ML IV SCH ×2 (01:57→12:02)
[2017-09-21] MEDS: LANSOPRAZOLE 30 MG TAB.RAP.DR PO SCH (05:07)
[2017-09-21] MEDS: MORPHINE SULFATE 10 MG/ML INJ IV PRN ×4 (05:13→21:31)
[2017-09-21 05:52] LABS: HEMATOCRIT 18.1 % (37.9-51.0); MEAN CORPUSCULAR HEMOGLOBIN 29.3 pg (27.0-33.4); MEAN CORPUSCULAR HGB CONC 33.8 g/dL (32.0-36.0); MEAN CORPUSCULAR VOLUME 87 fl (80-97); PLATELET COUNT 195 10^3/uL (150-450); RED CELL DISTRIBUTION WIDTH 14.9 % (11.5-14.0); WHITE BLOOD COUNT 8.6 10^3/uL (4.0-10.5)
[2017-09-21 05:54] LABS: HEMOGLOBIN 6.1 g/dL (13.5-17.0)
[2017-09-21 06:10] LABS: ANION GAP 7 (5-19); BLOOD UREA NITROGEN 18 mg/dL (7-20); CALCIUM 8.1 mg/dL (8.4-10.2); CARBON DIOXIDE 28 mmol/L (22-30); CHLORIDE 108 mmol/L (98-107); GLUCOSE 117 mg/dL (75-110); POTASSIUM 4.1 mmol/L (3.6-5.0); SODIUM 143.4 mmol/L (137-145)
[2017-09-21] MEDS: PRENATAL VITAMIN W DHA CAPSULE PO SCH (09:17)
[2017-09-21] MEDS: SENNOSIDES/DOCUSATE 8.6-50 MG 1 EACH TABLET PO SCH ×2 (09:17→17:25)
[2017-09-21] MEDS: ASPIRIN 81 MG TABLET, ENT COATED PO SCH (09:17)
[2017-09-21] MEDS: CEFTRIAXONE 2 GM/D5W RTU 2 GM/50 ML RTUPB IV SCH (12:40)
--- NOTE | 2017-09-21 15:21 | PDOC PROGRESS REPORT ---
Subjective Progress Note for:: 09/21/17 Subjective:: Patient lying in bed complete. Was able to ambulate approximately 20 feet with physical therapy. States pain is controlled. Denies headache dizziness. Denies chest pain or shortness of breath. Has received 1 unit and currently on the second unit of PRBCs. Reason For Visit: INFECTED RIGHT PROXIMAL FEMORAL HEMIARTHROPLASTY Physical Exam Vital Signs: Temp Pulse Resp BP Pulse Ox 98.5 F 69 16 103/64 100 09/21/17 15:07 09/21/17 15:07 09/21/17 15:07 09/21/17 15:07 09/21/17 15:07 Intake & Output 09/20/17 09/21/17 09/22/17 06:59 06:59 06:59 Intake Total 2700 1500 600 Output Total 2600 800 Balance 100 700 600 Weight 73.3 kg 77 kg Musculoskeletal exam: PRESENT: other - Right lower extremity: Dressing clean/dry /intact moderate thigh swelling compartments soft and compressible. No evidence of limb length inequality. Knee immobilizer remains intact. No calf tenderness. Intact plantar flexion/dorsiflexion. Results Laboratory Results: 09/21/17 05:12 09/21/17 05:12 09/20/17 09/21/17 09/21/17 06:25 05:12 05:12 WBC 8.6 RBC 2.10 L Hgb 6.1 L D Hct 18.1 L MCV 87 MCH 29.3 MCHC 33.8 RDW 14.9 H Plt Count 195 Sodium 143.4 Potassium 4.1 Chloride 108 H Carbon Dioxide 28 Anion Gap 7 BUN 18 Creatinine 0.77 Est GFR ( Amer) > 60 Est GFR (Non-Af Amer) > 60 Glucose 117 H Calcium 8.1 L Blood Type O POSITIVE Antibody Screen NEGATIVE Impressions: Guidance Fluoroscopy 09/11/17 00:00 IMPRESSION: SUCCESSFUL PLACEMENT OF A 5 FR DUAL LUMEN 45 CM PICC IN THE LEFT BASILIC VEIN. PICC Line Insertion 09/11/17 00:00 IMPRESSION: SUCCESSFUL PLACEMENT OF A 5 FR DUAL LUMEN 45 CM PICC IN THE LEFT BASILIC VEIN. Fluoroscopy 09/14/17 00:00 IMPRESSION: IMAGE(S) OBTAINED DURING PROCEDURE. Hip X-Ray 09/14/17 00:00 IMPRESSION: IMAGE(S) OBTAINED DURING PROCEDURE. Pelvis X-Ray 09/19/17 00:00 IMPRESSION: Right hip arthroplasty with reduction of the dislocation. Assessment & Plan - Diagnosis (1) Infection of prosthetic hip joint Qualifiers: Encounter type: initial encounter Qualified Code(s): T84.59XA - Infection and inflammatory reaction due to other internal joint prosthesis, initial encounter; Z96.649 - Presence of unspecified artificial hip joint; Z96.649 - Presence of unspecified artificial hip joint Is this a current diagnosis for this admission?: Yes Plan: 62-year-old black male status post revision arthroplasty for right prosthetic instability. 1. Mobilization with physical therapy and weightbearing as tolerated basis with strict posterior hip precautions. 2. Continued Rocephin administration for the completion of 6 weeks of IV antibiotic therapy. 3. Acute blood loss anemia patient received 2 units of PRBCs will check H&H after transfusion 4. DVT prophylaxis held due to risk of bleeding 5. Anticipate the need for [facility] facility placement. Dietary supplement to increase caloric intake
[2017-09-21 21:05] LABS: HEMATOCRIT 24.3 % (37.9-51.0); MEAN CORPUSCULAR HEMOGLOBIN 29.4 pg (27.0-33.4); MEAN CORPUSCULAR HGB CONC 33.6 g/dL (32.0-36.0); MEAN CORPUSCULAR VOLUME 88 fl (80-97); PLATELET COUNT 186 10^3/uL (150-450); RED BLOOD COUNT 2.77 10^6/uL (4.35-5.55); WHITE BLOOD COUNT 8.7 10^3/uL (4.0-10.5)
[2017-09-21 21:21] LABS: HEMOGLOBIN 8.2 g/dL (13.5-17.0)
[2017-09-22] MEDS: MORPHINE SULFATE 10 MG/ML INJ IV PRN ×2 (00:27→05:11)
[2017-09-22] MEDS: OXYCODONE HCL IR 5 MG TABLET PO PRN ×4 (03:38→22:15)
[2017-09-22] MEDS: LANSOPRAZOLE 30 MG TAB.RAP.DR PO SCH (05:14)
[2017-09-22] MEDS: SENNOSIDES/DOCUSATE 8.6-50 MG 1 EACH TABLET PO SCH ×2 (09:33→17:00)
[2017-09-22] MEDS: PRENATAL VITAMIN W DHA CAPSULE PO SCH (09:33)
[2017-09-22] MEDS: ASPIRIN 81 MG TABLET, ENT COATED PO SCH (09:33)
--- NOTE | 2017-09-22 10:05 | PDOC PROGRESS REPORT ---
Subjective Subjective:: Patient lying in bed comfortably. Able to ambulate 20 feet with physical therapy. States pain minimally controlled with oxycodone and morphine. Patient fairly adamant about discharge to home and not to custodial facility. Reason For Visit: INFECTED RIGHT PROXIMAL FEMORAL HEMIARTHROPLASTY Physical Exam Vital Signs: Temp Pulse Resp BP Pulse Ox 99.1 F 76 15 121/67 100 09/22/17 07:08 09/22/17 07:08 09/22/17 07:08 09/22/17 07:08 09/22/17 07:08 Intake & Output 09/21/17 09/22/17 09/23/17 06:59 06:59 06:59 Intake Total 1500 2084 Output Total 800 1885 Balance 700 199 Weight 77 kg 77.5 kg Musculoskeletal exam: PRESENT: other - Right lower extremity: Dressing clean/dry /intact no erythema or drainage. No evidence of limb length inequality. Intact plantar flexion/dorsiflexion. Knee immobilizer intact. Moderate thigh swelling compartments soft and compressible no sign of compartment syndrome. Results Laboratory Results: 09/21/17 21:00 09/21/17 05:12 09/20/17 09/21/17 06:25 21:00 WBC 8.7 RBC 2.77 L Hgb 8.2 L D Hct 24.3 L MCV 88 MCH 29.4 MCHC 33.6 RDW 15.0 H Plt Count 186 Blood Type O POSITIVE Antibody Screen NEGATIVE Impressions: Guidance Fluoroscopy 09/11/17 00:00 IMPRESSION: SUCCESSFUL PLACEMENT OF A 5 FR DUAL LUMEN 45 CM PICC IN THE LEFT BASILIC VEIN. PICC Line Insertion 09/11/17 00:00 IMPRESSION: SUCCESSFUL PLACEMENT OF A 5 FR DUAL LUMEN 45 CM PICC IN THE LEFT BASILIC VEIN. Fluoroscopy 09/14/17 00:00 IMPRESSION: IMAGE(S) OBTAINED DURING PROCEDURE. Hip X-Ray 09/14/17 00:00 IMPRESSION: IMAGE(S) OBTAINED DURING PROCEDURE. Pelvis X-Ray 09/19/17 00:00 IMPRESSION: Right hip arthroplasty with reduction of the dislocation. Assessment & Plan - Diagnosis (1) Infection of prosthetic hip joint Qualifiers: Encounter type: initial encounter Qualified Code(s): T84.59XA - Infection and inflammatory reaction due to other internal joint prosthesis, initial encounter; Z96.649 - Presence of unspecified artificial hip joint; Z96.649 - Presence of unspecified artificial hip joint Is this a current diagnosis for this admission?: Yes Plan: 62-year-old black male status post revision arthroplasty for right prosthetic instability. 1. Mobilization with physical therapy and weightbearing as tolerated basis with strict posterior hip precautions. 2. Continued Rocephin administration for the completion of 6 weeks of IV antibiotic therapy and intraoperative cultures positive for methicillin sensitive staph aureus most recent cultures gram-positive cocci sensitivities pending. 3. Acute blood loss anemia patient received 2 units of PRBCs H&H improved to 8.2/24.3 4. DVT prophylaxis held due to risk of bleeding 24.3 5. Anticipate the need for custodial facility placement however patient has refused transfer to custodial facility citing financial issues. I discussed with the patient the importance of rehabilitation likely as an inpatient given his multiple issues with his right hip including stage I and stage II revisions and need for 6 weeks of IV antibiotics after discussing these knees patient understands that he would prefer to go to rehabilitation but is unable to financially afford thus I have deferred decision on transfer to discharge planning.
--- NOTE | 2017-09-22 11:06 | PDOC TRANSFER SUMMARY ---
General - Admit/Disc Date/PCP Admission Date/Primary Care Provider: 09/10/17 11:00 DAFNE ZENDEJAS DO Discharge Date: 09/22/17 - Discharge Diagnosis (1) Infection of prosthetic hip joint Is this a current diagnosis for this admission?: Yes - Additional Information Resuscitation Status: Full Code Home Medications: No Home Medications 09/10/17 History of Present Illness Admission Date/PCP: 09/10/17 11:00 DAFNE ZENDEJAS DO Patient complains of: Right hip pain History of Present Illness: CEM MONROY is a 62 year old male who sustained a right femoral neck fracture on 08/11/17. Patient underwent right hip hemiarthroplasty which initially progressed appropriately until he developed signs and symptoms of a right hip infection requiring repeat operative intervention. Patient was admitted to the orthopedic service on 09/10/17 to undergo first stage reconstruction of right infected hip arthroplasty. Hospital Course Hospital Course: On 09/10/17 patient underwent first stage revision of right periprosthetic hip infection. Intraoperative cultures were obtained which are finalized to indicate methicillin sensitive staph aureus and thus patient was started on Rocephin requiring 6 weeks of IV antibiotics. Patient initially had been doing well until on 09/13/17 he was found to have a right hip dislocation and subsequently 09/14/17 underwent closed reduction. Patient began physical therapy once again but on 09/18/17 was concerned of increased pain and limb length inequality radiographs once again demonstrate hip dislocation at that point decision was made to proceed with revision operative intervention. On 09/19 patient underwent revision operative treatment. Since then his pain has somewhat improved although still requires morphine oxycodone denies difficulty with physical therapy was able to ambulate 20 feet. Patient did have significant acute blood loss anemia with a hemoglobin of 6.4. He then received 2 units of packed red blood cells which increased his hemoglobin 8.2. On patient states he has been improving denies fever chills or sweats. Denies chest pain or shortness of breath. Denies headache or dizziness. Physical Exam Vital Signs: Temp Pulse Resp BP Pulse Ox 99.1 F 76 15 121/67 100 09/22/17 07:08 09/22/17 07:08 09/22/17 07:08 09/22/17 07:08 09/22/17 07:08 Intake & Output 09/21/17 09/22/17 09/23/17 06:59 06:59 06:59 Intake Total 1500 2084 Output Total 800 1885 Balance 700 199 Weight 77 kg 77.5 kg General appearance: PRESENT: no acute distress, well-developed, well-nourished Head exam: PRESENT: atraumatic, normocephalic Eye exam: PRESENT: PERRLA, other - Disconjugate. ABSENT: scleral icterus Ear exam: PRESENT: normal external ear exam Mouth exam: PRESENT: moist, tongue midline Neck exam: ABSENT: carotid bruit, JVD, lymphadenopathy, thyromegaly Respiratory exam: PRESENT: clear to auscultation taryn. ABSENT: rales, rhonchi, wheezes Cardiovascular exam: PRESENT: RRR. ABSENT: diastolic murmur, rubs, systolic murmur Pulses: PRESENT: normal dorsalis pedis pul Vascular exam: PRESENT: normal capillary refill GI/Abdominal exam: PRESENT: normal bowel sounds, soft. ABSENT: distended, guarding, mass, organolmegaly, rebound, tenderness Rectal exam: PRESENT: deferred Extremities exam: PRESENT: full ROM. ABSENT: calf tenderness, clubbing, pedal edema Musculoskeletal exam: PRESENT: other - Right hip: Dressing clean/dry/intact no erythema or drainage. Moderate thigh swelling. No calf tenderness. Intact plantar flexion/dorsiflexion. No evidence of limb length inequality. Neurological exam: PRESENT: alert, awake, oriented to person, oriented to place , oriented to time, oriented to situation, CN II-XII grossly intact. ABSENT: motor sensory deficit Psychiatric exam: PRESENT: appropriate affect, normal mood. ABSENT: homicidal ideation, suicidal ideation Skin exam: PRESENT: dry, intact, warm. ABSENT: cyanosis, rash Results Laboratory Results: 09/21/17 21:00 09/21/17 05:12 09/20/17 09/21/17 06:25 21:00 WBC 8.7 RBC 2.77 L Hgb 8.2 L D Hct 24.3 L MCV 88 MCH 29.4 MCHC 33.6 RDW 15.0 H Plt Count 186 Blood Type O POSITIVE Antibody Screen NEGATIVE Impressions: Guidance Fluoroscopy 09/11/17 00:00 IMPRESSION: SUCCESSFUL PLACEMENT OF A 5 FR DUAL LUMEN 45 CM PICC IN THE LEFT BASILIC VEIN. PICC Line Insertion 09/11/17 00:00 IMPRESSION: SUCCESSFUL PLACEMENT OF A 5 FR DUAL LUMEN 45 CM PICC IN THE LEFT BASILIC VEIN. Fluoroscopy 09/14/17 00:00 IMPRESSION: IMAGE(S) OBTAINED DURING PROCEDURE. Hip X-Ray 09/14/17 00:00 IMPRESSION: IMAGE(S) OBTAINED DURING PROCEDURE. Pelvis X-Ray 09/19/17 00:00 IMPRESSION: Right hip arthroplasty with reduction of the dislocation. Transfer Plan - Disposition Transfer Plan: On 09/22/2017 patient found to be orthopedically stable for discharge. H&H has improved after 2 units packed red blood cells and patient remains asymptomatic. Current plan is for discharge to long-term facility to continue 6 weeks of IV antibiotics along with rehabilitation. From orthopedic standpoint feel patient would be better served with rehabilitation facility to monitor his PICC line, IV antibiotics along with physical therapy to monitor hip precautions. Currently patient orthopedically and medically stable for discharge to long-term facility. Patient will follow-up the office with Dr. Gore in 2 weeks. Qualifiers - * PATIENT BEING DISCHARGED WITH ANY OF THE FOLLOWING DIAGNOSIS: No
[2017-09-22] MEDS: CEFTRIAXONE 2 GM/D5W RTU 2 GM/50 ML RTUPB IV SCH (12:50)
[2017-09-22] MEDS: POLYETHYLENE GLYCOL 3350 POWDER 17 GM/1 PACKET PO SCH (17:00)
[2017-09-22] MEDS ORDERED: NORMAL SALINE 10 ML SDV (AFTER EACH USE) IV PRN (21:21)
[2017-09-22] MEDS: NORMAL SALINE 10 ML SDV (SCHEDULED) IV SCH (22:15)
[2017-09-23] MEDS: OXYCODONE HCL IR 5 MG TABLET PO PRN ×4 (04:24→22:48)
[2017-09-23] MEDS: LANSOPRAZOLE 30 MG TAB.RAP.DR PO SCH (05:02)
[2017-09-23] MEDS: PRENATAL VITAMIN W DHA CAPSULE PO SCH (09:43)
[2017-09-23] MEDS: SENNOSIDES/DOCUSATE 8.6-50 MG 1 EACH TABLET PO SCH ×2 (09:43→17:14)
[2017-09-23] MEDS: NORMAL SALINE 10 ML SDV (SCHEDULED) IV SCH ×2 (09:43→22:49)
[2017-09-23] MEDS: POLYETHYLENE GLYCOL 3350 POWDER 17 GM/1 PACKET PO SCH (09:44)
[2017-09-23] MEDS: ASPIRIN 81 MG TABLET, ENT COATED PO SCH (09:44)
[2017-09-23] MEDS: CEFTRIAXONE 2 GM/D5W RTU 2 GM/50 ML RTUPB IV SCH (12:02)
--- NOTE | 2017-09-23 13:50 | PDOC PROGRESS REPORT ---
Subjective Progress Note for:: 09/23/17 Subjective:: Patient lying in bed comfortably. Able to ambulate 40 feet with physical therapy. States pain minimally controlled with oxycodone and morphine. Patient fairly adamant about discharge to home and not to [facility] facility. Reason For Visit: INFECTED RIGHT PROXIMAL FEMORAL HEMIARTHROPLASTY Physical Exam Vital Signs: Temp Pulse Resp BP Pulse Ox 100.0 F 83 17 124/70 100 09/23/17 12:02 09/23/17 12:02 09/23/17 12:02 09/23/17 12:02 09/23/17 12:02 Intake & Output 09/22/17 09/23/17 09/24/17 06:59 06:59 06:59 Intake Total 2084 1320 Output Total 1885 1105 Balance 199 215 Weight 77.5 kg 76.9 kg Musculoskeletal exam: PRESENT: other - Right hip: Dressing clean/dry/intact no erythema or drainage. Moderate thigh swelling no sign of compartment syndrome. Ecchymosis along the surgical site. Intact plantar flexion/dorsiflexion. No sensory deficits. No calf tenderness. Results Laboratory Results: 09/21/17 21:00 09/21/17 05:12 09/19/17 15:00 Hip - Joint Gram Stain - Final 09/19/17 15:00 Hip - Joint Wound Culture - Final Staphylococcus Aureus No Anaerobic Organisms 09/19/17 15:01 Hip - Joint Gram Stain - Final 09/19/17 15:01 Hip - Joint Wound Culture - Final Staphylococcus Aureus No Anaerobic Organisms Impressions: Guidance Fluoroscopy 09/11/17 00:00 IMPRESSION: SUCCESSFUL PLACEMENT OF A 5 FR DUAL LUMEN 45 CM PICC IN THE LEFT BASILIC VEIN. PICC Line Insertion 09/11/17 00:00 IMPRESSION: SUCCESSFUL PLACEMENT OF A 5 FR DUAL LUMEN 45 CM PICC IN THE LEFT BASILIC VEIN. Fluoroscopy 09/14/17 00:00 IMPRESSION: IMAGE(S) OBTAINED DURING PROCEDURE. Hip X-Ray 09/14/17 00:00 IMPRESSION: IMAGE(S) OBTAINED DURING PROCEDURE. Pelvis X-Ray 09/19/17 00:00 IMPRESSION: Right hip arthroplasty with reduction of the dislocation. Assessment & Plan - Diagnosis (1) Infection of prosthetic hip joint Qualifiers: Encounter type: initial encounter Qualified Code(s): T84.59XA - Infection and inflammatory reaction due to other internal joint prosthesis, initial encounter; Z96.649 - Presence of unspecified artificial hip joint; Z96.649 - Presence of unspecified artificial hip joint Is this a current diagnosis for this admission?: Yes Plan: 62-year-old black male status post revision arthroplasty for right prosthetic instability. 1. Mobilization with physical therapy and weightbearing as tolerated basis with strict posterior hip precautions. 2. Continued Rocephin administration for the completion of 6 weeks of IV antibiotic therapy and intraoperative cultures positive for methicillin sensitive staph aureus most recent cultures gram-positive cocci sensitivities pending. 3. Acute blood loss anemia patient received 2 units of PRBCs H&H improved to 8.2/24.3 4. Currently receiving 81 mg aspirin for DVT prophylaxis 5. Anticipate the need for [facility] facility placement however patient has refused transfer to [facility] facility citing financial issues. I discussed with the patient the importance of rehabilitation likely as an inpatient given his multiple issues with his right hip including stage I and stage II revisions and need for 6 weeks of IV antibiotics after discussing these patient understands that he would prefer to go to rehabilitation but is unable to financially afford thus I have deferred decision on transfer to to the primary surgeon Dr. Gore
[2017-09-24] MEDS: OXYCODONE HCL IR 5 MG TABLET PO PRN ×2 (04:47→11:35)
[2017-09-24] MEDS: LANSOPRAZOLE 30 MG TAB.RAP.DR PO SCH (05:01)
[2017-09-24 05:49] LABS: ABSOLUTE BASOPHILS # (AUTO) 0.1 10^3/uL (0.0-0.2); ABSOLUTE EOSINOPHILS # (AUTO) 0.2 10^3/uL (0.0-0.6); ABSOLUTE LYMPHOCYTES (AUTO) 1.1 10^3/uL (0.5-4.7); ABSOLUTE MONOCYTES (AUTO) 0.6 10^3/uL (0.1-1.4); ABSOLUTE NEUT (AUTO) 5.9 10^3/uL (1.7-8.2); BASOPHILS % (AUTO) 0.8 % (0-2); EOSINOPHILS % (AUTO) 2.3 % (0-6); HEMATOCRIT 25.6 % (37.9-51.0); HEMOGLOBIN 8.8 g/dL (13.5-17.0); LYMPHOCYTES % (AUTO) 13.9 % (13-45); MEAN CORPUSCULAR HGB CONC 34.3 g/dL (32.0-36.0); MEAN CORPUSCULAR VOLUME 88 fl (80-97); MONOCYTES % (AUTO) 7.8 % (3-13); PLATELET COUNT 200 10^3/uL (150-450); RED BLOOD COUNT 2.92 10^6/uL (4.35-5.55); RED CELL DISTRIBUTION WIDTH 15.5 % (11.5-14.0); SEGMENTED NEUTROPHILS % (AUTO) 75.2 % (42-78); TOTAL CELLS COUNTED % (AUTO) 100 %; WHITE BLOOD COUNT 7.9 10^3/uL (4.0-10.5)
[2017-09-24] MEDS: SENNOSIDES/DOCUSATE 8.6-50 MG 1 EACH TABLET PO SCH ×2 (09:33→17:57)
[2017-09-24] MEDS: ASPIRIN 81 MG TABLET, ENT COATED PO SCH (09:33)
[2017-09-24] MEDS: PRENATAL VITAMIN W DHA CAPSULE PO SCH (09:33)
[2017-09-24] MEDS: NORMAL SALINE 10 ML SDV (SCHEDULED) IV SCH ×2 (09:35→21:13)
[2017-09-24] MEDS: POLYETHYLENE GLYCOL 3350 POWDER 17 GM/1 PACKET PO SCH (09:37)
[2017-09-24] MEDS: CEFTRIAXONE 2 GM/D5W RTU 2 GM/50 ML RTUPB IV SCH (11:35)
[2017-09-24] MEDS ORDERED: OXYCODONE HCL IR 5 MG TABLET PO PRN (17:31)
[2017-09-24] MEDS: OXYCODONE HCL SR 10 MG TABLET PO SCH (21:10)
[2017-09-25] MEDS: OXYCODONE HCL IR 5 MG TABLET PO PRN ×3 (00:27→09:50)
[2017-09-25] MEDS: LANSOPRAZOLE 30 MG TAB.RAP.DR PO SCH (05:03)
--- NOTE | 2017-09-25 06:34 | PDOC TRANSFER SUMMARY ---
General - Admit/Disc Date/PCP Admission Date/Primary Care Provider: 09/10/17 11:00 DAFNE ZENDEJAS DO Discharge Date: 09/25/17 - Discharge Diagnosis (1) Infection of prosthetic hip joint Is this a current diagnosis for this admission?: Yes - Additional Information Resuscitation Status: Full Code Discharge Diet: As Tolerated, Regular Discharge Activity: Balance Activity w/Rest, No Driving, No tub bath Prescriptions: Ceftriaxone Sodium [Rocephin Inj 2000 mg Vial] 2,000 gm IV DAILY 28 Days vial Home Medications: Aspirin [Ecotrin 81 mg EC Tablet] 81 mg PO DAILY tabec 09/25/17 Ceftriaxone Sodium [Rocephin Inj 2000 mg Vial] 2,000 gm IV DAILY 28 Days vial 09/25/17 Oxycodone HCl [Oxy-Ir 5 mg Tablet] 5 mg PO Q4HP PRN tablet 09/25/17 Oxycodone HCl [Oxycontin Sr 10 mg Tablet] 20 mg PO Q12 tab.sr.12h 09/25/17 History of Present Illness Admission Date/PCP: 09/10/17 11:00 DAFNE ZENDEJAS DO History of Present Illness: CEM MONROY is a 62 year old male The patient is a 62-year-old black male status post right hip hemiarthroplasty for femoral neck fracture/avascular necrosis who subsequently developed wound drainage. He was readmitted when of the underlying infection s Hospital Course Hospital Course: Patient is admitted through the operating room where he undergoes a one stage exchange arthroplasty for a right hip periprosthetic infection. Cultures growing MSSA and the patient started on Rocephin. The patient subsequently develops instability of the hip and after several closed reductions was taken back to the operating room for another revision of the hemiarthroplasty. Following this the patient does reasonably well he remains stable. Wound with slight drainage. Leg lengths are equal. Distal neurovascular examination is intact. Physical Exam Vital Signs: Temp Pulse Resp BP Pulse Ox 36.9 C 75 17 110/62 99 09/24/17 15:03 09/24/17 15:03 09/24/17 15:03 09/24/17 15:03 09/24/17 15:03 Intake & Output 09/23/17 09/24/17 09/25/17 06:59 06:59 06:59 Intake Total 1320 945 646 Output Total 1105 1300 575 Balance 215 -355 71 Weight 76.9 kg 77.3 kg 77.4 kg General appearance: PRESENT: no acute distress, mild distress Head exam: PRESENT: normocephalic Respiratory exam: PRESENT: unlabored Cardiovascular exam: PRESENT: RRR Pulses: PRESENT: +1 pedal pulses bilateral Vascular exam: PRESENT: normal capillary refill GI/Abdominal exam: PRESENT: soft Rectal exam: PRESENT: deferred Extremities exam: PRESENT: other - Right hip dressing with a small amount of serosanguineous drainage. Its change this morning. Leg lengths are equal. Distal neurovascular examination is intact. Neurological exam: PRESENT: alert, awake, oriented to person, oriented to place , oriented to time, oriented to situation. ABSENT: motor sensory deficit Psychiatric exam: PRESENT: appropriate affect, normal mood. ABSENT: homicidal ideation, suicidal ideation Skin exam: PRESENT: dry, intact, warm. ABSENT: cyanosis, rash Results Laboratory Results: 09/24/17 05:40 09/21/17 05:12 Impressions: Guidance Fluoroscopy 09/11/17 00:00 IMPRESSION: SUCCESSFUL PLACEMENT OF A 5 FR DUAL LUMEN 45 CM PICC IN THE LEFT BASILIC VEIN. PICC Line Insertion 09/11/17 00:00 IMPRESSION: SUCCESSFUL PLACEMENT OF A 5 FR DUAL LUMEN 45 CM PICC IN THE LEFT BASILIC VEIN. Fluoroscopy 09/14/17 00:00 IMPRESSION: IMAGE(S) OBTAINED DURING PROCEDURE. Hip X-Ray 09/14/17 00:00 IMPRESSION: IMAGE(S) OBTAINED DURING PROCEDURE. Pelvis X-Ray 09/19/17 00:00 IMPRESSION: Right hip arthroplasty with reduction of the dislocation. Status: Imported from PACS Transfer Plan - Disposition Transfer Plan: Patient to be transferred to a [facility] facility for ongoing IV antibiotic, Rocephin for 28 days. Patient to be mobilized with physical therapy and weightbearing as tolerated basis. Dressing can be changed as needed. Patient return to see Dr. Gore and [facility] for surgery in 2 weeks for staple removal. - Time Spent with Patient Time spent with patient: Less than 30 Minutes Qualifiers - * PATIENT BEING DISCHARGED WITH ANY OF THE FOLLOWING DIAGNOSIS: No
[2017-09-25 08:52] VITALS: BP 124/68
[2017-09-25] MEDS: ASPIRIN 81 MG TABLET, ENT COATED PO SCH (09:11)
[2017-09-25] MEDS: SENNOSIDES/DOCUSATE 8.6-50 MG 1 EACH TABLET PO SCH (09:11)
[2017-09-25] MEDS: PRENATAL VITAMIN W DHA CAPSULE PO SCH (09:11)
[2017-09-25] MEDS: OXYCODONE HCL SR 10 MG TABLET PO SCH (09:13)
[2017-09-25] MEDS: NORMAL SALINE 10 ML SDV (SCHEDULED) IV SCH (09:14)
[2017-09-25] MEDS: POLYETHYLENE GLYCOL 3350 POWDER 17 GM/1 PACKET PO SCH (09:14)
[2017-09-25] MEDS: CEFTRIAXONE 2 GM/D5W RTU 2 GM/50 ML RTUPB IV SCH (11:41)
== END 2017-09-25 12:23 | DRG 467 ==
LOC: OROUT 07:10 → 4S 11:00 → OROUT 11:00 → 4S 15:19
PROVIDERS: ADMIT Orthopaedic Surgery; ATTEND Orthopaedic Surgery
PROC: 0SPR0JZ Removal of Synthetic Substitute from Right Hip Joint, Femoral Surface, Open Approach (ICD-10-PCS; 2017-09-10)
PROC: 0QD Lower Bones, Extraction (ICD-10-PCS; 2017-09-10)
PROC: 3E0V329 Introduction of Other Anti-infective into Bones, Percutaneous Approach (ICD-10-PCS; 2017-09-10)
PROC: 0SRR0JZ Replacement of Right Hip Joint, Femoral Surface with Synthetic Substitute, Open Approach (ICD-10-PCS; principal; 2017-09-10 09:00)
PROC: 02HV33Z Insertion of Infusion Device into Superior Vena Cava, Percutaneous Approach (ICD-10-PCS; 2017-09-11)
PROC: B548ZZA Ultrasonography of Superior Vena Cava, Guidance (ICD-10-PCS; 2017-09-11)
PROC: B518ZZA Fluoroscopy of Superior Vena Cava, Guidance (ICD-10-PCS; 2017-09-11)
PROC: 0QS8XZZ Reposition Right Femoral Shaft, External Approach (ICD-10-PCS; 2017-09-14)
PROC: 0SRR0JZ Replacement of Right Hip Joint, Femoral Surface with Synthetic Substitute, Open Approach (ICD-10-PCS; 2017-09-19)
PROC: 0SPR0JZ Removal of Synthetic Substitute from Right Hip Joint, Femoral Surface, Open Approach (ICD-10-PCS; 2017-09-19)
PROC: 0QD Lower Bones, Extraction (ICD-10-PCS; 2017-09-19)
PROC: 30233N1 Transfusion of Nonautologous Red Blood Cells into Peripheral Vein, Percutaneous Approach (ICD-10-PCS; 2017-09-21)
DX: T84.51XA Infection and inflammatory reaction due to internal right hip prosthesis, initial encounter (principal); M96.840 Postprocedural hematoma of a musculoskeletal structure following a musculoskeletal system procedure; D62 Acute posthemorrhagic anemia; B95.61 Methicillin susceptible Staphylococcus aureus infection as the cause of diseases classified elsewhere; T84.020A Dislocation of internal right hip prosthesis, initial encounter; B19.20 Unspecified viral hepatitis C without hepatic coma; C61 Malignant neoplasm of prostate; I10 Essential (primary) hypertension; F12.11 Cannabis abuse, in remission; F10.11 Alcohol abuse, in remission; K70.30 Alcoholic cirrhosis of liver without ascites; Y83.4 Other reconstructive surgery as the cause of abnormal reaction of the patient, or of later complication, without mention of misadventure at the time of the procedure; Y79.2 Prosthetic and other implants, materials and accessory orthopedic devices associated with adverse incidents
CPT/HCPCS: 01200; 01210; 01215; 36415; 36430; 36569; 72170; 76937; 77001; 80048; 80202; 85025; 85027; 85610; 85652; 85730; 86140; 86850; 86900; 86901; 86920; 87070; 87075; 87077; 87186; 87205; 88305; 88311; 94799; C1776; C9290; C9359; J0131; J0330; J0690; J0696; J1100; J1170; J1200; J1642; J1741; J2250; J2270; J2405; J2704; J3010; J3370; J3490; J7050; J7060; J7120; L1830; P9016

== ENCOUNTER 2017-09-30 03:25 | Emergency (ER) | payer MEDICAID ==
[2017-09-30 03:32] VITALS: BP 131/75
[2017-09-30] MEDS ORDERED: OXYCODONE HCL IR 5 MG TABLET PO ONE (03:41)
--- NOTE | 2017-09-30 03:42 | ER Document Report ---
ED Wound - General Stated Complaint: HIP PAIN Time Seen by Provider: 09/30/17 03:30 Notes: Patient is a 62-year-old male who comes emergency department for chief complaint of bleeding from cecal hip wound over the right leg. Patient states he had surgery [address] Gore, had a total hip replacement secondary to arthritis, states that he already had bleeding issue once before and was seen in the office by Dr. Gore and had a dressing change, states that it started bleeding again and the staff at the rehab center at [facility] sent him to the is dizziness, heavy bleeding, he states that it started bleeding after he got off the bedpan. He denies direct trauma to the area. He is taking aspirin but no other blood thinners. He denies fever chills, increased pain to the area, or any other complaints. TRAVEL OUTSIDE OF THE [place] IN LAST 30 DAYS: No - Related Data Allergies/Adverse Reactions: haloperidol [From Haldol] Adverse Reaction (Intermediate, Verified 08/30/17 14: 30) Cramping, "couldn't breathe" lorazepam [From Ativan] Adverse Reaction (Intermediate, Verified 08/30/17 14:30) Nausea, nightmares promethazine HCl [From Phenergan] Adverse Reaction (Unknown, Verified 08/30/17 14:30) "Messes my veins up" Past Medical History - General Information source: Patient - Social History Smoking Status: Never Smoker Frequency of alcohol use: None Drug Abuse: None Lives with: Jail Family History: Reviewed & Not Pertinent, Hypertension, Malignancy - Brother with pancreatic cancer and mother with breast cancer, Other - Father was murdered, sister with lupus - Past Medical History Cardiac Medical History: Denies: Hx Coronary Artery Disease, Hx Heart Attack, Hx Hypertension Pulmonary Medical History: Denies: Hx Asthma, Hx Bronchitis, Hx COPD, Hx Pneumonia Neurological Medical History: Reports: Hx Seizures - ETOH withdrawal seizures. Denies: Hx Cerebrovascular Accident Endocrine Medical History: Denies: Hx Diabetes Mellitus Type 1, Hx Diabetes Mellitus Type 2 Renal/ Medical History: Denies: Hx Peritoneal Dialysis Malignancy Medical History: Reports Hx Prostate Cancer GI Medical History: Reports: Hx Cirrhosis, Hx Hepatitis - Hepatitis C, Hx Liver Failure Musculoskeletal Medical History: Denies Hx Arthritis Psychiatric Medical History: Denies: Hx Depression Infectious Medical History: Reports: Hx Hepatitis - Hepatitis C Past Surgical History: Reports: Hx Orthopedic Surgery - R hip replacement, Hx Pancreatic Surgery - Pancreatic bx, Hx Urinary Tract Surgery - Laser TURP - Immunizations Hx Diphtheria, Pertussis, Tetanus Vaccination: No Review of Systems - Review of Systems Constitutional: No symptoms reported EENT: No symptoms reported Cardiovascular: No symptoms reported Respiratory: No symptoms reported Gastrointestinal: No symptoms reported Genitourinary: No symptoms reported Male Genitourinary: No symptoms reported Musculoskeletal: See HPI Skin: See HPI Hematologic/Lymphatic: No symptoms reported Neurological/Psychological: No symptoms reported Physical Exam - Vital signs Vitals: Temp Pulse Resp BP Pulse Ox 99.1 F 80 14 131/75 H 100 09/30/17 03:30 09/30/17 03:30 09/30/17 03:30 09/30/17 03:30 09/30/17 03:30 - Notes Notes: GENERAL: Alert, interacts well. No acute distress. HEAD: Normocephalic, atraumatic. EYES: Pupils equal, round, and reactive to light. Extraocular movements intact. ENT: Oral mucosa moist, tongue midline. NECK: Full range of motion. Supple. Trachea midline. LUNGS: Clear to auscultation bilaterally, no wheezes, rales, or rhonchi. No respiratory distress. HEART: Regular rate and rhythm. No murmur ABDOMEN: Soft, non-tender. Non-distended. Bowel sounds present in all 4 quadrants. EXTREMITIES: Vertical wound over the lateral aspect of the right hip with kian still in place, no current bleeding, no erythema, tenderness, purulent drainage, foul smell, or other abnormality noted. Normal distal neurovascular exam. Normal lower extremity exam otherwise. BACK: no cervical, thoracic, lumbar midline tenderness. No saddle anesthesia, normal distal neurovascular exam. NEUROLOGICAL: Alert and oriented x3. Normal speech. [cranial nerves II through XII grossly intact]. PSYCH: Normal affect, normal mood. SKIN: Warm, dry, normal turgor. No rashes or lesions noted. Course - Re-evaluation Re-evalutation: There is a small area in the middle of the wound where patient was formally bleeding from, there is a small amount of blood in the dressing, a little bit of clear discharge as well, no purulent discharge, wound is nontender, no abnormal erythema or heat, no fever, no evidence of infection. Discussed with patient the small area where the bleeding was coming from, this could be closed with a staple versus dressed versus applying Steri-Strip to assist with keeping the wound from bleeding. Decision was made to apply the Steri-Strips and new dressing. Patient has orthopedic follow-up already scheduled. Discussed return precautions in detail, patient states understanding and agreement. - Vital Signs Vital signs: Temp Pulse Resp BP Pulse Ox 99.1 F 80 14 131/75 H 100 09/30/17 03:51 09/30/17 03:30 09/30/17 03:51 09/30/17 03:30 09/30/17 03:51 Discharge - Discharge Clinical Impression: Draining postoperative wound Qualifiers: Encounter type: subsequent encounter Qualified Code(s): T81.89XD - Other complications of procedures, not elsewhere classified, subsequent encounter Condition: Stable Disposition: HOME, SELF-CARE Additional Instructions: The wound has a location near the center where bleeding has occurred, this area has received temporary closure, this will come off on its own in a few days. Continue to clean the area and replaced dressings as previously instructed. Follow-up with Dr. Gore in the office. Return if you worsen including heavy bleeding, developing or spreading redness, fever, severe pain, or any other concerning symptoms Referrals: MY ZAMORA MD [Primary Care Provider] - Follow up as needed
== END 2017-09-30 04:08 | disposition home or self-care (01) ==
LOC: ER 03:25
DX: T81.89XD Other complications of procedures, not elsewhere classified, subsequent encounter (principal); L76.22 Postprocedural hemorrhage of skin and subcutaneous tissue following other procedure; M25.551 Pain in right hip; Z96.641 Presence of right artificial hip joint
CPT/HCPCS: 99284; J3490

== ENCOUNTER → 2017-10-29 | Outpatient (CLI) | payer MEDICAID ==
--- NOTE | 2017-10-29 14:26 | RADIOLOGY REPORT (SQ) ---
EXAM DESCRIPTION: VENOUS UNILATERAL LOWER COMPLETED DATE/TIME: 10/29/2017 2:02 pm REASON FOR STUDY: RLE PAIN M79.661 PAIN IN RIGHT LOWER LEG M25.561 PAIN IN RIGHT KNEE COMPARISON: None. TECHNIQUE: Dynamic and static renee scale and color images acquired of the right leg venous system. S elected spectral images acquired with additional compression and augmentation maneuvers. The contrala teral common femoral vein and saphenofemoral junction were also imaged. Images stored on PACS. LIMITATIONS: None. FINDINGS: COMMON FEMORAL: Normal phasicity, compression and augmentation. No visualized echogenic ma terial on renee scale. No defects on color images. FEMORAL: Normal compression and augmentation. No visualized echogenic material on renee scale. No defe cts on color images. POPLITEAL: Normal compression, augmentation. No visualized echogenic material on renee scale. No defec ts on color images. CALF VESSELS: Normal compression, augmentation. No visualized echogenic material on renee scale. No de fects on color images. GSV and SSV: Normal compression, augmentation. No visualized echogenic material on renee scale. No def ects on color images. ANY DEEP VENOUS INSUFFICIENCY: Not evaluated. ANY EVIDENCE OF POPLITEAL CYST: No. OTHER: No other significant finding. CONTRALATERAL COMMON FEMORAL VEIN AND SAPHENOFEMORAL JUNCTION: Normal phasicity, compression and augmentation. No visualized echogenic material on renee scale. No de fects on color images. IMPRESSION: NO EVIDENCE DVT OR SVT IN THE RIGHT LEG. TECHNICAL DOCUMENTATION: JOB ID: [id number] [employer]- All Rights Reserved Reading location - IP/workstation name: [email or web address]
--- NOTE | 2017-10-29 15:39 | RADIOLOGY REPORT (SQ) ---
EXAM DESCRIPTION: KNEE RIGHT 4 VIEWS COMPLETED DATE/TIME: 10/29/2017 1:17 pm REASON FOR STUDY: M25.561 PAIN IN RIGHT KNEE M79.661 PAIN IN RIGHT LOWER LEG M25.561 PAIN IN RIGHT KNEE COMPARISON: None. NUMBER OF VIEWS: Four views. TECHNIQUE: AP, lateral, and both oblique radiographic images acquired of the right knee. LIMITATIONS: None. FINDINGS: MINERALIZATION: Osteopenia. BONES: No acute fracture or dislocation. No worrisome bone lesions. JOINT: Small joint effusion. Tiny posterior patellar spurs. SOFT TISSUES: No soft tissue swelling. No radio-opaque foreign body. OTHER: No other significant finding. IMPRESSION: Small joint effusion. Mild patellofemoral degenerative joint changes. No acute finding s. TECHNICAL DOCUMENTATION: JOB ID: [id number]- All Rights Reserved Reading location - IP/workstation name: [email or web address]
== END ==
LOC: SP 15:22
PROVIDERS: ATTEND Family Medicine
DX: M79.661 Pain in right lower leg (principal); M25.561 Pain in right knee; M25.461 Effusion, right knee
CPT/HCPCS: 93971

== ENCOUNTER → 2018-06-03 | Outpatient (CLI) | payer MEDICAID ==
[2018-06-03 11:17] LABS: HEMATOCRIT 37.6 % (37.9-51.0); HEMOGLOBIN 12.5 g/dL (13.5-17.0); MEAN CORPUSCULAR HEMOGLOBIN 28.8 pg (27.0-33.4); MEAN CORPUSCULAR HGB CONC 33.2 g/dL (32.0-36.0); MEAN CORPUSCULAR VOLUME 87 fl (80-97); PLATELET COUNT 138 10^3/uL (150-450); RED BLOOD COUNT 4.32 10^6/uL (4.35-5.55); RED CELL DISTRIBUTION WIDTH 14.9 % (11.5-14.0); WHITE BLOOD COUNT 4.4 10^3/uL (4.0-10.5)
[2018-06-03 11:33] LABS: ALANINE AMINOTRANSFERASE 10 U/L (21-72); ALBUMIN 4.3 g/dL (3.5-5.0); ALKALINE PHOSPHATASE 57 U/L (38-126); ANION GAP 7 (5-19); ASPARTATE AMINO TRANSFERASE 19 U/L (17-59); BILIRUBIN,DIRECT 0.2 mg/dL (0.0-0.4); BILIRUBIN,TOTAL 0.5 mg/dL (0.2-1.3); BLOOD UREA NITROGEN 13 mg/dL (7-20); CALCIUM 9.7 mg/dL (8.4-10.2); CARBON DIOXIDE 27 mmol/L (22-30); CHLORIDE 108 mmol/L (98-107); GLUCOSE 114 mg/dL (75-110); POTASSIUM 3.9 mmol/L (3.6-5.0); SODIUM 142.2 mmol/L (137-145); TOTAL PROTEIN 7.7 g/dL (6.3-8.2)
== END ==
LOC: LAB 10:33
PROVIDERS: ATTEND Pediatrics
DX: F11.20 Opioid dependence, uncomplicated (principal)
CPT/HCPCS: 36415; 80053; 83036; 85027

== ENCOUNTER 2018-10-06 04:24 | Observation (INO) | payer MEDICARE, MEDICAID ==
--- NOTE | 2018-10-06 05:10 | ER Document Report ---
ED General - General Mode of Arrival: Medic Information source: Patient TRAVEL OUTSIDE OF THE [place] IN LAST 30 DAYS: No - HPI Onset: This evening Onset/Duration: Persistent Quality of pain: Achy, Cramping Severity: Severe Pain Level: 5 Associated symptoms: Nausea, Vomiting Exacerbated by: Denies Relieved by: Denies Similar symptoms previously: Yes Recently seen / treated by doctor: No <ROSIBEL RODRIGUEZ - Last Filed: 10/06/18 08:10> <TRIP DURAN - Last Filed: 10/06/18 15:26> - General Chief Complaint: Nausea/Vomiting Stated Complaint: NAUSEA,VOMITING Time Seen by Provider: 10/06/18 05:00 Primary Care Provider: DAFNE ZENDEJAS DO [NO LOCAL MD] - Follow up as needed Notes: This 63-year-old male with history of pancreatitis presents tonight with reports of nausea vomiting abdominal pain since approximately 1900 last night. Patient reports past medical history of IV drug use and reports he had his last dose of Suboxone 1 week ago, is worried he is still going through withdrawal. Denies fever denies diarrhea. Patient actively vomiting. (ROSIBEL RODRIGUEZ) - Related Data Allergies/Adverse Reactions: haloperidol [From Haldol] Adverse Reaction (Intermediate, Verified 10/06/18 04:31) Cramping, "couldn't breathe" lorazepam [From Ativan] Adverse Reaction (Intermediate, Verified 10/06/18 04:31) Nausea, nightmares promethazine HCl [From Phenergan] Adverse Reaction (Unknown, Verified 10/06/18 04:31) "Messes my veins up" Past Medical History - General Information source: Patient - Social History Smoking Status: Never Smoker Chew tobacco use (# tins/day): No Frequency of alcohol use: None Drug Abuse: Other - history of IV drug abuse Family History: Reviewed & Not Pertinent, Hypertension, Malignancy - Brother with pancreatic cancer and mother with breast cancer, Other - Father was murdered, sister with lupus Patient has suicidal ideation: No Patient has homicidal ideation: No - Past Medical History Cardiac Medical History: Denies: Hx Coronary Artery Disease, Hx Heart Attack, Hx Hypertension Pulmonary Medical History: Denies: Hx Asthma, Hx Bronchitis, Hx COPD, Hx Pneumonia Neurological Medical History: Reports: Hx Seizures - ETOH withdrawal seizures. Denies: Hx Cerebrovascular Accident Endocrine Medical History: Denies: Hx Diabetes Mellitus Type 1, Hx Diabetes Mellitus Type 2 Renal/ Medical History: Denies: Hx Peritoneal Dialysis Malignancy Medical History: Reports Hx Prostate Cancer GI Medical History: Reports: Hx Cirrhosis, Hx Hepatitis - Hepatitis C, Hx Liver Failure, Hx Pancreatitis Musculoskeletal Medical History: Denies Hx Arthritis Psychiatric Medical History: Denies: Hx Depression Infectious Medical History: Reports: Hx Hepatitis - Hepatitis C Past Surgical History: Reports: Hx Orthopedic Surgery - R hip replacement, Hx Pancreatic Surgery - Pancreatic bx, Hx Urinary Tract Surgery - Laser TURP - Immunizations Hx Diphtheria, Pertussis, Tetanus Vaccination: No <ROSIBEL RODRIGUEZ - Last Filed: 10/06/18 08:10> Review of Systems <ROSIBEL RODRIGUEZ - Last Filed: 10/06/18 08:10> - Review of Systems Notes: Review HPI for review of systems., All other systems negative (ROSIBEL RODRIGUEZ) Physical Exam - General General appearance: Alert In distress: None <ROSIBEL RODRIGUEZ - Last Filed: 10/06/18 08:10> - Vital signs Vitals: Temp Pulse Resp BP Pulse Ox 99 F 68 16 142/87 H 100 10/06/18 04:32 10/06/18 04:32 10/06/18 04:32 10/06/18 04:32 10/06/18 04:32 Course - Laboratory Result Diagrams: 10/06/18 05:15 10/06/18 05:15 <ROSIBEL RODRIGUEZ - Last Filed: 10/06/18 08:10> - Laboratory Result Diagrams: 10/06/18 05:15 10/06/18 05:15 <TRIP DURAN - Last Filed: 10/06/18 15:26> - Re-evaluation Re-evalutation: 10/06/18 07:15 This 63-year-old male presents to the emergency department with complaints of nausea vomiting abdominal pain that started last night at approximately 1900. Reports history of pancreatitis. Also reports he took his last dose of Suboxone last Sunday and is worried he is going through withdrawal. Reports he felt fine all week. 10/06/18 08:10 REPORT given to trip orellana. PA (ROSIBEL RODRIGUEZ) 10/06/18 11:18 IV contrast infiltrated. No obvious acute abd on CT. I called Dr. Pompa to come eval the patient due to gallstones and abd pain as well. Pt began having vomiting last night. He was noted here in the ED to be gagging himself with his fingers periodically as well. 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 Last dose of suboxone was 1 week ago and he was feeling well since weaning off of it. He does have generalized abd tenderness w/o rigidity. 10/06/18 13:41 Pt was eval'd by Dr. Pompa who believes that his pain is most likely related to the liver tumor. Differential still includes gastroenteritis as well as hyperemesis secondary to marijuana. Labs are currently acceptable. I did speak with Dr. Santana who pt states is his provider, but Dr. Santana states this is not his patient. I did speak with Radiology who states that we can reimage with IV contrast s/p infiltration on last attempt. Pt has previous IV drug abuse history making his veins difficult. He is starting to drink fluids PO (minimally). 10/06/18 15:22 Pt continues to have n/v. He continues to c/o abd pain. Dr. Pompa did place a femoral central line, but CT/MRI tell me they cannot place contrast through this line. mold technician did talk with her boss and in her 30yrs has never placed it through a femoral line. Due to this, I will try to push fluids through the central line in the optimistic view we then obtain a good peripheral line to perform the CT/MR imaging. I did review with Dr. Poe who will accept pt for admit to medical floor for intractable n/v and abdominal pain/liver lesion. Pt in agreement with plan. (TRIP DURAN) - Vital Signs Vital signs: Temp Pulse Resp BP Pulse Ox 98.4 F 68 19 150/72 H 100 10/06/18 07:31 10/06/18 04:32 10/06/18 09:03 10/06/18 09:03 10/06/18 09:03 - Laboratory Laboratory results interpreted by me: 10/06/18 10/06/18 10/06/18 05:15 05:15 06:49 RDW 14.8 H Seg Neutrophils % 83.2 H Lymphocytes % 10.8 L Carbon Dioxide 21 L Glucose 151 H Total Protein 8.8 H Amylase 266 H Urine Protein 100 H Critical Care Note - Critical Care Note Total time excluding time spent on procedures (mins): 36 <TRIP DURAN - Last Filed: 10/06/18 15:26> - Critical Care Note Comments: spent with consults, pt care, and re-evals. (TRIP DURAN) Discharge <ROSIBEL RODRIGUEZ - Last Filed: 10/06/18 08:10> - Discharge Admitting Provider: Deepika (Hospitalist) Unit Admitted: Medical Floor <TRIP DURAN - Last Filed: 10/06/18 15:26> - Discharge Clinical Impression: Nodule on liver Intractable nausea and vomiting Qualifiers: Vomiting type: unspecified Qualified Code(s): R11.2 - Nausea with vomiting, unspecified Abdominal pain Qualifiers: Abdominal location: upper abdomen, unspecified Qualified Code(s): R10.10 - Upper abdominal pain, unspecified Condition: Stable Disposition: ADMITTED INPATIENT Referrals: DAFNE ZENDEJAS DO [NO LOCAL MD] - Follow up as needed
[2018-10-06] MEDS ORDERED: METOCLOPRAMIDE HCL INJ/PF 10 MG/2 ML SDV IV ONE (05:25)
[2018-10-06 05:32] LABS: ABSOLUTE LYMPHOCYTES (AUTO) 0.7 10^3/uL (0.5-4.7); ABSOLUTE MONOCYTES (AUTO) 0.3 10^3/uL (0.1-1.4); ABSOLUTE NEUT (AUTO) 5.2 10^3/uL (1.7-8.2); BASOPHILS % (AUTO) 0.6 % (0-2); EOSINOPHILS % (AUTO) 0.1 % (0-6); HEMATOCRIT 43.9 % (37.9-51.0); HEMOGLOBIN 14.4 g/dL (13.5-17.0); LYMPHOCYTES % (AUTO) 10.8 % (13-45); MEAN CORPUSCULAR HEMOGLOBIN 28.5 pg (27.0-33.4); MEAN CORPUSCULAR HGB CONC 32.9 g/dL (32.0-36.0); MEAN CORPUSCULAR VOLUME 87 fl (80-97); MONOCYTES % (AUTO) 5.3 % (3-13); PLATELET COUNT 160 10^3/uL (150-450); RED BLOOD COUNT 5.08 10^6/uL (4.35-5.55); RED CELL DISTRIBUTION WIDTH 14.8 % (11.5-14.0); SEGMENTED NEUTROPHILS % (AUTO) 83.2 % (42-78); TOTAL CELLS COUNTED % (AUTO) 100 %; WHITE BLOOD COUNT 6.2 10^3/uL (4.0-10.5)
[2018-10-06 05:45] LABS: ALKALINE PHOSPHATASE 73 U/L (38-126); AMYLASE 266 U/L (30-110); ANION GAP 14 (5-19); ASPARTATE AMINO TRANSFERASE 29 U/L (17-59); BILIRUBIN,DIRECT 0.3 mg/dL (0.0-0.4); BILIRUBIN,TOTAL 0.7 mg/dL (0.2-1.3); BLOOD UREA NITROGEN 8 mg/dL (7-20); CALCIUM 10.2 mg/dL (8.4-10.2); CARBON DIOXIDE 21 mmol/L (22-30); CHLORIDE 106 mmol/L (98-107); GLUCOSE 151 mg/dL (75-110); POTASSIUM 4.1 mmol/L (3.6-5.0); TOTAL PROTEIN 8.8 g/dL (6.3-8.2)
[2018-10-06] MEDS ORDERED: METOCLOPRAMIDE HCL INJ/PF 10 MG/2 ML SDV ONE (06:10)
[2018-10-06] MEDS ORDERED: NORMAL SALINE 1000 ML 1,000 ML IV ONE ×3 (06:36→14:55)
[2018-10-06] MEDS ORDERED: KETOROLAC TROMETHAMINE INJ/PF 30 MG/1 ML SDV IV ONE (07:25)
[2018-10-06] MEDS ORDERED: ONDANSETRON HCL INJ/PF 4 MG/2 ML SDV IV ONE ×3 (07:25→13:44)
[2018-10-06 07:30] LABS: APPEARANCE,URINE CLEAR; BILIRUBIN,URINE NEGATIVE (NEGATIVE); COLOR,URINE AMBER; GLUCOSE, URINE NEGATIVE (NEGATIVE); KETONES,URINE NEGATIVE (NEGATIVE); LEUKOCYTE ESTERASE,URINE NEGATIVE (NEGATIVE); NITRITE,URINE NEGATIVE (NEGATIVE); PROTEIN,URINE 100 mg/dL (NEGATIVE); URINE SPECIFIC GRAVITY 1.026; UROBILINOGEN,URINE NEGATIVE mg/dL (<2.0)
--- NOTE | 2018-10-06 07:35 | RADIOLOGY REPORT (SQ) ---
EXAM DESCRIPTION: US ABDOMEN LIMITED COMPLETED DATE/TME: 10/06/2018 06:36 CLINICAL HISTORY: 63 years Male, ABD PAIN, HX PANCREATITIS Comparison:11/27/14. Mar 02 2015, CT, report only LIMITATIONS: None. FINDINGS: Indeterminate 2.0 x 1.0 x 1.9 cm complex cystic nodular lesion of the right hepatic lobe. Recommend multiphase contrast MRI or CT of the abdomen, liver protocol. Mild hepatic steatosis. Cholelithiasis, negative sonographic Adler's test, a 0.4-cm diameter common bile duct, no intrahepatic ductal dilation, hepatopetal patent flow of the portal vein, 10-cm right kidney, pancreas, visualized vasculature/abdominal aorta, and no significant ascites appear otherwise unremarkable. IMPRESSION: 1. Indeterminate 2.0 x 1.0 x 1.9 cm complex cystic nodular lesion of the right hepatic lobe. Recommend multiphase contrast MRI or CT of the abdomen, liver protocol. 2. Cholelithiasis. 3. Mild hepatic steatosis.
[2018-10-06 07:47] LABS: URINE AMPHETAMINES SCREEN NEGATIVE; URINE BARBITURATES SCREEN NEGATIVE; URINE BENZODIAZEPINES SCREEN NEGATIVE; URINE COCAINE SCREEN NEGATIVE; URINE MARIJUANA (THC) SCREEN UNCONFIRMED POSITIVE; URINE METHADONE SCREEN NEGATIVE; URINE PHENCYCLIDINE SCREEN NEGATIVE
[2018-10-06] MEDS ORDERED: DIPHENHYDRAMINE HCL 50 MG/ML VIAL IV ONE (08:21)
--- NOTE | 2018-10-06 10:58 | RADIOLOGY REPORT (SQ) ---
EXAM DESCRIPTION: CT ABD/PELVIS NO ORAL OR IV COMPLETED DATE/TIME: 10/06/2018 10:46 am REASON FOR STUDY: ABD PAIN ,N/V COMPARISON: None. TECHNIQUE: CT scan of the abdomen and pelvis performed without intravenous or oral contrast. Images reviewed with lung, soft tissue, and bone windows. Reconstructed coronal and sagittal MPR images revi ewed. All images stored on PACS. All CT scanners at this facility use dose modulation, iterative reconstruction, and/or weight based d osing when appropriate to reduce radiation dose to as low as reasonably achievable (ALARA). [facility]: Dose Right [facility]: CareDose [facility]: Dose Right [facility]: Teradose 4D [facility]: Salonmeister RADIATION DOSE: CT Rad equipment meets quality standard of care and radiation dose reduction techniq ues were employed. CTDIvol: 3.8 mGy. DLP: 6 mGy-cm.mGy. LIMITATIONS: Ultrasound 10/06/2018 FINDINGS: LOWER CHEST: No significant findings. No nodules or infiltrates. NON-CONTRASTED LIVER, SPLEEN, ADRENALS: Evaluation limited by lack of IV contrast. No identified sign ificant masses. Cannot accurately assess the hepatic lesions seen on ultrasound without contrast. T here is a nodular appearance of the liver strongly suspicious for cirrhosis. IV infiltrated prior to procedure. PANCREAS: Extensive calcification the pancreas. Chronic pancreatitis. GALLBLADDER: Gallstones. RIGHT KIDNEY AND URETER: No suspicious masses. Assessment limited by lack of IV contrast. No signif icant calcifications. No hydronephrosis or hydroureter. LEFT KIDNEY AND URETER: No suspicious masses. Assessment limited by lack of IV contrast. No signifi cant calcifications. No hydronephrosis or hydroureter. AORTA AND RETROPERITONEUM: No aneurysm. No retroperitoneal masses or adenopathy. BOWEL AND PERITONEAL CAVITY: No obvious masses or inflammatory changes. No free fluid. APPENDIX: Not visualized. PELVIS, BLADDER, AND ABDOMINAL WALL:Limited visualization because of beam hardening artifact from rig ht hip prosthesis peer Gold markers in the prostate bed. BONES: No significant findings. OTHER: No other significant finding. IMPRESSION: IV infiltrated. Cannot assess the hepatic lesion. There is hepatic cirrhosis. Extensive calcifications in the pancreas. Chronic pancreatitis. Gallstones. COMMENT: Quality ID # [id number]: Final reports with documentation of one or more dose reduction techniques (e.g., Automated exposure control, adjustment of the mA and/or kV according to patient size, use of iterative reconstruction technique) TECHNICAL DOCUMENTATION: JOB ID: [id number] [employer]- All Rights Reserved Reading location - IP/workstation name: [email or web address]
[2018-10-06] MEDS ORDERED: MORPHINE SULFATE 10 MG/ML INJ IV ONE ×2 (11:41→15:05)
[2018-10-06] MEDS ORDERED: LIDOCAINE 1% INJ-PF (10 MG/ML) 30 ML SDV ONE (13:51)
--- NOTE | 2018-10-06 14:10 | Operative Report ---
Nonrecallable Operative Report DATE OF SURGERY: 10/06/18 PREOPERATIVE DIAGNOSIS: need IV access POSTOPERATIVE DIAGNOSIS: same OPERATION: right femoral vein CVL SURGEON: JONAH SINCLAIR ANESTHESIA: Local TISSUE REMOVED OR ALTERED: n/a COMPLICATIONS: none ESTIMATED BLOOD LOSS: n/a INTRAOPERATIVE FINDINGS: as above PROCEDURE: see dictation
--- NOTE | 2018-10-06 15:35 | OPERATIVE REPORT E ---
Operative Report NAME: CEM MONROY : 1955 AGE: 63Y DATE OF SURGERY: 10/06/2018 ROOM: PREOPERATIVE DIAGNOSIS: NEED FOR INTRAVENOUS (IV) ACCESS FOR ADMINISTRATION OF INTRAVENOUS (IV) CONTRAST. POSTOPERATIVE DIAGNOSIS: NEED FOR INTRAVENOUS (IV) ACCESS FOR ADMINISTRATION OF INTRAVENOUS (IV) CONTRAST. OPERATION: Right femoral vein central venous line. SURGEON: JONAH SINCLAIR M.D. ANESTHESIA: Local 20 mL of 1% lidocaine without epinephrine. COMPLICATIONS: None. INDICATIONS AND FINDINGS: This is a 63-year-old male with a history of alcohol abuse. He has been abstinent of alcohol for the past 5 years. Chronic pancreatitis, liver cirrhosis and cholelithiasis. Presented to the emergency room with unrelenting nausea and vomiting. An ultrasound of the liver was done, revealing cirrhosis, as well as a mass in the right lobe of the liver, which appears to be complex. A CAT scan was done, which confirmed the presence of a mass in the right lobe of the liver; however, no contrast could be given to the patient because of the patient's poor peripheral IV access by multiple attempts. A conversation was entertained with the radiologist, which confirmed that the patient needed to have IV access for IV contrast to obtain either a CT scan or MRI with contrast to identify and diagnose the right liver lobe mass, which could represent a malignancy. Decision was made to insert a right femoral central venous line. PROCEDURE: Procedure was done at the bedside in the emergency room. The right groin was prepped and draped in the usual fashion. The area was infiltrated with lidocaine. An 18 gauge needle was used to easily cannulate the right femoral vein. The guidewire was inserted through the needle into the femoral vein. Needle was removed. Insertion point of the needle was enlarged with a #11 blade and a tissue dilator, which was removed and followed by insertion of the triple-lumen catheter. Guidewire was removed. Each port of the triple-lumen catheter was aspirated and flushed with normal saline without difficulty. The catheter was secured to the skin with silk sutures. Sterile dressing was applied. The patient tolerated the procedure well. DICTATING PHYSICIAN: JONAH SINCLAIR M.D. [id number] PHY#: [id number] ID: [id number] JOB#: [id number] ACCT: [id number] cc:JONAH SINCLAIR M.D. > CATHIE
--- NOTE | 2018-10-06 15:49 | PDOC H&P ---
History of Present Illness History of Present Illness: CEM MONROY is a 63 year old black male patient with past medical history of cold induced pancreatitis coronary artery disease history of [place], hypertension, history of prostate cancer history of cirrhosis, hep C and history of IV drug abuse presented with chief complaint of nausea vomiting and abdominal pain of 24 hours duration. Patient describes the vomiting which is intermittent ingested material later changed to be less and he has associated right upper quadrant pain. He does not fever, chills, chest pain, cough, palpitation or diaphoresis he does have nausea vomiting but no diarrhea or change in bowel habits. He does not have any urinary complaint is he does not have any headache dizziness or blurry vision. Blood works are unremarkable ultrasound of the abdomen reported as indeterminate 2 x 1 x 1.9 complex cystic nodular lesion of the right hepatic lobe. His blood works are unremarkable. Patient claims he is sober for the last 5 years and he is also cleaned with regard to substance abuse except using marijuana. Past Medical History Cardiac Medical History: Denies: Coronary Artery Disease, Myocardial Infarction, Hypertension Pulmonary Medical History: Denies: Asthma, Bronchitis, Chronic Obstructive Pulmonary Disease (COPD), Pneumonia Neurological Medical History: Reports: Seizures - ETOH withdrawal seizures Endocrine Medical History: Denies: Diabetes Mellitus Type 1, Diabetes Mellitus Type 2 GI Medical History: Reports: Cirrhosis, Hepatitis - Hepatitis C Musculoskeltal Medical History: Denies: Arthritis Psychiatric Medical History: Denies: Depression Hematology: Denies: Anemia Infectious Medical History: Reports: Hepatitis C Past Surgical History Past Surgical History: Reports: Orthopedic Surgery - R hip replacement Social History Smoking Status: Never Smoker Frequency of Alcohol Use: Heavy Hx Recreational Drug Use: Yes Drugs: Marijuana Hx Prescription Drug Abuse: Yes - Advance Directive Resuscitation Status: Full Code Family History Family History: Reviewed & Not Pertinent, Hypertension, Malignancy - Brother with pancreatic cancer and mother with breast cancer, Other - Father was murdered, sister with lupus Parental Family History Reviewed: Yes Children Family History Reviewed: Yes Sibling(s) Family History Reviewed.: Yes Medication/Allergy Home Medications: No Home Medications 10/06/18 Allergies/Adverse Reactions: haloperidol [From Haldol] Adverse Reaction (Intermediate, Verified 10/06/18 04:31) Cramping, "couldn't breathe" lorazepam [From Ativan] Adverse Reaction (Intermediate, Verified 10/06/18 04:31) Nausea, nightmares promethazine HCl [From Phenergan] Adverse Reaction (Unknown, Verified 10/06/18 04:31) "Messes my veins up" Review of Systems Constitutional: ABSENT: chills, fever(s), headache(s), weight gain, weight loss Eyes: ABSENT: visual disturbances Ears: ABSENT: hearing changes Cardiovascular: ABSENT: chest pain, dyspnea on exertion, edema, orthropnea, palpitations Respiratory: ABSENT: cough, hemoptysis Gastrointestinal: PRESENT: abdominal pain, nausea, vomiting Genitourinary: ABSENT: dysuria, hematuria Musculoskeletal: ABSENT: joint swelling Integumentary: ABSENT: rash, wounds Neurological: ABSENT: abnormal gait, abnormal speech, confusion, dizziness, focal weakness, syncope Psychiatric: ABSENT: anxiety, depression, homidical ideation, suicidal ideation Endocrine: ABSENT: cold intolerance, heat intolerance, polydipsia, polyuria Hematologic/Lymphatic: ABSENT: easy bleeding, easy bruising Physical Exam Vital Signs: Temp Pulse Resp BP Pulse Ox 98.4 F 68 19 150/72 H 100 10/06/18 07:31 10/06/18 04:32 10/06/18 09:03 10/06/18 09:03 10/06/18 09:03 Intake & Output 10/05/18 10/06/18 10/07/18 06:59 06:59 06:59 Intake Total 1000 Balance 1000 Weight 77.111 kg General appearance: PRESENT: no acute distress Head exam: PRESENT: atraumatic Eye exam: PRESENT: conjunctiva pink Mouth exam: PRESENT: moist Neck exam: ABSENT: carotid bruit, JVD, lymphadenopathy, thyromegaly Respiratory exam: PRESENT: clear to auscultation taryn. ABSENT: rales, rhonchi, wheezes Cardiovascular exam: PRESENT: RRR. ABSENT: diastolic murmur, rubs, systolic murmur GI/Abdominal exam: PRESENT: tenderness - Epigastric Neurological exam: PRESENT: alert, awake, oriented to person, oriented to place, oriented to time, oriented to situation Results Laboratory Results: 10/06/18 05:15 10/06/18 05:15 10/06/18 10/06/18 10/06/18 05:15 05:15 06:49 WBC 6.2 RBC 5.08 Hgb 14.4 Hct 43.9 MCV 87 MCH 28.5 MCHC 32.9 RDW 14.8 H Plt Count 160 Seg Neutrophils % 83.2 H Lymphocytes % 10.8 L Monocytes % 5.3 Eosinophils % 0.1 Basophils % 0.6 Absolute Neutrophils 5.2 Absolute Lymphocytes 0.7 Absolute Monocytes 0.3 Absolute Eosinophils 0.0 Absolute Basophils 0.0 Sodium 141.0 Potassium 4.1 Chloride 106 Carbon Dioxide 21 L Anion Gap 14 BUN 8 Creatinine 0.77 Est GFR ( Amer) > 60 Est GFR (Non-Af Amer) > 60 Glucose 151 H Calcium 10.2 Total Bilirubin 0.7 AST 29 Alkaline Phosphatase 73 Total Protein 8.8 H Albumin 5.0 Amylase 266 H Lipase 120.4 Urine Color DIPIKA Urine Appearance CLEAR Urine pH 8.0 Ur Specific [place] 1.026 Urine Protein 100 H Urine Glucose (UA) NEGATIVE Urine Ketones NEGATIVE Urine Blood NEGATIVE Urine Nitrite NEGATIVE Ur Leukocyte Esterase NEGATIVE Urine WBC (Auto) 1 Urine RBC (Auto) 8 Impressions: Abdomen Ultrasound 10/06/18 06:36 IMPRESSION: 1. Indeterminate 2.0 x 1.0 x 1.9 cm complex cystic nodular lesion of the right hepatic lobe. Recommend multiphase contrast MRI or CT of the abdomen, liver protocol. 2. Cholelithiasis. 3. Mild hepatic steatosis. Abdomen/Pelvis CT 10/06/18 07:41 IMPRESSION: IV infiltrated. Cannot assess the hepatic lesion. There is hepatic cirrhosis. Extensive calcifications in the pancreas. Chronic pancreatitis. Gallstones. Assessment and Plan - Diagnosis (1) Intractable nausea and vomiting Qualifiers: Vomiting type: unspecified Qualified Code(s): R11.2 - Nausea with vomiting, unspecified Is this a current diagnosis for this admission?: Yes Plan: Patient has been started on Ringer lactate, Zofran and metoclopramide. For his abdominal pain we will start him on Percocet. (2) Liver mass, right lobe Is this a current diagnosis for this admission?: Yes Plan: Sound shows complex nodular cystic mass of the right hepatic lobe. Patient needs follow-up with his primary dogger Dr. Ramirez (3) Chronic pancreatitis Qualifiers: Pancreatitis type: alcohol induced Qualified Code(s): K86.0 - Alcohol- induced chronic pancreatitis Is this a current diagnosis for this admission?: Yes Plan: His lipase is within normal limits. (4) Coronary artery disease Is this a current diagnosis for this admission?: Yes Plan: No anginal symptoms (5) Hypertension Qualifiers: Hypertension type: essential hypertension Qualified Code(s): I10 - Essential (primary) hypertension Is this a current diagnosis for this admission?: Yes Plan: Continue home medication.
[2018-10-06] MEDS: ENOXAPARIN SODIUM INJ 40 MG/0.4 ML DISP.SYRIN SUBCUT SCH (17:56)
[2018-10-06] MEDS: OXYCODONE-ACETAMINOPHEN 5-325 MG TABLET PO PRN (17:56)
[2018-10-06] MEDS: METOCLOPRAMIDE HCL INJ/PF 10 MG/2 ML SDV IV SCH (17:56)
[2018-10-06] MEDS: RINGERS SOLUTION,LACTATED 1,000 ML IV PRN (19:34)
[2018-10-07] MEDS: METOCLOPRAMIDE HCL INJ/PF 10 MG/2 ML SDV IV SCH ×4 (00:11→18:46)
[2018-10-07] MEDS: OXYCODONE-ACETAMINOPHEN 5-325 MG TABLET PO PRN ×4 (01:06→20:13)
[2018-10-07] MEDS: PANTOPRAZOLE SODIUM 40 MG TABLET.DR PO SCH (05:36)
[2018-10-07 07:11] LABS: ANION GAP 10 (5-19); BLOOD UREA NITROGEN 7 mg/dL (7-20); CALCIUM 9.3 mg/dL (8.4-10.2); CARBON DIOXIDE 25 mmol/L (22-30); CHLORIDE 102 mmol/L (98-107); GLUCOSE 112 mg/dL (75-110); POTASSIUM 3.6 mmol/L (3.6-5.0)
--- NOTE | 2018-10-07 10:22 | PDOC PROGRESS REPORT ---
Subjective Progress Note for:: 10/07/18 Subjective:: no nausea or vomiting today, poor appetite Reason For Visit: INTRACTABLE NAUSEA AND VOMITING AND ABDOMINAL PAIN Physical Exam Vital Signs: Temp Pulse Resp BP Pulse Ox 98.8 F 55 L 16 138/74 H 99 10/07/18 07:42 10/07/18 07:42 10/07/18 07:42 10/07/18 07:42 10/07/18 07:42 Intake & Output 10/06/18 10/07/18 10/08/18 06:59 06:59 06:59 Intake Total 2250 Output Total 1100 Balance 1150 Weight 77.111 kg 74.4 kg General appearance: PRESENT: no acute distress Respiratory exam: PRESENT: clear to auscultation taryn Cardiovascular exam: PRESENT: RRR GI/Abdominal exam: PRESENT: normal bowel sounds, soft Results Laboratory Results: 10/06/18 05:15 10/07/18 06:20 10/07/18 06:20 Sodium 137.1 Potassium 3.6 Chloride 102 Carbon Dioxide 25 Anion Gap 10 BUN 7 Creatinine 0.81 Est GFR ( Amer) > 60 Est GFR (Non-Af Amer) > 60 Glucose 112 H Calcium 9.3 Impressions: Abdomen Ultrasound 10/06/18 06:36 IMPRESSION: 1. Indeterminate 2.0 x 1.0 x 1.9 cm complex cystic nodular lesion of the right hepatic lobe. Recommend multiphase contrast MRI or CT of the abdomen, liver protocol. 2. Cholelithiasis. 3. Mild hepatic steatosis. Abdomen/Pelvis CT 10/06/18 07:41 IMPRESSION: IV infiltrated. Cannot assess the hepatic lesion. There is hepatic cirrhosis. Extensive calcifications in the pancreas. Chronic pancreatitis. Gallstones. Assessment & Plan - Diagnosis (2) Liver mass, right lobe Is this a current diagnosis for this admission?: Yes - Plan Summary Plan Summary: A/ resolved nausea/Vomiting Poor appetite liver mass @ [address] scan A/P without IV contrast P/ After d/w Radiologist, plan MRI with and without contrast to defined liver mass seen on CT scan done yesterday
--- NOTE | 2018-10-07 14:17 | PDOC PROGRESS REPORT ---
Subjective Progress Note for:: 10/07/18 Subjective:: CEM MONROY is a 63 year old black male patient with past medical history of cold induced pancreatitis coronary artery disease history of [place], hypertension, history of prostate cancer history of cirrhosis, hep C and history of IV drug abuse presented with chief complaint of nausea vomiting and abdominal pain of 24 hours duration. Patient describes the vomiting which is intermittent ingested material later changed to be less and he has associated right upper quadrant pain. He does not fever, chills, chest pain, cough, palpitation or diaphoresis he does have nausea vomiting but no diarrhea or change in bowel habits. He does not have any urinary complaint is he does not have any headache dizziness or blurry vision. Blood works are unremarkable ultrasound of the abdomen reported as indeterminate 2 x 1 x 1.9 complex cystic nodular lesion of the right hepatic lobe. His blood works are unremarkable. Patient claims he is sober for the last 5 years and he is also cleaned with regard to substance abuse except using marijuana. 10/07/2018: Patient seen and examined while resting in bed comfortably. He reports this is his nausea and vomiting has subsided but still has some right upper quadrant pain. This morning patient reevaluated by Dr. Pompa who requested MRI of the liver with and without contrast to further delineate the right hepatic lobe mass. He also consulted Dr. Keller for his input. Reason For Visit: INTRACTABLE NAUSEA AND VOMITING AND ABDOMINAL PAIN Physical Exam Vital Signs: Temp Pulse Resp BP Pulse Ox 98.1 F 48 L 14 122/65 100 10/07/18 11:20 10/07/18 11:20 10/07/18 11:20 10/07/18 11:20 10/07/18 11:20 Intake & Output 10/06/18 10/07/18 10/08/18 06:59 06:59 06:59 Intake Total 2250 Output Total 1100 250 Balance 1150 -250 Weight 77.111 kg 74.4 kg General appearance: PRESENT: no acute distress Head exam: PRESENT: atraumatic Neck exam: ABSENT: carotid bruit, JVD, lymphadenopathy, thyromegaly Respiratory exam: PRESENT: clear to auscultation taryn. ABSENT: rales, rhonchi, wheezes GI/Abdominal exam: PRESENT: normal bowel sounds, soft. ABSENT: distended, gu arding, mass, organolmegaly, rebound, tenderness Neurological exam: PRESENT: alert, awake, oriented to person, oriented to place, oriented to time, oriented to situation Results Laboratory Results: 10/06/18 05:15 10/07/18 06:20 10/07/18 06:20 Sodium 137.1 Potassium 3.6 Chloride 102 Carbon Dioxide 25 Anion Gap 10 BUN 7 Creatinine 0.81 Est GFR ( Amer) > 60 Est GFR (Non-Af Amer) > 60 Glucose 112 H Calcium 9.3 Impressions: Abdomen Ultrasound 10/06/18 06:36 IMPRESSION: 1. Indeterminate 2.0 x 1.0 x 1.9 cm complex cystic nodular lesion of the right hepatic lobe. Recommend multiphase contrast MRI or CT of the abdomen, liver protocol. 2. Cholelithiasis. 3. Mild hepatic steatosis. Abdomen/Pelvis CT 10/06/18 07:41 IMPRESSION: IV infiltrated. Cannot assess the hepatic lesion. There is hepatic cirrhosis. Extensive calcifications in the pancreas. Chronic pancreatitis. Gallstones. Assessment and Plan - Diagnosis (1) Intractable nausea and vomiting Qualifiers: Vomiting type: unspecified Qualified Code(s): R11.2 - Nausea with vomiting, unspecified Is this a current diagnosis for this admission?: Yes Plan: Has been improving (2) Liver mass, right lobe Is this a current diagnosis for this admission?: Yes Plan: Patient scheduled to have MRI of the abdomen with and without contrast (3) Chronic pancreatitis Qualifiers: Pancreatitis type: alcohol induced Qualified Code(s): K86.0 - Alcohol- induced chronic pancreatitis Is this a current diagnosis for this admission?: Yes Plan: His lipase is within normal limits. (4) Coronary artery disease Is this a current diagnosis for this admission?: Yes Plan: No anginal symptoms (5) Hypertension Qualifiers: Hypertension type: essential hypertension Qualified Code(s): I10 - Essential (primary) hypertension Is this a current diagnosis for this admission?: Yes Plan: Continue home medication.
[2018-10-07] MEDS: ENOXAPARIN SODIUM INJ 40 MG/0.4 ML DISP.SYRIN SUBCUT SCH (14:19)
[2018-10-07] MEDS ORDERED: PROMETHAZINE HCL INJ 25 MG/1 ML VIAL ONE (16:54)
[2018-10-07] MEDS ORDERED: PROMETHAZINE HCL INJ 25 MG/1 ML VIAL IV ONE (18:00)
[2018-10-07] MEDS: RINGERS SOLUTION,LACTATED 1,000 ML IV PRN (18:44)
[2018-10-07] MEDS: MORPHINE SULFATE 10 MG/ML INJ IV PRN (21:33)
[2018-10-08] MEDS: METOCLOPRAMIDE HCL INJ/PF 10 MG/2 ML SDV IV SCH ×2 (00:21→05:19)
[2018-10-08] MEDS: MORPHINE SULFATE 10 MG/ML INJ IV PRN ×5 (01:52→23:55)
[2018-10-08] MEDS: PANTOPRAZOLE SODIUM 40 MG TABLET.DR PO SCH (05:19)
[2018-10-08] MEDS: RINGERS SOLUTION,LACTATED 1,000 ML IV PRN (05:21)
--- NOTE | 2018-10-08 09:36 | PDOC PROGRESS REPORT ---
Subjective Progress Note for:: 10/08/18 Subjective:: 63 year old black male patient with past medical history of cold induced pancreatitis coronary artery disease history of [place], hypertension, history of prostate cancer history of cirrhosis, hep C and history of IV drug abuse presented with chief complaint of nausea vomiting and abdominal pain of 24 hours duration. Patient describes the vomiting which is intermittent ingested material later changed to be less and he has associated right upper quadrant pain. He does not fever, chills, chest pain, cough, palpitation or diaphoresis he does have nausea vomiting but no diarrhea or change in bowel habits. He does not have any urinary complaint is he does not have any headache dizziness or blurry vision. Blood works are unremarkable ultrasound of the abdomen reported as indeterminate 2 x 1 x 1.9 complex cystic nodular lesion of the right hepatic lobe. His blood works are unremarkable. Patient claims he is sober for the last 5 years and he is also cleaned with regard to substance abuse except using marijuana. 10/07/2018: Patient seen and examined while resting in bed comfortably. He reports this is his nausea and vomiting has subsided but still has some right upper quadrant pain. This morning patient reevaluated by Dr. Pompa who requested MRI of the liver with and without contrast to further delineate the right hepatic lobe mass. He also consulted Dr. Keller for his input. [id number]-old male with history of pancreatitis, coronary artery disease, history of [place], hypertension history of prostate cancer, cirrhosis of the liver, hep C history of IV drug abuse admitted with nausea vomiting abdominal pain of 1 day duration. MRI of the liver was done to assess the liver mass results are pending. It is still complaining of nausea this morning. To start him on Zofran 4 mg IV every 4 as needed for nausea and vomiting. CT abdomen pelvis done shows chronic pancreatitis and a hepatic cirrhosis. no Acute events in the last 24 hours and afebrile. Reason For Visit: INTRACTABLE NAUSEA AND VOMITING AND ABDOMINAL PAIN Physical Exam Vital Signs: Temp Pulse Resp BP Pulse Ox 100.0 F 52 L 17 157/88 H 98 10/08/18 01:40 10/08/18 01:40 10/08/18 01:40 10/08/18 01:40 10/08/18 01:40 Intake & Output 08/19/19 08/20/19 08/21/19 06:59 06:59 06:59 Intake Total 3250 1000 Output Total 1100 1900 Balance 2150 -900 Weight 74.4 kg 72.9 kg General appearance: PRESENT: no acute distress, cooperative Head exam: PRESENT: atraumatic Eye exam: PRESENT: PERRLA Teeth exam: PRESENT: poor dentation Neck exam: ABSENT: carotid bruit, JVD, lymphadenopathy, thyromegaly Respiratory exam: PRESENT: clear to auscultation taryn. ABSENT: rales, rhonchi, wheezes Cardiovascular exam: PRESENT: RRR. ABSENT: diastolic murmur, rubs, systolic murmur GI/Abdominal exam: PRESENT: normal bowel sounds, soft. ABSENT: distended, guar ding, mass, organolmegaly, rebound, tenderness Rectal exam: PRESENT: deferred Extremities exam: PRESENT: full ROM. ABSENT: calf tenderness, clubbing, pedal edema Neurological exam: PRESENT: alert, awake, oriented to person, oriented to place, oriented to time, oriented to situation, CN II-XII grossly intact. ABSENT: motor sensory deficit Psychiatric exam: PRESENT: appropriate affect, normal mood. ABSENT: homicidal ideation, suicidal ideation Results Laboratory Results: 10/06/18 05:15 10/07/18 06:20 Impressions: Abdomen Ultrasound 10/06/18 06:36 IMPRESSION: 1. Indeterminate 2.0 x 1.0 x 1.9 cm complex cystic nodular lesion of the right hepatic lobe. Recommend multiphase contrast MRI or CT of the abdomen, liver protocol. 2. Cholelithiasis. 3. Mild hepatic steatosis. Abdomen/Pelvis CT 10/06/18 07:41 IMPRESSION: IV infiltrated. Cannot assess the hepatic lesion. There is hepatic cirrhosis. Extensive calcifications in the pancreas. Chronic pancreatitis. Gallstones. Assessment and Plan - Diagnosis (1) Intractable nausea and vomiting Qualifiers: Vomiting type: unspecified Qualified Code(s): R11.2 - Nausea with vomiting, unspecified Is this a current diagnosis for this admission?: Yes Plan: Has been improving 10/08/2018-patient is still complaining of nausea this morning to start him on IV Zofran 4 mg every 4 as needed. Waiting for the MRI of the abdomen results to assess the liver mass. (2) Liver mass, right lobe Is this a current diagnosis for this admission?: Yes Plan: Patient scheduled to have MRI of the abdomen with and without contrast 10/08/2018-patient has liver mass MRI of the abdomen with and without contrast was done waiting for the results. Consultation with heme-onc was requested. (3) Chronic pancreatitis Qualifiers: Pancreatitis type: alcohol induced Qualified Code(s): K86.0 - Alcohol- induced chronic pancreatitis Is this a current diagnosis for this admission?: Yes Plan: His lipase is within normal limits. 10/08/2018-patient has a history of chronic pancreatitis seen on CT abdominal pelvis lipase level is 120 stable. No complaints of abdominal pain today. (4) Coronary artery disease Is this a current diagnosis for this admission?: Yes Plan: No anginal symptoms 10/08/2018-no complaints of chest pain today. Comfortably in the bed. (5) Hypertension Qualifiers: Hypertension type: essential hypertension Qualified Code(s): I10 - Essential (primary) hypertension Is this a current diagnosis for this admission?: Yes Plan: Continue home medication. 10/08/2018-patient blood pressure today is 157/88 he is receiving normal saline 150 cc/h to stop IV fluids from today. (6) Bradycardia Is this a current diagnosis for this admission?: Yes Plan: 10/08/2018-patient is heart rate is around 48-52. Asymptomatic. Patient is not on any beta-blockers. - Time Time Spent with patient: 25-34 minutes Medications reviewed and adjusted accordingly: Yes Anticipated discharge: Home
[2018-10-08] MEDS: ENOXAPARIN SODIUM INJ 40 MG/0.4 ML DISP.SYRIN SUBCUT SCH (09:42)
--- NOTE | 2018-10-08 10:31 | RADIOLOGY REPORT (SQ) ---
EXAM DESCRIPTION: MRI ABDOMEN COMBO COMPLETED DATE/TIME: 10/07/2018 10:52 pm REASON FOR STUDY: liver mass COMPARISON: Ultrasound dated 10/06/2018, CT dated April 08 TECHNIQUE: Multiplanar multisequence imaging performed without and with contrast including sagittal, axial and coronal T2, axial T1, axial gradient fat sat T1, axial, sagittal and coronal fat sat T1 po st contrast. CONTRAST TYPE AND DOSE: 20 mL Dotarem. RENAL FUNCTION: Not indicated. ACR Type II contrast agent associated with few, if any, unconfounded cases of NSF LIMITATIONS: None. FINDINGS: LIVER: No focal masses are identified on pre postcontrast studies. There is fatty infiltr ation. No abnormal enhancement. SPLEEN: Normal size. No focal lesions. PANCREAS: No masses. Pancreatic calcifications are less apparent on MRI. The pancreatic duct is pro minent especially in the head of the pancreas. GALLBLADDER: Gallstones. ADRENAL GLANDS: No significant masses or asymmetry. RIGHT KIDNEY AND URETER: There is a small right renal cyst appear LEFT KIDNEY AND URETER: There is a small left renal cyst. AORTA AND VESSELS: No aneurysm. No dissection. Renal arteries, SMA, celiac without stenosis. RETROPERITONEUM: No retroperitoneal adenopathy, hemorrhage or masses. BOWEL: No visualized masses. No inflammation. No significant dilatation. ABDOMINAL WALL AND PERITONEUM: No hernias. No free fluid. BONES: No acute or significant findings. OTHER: No other significant finding. IMPRESSION: Fatty infiltrated liver. Gallstones. No focal hepatic masses on pre or postcontrast im ages. TECHNICAL DOCUMENTATION: JOB ID: [id number] [employer] All Rights Reserved Reading location - IP/workstation name: [email or web address]
[2018-10-08 11:29] LABS: ABSOLUTE LYMPHOCYTES (AUTO) 1.4 10^3/uL (0.5-4.7); ABSOLUTE MONOCYTES (AUTO) 0.6 10^3/uL (0.1-1.4); ABSOLUTE NEUT (AUTO) 4.7 10^3/uL (1.7-8.2); BASOPHILS % (AUTO) 0.7 % (0-2); EOSINOPHILS % (AUTO) 0.1 % (0-6); HEMATOCRIT 41.4 % (37.9-51.0); HEMOGLOBIN 13.9 g/dL (13.5-17.0); LYMPHOCYTES % (AUTO) 20.2 % (13-45); MEAN CORPUSCULAR HEMOGLOBIN 28.9 pg (27.0-33.4); MEAN CORPUSCULAR HGB CONC 33.7 g/dL (32.0-36.0); MEAN CORPUSCULAR VOLUME 86 fl (80-97); MONOCYTES % (AUTO) 9.3 % (3-13); PLATELET COUNT 126 10^3/uL (150-450); RED BLOOD COUNT 4.82 10^6/uL (4.35-5.55); RED CELL DISTRIBUTION WIDTH 14.6 % (11.5-14.0); SEGMENTED NEUTROPHILS % (AUTO) 69.7 % (42-78); TOTAL CELLS COUNTED % (AUTO) 100 %; WHITE BLOOD COUNT 6.8 10^3/uL (4.0-10.5)
[2018-10-08 11:50] LABS: ALBUMIN 4.3 g/dL (3.5-5.0); ALKALINE PHOSPHATASE 53 U/L (38-126); ANION GAP 14 (5-19); ASPARTATE AMINO TRANSFERASE 24 U/L (17-59); BILIRUBIN,DIRECT 0.2 mg/dL (0.0-0.4); BILIRUBIN,TOTAL 1.1 mg/dL (0.2-1.3); BLOOD UREA NITROGEN 8 mg/dL (7-20); CALCIUM 9.2 mg/dL (8.4-10.2); CARBON DIOXIDE 26 mmol/L (22-30); CHLORIDE 97 mmol/L (98-107); GLUCOSE 124 mg/dL (75-110); POTASSIUM 3.2 mmol/L (3.6-5.0); TOTAL PROTEIN 7.5 g/dL (6.3-8.2)
[2018-10-08] MEDS: OXYCODONE-ACETAMINOPHEN 5-325 MG TABLET PO PRN (13:53)
[2018-10-08] MEDS: ONDANSETRON HCL INJ/PF 4 MG/2 ML SDV IV PRN ×2 (13:53→22:56)
--- NOTE | 2018-10-08 21:58 | PDOC PROGRESS REPORT ---
Subjective Progress Note for:: 10/08/18 Subjective:: This is a 63-year-old male with chronic pancreatitis, found to have a possible liver mass. Patient underwent MRI scanning today to better classify the liver mass. Today, he reports feeling better. He ate yogurt and Ensure without vomiting. He did have nausea and a small amount of vomitus earlier in the day. He also reports dull, upper abdominal pain. He denies chest pain, shortness of breath, fevers, chills, malaise, fatigue, dizziness, blurry vision. Reason For Visit: INTRACTABLE NAUSEA AND VOMITING AND ABDOMINAL PAIN Physical Exam Vital Signs: Temp Pulse Resp BP Pulse Ox 100.3 F 48 L 18 151/76 H 100 10/08/18 15:08 10/08/18 15:08 10/08/18 15:08 10/08/18 15:08 10/08/18 15:08 Intake & Output 10/07/18 10/08/18 10/09/18 06:59 06:59 06:59 Intake Total 3250 1000 1149 Output Total 1100 1900 975 Balance 2150 -900 174 Weight 74.4 kg 72.9 kg General appearance: PRESENT: thin Head exam: PRESENT: atraumatic, normocephalic Eye exam: ABSENT: scleral icterus Mouth exam: PRESENT: moist, neck supple Neck exam: ABSENT: meningismus, tenderness, thyromegaly, tracheal deviation Respiratory exam: PRESENT: clear to auscultation taryn, unlabored. ABSENT: chest wall tenderness, wheezes Cardiovascular exam: PRESENT: RRR Pulses: PRESENT: normal radial pulses Vascular exam: PRESENT: normal capillary refill. ABSENT: pallor GI/Abdominal exam: PRESENT: soft, tenderness - Minimal. ABSENT: distended, rebound, rigid Rectal exam: PRESENT: deferred Extremities exam: ABSENT: clubbing Musculoskeletal exam: ABSENT: deformity Neurological exam: PRESENT: alert, awake, oriented to person, oriented to place, oriented to time, oriented to situation, CN II-XII grossly intact Psychiatric exam: ABSENT: agitated, anxious, depressed Focused psych exam: ABSENT: delusional Skin exam: ABSENT: cyanosis, erythema, jaundice Results Laboratory Results: 10/08/18 11:15 10/08/18 11:15 10/08/18 10/08/18 11:15 11:15 WBC 6.8 RBC 4.82 Hgb 13.9 Hct 41.4 MCV 86 MCH 28.9 MCHC 33.7 RDW 14.6 H Plt Count 126 L Seg Neutrophils % 69.7 Lymphocytes % 20.2 Monocytes % 9.3 Eosinophils % 0.1 Basophils % 0.7 Absolute Neutrophils 4.7 Absolute Lymphocytes 1.4 Absolute Monocytes 0.6 Absolute Eosinophils 0.0 Absolute Basophils 0.0 Sodium 136.9 L Potassium 3.2 L Chloride 97 L Carbon Dioxide 26 Anion Gap 14 BUN 8 Creatinine 0.73 Est GFR ( Amer) > 60 Est GFR (Non-Af Amer) > 60 Glucose 124 H Calcium 9.2 Magnesium 1.7 Total Bilirubin 1.1 AST 24 Alkaline Phosphatase 53 Total Protein 7.5 Albumin 4.3 Impressions: Abdomen Ultrasound 10/06/18 06:36 IMPRESSION: 1. Indeterminate 2.0 x 1.0 x 1.9 cm complex cystic nodular lesion of the right hepatic lobe. Recommend multiphase contrast MRI or CT of the abdomen, liver protocol. 2. Cholelithiasis. 3. Mild hepatic steatosis. Abdomen/Pelvis CT 10/06/18 07:41 IMPRESSION: IV infiltrated. Cannot assess the hepatic lesion. There is hepatic cirrhosis. Extensive calcifications in the pancreas. Chronic pancreatitis. Gallstones. Abdomen MRI 10/07/18 00:00 IMPRESSION: Fatty infiltrated liver. Gallstones. No focal hepatic masses on pre or postcontrast images. Assessment & Plan - Diagnosis (1) Abdominal pain Qualifiers: Abdominal location: upper abdomen, unspecified Qualified Code(s): R10.10 - Upper abdominal pain, unspecified Is this a current diagnosis for this admission?: Yes (2) Chronic pancreatitis Qualifiers: Pancreatitis type: alcohol induced Qualified Code(s): K86.0 - Alcohol- induced chronic pancreatitis Is this a current diagnosis for this admission?: Yes (3) Nausea & vomiting Is this a current diagnosis for this admission?: Yes - Plan Summary Plan Summary: This is a 63-year-old male with nausea, vomiting, and abdominal pain. He has a history of chronic pancreatitis. He was also found to have gallstones on ultrasound. The patient has no ancillary findings consistent with acute cholecystitis. He does not exhibit typical biliary colic. I have reviewed the patient's MRI. The previously seen lesion (on ultrasound) was not demonstrated on MRI. At this time surgery has nothing more to add regarding the work-up of his liver mass. The patient was able to eat yogurt and Ensure today without vomiting. He still has nausea and abdominal pain, but it is improving. It is likely that his abdominal discomfort is related to chronic pancreatitis. Continue with supportive care. I do not believe the patient will require any s urgical intervention. Surgery will sign off at this time. Please renotify with any questions or concerns.
[2018-10-09 05:51] LABS: ALBUMIN 4.3 g/dL (3.5-5.0); ALKALINE PHOSPHATASE 60 U/L (38-126); ANION GAP 10 (5-19); ASPARTATE AMINO TRANSFERASE 20 U/L (17-59); BILIRUBIN,DIRECT 0.5 mg/dL (0.0-0.4); BILIRUBIN,TOTAL 1.3 mg/dL (0.2-1.3); BLOOD UREA NITROGEN 11 mg/dL (7-20); CALCIUM 9.5 mg/dL (8.4-10.2); CARBON DIOXIDE 28 mmol/L (22-30); CHLORIDE 97 mmol/L (98-107); GLUCOSE 132 mg/dL (75-110); POTASSIUM 3.2 mmol/L (3.6-5.0); TOTAL PROTEIN 7.7 g/dL (6.3-8.2)
[2018-10-09 05:54] LABS: ABSOLUTE LYMPHOCYTES (AUTO) 1.7 10^3/uL (0.5-4.7); ABSOLUTE MONOCYTES (AUTO) 0.7 10^3/uL (0.1-1.4); ABSOLUTE NEUT (AUTO) 5.1 10^3/uL (1.7-8.2); BASOPHILS % (AUTO) 0.5 % (0-2); EOSINOPHILS % (AUTO) 0.4 % (0-6); HEMOGLOBIN 14.3 g/dL (13.5-17.0); MEAN CORPUSCULAR HEMOGLOBIN 28.5 pg (27.0-33.4); MEAN CORPUSCULAR HGB CONC 33.3 g/dL (32.0-36.0); MEAN CORPUSCULAR VOLUME 86 fl (80-97); MONOCYTES % (AUTO) 9.8 % (3-13); PLATELET COUNT 154 10^3/uL (150-450); RED BLOOD COUNT 5.03 10^6/uL (4.35-5.55); RED CELL DISTRIBUTION WIDTH 14.4 % (11.5-14.0); SEGMENTED NEUTROPHILS % (AUTO) 67.3 % (42-78); TOTAL CELLS COUNTED % (AUTO) 100 %; WHITE BLOOD COUNT 7.5 10^3/uL (4.0-10.5)
[2018-10-09] MEDS: PANTOPRAZOLE SODIUM 40 MG TABLET.DR PO SCH (05:55)
[2018-10-09] MEDS ORDERED: POTASSIUM CHLORIDE 10 MEQ CAPSULE.ER PO ONE (07:52)
[2018-10-09] MEDS: ONDANSETRON HCL INJ/PF 4 MG/2 ML SDV IV PRN (09:02)
[2018-10-09] MEDS: ENOXAPARIN SODIUM INJ 40 MG/0.4 ML DISP.SYRIN SUBCUT SCH (09:03)
[2018-10-09] MEDS: MORPHINE SULFATE 10 MG/ML INJ IV PRN (09:03)
--- NOTE | 2018-10-09 10:05 | PDOC PROGRESS REPORT ---
Subjective Progress Note for:: 10/09/18 Subjective:: 63 year old black male patient with past medical history of cold induced pancreatitis coronary artery disease history of [place], hypertension, history of prostate cancer history of cirrhosis, hep C and history of IV drug abuse presented with chief complaint of nausea vomiting and abdominal pain of 24 hours duration. Patient describes the vomiting which is intermittent ingested material later changed to be less and he has associated right upper quadrant pain. He does not fever, chills, chest pain, cough, palpitation or diaphoresis he does have nausea vomiting but no diarrhea or change in bowel habits. He does not have any urinary complaint is he does not have any headache dizziness or blurry vision. Blood works are unremarkable ultrasound of the abdomen reported as indeterminate 2 x 1 x 1.9 complex cystic nodular lesion of the right hepatic lobe. His blood works are unremarkable. Patient claims he is sober for the last 5 years and he is also cleaned with regard to substance abuse except using marijuana. 10/07/2018: Patient seen and examined while resting in bed comfortably. He reports this is his nausea and vomiting has subsided but still has some right upper quadrant pain. This morning patient reevaluated by Dr. Pompa who requested MRI of the liver with and without contrast to further delineate the right hepatic lobe mass. He also consulted Dr. Keller for his input. 10/[id number]-old male with history of pancreatitis, coronary artery disease, history of [place], hypertension history of prostate cancer, cirrhosis of the liver, hep C history of IV drug abuse admitted with nausea vomiting abdominal pain of 1 day duration. MRI of the liver was done to assess the liver mass results are pending. It is still complaining of nausea this morning. To start him on Zofran 4 mg IV every 4 as needed for nausea and vomiting. CT abdomen pelvis done shows chronic pancreatitis and a hepatic cirrhosis. no Acute events in the last 24 hours and afebrile. 10/09/2018-no acute events in the last 24 hours. Afebrile. Able to tolerate the diet. His MRI of the abdomen came back negative for hepatic lesion. I talked to the patient about discharge plan according to him, he does not have a ride, does not have any cloths to go home today and he wants to wait until tomorrow. Reason For Visit: INTRACTABLE NAUSEA AND VOMITING AND ABDOMINAL PAIN Physical Exam Vital Signs: Temp Pulse Resp BP Pulse Ox 98.9 F 55 L 12 111/62 97 10/09/18 08:15 10/09/18 08:15 10/09/18 08:15 10/09/18 08:15 10/09/18 08:15 Intake & Output 10/08/18 10/09/18 10/10/18 06:59 06:59 06:59 Intake Total 1000 1469 Output Total 1900 1775 Balance -900 -306 Weight 72.9 kg 72.2 kg General appearance: PRESENT: no acute distress Head exam: PRESENT: atraumatic Eye exam: PRESENT: PERRLA Mouth exam: PRESENT: moist, tongue midline Teeth exam: PRESENT: poor dentation Neck exam: ABSENT: carotid bruit, JVD, lymphadenopathy, thyromegaly Respiratory exam: PRESENT: decreased breath sounds Cardiovascular exam: PRESENT: RRR. ABSENT: diastolic murmur, rubs, systolic murmur GI/Abdominal exam: PRESENT: normal bowel sounds, soft. ABSENT: distended, guarding, mass, organolmegaly, rebound, tenderness Rectal exam: PRESENT: deferred Extremities exam: PRESENT: full ROM. ABSENT: calf tenderness, clubbing, pedal edema Neurological exam: PRESENT: alert, awake, oriented to person, oriented to place, oriented to time, oriented to situation, CN II-XII grossly intact. ABSENT: motor sensory deficit Psychiatric exam: PRESENT: appropriate affect, normal mood. ABSENT: homicidal ideation, suicidal ideation Results Laboratory Results: 10/09/18 04:35 10/09/18 04:35 10/08/18 10/08/18 10/09/18 11:15 11:15 04:35 WBC 6.8 7.5 RBC 4.82 5.03 Hgb 13.9 14.3 Hct 41.4 43.0 MCV 86 86 MCH 28.9 28.5 MCHC 33.7 33.3 RDW 14.6 H 14.4 H Plt Count 126 L 154 Seg Neutrophils % 69.7 67.3 Lymphocytes % 20.2 22.0 Monocytes % 9.3 9.8 Eosinophils % 0.1 0.4 Basophils % 0.7 0.5 Absolute Neutrophils 4.7 5.1 Absolute Lymphocytes 1.4 1.7 Absolute Monocytes 0.6 0.7 Absolute Eosinophils 0.0 0.0 Absolute Basophils 0.0 0.0 Sodium 136.9 L Potassium 3.2 L Chloride 97 L Carbon Dioxide 26 Anion Gap 14 BUN 8 Creatinine 0.73 Est GFR ( Amer) > 60 Est GFR (Non-Af Amer) > 60 Glucose 124 H Calcium 9.2 Magnesium 1.7 Total Bilirubin 1.1 AST 24 Alkaline Phosphatase 53 Total Protein 7.5 Albumin 4.3 10/09/18 04:35 WBC RBC Hgb Hct MCV MCH MCHC RDW Plt Count Seg Neutrophils % Lymphocytes % Monocytes % Eosinophils % Basophils % Absolute Neutrophils Absolute Lymphocytes Absolute Monocytes Absolute Eosinophils Absolute Basophils Sodium 134.7 L Potassium 3.2 L Chloride 97 L Carbon Dioxide 28 Anion Gap 10 BUN 11 Creatinine 0.84 Est GFR ( Amer) > 60 Est GFR (Non-Af Amer) > 60 Glucose 132 H Calcium 9.5 Magnesium 1.8 Total Bilirubin 1.3 AST 20 Alkaline Phosphatase 60 Total Protein 7.7 Albumin 4.3 Impressions: Abdomen Ultrasound 10/06/18 06:36 IMPRESSION: 1. Indeterminate 2.0 x 1.0 x 1.9 cm complex cystic nodular lesion of the right hepatic lobe. Recommend multiphase contrast MRI or CT of the abdomen, liver protocol. 2. Cholelithiasis. 3. Mild hepatic steatosis. Abdomen/Pelvis CT 10/06/18 07:41 IMPRESSION: IV infiltrated. Cannot assess the hepatic lesion. There is hepatic cirrhosis. Extensive calcifications in the pancreas. Chronic pancreatitis. Gallstones. Abdomen MRI 10/07/18 00:00 IMPRESSION: Fatty infiltrated liver. Gallstones. No focal hepatic masses on pre or postcontrast images. Assessment and Plan - Diagnosis (1) Intractable nausea and vomiting Qualifiers: Vomiting type: unspecified Qualified Code(s): R11.2 - Nausea with vomiting, unspecified Is this a current diagnosis for this admission?: Yes Plan: Has been improving 10/08/2018-patient is still complaining of nausea this morning to start him on IV Zofran 4 mg every 4 as needed. Waiting for the MRI of the abdomen results to as sess the liver mass. 10/09/2018- denies any nausea or vomitings.. tolerating diet well. MRI of the abdomen ruled out hepatic masses. (2) Liver mass, right lobe Is this a current diagnosis for this admission?: Yes Plan: Patient scheduled to have MRI of the abdomen with and without contrast 10/08/2018-patient has liver mass MRI of the abdomen with and without contrast was done waiting for the results. Consultation with heme-onc was requested. 10/09/2018-CT scan of the abdomen initially shows possible liver mass MRI was done which was negative for hepatic mass. Dr. Brand is going to follow the patient as an outpatient. (3) Chronic pancreatitis Qualifiers: Pancreatitis type: alcohol induced Qualified Code(s): K86.0 - Alcohol- induced chronic pancreatitis Is this a current diagnosis for this admission?: Yes Plan: His lipase is within normal limits. 10/08/2018-patient has a history of chronic pancreatitis seen on CT abdominal pelvis lipase level is 120 stable. No complaints of abdominal pain today. 10/09/2018-patient has history of chronic pancreatitis lipase levels are stable. No complaints of abdominal pain today. (4) Coronary artery disease Is this a current diagnosis for this admission?: Yes (5) Hypertension Qualifiers: Hypertension type: essential hypertension Qualified Code(s): I10 - Essential (primary) hypertension Is this a current diagnosis for this admission?: Yes Plan: Continue home medication. 10/08/2018-patient blood pressure today is 157/88 he is receiving normal saline 150 cc/h to stop IV fluids from today. 10/09/2018-patient blood pressure today is 151/76 stable. Off the IV fluids. (6) Bradycardia Is this a current diagnosis for this admission?: Yes Plan: 10/08/2018-patient is heart rate is around 48-52. Asymptomatic. Patient is not on any beta-blockers. 10/09/2018-patient's latest heart rate is around 50 persistently bradycardic. Causes unknown. - Time Time Spent with patient: 25-34 minutes Medications reviewed and adjusted accordingly: Yes Anticipated discharge: Home
--- NOTE | 2018-10-09 10:38 | PDOC DISCHARGE SUMMARY ---
General - Admit/Disc Date/PCP Admission Date/Primary Care Provider: 10/06/18 15:56 Discharge Date: 10/09/18 - Discharge Diagnosis (1) Intractable nausea and vomiting Is this a current diagnosis for this admission?: Yes Summary: Has been improving 10/08/2018-patient is still complaining of nausea this morning to start him on IV Zofran 4 mg every 4 as needed. Waiting for the MRI of the abdomen results to assess the liver mass. 10/09/2018- denies any nausea or vomitings.. tolerating diet well. MRI of the abdomen ruled out hepatic masses. (2) Liver mass, right lobe Is this a current diagnosis for this admission?: Yes Summary: Patient scheduled to have MRI of the abdomen with and without contrast 10/08/2018-patient has liver mass MRI of the abdomen with and without contrast was done waiting for the results. Consultation with heme-onc was requested. 10/09/2018-CT scan of the abdomen initially shows possible liver mass MRI was done which was negative for hepatic mass. Dr. Brand is going to follow the patient as an outpatient. (3) Chronic pancreatitis Is this a current diagnosis for this admission?: Yes Summary: His lipase is within normal limits. 10/08/2018-patient has a history of chronic pancreatitis seen on CT abdominal p shelly lipase level is 120 stable. No complaints of abdominal pain today. 10/09/2018-patient has history of chronic pancreatitis lipase levels are stable. No complaints of abdominal pain today. (4) Coronary artery disease Is this a current diagnosis for this admission?: Yes Summary: Continue home medication. 10/08/2018-patient blood pressure today is 157/88 he is receiving normal saline 150 cc/h to stop IV fluids from today. 10/09/2018-patient blood pressure today is 151/76 stable. Off the IV fluids. (5) Hypertension Is this a current diagnosis for this admission?: Yes (6) Bradycardia Is this a current diagnosis for this admission?: Yes Summary: 10/08/2018-patient is heart rate is around 48-52. Asymptomatic. Patient is not on any beta-blockers. 10/09/2018-patient's latest heart rate is around 50 persistently bradycardic. Causes unknown. - Additional Information Resuscitation Status: Full Code Discharge Diet: Cardiac Discharge Activity: Activity As Tolerated Home Medications: No Home Medications 10/06/18 History of Present Illness History of Present Illness: CEM MONROY is a 63 year old male 63 year old black male patient with past medical history of cold induced pancreatitis coronary artery disease history of [place], hypertension, history of prostate cancer history of cirrhosis, hep C and history of IV drug abuse presented with chief complaint of nausea vomiting and abdominal pain of 24 hours duration. Patient describes the vomiting which is intermittent ingested material later changed to be less and he has associated right upper quadrant pain. He does not fever, chills, chest pain, cough, palpitation or diaphoresis he does have nausea vomiting but no diarrhea or change in bowel habits. He does not have any urinary complaint is he does not have any headache dizziness or blurry vision. Blood works are unremarkable ultrasound of the abdomen reported as indeterminate 2 x 1 x 1.9 complex cystic nodular lesion of the right hepatic lobe. His blood works are unremarkable. Patient claims he is sober for the last 5 years and he is also cleaned with regard to substance abuse except using marijuana. 10/07/2018: Patient seen and examined while resting in bed comfortably. He reports this is his nausea and vomiting has subsided but still has some right upper quadrant pain. This morning patient reevaluated by Dr. Pompa who requested MRI of the liver with and without contrast to further delineate the right hepatic lobe mass. He also consulted Dr. Keller for his input. 10/[id number]-oeaw-old male with history of pancreatitis, coronary artery disease, history of [place], hypertension history of prostate cancer, cirrhosis of the liver, hep C history of IV drug abuse admitted with nausea vomiting abdominal pain of 1 day duration. MRI of the liver was done to assess the liver mass results are pending. It is still complaining of nausea this morning. To start him on Zofran 4 mg IV every 4 as needed for nausea and vomiting. CT abdomen pelvis done shows chronic pancreatitis and a hepatic cirrhosis. no Acute events in the last 24 hours and afebrile. 10/09/2018-no acute events in the last 24 hours. Afebrile. Able to tolerate the diet. His MRI of the abdomen came back negative for hepatic lesion. I talked to the patient about discharge plan according to him, he does not have a ride, does not have any cloths to go home today and he wants to wait until tomorrow. 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 Hospital Course Hospital Course: 10/09/2018-patient admitted with abdominal pains and CT scan shows chronic [id number] year old black male patient with past medical history of cold induced pancreatitis coronary artery disease history of [place], hypertension, history of prostate cancer history of cirrhosis, hep C and history of IV drug abuse presented with chief complaint of nausea vomiting and abdominal pain of 24 hours duration. Patient describes the vomiting which is intermittent ingested material later changed to be less and he has associated right upper quadrant pain. He does not fever, chills, chest pain, cough, palpitation or diaphoresis he does have nausea vomiting but no diarrhea or change in bowel habits. He does not have any urinary complaint is he does not have any headache dizziness or blurry vision. Blood works are unremarkable ultrasound of the abdomen reported as indeterminate 2 x 1 x 1.9 complex cystic nodular lesion of the right hepatic lobe. His blood works are unremarkable. Patient claims he is sober for the last 5 years and he is also cleaned with regard to substance abuse except using marijuana. 10/07/2018: Patient seen and examined while resting in bed comfortably. He reports this is his nausea and vomiting has subsided but still has some right upper quadrant pain. This morning patient reevaluated by Dr. Pompa who requested MRI of the liver with and without contrast to further delineate the right hepatic lobe mass. He also consulted Dr. Keller for his input. 10/08/[id number]-xsod-old male with history of pancreatitis, coronary artery disease, history of [place], hypertension history of prostate cancer, cirrhosis of the liver, hep C history of IV drug abuse admitted with nausea vomiting abdominal pain of 1 day duration. MRI of the liver was done to assess the liver mass results are pending. It is still complaining of nausea this morning. To start him on Zofran 4 mg IV every 4 as needed for nausea and vomiting. CT abdomen pelvis done shows chronic pancreatitis and a hepatic cirrhosis. no A cute events in the last 24 hours and afebrile. 10/09/2018-no acute events in the last 24 hours. Afebrile. Able to tolerate the diet. His MRI of the abdomen came back negative for hepatic lesion. I talked to the patient about discharge plan according to him, he does not have a ride, does not have any cloths to go home today and he wants to wait until tomorrow. Initial CT scan also indicate possible liver mass MRI with and without contrast was done which came back negative for hepatic mass Dr. Chang is going to follow the patient in his office in few days. No acute events in the last 24 hours. Physical Exam Vital Signs: Temp Pulse Resp BP Pulse Ox 98.9 F 55 L 12 111/62 97 10/09/18 08:15 10/09/18 08:15 10/09/18 08:15 10/09/18 08:15 10/09/18 08:15 Intake & Output 10/08/18 10/09/18 10/10/18 06:59 06:59 06:59 Intake Total 1000 1469 Output Total 1900 1775 Balance -900 -306 Weight 72.9 kg 72.2 kg General appearance: PRESENT: no acute distress Head exam: PRESENT: atraumatic Eye exam: PRESENT: PERRLA Mouth exam: PRESENT: moist, tongue midline Teeth exam: PRESENT: poor dentation Neck exam: ABSENT: carotid bruit, JVD, lymphadenopathy, thyromegaly Respiratory exam: PRESENT: decreased breath sounds Cardiovascular exam: PRESENT: RRR. ABSENT: diastolic murmur, rubs, systolic murmur GI/Abdominal exam: PRESENT: normal bowel sounds, soft. ABSENT: distended, guarding, mass, organolmegaly, rebound, tenderness Rectal exam: PRESENT: deferred Extremities exam: PRESENT: full ROM. ABSENT: calf tenderness, clubbing, pedal edema Neurological exam: PRESENT: alert, awake, oriented to person, oriented to place, oriented to time, oriented to situation, CN II-XII grossly intact. ABSENT: motor sensory deficit Psychiatric exam: PRESENT: appropriate affect, normal mood. ABSENT: homicidal ideation, suicidal ideation Results Laboratory Results: 10/09/18 04:35 10/09/18 04:35 10/08/18 10/08/18 10/09/18 11:15 11:15 04:35 WBC 6.8 7.5 RBC 4.82 5.03 Hgb 13.9 14.3 Hct 41.4 43.0 MCV 86 86 MCH 28.9 28.5 MCHC 33.7 33.3 RDW 14.6 H 14.4 H Plt Count 126 L 154 Seg Neutrophils % 69.7 67.3 Lymphocytes % 20.2 22.0 Monocytes % 9.3 9.8 Eosinophils % 0.1 0.4 Basophils % 0.7 0.5 Absolute Neutrophils 4.7 5.1 Absolute Lymphocytes 1.4 1.7 Absolute Monocytes 0.6 0.7 Absolute Eosinophils 0.0 0.0 Absolute Basophils 0.0 0.0 Sodium 136.9 L Potassium 3.2 L Chloride 97 L Carbon Dioxide 26 Anion Gap 14 BUN 8 Creatinine 0.73 Est GFR ( Amer) > 60 Est GFR (Non-Af Amer) > 60 Glucose 124 H Calcium 9.2 Magnesium 1.7 Total Bilirubin 1.1 AST 24 Alkaline Phosphatase 53 Total Protein 7.5 Albumin 4.3 10/09/18 04:35 WBC RBC Hgb Hct MCV MCH MCHC RDW Plt Count Seg Neutrophils % Lymphocytes % Monocytes % Eosinophils % Basophils % Absolute Neutrophils Absolute Lymphocytes Absolute Monocytes Absolute Eosinophils Absolute Basophils Sodium 134.7 L Potassium 3.2 L Chloride 97 L Carbon Dioxide 28 Anion Gap 10 BUN 11 Creatinine 0.84 Est GFR ( Amer) > 60 Est GFR (Non-Af Amer) > 60 Glucose 132 H Calcium 9.5 Magnesium 1.8 Total Bilirubin 1.3 AST 20 Alkaline Phosphatase 60 Total Protein 7.7 Albumin 4.3 Impressions: Abdomen Ultrasound 10/06/18 06:36 IMPRESSION: 1. Indeterminate 2.0 x 1.0 x 1.9 cm complex cystic nodular lesion of the right hepatic lobe. Recommend multiphase contrast MRI or CT of the abdomen, liver protocol. 2. Cholelithiasis. 3. Mild hepatic steatosis. Abdomen/Pelvis CT 10/06/18 07:41 IMPRESSION: IV infiltrated. Cannot assess the hepatic lesion. There is hepatic cirrhosis. Extensive calcifications in the pancreas. Chronic pancreatitis. Gallstones. Abdomen MRI 10/07/18 00:00 IMPRESSION: Fatty infiltrated liver. Gallstones. No focal hepatic masses on pre or postcontrast images. Qualifiers - * PATIENT BEING DISCHARGED WITH ANY OF THE FOLLOWING DIAGNOSIS: No VTE patient discharged on overlapping Therapy?: No Acute Heart Failure - Is this a Heart Failure Patient?: No
[2018-10-09 10:52] VITALS: BP 145/75
== END 2018-10-09 13:00 | disposition home or self-care (01) ==
LOC: ER 04:24 → EH 15:56 → INTOOBSV 15:56 → 4N 17:28
PROVIDERS: ADMIT Internal Medicine; ATTEND Internal Medicine
PROC: 06HY33Z Insertion of Infusion Device into Lower Vein, Percutaneous Approach (ICD-10-PCS; principal; 2018-10-06)
DX: R11.2 Nausea with vomiting, unspecified (principal); R16.0 Hepatomegaly, not elsewhere classified; K86.0 Alcohol-induced chronic pancreatitis; I25.10 Atherosclerotic heart disease of native coronary artery without angina pectoris; I10 Essential (primary) hypertension; R00.1 Bradycardia, unspecified; I25.2 Old myocardial infarction; K74.60 Unspecified cirrhosis of liver; K80.80 Other cholelithiasis without obstruction; F19.11 Other psychoactive substance abuse, in remission; Z85.46 Personal history of malignant neoplasm of prostate; Z86.19 Personal history of other infectious and parasitic diseases; Z80.0 Family history of malignant neoplasm of digestive organs; Z82.69 Family history of other diseases of the musculoskeletal system and connective tissue
CPT/HCPCS: 96376; 99291; 96361; 96374; 96375; 36415; 80307 ×2; 82150; 83690; 83735 ×2; 85025 ×3; 80048; 80053 ×3; 81001; 74183; 76705; 74176; 36558; G0378 ×5; C1751; A9576; J1200; J3490 ×3; J1885; J2765 ×3; J2270 ×4; J1650 ×2; A9270 ×4; J2550; J2405 ×3; J7030; J7120 ×3

== ENCOUNTER 2018-10-10 11:21 | Emergency (ER) | payer MEDICARE, MEDICAID ==
--- NOTE | 2018-10-10 11:44 | ER Document Report ---
ED Medical Screen (RME) - General Chief Complaint: Nausea/Vomiting Stated Complaint: VOMITING Time Seen by Provider: 10/10/18 11:41 Mode of Arrival: Wheelchair Information source: Patient Notes: 63-year-old male presented to ED for complaint of nausea vomiting and abdominal pain. He states he was admitted to the hospital for the same symptoms on Sunday night and was discharged yesterday. He states that the time of discharge he did not have the nausea vomiting abdominal pain but they were not able to tell him what was wrong. He states the symptoms have returned this morning. He states he called Dr. Santana's office and they told him to come to the emergency room. He does have a history of prostate cancer pancreatitis and hip surgery due to arthritis I have greeted and performed a rapid initial assessment of this patient. A comprehensive ED assessment and evaluation of the patient, analysis of test results and completion of medical decision making process will be conducted by an additional ED providers. Dictation of this chart was performed using voice recognition software; therefore, there may be some unintended grammatical errors. TRAVEL OUTSIDE OF THE [place] IN LAST 30 DAYS: No - Related Data Allergies/Adverse Reactions: haloperidol [From Haldol] Adverse Reaction (Intermediate, Verified 10/10/18 11:28) Cramping, "couldn't breathe" lorazepam [From Ativan] Adverse Reaction (Intermediate, Verified 10/10/18 11:28) Nausea, nightmares promethazine HCl [From Phenergan] Adverse Reaction (Unknown, Verified 10/10/18 11:28) "Messes my veins up" Past Medical History - Past Medical History Cardiac Medical History: Denies: Hx Coronary Artery Disease, Hx Heart Attack, Hx Hypertension Pulmonary Medical History: Denies: Hx Asthma, Hx Bronchitis, Hx COPD, Hx Pneumonia Neurological Medical History: Reports: Hx Seizures - ETOH withdrawal seizures. Denies: Hx Cerebrovascular Accident Endocrine Medical History: Denies: Hx Diabetes Mellitus Type 1, Hx Diabetes Mellitus Type 2 Renal/ Medical History: Denies: Hx Peritoneal Dialysis Malignancy Medical History: Reports Hx Prostate Cancer GI Medical History: Reports: Hx Cirrhosis, Hx Hepatitis - Hepatitis C, Hx Liver Failure, Hx Pancreatitis Musculoskeltal Medical History: Denies Hx Arthritis Psychiatric Medical History: Denies: Hx Depression Infectious Medical History: Reports: Hx Hepatitis - Hepatitis C Past Surgical History: Reports: Hx Orthopedic Surgery - R hip replacement, Hx Pancreatic Surgery - Pancreatic bx, Hx Urinary Tract Surgery - Laser TURP - Immunizations Hx Diphtheria, Pertussis, Tetanus Vaccination: No History of Influenza Vaccine for 11/2016 - 04/2017 Season: Unknown Physical Exam - Vital signs Vitals: Temp Pulse Resp BP Pulse Ox 99.8 F 59 L 17 144/109 H 100 10/10/18 11:28 10/10/18 11:28 10/10/18 11:28 10/10/18 11:28 10/10/18 11:28 Course - Vital Signs Vital signs: Temp Pulse Resp BP Pulse Ox 99.8 F 59 L 17 144/109 H 100 10/10/18 11:28 10/10/18 11:28 10/10/18 11:28 10/10/18 11:28 10/10/18 11:28
[2018-10-10] MEDS ORDERED: NORMAL SALINE 1000 ML 1,000 ML IV ONE ×2 (11:45→14:10)
[2018-10-10] MEDS ORDERED: ONDANSETRON HCL INJ/PF 4 MG/2 ML SDV IV ONE (11:45)
[2018-10-10 12:32] LABS: APPEARANCE,URINE CLEAR; BILIRUBIN,URINE NEGATIVE (NEGATIVE); COLOR,URINE YELLOW; GLUCOSE, URINE NEGATIVE (NEGATIVE); KETONES,URINE NEGATIVE (NEGATIVE); LEUKOCYTE ESTERASE,URINE NEGATIVE (NEGATIVE); NITRITE,URINE NEGATIVE (NEGATIVE); PROTEIN,URINE NEGATIVE (NEGATIVE); UROBILINOGEN,URINE NEGATIVE mg/dL (<2.0)
[2018-10-10 13:13] LABS: ABSOLUTE NEUT (AUTO) 6.6 10^3/uL (1.7-8.2); BASOPHILS % (AUTO) 0.6 % (0-2); EOSINOPHILS % (AUTO) 0.3 % (0-6); HEMATOCRIT 41.9 % (37.9-51.0); HEMOGLOBIN 13.9 g/dL (13.5-17.0); MEAN CORPUSCULAR HEMOGLOBIN 28.6 pg (27.0-33.4); MEAN CORPUSCULAR HGB CONC 33.2 g/dL (32.0-36.0); MEAN CORPUSCULAR VOLUME 86 fl (80-97); MONOCYTES % (AUTO) 11.3 % (3-13); PLATELET COUNT 160 10^3/uL (150-450); RED BLOOD COUNT 4.87 10^6/uL (4.35-5.55); RED CELL DISTRIBUTION WIDTH 14.4 % (11.5-14.0); SEGMENTED NEUTROPHILS % (AUTO) 75.8 % (42-78); TOTAL CELLS COUNTED % (AUTO) 100 %; WHITE BLOOD COUNT 8.7 10^3/uL (4.0-10.5)
[2018-10-10 13:40] LABS: ALKALINE PHOSPHATASE 60 U/L (38-126); ANION GAP 14 (5-19); ASPARTATE AMINO TRANSFERASE 24 U/L (17-59); BILIRUBIN,DIRECT 0.3 mg/dL (0.0-0.4); BILIRUBIN,TOTAL 1.1 mg/dL (0.2-1.3); BLOOD UREA NITROGEN 24 mg/dL (7-20); CALCIUM 9.6 mg/dL (8.4-10.2); CARBON DIOXIDE 26 mmol/L (22-30); CHLORIDE 102 mmol/L (98-107); CREATINE KINASE 200 U/L (55-170); GLUCOSE 114 mg/dL (75-110); POTASSIUM 3.2 mmol/L (3.6-5.0); TOTAL PROTEIN 8.5 g/dL (6.3-8.2)
--- NOTE | 2018-10-10 13:42 | ER Document Report ---
HPI - HPI Patient complains to provider of: vomiting and diarrhea Time Seen by Provider: 10/10/18 11:41 Onset/Duration: Gradual, Intermittent Quality of pain: Cramping Severity: Mild Pain Level: 1 Context: 63 yr old male pt with the listed pmh, here for intermittent crampy diffuse abdominal pain for x several days along with a few episodes of nonbloody nonbilious vomiting x 1 day. he was just discharged from being admitted here for the same and had an extensive work up to include being cleared by surg, abd/pelv cts and mri's and was told to f/u out pt however since dc he states he wasn't dc'd with any nausea meds and started to vomit after trying to eat once he was dc'd so he came back in for eval. denies any new sx. states just feels nauseous and has intermittent abd pain. states he smokes only marijuana now but hasn't in a while and denies prior hx of cannabis hyperemesis. denies current etoh use, or current drug use however he has an extensive pmh of this. no trauma or injury. no hx of diabetes or asthma. normal bms. no uti sx. no testicular pain/swelling, penile dc/rash/lesions, or concerns for stds. denies swelling or hx of hernias. no abd surgeries unless otherwise noted. no recent abx or steroids. hasn't taken anything for sx. no hx of gerd, gi bleed, ulcers, ibs, or crohns. no sick contacts. no uri sx. no rash. no excessive nsaid use or etoh. no recent illness. pain is minimally worse with eating. denies changes in color or caliber of stool. no other associated sx. 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 Denies: Hx Cerebrovascular Accident Endocrine Medical History: Denies: Hx Diabetes Mellitus Type 1, Hx Diabetes Mellitus Type 2 Renal/ Medical History: Denies: Hx Peritoneal Dialysis Malignancy Medical History: Reports Hx Prostate Cancer GI Medical History: Reports: Hx Cirrhosis, Hx Hepatitis - Hepatitis C, Hx Pancreatitis Musculoskeletal Medical History: Denies Hx Arthritis Psychiatric Medical History: Denies: Hx Depression Infectious Medical History: Reports: Hx Hepatitis - Hepatitis C Past Surgical History: Reports: Hx Orthopedic Surgery - R hip replacement, Hx Pancreatic Surgery - Pancreatic bx, Hx Urinary Tract Surgery - Laser TURP - Immunizations Immunizations up to date: Yes Vertical Provider Document - CONSTITUTIONAL Exam Limitations: No Limitations General Appearance: No Apparent Distress Notes: >>>> PHYSICAL_EXAM: GENERAL_APPEARANCE: well_nourished, alert, cooperative, no_acute_distress, no obvious_discomfort. Pleasant, middle aged black male, resting quietly laying in bed under the covers, smiling, speaking in full sentences, easily sitting up, in no sign of pain or resp distress, nontoxic, no one is with him VITALS: reviewed, see vital signs table. HEAD: normocephalic. atraumatic. no moulton signs. no raccoon eyes. EYES: PERRL, EOMI, (-)scleral icterus. NOSE: no_nasal_discharge. MOUTH: (-)decreased moisture. THROAT: no_tonsilar_inflammation/hypertrophy/exudate. no lymphadenopathy NECK: supple, no_neck_tenderness, full rom. full strength. no meningeal signs. BACK: no_back_tenderness. CHEST_WALL: no_chest_tenderness. LUNGS: no_wheezing, (-)accessory muscle use, good air exchange bilateral. HEART: normal_rate, normal_rhythm,, ABDOMEN: normal_BS, soft, abdomen-diffuse non-tender, (-)guarding, (-)rebound, no distension or peritoneal signs. neg murphys. neg mcburneys. no cva tenderness GENITALS:deferred RECTAL: deferred EXTREMITIES: strength 5/5 in all_extremities, good pulses in all_extremities, no_edema, no_swelling\tenderness. full rom. normal gait. brisk cap refill. 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 SKIN: warm, dry, good_color, no _rash. no grossly visible overlying skin changes to suggest trauma unless otherwise noted. NEURO: motor_intact, sensory_intact. MENTAL_STATUS: normal_affect, speech_clear, oriented_X_3, responds_appropriately to questions. - INFECTION CONTROL TRAVEL OUTSIDE OF THE [place] IN LAST 30 DAYS: No Course - Re-evaluation Re-evalutation: pt here for a few episodes of continued nonbloody nonbilious vomiting since his recent discharge for the same after an extensive workup. labs were unremarkable here today other than a mild hypokalemia which is his baseline and unchanged. he has been resting quietly under his blankets in the bed and in no sign of pain and has had no vomiting. he states he wasn't dc'd with any anti-emetics and started vomiting again since he was dc'd. he responded well to tx listed. tolerating po. serial abd exams remain benign. he was given community resources for f/u. he was given a zofran take home pack and a script for zofran was also written for him given his phenergan allergy. advised sx care. bland diet. drink plenty of fluids and avoid using recreational drugs. advised to f/u with pcp/specialists in 1-2 days. return for any worsening symptoms. vss. well appearing. satting well on ra. neurononfocal. pt understands and agrees to plan. On reexam, pt improved with tx listed. remained stable. nontoxic. well appearing. pain controlled. tolerating po. requesting to go home. serial abd exams remain benign. case discussed with ER Attending, Dr. Bradley, who directed and agrees with plan of care and advised no further workup indicated at this time and pt is stable for dc home with close f/u with pcp/specialist. Documentation achieved through voice recording which may lead to some occasional accidental typographical errors. Extensive efforts have been made to proof read documentation to make sure these are the least as possible. Category Date Time Status CBC WITH DIFF [HEME] Stat Lab 10/10/18 13:00 Completed COMPREHENSIVE METABOLIC PANEL [CHEM] Stat Lab 10/10/18 13:00 Completed CREATINE KINASE [CHEM] Stat Lab 10/10/18 13:00 Completed LIPASE [CHEM] Stat Lab 10/10/18 13:00 Completed MAGNESIUM [CHEM] Stat Lab 10/10/18 13:00 Completed URINALYSIS [URIN] Stat Lab 10/10/18 11:35 Completed Metoclopramide HCl [Reglan Inj/Pf 10 mg/2 ml Sdv] Med 10/10/18 14:10 Discontinued 10 mg IV NOW ONE Normal Saline 1000 ml [NaCl 0.9% 1000 ml IV Soln] 1,000 Med 10/10/18 11:45 Discontinued ml IV BOLUS Normal Saline 1000 ml [NaCl 0.9% 1000 ml IV Soln] 1,000 Med 10/10/18 14:10 Discontinued ml IV BOLUS Ondansetron HCl/Pf [Zofran Inj/Pf 4 mg/2 ml Sdv] Med 10/10/18 11:45 Discontinued 8 mg IV NOW ONE Ondansetron [Zofran Odt 4 mg Tablet (6 Tab/ER Disp)] Med 10/10/18 15:17 Disco ntinued 1 tab PO ASDIR PRN - Vital Signs Vital signs: Temp Pulse Resp BP Pulse Ox 99.8 F 59 L 17 144/109 H 100 10/10/18 11:28 10/10/18 11:28 10/10/18 11:28 10/10/18 11:28 10/10/18 11:28 Temp Pulse Pulse Resp BP BP Pulse Ox 10/10/18 11:28 99.8 F 59 L 17 144/109 H 100 - Laboratory Result Diagrams: 10/10/18 13:00 10/10/18 13:00 Laboratory results interpreted by me: 10/10/18 10/10/18 11:35 13:00 RDW 14.4 H Lymph % (Auto) 12.0 L Urine Ascorbic Acid 20 H Labs- Entire Visit 10/10/18 10/10/18 10/10/18 11:35 13:00 13:00 WBC 8.7 RBC 4.87 Hgb 13.9 Hct 41.9 MCV 86 MCH 28.6 MCHC 33.2 RDW 14.4 H Plt Count 160 Lymph % (Auto) 12.0 L Levy % (Auto) 11.3 Eos % (Auto) 0.3 Baso % (Auto) 0.6 Absolute Neuts (auto) 6.6 Absolute Lymphs (auto) 1.0 Absolute Monos (auto) 1.0 Absolute Eos (auto) 0.0 Absolute Basos (auto) 0.0 Seg Neutrophils % 75.8 Sodium 141.5 Potassium 3.2 L Chloride 102 Carbon Dioxide 26 Anion Gap 14 BUN 24 H Creatinine 0.96 Est GFR ( Amer) > 60 Est GFR (MDRD) Non-Af > 60 Glucose 114 H Calcium 9.6 Magnesium Total Bilirubin 1.1 Direct Bilirubin 0.3 Neonat Total Bilirubin Not Reportable Neonat Direct Bilirubin Not Reportable Neonat Indirect Bili Not Reportable AST 24 ALT 13 Alkaline Phosphatase 60 Creatine Kinase 200 H Total Protein 8.5 H Albumin 5.0 Lipase 142.8 Urine Color YELLOW Urine Appearance CLEAR Urine pH 5.0 Ur Specific Yale 1.030 Urine Protein NEGATIVE Urine Glucose (UA) NEGATIVE Urine Ketones NEGATIVE Urine Blood NEGATIVE Urine Nitrite NEGATIVE Urine Bilirubin NEGATIVE Urine Urobilinogen NEGATIVE Ur Leukocyte Esterase NEGATIVE Urine WBC (Auto) 3 Urine RBC (Auto) 1 U Hyaline Cast (Auto) 1 Squamous Epi Cells Auto <1 Urine Mucus (Auto) MANY Urine Ascorbic Acid 20 H 10/10/18 13:00 WBC RBC Hgb Hct MCV MCH MCHC RDW Plt Count Lymph % (Auto) Levy % (Auto) Eos % (Auto) Baso % (Auto) Absolute Neuts (auto) Absolute Lymphs (auto) Absolute Monos (auto) Absolute Eos (auto) Absolute Basos (auto) Seg Neutrophils % Sodium Potassium Chloride Carbon Dioxide Anion Gap BUN Creatinine Est GFR ( Amer) Est GFR (MDRD) Non-Af Glucose Calcium Magnesium 2.2 Total Bilirubin Direct Bilirubin Neonat Total Bilirubin Neonat Direct Bilirubin Neonat Indirect Bili AST ALT Alkaline Phosphatase Creatine Kinase Total Protein Albumin Lipase Urine Color Urine Appearance Urine pH Ur Specific Yale Urine Protein Urine Glucose (UA) Urine Ketones Urine Blood Urine Nitrite Urine Bilirubin Urine Urobilinogen Ur Leukocyte Esterase Urine WBC (Auto) Urine RBC (Auto) U Hyaline Cast (Auto) Squamous Epi Cells Auto Urine Mucus (Auto) Urine Ascorbic Acid Discharge - Discharge Clinical Impression: Vomiting Qualifiers: Vomiting type: unspecified Vomiting Intractability: non-intractable Nausea presence: with nausea Qualified Code(s): R11.2 - Nausea with vomiting, unspecified Abdominal pain Qualifiers: Abdominal location: unspecified location Qualified Code(s): R10.9 - Unspecified abdominal pain Condition: Good Disposition: HOME, SELF-CARE Instructions: Abdominal Pain ([facility]), Vomiting ([facility]) Additional Instructions: Follow-up with PCP/specialists in 1 to 2 days. Return for any worsening symptoms. take the medication as prescribed. drink plenty of fluids. bland diet. avoid recreational drug usage Prescriptions: Ondansetron HCl [Zofran 4 mg Tablet] 1 tab PO Q8HP PRN #14 tablet PRN Reason: For Nausea/Vomiting
[2018-10-10] MEDS ORDERED: METOCLOPRAMIDE HCL INJ/PF 10 MG/2 ML SDV IV ONE (14:10)
[2018-10-10] MEDS ORDERED: ONDANSETRON ODT 4 MG TAB (6 TAB/ER DISP) PO PRN (15:17)
[2018-10-10 15:33] VITALS: BP 170/87
== END 2018-10-10 15:39 | disposition home or self-care (01) ==
LOC: ER 11:21
DX: R11.2 Nausea with vomiting, unspecified (principal); R10.9 Unspecified abdominal pain; R19.7 Diarrhea, unspecified; Z87.891 Personal history of nicotine dependence
CPT/HCPCS: 99283; 96361; 96374; 96375; 36415; 82550; 83690; 83735; 85025; 80053; 81001; J2765; J2405; J7030; A9270

== ENCOUNTER 2019-09-05 13:18 | Emergency (ER) | payer MEDICARE, MEDICAID ==
[2019-09-05 15:44] LABS: ABSOLUTE LYMPHOCYTES (AUTO) 0.8 10^3/uL (0.5-4.7); ABSOLUTE MONOCYTES (AUTO) 0.9 10^3/uL (0.1-1.4); ABSOLUTE NEUT (AUTO) 10.6 10^3/uL (1.7-8.2); BASOPHILS % (AUTO) 0.3 % (0-2); HEMATOCRIT 45.5 % (37.9-51.0); HEMOGLOBIN 15.9 g/dL (13.5-17.0); LYMPHOCYTES % (AUTO) 6.4 % (13-45); MEAN CORPUSCULAR HEMOGLOBIN 30.4 pg (27.0-33.4); MEAN CORPUSCULAR HGB CONC 34.9 g/dL (32.0-36.0); MEAN CORPUSCULAR VOLUME 87 fl (80-97); MONOCYTES % (AUTO) 6.9 % (3-13); PLATELET COUNT 118 10^3/uL (150-450); RED BLOOD COUNT 5.22 10^6/uL (4.35-5.55); RED CELL DISTRIBUTION WIDTH 13.2 % (11.5-14.0); SEGMENTED NEUTROPHILS % (AUTO) 86.4 % (42-78); TOTAL CELLS COUNTED % (AUTO) 100 %; WHITE BLOOD COUNT 12.3 10^3/uL (4.0-10.5)
[2019-09-05] MEDS ORDERED: NORMAL SALINE 1000 ML 1,000 ML IV ONE ×2 (15:48→16:08)
[2019-09-05] MEDS ORDERED: ONDANSETRON HCL INJ/PF 4 MG/2 ML SDV IV ONE ×3 (15:48→21:33)
[2019-09-05 15:58] LABS: ALBUMIN 5.2 g/dL (3.5-5.0); ALKALINE PHOSPHATASE 90 U/L (38-126); ANION GAP 16 (5-19); ASPARTATE AMINO TRANSFERASE 81 U/L (17-59); BILIRUBIN,DIRECT 0.3 mg/dL (0.0-0.4); BILIRUBIN,TOTAL 5.1 mg/dL (0.2-1.3); BLOOD UREA NITROGEN 23 mg/dL (7-20); CALCIUM 9.6 mg/dL (8.4-10.2); CARBON DIOXIDE 36 mmol/L (22-30); CHLORIDE 80 mmol/L (98-107); GLUCOSE 133 mg/dL (75-110); TOTAL PROTEIN 9.1 g/dL (6.3-8.2)
[2019-09-05 15:59] LABS: ALCOHOL < 10 mg/dL (NONE DETECTED)
[2019-09-05 16:01] LABS: POTASSIUM 2.8 mmol/L (3.6-5.0)
--- NOTE | 2019-09-05 16:04 | ER Document Report ---
ED General - General Chief Complaint: Nausea/Vomiting Stated Complaint: NAUSEA/VOMITING/DIARRHEA Time Seen by Provider: 09/05/19 15:03 Primary Care Provider: ONESIMO PERALES MD [Primary Care Provider] - Follow up as needed TRAVEL OUTSIDE OF THE [place] IN LAST 30 DAYS: No - HPI Notes: Patient is a 64-year-old male who presents to the emergency department for evaluation of nausea, vomiting, diarrhea. He states his been going on for at least last 24 hours. He said 4-6 episodes of nonbloody, nonbilious emesis. He said 3 episodes of watery/loose diarrhea. He denies any recent antibiotic therapy. No fevers or chills. He has no cough. He denies shortness of breath. He states he has abdominal pain brought about by vomiting that he describes as a soreness. He states that nothing else really hurts at this time. He is still urinating, denies any hematuria or dysuria. Patient admits that 48 hours ago he drank 1/5 of rum. He states he has been sober for 6 months. I asked him why he was drinking, he states he was "bored." - Related Data Allergies/Adverse Reactions: haloperidol [From Haldol] Adverse Reaction (Intermediate, Verified 09/05/19 13:45) Cramping, "couldn't breathe" lorazepam [From Ativan] Adverse Reaction (Intermediate, Verified 09/05/19 13:45) Nausea, nightmares promethazine HCl [From Phenergan] Adverse Reaction (Unknown, Verified 09/05/19 13:45) "Messes my veins up" Past Medical History - General Information source: Patient - Social History Smoking Status: Former Smoker Chew tobacco use (# tins/day): No Frequency of alcohol use: Heavy Drug Abuse: Marijuana, Other - h/o IVDA Family History: Hypertension, Malignancy - Brother with pancreatic cancer and mother with breast cancer, Other - Father was murdered, sister with lupus Patient has homicidal ideation: No - Past Medical History Cardiac Medical History: Reports: Hx Coronary Artery Disease, Hx Heart Attack, Hx Hypertension Pulmonary Medical History: Denies: Hx Asthma, Hx Bronchitis, Hx COPD, Hx Pneumonia Neurological Medical History: Reports: Hx Seizures - ETOH withdrawal seizures. Denies: Hx Cerebrovascular Accident Endocrine Medical History: Denies: Hx Diabetes Mellitus Type 1, Hx Diabetes Mellitus Type 2 Renal/ Medical History: Denies: Hx Peritoneal Dialysis Malignancy Medical History: Reports Hx Prostate Cancer GI Medical History: Reports: Hx Cirrhosis, Hx Hepatitis - Hepatitis C, Hx Liver Failure, Hx Pancreatitis Musculoskeletal Medical History: Denies Hx Arthritis Psychiatric Medical History: Denies: Hx Depression Infectious Medical History: Reports: Hx Hepatitis - Hepatitis C Past Surgical History: Reports: Hx Orthopedic Surgery - R hip replacement, Hx Pancreatic Surgery - Pancreatic bx, Hx Urinary Tract Surgery - Laser TURP - Immunizations Immunizations up to date: Yes Hx Diphtheria, Pertussis, Tetanus Vaccination: No Review of Systems - Review of Systems Constitutional: Malaise, Weakness Gastrointestinal: See HPI -: Yes All other systems reviewed and negative Physical Exam - Vital signs Vitals: Temp 98.4 F 09/05/19 13:18 - Notes Notes: Vital signs reviewed, please refer to chart. Head is normocephalic, atraumatic. Pupils equal round, reactive to light. Neck is supple without meningismus. Heart is regular rate and rhythm. Lungs are clear to auscultation bilaterally. Abdomen is soft, diffusely tender without rebound or guarding, normoactive bowel sounds throughout. No peritoneal signs. Extremities without cyanosis, clubbing. Posterior calves are nontender. Peripheral pulses are equal. Skin is warm and dry. Patient is awake, alert, neurological exam is nonfocal. Course - Re-evaluation Re-evalutation: 09/05/19 16:03 Patient presents to the emergency department for evaluation. He has abdominal pain, nausea, vomiting, diarrhea. He admits that he was recently binge drinking, drank 1/5 of rum before his symptoms started. Alcohol level is added. IV fluids and nausea medication were given. The patient's heart rate is currently 100, pressures are stable. We will medicate for response, awaiting blood work. We will continue to monitor. 09/05/19 21:33 Patient's laboratory investigations revealed significant hypokalemia. He is given both oral and IV potassium. He is given IV fluids. He is volume contracted. His laboratory investigations failed to reveal any significant renal failure. I suspect all of this is because he has aggravated his chronic pancreatitis. He has been able to tolerate p.o. He has had no emesis here since being treated, although he does state he continues to have nausea. He complains of pain, but I suspect again this is more alcohol gastritis than an ything else. He is not showing any signs of bleeding. I do not feel comfortable giving this alcoholic and former IV drug abuser narcotic pain medications, as I do suspect that is the root of several of his problems. I will treat him with Pepcid, Zofran, fluids. I will send him home with potassium prescription. I will send him home with instructions on H2 blockers. He is to abstain from all alcohol. He is to follow-up with Dr. Santana next week, return to the ED with worsening. - Vital Signs Vital signs: Temp Pulse Resp BP Pulse Ox 98.5 F 19 134/89 H 97 09/05/19 18:41 09/05/19 19:01 09/05/19 19:00 09/05/19 19:01 - Laboratory Result Diagrams: 09/05/19 15:32 09/05/19 19:58 Laboratory results interpreted by me: 09/05/19 09/05/19 09/05/19 15:32 15:32 15:32 WBC 12.3 H Plt Count 118 L Lymph % (Auto) 6.4 L Absolute Neuts (auto) 10.6 H Seg Neutrophils % 86.4 H Sodium 131.5 L Potassium 2.8 L* Chloride 80 L Carbon Dioxide 36 H BUN 23 H Glucose 133 H Calcium Total Bilirubin 5.1 H AST 81 H Total Protein 9.1 H Albumin 5.2 H Lipase 341.9 H Urine Protein Urine Ketones Urine Urobilinogen 09/05/19 09/05/19 18:29 19:58 WBC Plt Count Lymph % (Auto) Absolute Neuts (auto) Seg Neutrophils % Sodium 130.9 L Potassium 3.0 L* Chloride 86 L Carbon Dioxide 35 H BUN 22 H Glucose 121 H Calcium 8.0 L Total Bilirubin AST Total Protein Albumin Lipase Urine Protein 100 H Urine Ketones TRACE H Urine Urobilinogen 4.0 H - Diagnostic Test Radiology reviewed: Image reviewed, Reports reviewed Radiology results interpreted by me: 09/05/19 21:35 Abdomen/Pelvis CT 09/05/19 17:43 IMPRESSION: Cholelithiasis without acute cholecystitis. Chronic pancreatitis changes with dilatation of the pancreatic duct.. Medical hepatic disease, suspicious for cirrhosis - EKG Interpretation by Me Additional EKG results interpreted by me: 09/05/19 21:35 Sinus mechanism with rate of 99 beats minute. Left axis deviation. Nonspecific ST changes. His T wave changes have actually improved from prior study of August 06, 2017. Discharge - Discharge Clinical Impression: Hypokalemia, Hyponatremia Chronic pancreatitis Qualifiers: Pancreatitis type: alcohol induced Qualified Code(s): K86.0 - Alcohol-induced chronic pancreatitis Nausea and vomiting Qualifiers: Vomiting type: unspecified Vomiting Intractability: non-intractable Qualified Code(s): R11.2 - Nausea with vomiting, unspecified Condition: Stable Disposition: HOME, SELF-CARE Instructions: Antinausea Medication ([facility]), Hypokalemia ([facility]), Hyponatremia ([facility]), Intravenous (IV) Fluids ([facility]), Pancreatitis ([facility]) Additional Instructions: Clear liquids only for the next 24 hours, then advance slowly to a bland diet. Take potassium as instructed. Abstain from all alcohol. Follow-up with Dr. Santana next week. Have your labs redrawn on Sunday before follow-up. Zofran as needed for severe nausea. If you develop worsening or new concerning symptoms of any sort, return immediately to the emergency department for evalua tion. Prescriptions: Potassium Chloride 10 meq PO DAILY #5 [email or web address] Forms: Follow-Up Laboratory Testing Referrals: ONESIMO PERALES MD [Primary Care Provider] - Follow up as needed
[2019-09-05] MEDS ORDERED: POTASSIUM CHLORIDE 10 MEQ TABLET.ER PO ONE ×2 (16:09→17:44)
--- NOTE | 2019-09-05 17:28 | EKG REPORT ---
SEVERITY:- ABNORMAL ECG - SINUS RHYTHM LAD, CONSIDER LEFT ANTERIOR FASCICULAR BLOCK : Confirmed by: Lamonte Vail MD 05-Sep-2019 17:27:45
[2019-09-05] MEDS ORDERED: POTASSI CL 40 MEQ/NS 1L 1,000 ML IV ONE (17:42)
[2019-09-05 19:12] LABS: APPEARANCE,URINE CLEAR; BILIRUBIN,URINE NEGATIVE (NEGATIVE); COLOR,URINE AMBER; GLUCOSE, URINE NEGATIVE (NEGATIVE); KETONES,URINE TRACE mg/dL (NEGATIVE); LEUKOCYTE ESTERASE,URINE NEGATIVE (NEGATIVE); NITRITE,URINE NEGATIVE (NEGATIVE); PROTEIN,URINE 100 mg/dL (NEGATIVE)
[2019-09-05 19:29] LABS: URINE AMPHETAMINES SCREEN NEGATIVE; URINE BARBITURATES SCREEN NEGATIVE; URINE BENZODIAZEPINES SCREEN NEGATIVE; URINE COCAINE SCREEN NEGATIVE; URINE METHADONE SCREEN NEGATIVE; URINE PHENCYCLIDINE SCREEN NEGATIVE
[2019-09-05 19:31] LABS: URINE MARIJUANA (THC) SCREEN UNCONFIRMED POSITIVE
--- NOTE | 2019-09-05 20:20 | RADIOLOGY REPORT (SQ) ---
CLINICAL INDICATION: abdominal pain. . TECHNIQUE: Contrast enhanced spiral axial CT imaging was obtained of the abdomen and pelvis with multiplanar reconstructions. This exam was performed according to our departmental dose-optimization program, which includes automated exposure control, adjustment of the mA and/or kV according to patient size and/or use of iterative reconstruction techniques. COMPARISON: October 06, 2018. CORRELATION: None. FINDINGS: Abdomen: The lung bases demonstrate mild dependent atelectasis. The heart is of normal size. No evidence of pleural or pericardial fluid. The liver is heterogeneous and nodular.. The gallbladder demonstrate cholelithiasis without inflammatory change. The pancreas demonstrates calcification of the pancreatic head and uncinate process consistent with chronic pancreatitis. Dilatation of the pancreatic duct, similar to prior. The spleen is unremarkable. The adrenals are unremarkable. The kidneys appear grossly normal without evidence of urolithiasis or hydronephrosis. There is no evidence of free air. No free fluid. No bulky adenopathy. Abdominal aorta is nonaneurysmal. Pelvis: The bowel is nonobstructed. The bowel is unopacified with oral contrast. Pelvic contents are obscured by right hip prosthesis.. The appendix is not seen. Visualized bones definite postsurgical change right hip.. IMPRESSION: Cholelithiasis without acute cholecystitis. Chronic pancreatitis changes with dilatation of the pancreatic duct.. Medical hepatic disease, suspicious for cirrhosis
[2019-09-05 20:32] LABS: ANION GAP 10 (5-19); BLOOD UREA NITROGEN 22 mg/dL (7-20); CARBON DIOXIDE 35 mmol/L (22-30); CHLORIDE 86 mmol/L (98-107); GLUCOSE 121 mg/dL (75-110)
[2019-09-05] MEDS ORDERED: FAMOTIDINE INJ/PF 20 MG/2 ML SDV IV ONE (21:33)
[2019-09-05] MEDS ORDERED: ONDANSETRON ODT 4 MG TAB (6 TAB/ER DISP) PO PRN (21:44)
[2019-09-05 23:10] VITALS: BP 136/99
== END 2019-09-05 23:16 | disposition home or self-care (01) ==
LOC: ER 13:18
DX: K86.0 Alcohol-induced chronic pancreatitis (principal); E87.6 Hypokalemia; E87.1 Hypo-osmolality and hyponatremia; R11.2 Nausea with vomiting, unspecified; R19.7 Diarrhea, unspecified; Z88.8 Allergy status to other drugs, medicaments and biological substances; Z87.891 Personal history of nicotine dependence; I25.10 Atherosclerotic heart disease of native coronary artery without angina pectoris; I25.2 Old myocardial infarction; I10 Essential (primary) hypertension
CPT/HCPCS: 93005; 96376; 99284; 96361; 96375; 96365; 96366; 36415; 80307 ×2; 83690; 83735; 85025; 80053; 81001; 74177; 93010; J2405; J7030; A9270 ×2; S0028; J3480

== ENCOUNTER 2019-11-04 19:49 | Inpatient (IN) | payer MEDICARE, MEDICAID ==
--- NOTE | 2019-11-04 20:21 | ER Document Report ---
ED General <ANNABELLA BRADLEY - Last Filed: 11/05/19 01:36> - General Mode of Arrival: Medic Information source: Patient TRAVEL OUTSIDE OF THE [place] IN LAST 30 DAYS: No <ROCIO ORTA - Last Filed: 11/05/19 05:28> - General Chief Complaint: Vomiting Stated Complaint: VOMITING Time Seen by Provider: 11/04/19 20:17 Primary Care Provider: ONESIMO PERALES MD [Primary Care Provider] - Follow up as needed Notes: Patient is a 64-year-old male presenting to the emergency department via EMS wit h complaints of vomiting and abdominal pain for the last 2 days. Patient reports he cannot keep anything down. He reports he has generalized abdominal pain and has been having chills but denies fever. He denies any chronic medical conditions, states he does not take any medications. He denies any exposure to any COVID-19 positive persons, denies any recent sick contacts. Although patient denies any chronic medical conditions upon review of his records he has CAD, PA, hypertension, cirrhosis, hep C, pancreatitis, history of liver failure, prostate cancer and seizures related to EtOH withdrawal. (ROCIO ORTA) - Related Data Allergies/Adverse Reactions: haloperidol [From Haldol] Adverse Reaction (Intermediate, Verified 09/05/19 13:45) Cramping, "couldn't breathe" lorazepam [From Ativan] Adverse Reaction (Intermediate, Verified 09/05/19 13:45) Nausea, nightmares promethazine HCl [From Phenergan] Adverse Reaction (Unknown, Verified 09/05/19 13:45) "Messes my veins up" Past Medical History - General Information source: Patient - Social History Smoking Status: Current Some Day Smoker Frequency of alcohol use: Social - few times per week Drug Abuse: None Family History: Hypertension, Malignancy - Brother with pancreatic cancer and mother with breast cancer, Other - Father was murdered, sister with lupus - Past Medical History Cardiac Medical History: Reports: Hx Coronary Artery Disease, Hx Heart Attack, Hx Hypertension Pulmonary Medical History: Denies: Hx Asthma, Hx Bronchitis, Hx COPD, Hx Pneumonia Neurological Medical History: Reports: Hx Seizures - ETOH withdrawal seizures. Denies: Hx Cerebrovascular Accident Endocrine Medical History: Denies: Hx Diabetes Mellitus Type 1, Hx Diabetes Mellitus Type 2 Renal/ Medical History: Denies: Hx Peritoneal Dialysis Malignancy Medical History: Reports Hx Prostate Cancer GI Medical History: Reports: Hx Cirrhosis, Hx Hepatitis - Hepatitis C, Hx Liver Failure, Hx Pancreatitis Musculoskeletal Medical History: Denies Hx Arthritis Psychiatric Medical History: Denies: Hx Depression Infectious Medical History: Reports: Hx Hepatitis - Hepatitis C Past Surgical History: Reports: Hx Orthopedic Surgery - R hip replacement, Hx Pancreatic Surgery - Pancreatic bx, Hx Urinary Tract Surgery - Laser TURP - Immunizations Immunizations up to date: Yes Hx Diphtheria, Pertussis, Tetanus Vaccination: No <ROCIO ORTA - Last Filed: 11/05/19 05:28> Review of Systems - Review of Systems Constitutional: Chills EENT: No symptoms reported Cardiovascular: No symptoms reported Gastrointestinal: Abdominal pain, Nausea, Vomiting <ROCIO ORTA - Last Filed: 11/05/19 05:28> Physical Exam <ROCIO ORTA - Last Filed: 11/05/19 05:28> - Vital signs Vitals: Resp Pulse Ox 23 H 99 11/04/19 20:04 11/04/19 20:04 - Notes Notes: PHYSICAL EXAMINATION: GENERAL: Disheveled, actively vomiting, mild distress noted. HEAD: Atraumatic, normocephalic. EYES: Pupils equal round and reactive to light, extraocular movements intact, sclera anicteric, conjunctiva are light yellow. ENT: Nares patent, oropharynx clear without exudates. Moist mucous membranes. NECK: Normal range of motion, supple without lymphadenopathy LUNGS: Breath sounds clear to auscultation bilaterally and equal. No wheezes rales or rhonchi. HEART: Regular rate and rhythm without murmurs ABDOMEN: Mildly distended abdomen. Generalized tenderness to palpation. Musculoskeletal: Limited range of motion to bilateral lower extremities, no pitting or edema. No cyanosis. NEUROLOGICAL: Cranial nerves grossly intact. Normal speech. PSYCH: Normal mood, normal affect. SKIN: Warm, Dry, normal turgor, no rashes or lesions noted. (ROCIO ORTA) Course - Laboratory Result Diagrams: 11/04/19 21:51 11/04/19 23:23 <ANNABELLA BRADLEY - Last Filed: 11/05/19 01:36> - Laboratory Result Diagrams: 11/04/19 21:51 11/04/19 23:23 - EKG Interpretation by Me EKG shows normal: Sinus rhythm Rate: Tachycardia - EKG shows a sinus tachycardia, rate 120, normal intervals, QTC 458, no ST segment elevations or depressions to suggest ischemia. <ROCIO ORTA - Last Filed: 11/05/19 05:28> - Re-evaluation Re-evalutation: 11/04/19 20:40 At the time of my initial evaluation patient is tachycardic with a heart rate of 125, he is actively dry heaving in the room. He is complaining of diffuse abdominal tenderness. Nursing staff tells me they are unable to obtain IV access. I attempted twice without success, we will try to get ultrasound-guided IV. IM Zofran ordered as patient has a history of an allergy to Phenergan. We have had significant delays secondary to difficulty with IV access. Multiple nurses and providers have attempted including with the use of ultrasound without success. Dr. Bradley will evaluate patient and attempt to place a central line. Patient has a recorded allergy in the computer to Phenergan. We have already tried to Zofran and Reglan without success. Upon review of the records patient's allergy to Phenergan is that it "cohen his veins". We will proceed with ordering a dose of Phenergan diluted in a 500 cc bag of normal saline. Chemistries reveal electrolyte derangements. Repeat lactate has come down from 9 to 6. Blood cultures were obtained. 11/05/19 05:12 Called and spoke with Dr. Perales, patient admitted to his service. Of note patient has declined CT scan of the abdomen and pelvis. He is signing a refusal form. Dr. Perales was made aware. (ROCIO ORTA) - Vital Signs Vital signs: Temp Pulse Resp BP Pulse Ox 98.9 F 118 H 22 H 148/90 H 95 11/05/19 03:36 11/04/19 20:13 11/05/19 03:01 11/05/19 03:00 11/05/19 03:01 - Laboratory Laboratory results interpreted by me: 11/04/19 11/04/19 11/04/19 21:51 21:51 23:23 WBC 15.8 H RDW 14.3 H Plt Count 113 L Seg Neuts % (Manual) 91 H Band Neutrophils % 1 L Lymphocytes % (Manual) 4 L Abs Neuts (Manual) 14.5 H Potassium 3.1 L Chloride 81 L Carbon Dioxide 31 H Anion Gap 27 H BUN 23 H Creatinine 2.08 H Est GFR ( Amer) 39 L Est GFR (MDRD) Non-Af 32 L Glucose 191 H Lactic Acid 9.7 H Total Bilirubin 4.4 H Direct Bilirubin 1.1 H AST 67 H Total Protein 9.3 H Albumin 5.6 H Lipase 347.4 H Urine Protein Urine Glucose (UA) Urine Ketones Urine Blood Urine Urobilinogen 11/04/19 11/05/19 23:55 01:48 WBC RDW Plt Count Seg Neuts % (Manual) Band Neutrophils % Lymphocytes % (Manual) Abs Neuts (Manual) Potassium Chloride Carbon Dioxide Anion Gap BUN Creatinine Est GFR ( Amer) Est GFR (MDRD) Non-Af Glucose Lactic Acid 6.1 H Total Bilirubin Direct Bilirubin AST Total Protein Albumin Lipase Urine Protein 100 H Urine Glucose (UA) 50 H Urine Ketones TRACE H Urine Blood MODERATE H Urine Urobilinogen 2.0 H Procedures - Central Line Right Femoral Time completed: 01:25 Consent obtained: Yes Central line pre-insertion: Sterile PPE donned, Chloraprep applied Central line lumen type: Triple Anesthetic type: 1% Lidocaine mL's of anesthesia: 4 Ultrasound guided: Yes Line secured with sutures: Yes Central line post-insertion: Blood return from lumens, Biopatch applied, Sutured, Sterile dressing applied Number of attempts: 1 Complications: No <ANNABELLA BRADLEY - Last Filed: 11/05/19 01:36> - Central Line Right Femoral Notes: 11/05/19 01:36 The procedure was explained in great detail. Consent was signed and placed on the chart. Using ultrasound guidance, the right femoral vein was identified. The area was prepped and draped in the usual sterile fashion. The area was anesthetized with a 24-gauge needle, approximately 3 cc of 1% lidocaine were infiltrated into the area. Under direct ultrasound guidance, the right femoral vein was cannulated. A guidewire was introduced. A small clarence was placed with an 11 blade of the skin. The dilator was introduced over the wire. The central line, which had been flushed in all lumens, was then advanced over the guidewire. Prior to being sutured into place, it was verified that all ports [place] and flushed without difficulty. The line was then sutured and secured into place and Biopatch was applied. Patient tolerated this procedure well, no difficulties noted. (ANNABELLA BRADLEY) Critical Care Note - Critical Care Note Total time excluding time spent on procedures (mins): 35 - Multiple re- evaluations as well as consult with attending physician, need for central line placement. <ROCIO ORTA - Last Filed: 11/05/19 05:28> Discharge <ANNABELLA BRADLEY - Last Filed: 11/05/19 01:36> - Discharge Admitting Provider: Yusra Unit Admitted: IMCU <ROCIO ORTA - Last Filed: 11/05/19 05:28> - Discharge Clinical Impression: Hypokalemia, Intractable nausea and vomiting Acute kidney failure Qualifiers: Acute renal failure type: unspecified Qualified Code(s): N17.9 - Acute kidney failure, unspecified Abdominal pain Qualifiers: Abdominal location: unspecified location Qualified Code(s): R10.9 - Unspecified abdominal pain Condition: Stable Disposition: ADMITTED INPATIENT Referrals: ONESIMO PERALES MD [Primary Care Provider] - Follow up as needed
[2019-11-04] MEDS ORDERED: ONDANSETRON HCL INJ/PF 4 MG/2 ML SDV IV ONE (20:42)
[2019-11-04] MEDS ORDERED: NORMAL SALINE 1000 ML 1,000 ML IV ONE (20:44)
[2019-11-04] MEDS ORDERED: ONDANSETRON HCL INJ/PF 4 MG/2 ML SDV IM ONE (21:05)
[2019-11-04] MEDS ORDERED: METOCLOPRAMIDE HCL INJ/PF 10 MG/2 ML SDV IV ONE (22:25)
[2019-11-04 22:49] LABS: HEMATOCRIT 48.3 % (37.9-51.0); HEMOGLOBIN 16.8 g/dL (13.5-17.0); MEAN CORPUSCULAR HGB CONC 34.7 g/dL (32.0-36.0); MEAN CORPUSCULAR VOLUME 89 fl (80-97); PLATELET COUNT 113 10^3/uL (150-450); RED BLOOD COUNT 5.42 10^6/uL (4.35-5.55); RED CELL DISTRIBUTION WIDTH 14.3 % (11.5-14.0); WHITE BLOOD COUNT 15.8 10^3/uL (4.0-10.5)
[2019-11-04 23:25] LABS: ABSOLUTE LYMPHOCYTES# (MANUAL) 0.6 10^3/uL (0.5-4.7); ABSOLUTE MONOCYTES # (MANUAL) 0.6 10^3/uL (0.1-1.4); BAND NEUTROPHILS % (MANUAL) 1 % (3-5); BASOPHILS % (MANUAL) 0 % (0-2); EOSINOPHILS % (MANUAL) 0 % (0-6); LYMPHOCYTES % (MANUAL) 4 % (13-45); MONOCYTES % (MANUAL) 4 % (3-13); SEGMENTED NEUTROPHILS % (MAN) 91 % (42-78); TOTAL CELLS COUNTED 100
[2019-11-04 23:26] LABS: OVALOCYTES SLIGHT; PLATELET COMMENT DECREASED; POIKILOCYTOSIS SLIGHT; SCHISTOCYTES SLIGHT; TEAR DROP CELLS SLIGHT; TOXIC GRANULATION SLIGHT
[2019-11-05 00:06] LABS: ALBUMIN 5.6 g/dL (3.5-5.0); ALKALINE PHOSPHATASE 100 U/L (38-126); ASPARTATE AMINO TRANSFERASE 67 U/L (17-59); BILIRUBIN,DIRECT 1.1 mg/dL (0.0-0.4); BILIRUBIN,TOTAL 4.4 mg/dL (0.2-1.3); BLOOD UREA NITROGEN 23 mg/dL (7-20); CALCIUM 9.6 mg/dL (8.4-10.2); GLUCOSE 191 mg/dL (75-110); POTASSIUM 3.1 mmol/L (3.6-5.0); TOTAL PROTEIN 9.3 g/dL (6.3-8.2)
[2019-11-05 00:10] LABS: CARBON DIOXIDE 31 mmol/L (22-30); CHLORIDE 81 mmol/L (98-107)
[2019-11-05 00:13] LABS: ALCOHOL < 10 mg/dL (NONE DETECTED); ANION GAP 27 (5-19)
[2019-11-05 00:17] LABS: APPEARANCE,URINE CLOUDY; BILIRUBIN,URINE NEGATIVE (NEGATIVE); CALCIUM OXALATE CRYSTALS,URINE RARE /HPF; COLOR,URINE AMBER; GLUCOSE, URINE 50 mg/dL (NEGATIVE); KETONES,URINE TRACE mg/dL (NEGATIVE); LEUKOCYTE ESTERASE,URINE NEGATIVE (NEGATIVE); NITRITE,URINE NEGATIVE (NEGATIVE); PROTEIN,URINE 100 mg/dL (NEGATIVE); URINE SPECIFIC GRAVITY 1.023
--- NOTE | 2019-11-05 00:51 | EKG REPORT ---
SEVERITY:- OTHERWISE NORMAL ECG - SINUS TACHYCARDIA : Confirmed by: Mariajose Lawson 05-Nov-2019 00:50:45
[2019-11-05] MEDS ORDERED: PROMETHAZINE HCL INJ 25 MG/1 ML VIAL IV ONE ×3 (01:43→22:00)
[2019-11-05] MEDS ORDERED: AMPICILLIN SOD/SULBACTAM 3 GM VIAL IV ONE (04:44)
[2019-11-05] MEDS: POTASSI CL 20 MEQ/50 ML RIDER 20 MEQ/50 ML RTUPB IV SCH ×2 (05:49→07:38)
[2019-11-05] MEDS ORDERED: AMPICILLIN SODIUM/SULBACTAM NA 2 GM in NORMAL SALINE 100 ML IV SCH (14:00)
[2019-11-05] MEDS: ONDANSETRON HCL INJ/PF 4 MG/2 ML SDV IV PRN ×2 (14:05→18:10)
[2019-11-05] MEDS: HEPARIN SOD (PORCINE) 5,000 UNIT/ML 1 ML VIAL SUBCUT SCH ×2 (14:06→21:45)
--- NOTE | 2019-11-05 14:58 | RADIOLOGY REPORT (SQ) ---
EXAM DESCRIPTION: CHEST 2 VIEWS IMAGES COMPLETED DATE/TIME: 11/05/2019 2:47 pm REASON FOR STUDY: Leukocytosis, Alcohol Abuse, Nausea, Vomiting COMPARISON: 03/10/2015 EXAM PARAMETERS: NUMBER OF VIEWS: two views TECHNIQUE: Digital Frontal and Lateral radiographic views of the chest acquired. RADIATION DOSE: NA LIMITATIONS: none FINDINGS: LUNGS AND PLEURA: Hyperexpansion. No consolidations. No pneumothorax or effusion. MEDIASTINUM AND HILAR STRUCTURES: No masses or contour abnormalities. HEART AND VASCULAR STRUCTURES: Heart normal size. No evidence for failure. BONES: No acute findings. HARDWARE: None in the chest. OTHER: No other significant finding. IMPRESSION: COPD. No acute findings. TECHNICAL DOCUMENTATION: JOB ID: [id number] 2010 [email or web address] All Rights Reserved Reading location - IP/workstation name: [email or web address]
[2019-11-05] MEDS: AMPICILLIN SODIUM/SULBACTAM NA 1.5 GM in NORMAL SALINE 50 ML IV SCH ×2 (15:29→21:44)
[2019-11-05] MEDS: THIAMINE HCL 100 MG, FOLIC ACID 1 MG in NORMAL SALINE 250 ML IV SCH (18:10)
[2019-11-05] MEDS: NORMAL SALINE 1000 ML 1,000 ML IV PRN (21:43)
--- NOTE | 2019-11-05 22:07 | PDOC H&P ---
History of Present Illness Admission Date/PCP: 11/05/19 05:15 ONESIMO PERALES MD Patient complains of: Abdominal pain, vomiting History of Present Illness: CEM MONROY is a 64 year old male patient known to my practice who presented to the ED via EMS for worsening abdominal pain and vomiting over preceding 2 days. Patient has significant history of alcohol abuse with pancreatitis. There is associated nausea. He denied ongoing alcohol ingestion, diarrhea, tarry or bloody stool. He admitted to chills but denied associated fever, headache, or dizziness. His initial ED evaluation was significant for leukocytosis, lactic acidosis, acute kidney injury and elevated bilirubin level. His lipase is marginally elevated but could be explained by his vomiting. Patient refused recommended CT scan of abdomen and pelvis. His morbidities are listed below. He was advised hospitalization for further evaluation and management. Past Medical History Cardiac Medical History: Reports: Coronary Artery Disease, Myocardial In farction, Hypertension Pulmonary Medical History: Denies: Asthma, Bronchitis, Chronic Obstructive Pulmonary Disease (COPD), Pneumonia Neurological Medical History: Reports: Seizures - ETOH withdrawal seizures Endocrine Medical History: Denies: Diabetes Mellitus Type 1, Diabetes Mellitus Type 2 GI Medical History: Reports: Cirrhosis, Hepatitis - Hepatitis C Musculoskeltal Medical History: Denies: Arthritis Psychiatric Medical History: Denies: Depression Hematology: Denies: Anemia Past Surgical History Past Surgical History: Reports: Orthopedic Surgery - R hip replacement Social History Smoking Status: Current Some Day Smoker Frequency of Alcohol Use: None Hx Recreational Drug Use: Yes Drugs: Marijuana Hx Prescription Drug Abuse: No Family History Family History: Hypertension, Malignancy - Brother with pancreatic cancer and mother with breast cancer, Other - Father was murdered, sister with lupus Parental Family History Reviewed: Yes Children Family History Reviewed: Yes Sibling(s) Family History Reviewed.: Yes Medication/Allergy Home Medications: No Home Medications 11/05/19 Allergies/Adverse Reactions: haloperidol [From Haldol] Adverse Reaction (Intermediate, Verified 09/05/19 13:45) Cramping, "couldn't breathe" lorazepam [From Ativan] Adverse Reaction (Intermediate, Verified 09/05/19 13:45) Nausea, nightmares promethazine HCl [From Phenergan] Adverse Reaction (Unknown, Verified 09/05/19 13:45) "Messes my veins up" Review of Systems Constitutional: PRESENT: chills. ABSENT: fever(s), headache(s), weight gain, weight loss Eyes: ABSENT: visual disturbances Ears: ABSENT: hearing changes Cardiovascular: ABSENT: chest pain, dyspnea on exertion, edema, orthropnea, palpitations Respiratory: ABSENT: cough, hemoptysis Gastrointestinal: PRESENT: abdominal pain, nausea, vomiting. ABSENT: constipation, diarrhea, hematemesis, hematochezia Genitourinary: ABSENT: dysuria, hematuria Musculoskeletal: ABSENT: joint swelling Integumentary: ABSENT: rash, wounds Neurological: ABSENT: abnormal gait, abnormal speech, confusion, dizziness, focal weakness, syncope Psychiatric: ABSENT: anxiety, depression, homidical ideation, suicidal ideation Endocrine: ABSENT: cold intolerance, heat intolerance, menstrual abnormalities, polydipsia, polyuria Hematologic/Lymphatic: ABSENT: easy bleeding, easy bruising, lymphadenopathy Allergic/Immunologic: ABSENT: seasonal rhinorrhea Physical Exam Vital Signs: Temp Pulse Resp BP Pulse Ox 98.8 F 118 H 19 152/94 H 97 11/05/19 04:00 11/04/19 20:13 11/05/19 07:30 11/05/19 07:30 11/05/19 07:30 Intake & Output 11/04/19 11/05/19 11/06/19 06:59 06:59 06:59 Intake Total 1100 50 Balance 1100 50 Weight 79.8 kg General appearance: PRESENT: no acute distress Head exam: PRESENT: atraumatic, normocephalic Eye exam: PRESENT: conjunctiva pink, EOMI, PERRLA. ABSENT: scleral icterus Ear exam: PRESENT: normal external ear exam Mouth exam: PRESENT: moist, tongue midline Neck exam: PRESENT: full ROM. ABSENT: carotid bruit, JVD, lymphadenopathy, thyromegaly Respiratory exam: PRESENT: clear to auscultation taryn, decreased breath sounds - at lung base4s Cardiovascular exam: PRESENT: RRR, +S1, +S2. ABSENT: diastolic murmur, rubs, systolic murmur Pulses: PRESENT: normal dorsalis pedis pul, +2 pedal pulses bilateral Vascular exam: PRESENT: normal capillary refill GI/Abdominal exam: PRESENT: normal bowel sounds, soft, tenderness - diffusely to even light palpation. ABSENT: distended, guarding, mass, organolmegaly, rebound Rectal exam: PRESENT: deferred Extremities exam: ABSENT: pedal edema Neurological exam: PRESENT: alert, awake, oriented to person, oriented to place, oriented to time, oriented to situation, CN II-XII grossly intact. ABSENT: motor sensory deficit Psychiatric exam: PRESENT: appropriate affect, normal mood. ABSENT: homicidal ideation, suicidal ideation Skin exam: PRESENT: dry, intact, warm. ABSENT: cyanosis, rash Results Laboratory Results: 11/04/19 21:51 11/04/19 23:23 11/04/19 11/04/19 11/04/19 21:51 21:51 21:51 WBC 15.8 H RBC 5.42 Hgb 16.8 Hct 48.3 MCV 89 MCH 31.0 MCHC 34.7 RDW 14.3 H Plt Count 113 L Seg Neutrophils % Not Reportable Sodium Cancelled Potassium Cancelled Chloride Cancelled Carbon Dioxide Cancelled Anion Gap Cancelled BUN Cancelled Creatinine Cancelled Est GFR ( Amer) Cancelled Est GFR (Non-Af Amer) Cancelled Glucose Cancelled Lactic Acid 9.7 H Calcium Cancelled Magnesium Total Bilirubin Cancelled AST Cancelled Alkaline Phosphatase Cancelled Total Protein Cancelled Albumin Cancelled Lipase Cancelled Urine Color Urine Appearance Urine pH Ur Specific [place] Urine Protein Urine Glucose (UA) Urine Ketones Urine Blood Urine Nitrite Ur Leukocyte Esterase Urine WBC (Auto) Urine RBC (Auto) 11/04/19 11/04/19 11/05/19 23:23 23:55 01:48 WBC RBC Hgb Hct MCV MCH MCHC RDW Plt Count Seg Neutrophils % Sodium 139.1 Potassium 3.1 L Chloride 81 L Carbon Dioxide 31 H Anion Gap 27 H BUN 23 H Creatinine 2.08 H Est GFR ( Amer) 39 L Est GFR (Non-Af Amer) Glucose 191 H Lactic Acid 6.1 H Calcium 9.6 Magnesium Total Bilirubin 4.4 H AST 67 H Alkaline Phosphatase 100 Total Protein 9.3 H Albumin 5.6 H Lipase 347.4 H Urine Color DIPIKA Urine Appearance CLOUDY Urine pH 5.0 Ur Specific [place] 1.023 Urine Protein 100 H Urine Glucose (UA) 50 H Urine Ketones TRACE H Urine Blood MODERATE H Urine Nitrite NEGATIVE Ur Leukocyte Esterase NEGATIVE Urine WBC (Auto) 2 Urine RBC (Auto) 5 11/05/19 01:48 WBC RBC Hgb Hct MCV MCH MCHC RDW Plt Count Seg Neutrophils % Sodium Potassium Chloride Carbon Dioxide Anion Gap BUN Creatinine Est GFR ( Amer) Est GFR (Non-Af Amer) Glucose Lactic Acid Calcium Magnesium 1.8 Total Bilirubin AST Alkaline Phosphatase Total Protein Albumin Lipase Urine Color Urine Appearance Urine pH Ur Specific [place] Urine Protein Urine Glucose (UA) Urine Ketones Urine Blood Urine Nitrite Ur Leukocyte Esterase Urine WBC (Auto) Urine RBC (Auto) 11/04/19 11/05/19 21:51 01:48 Troponin I Cancelled 0.091 Assessment & Plan - Diagnosis (1) Intractable nausea and vomiting Is this a current diagnosis for this admission?: Yes Plan: See admitting attending physician orders for details about care plan. (2) Abdominal pain Qualifiers: Abdominal location: generalized Qualified Code(s): R10.84 - Generalized abdominal pain Is this a current diagnosis for this admission?: Yes Plan: See admitting attending physician orders for details about care plan. (3) Acute kidney failure Qualifiers: Acute renal failure type: unspecified Qualified Code(s): N17.9 - Acute kidney failure, unspecified Is this a current diagnosis for this admission?: Yes Plan: See admitting attending physician orders for details about care plan. (5) Hypokalemia Is this a current diagnosis for this admission?: Yes Plan: See admitting attending physician orders for details about care plan. - Time Time Spent: 50 to 70 Minutes Medications reviewed and adjusted accordingly: Yes Anticipated Discharge Disposition: Home with Home Health Anticipated Discharge Timeframe: within 72 hours - Inpatient Certification Based on my medical assessment, after consideration of the patient's comorbidities, presenting symptoms, or acuity I expect that the services needed warrant INPATIENT care.: Yes I certify that my determination is in accordance with my understanding of Medicare's requirements for reasonable and necessary INPATIENT services [42 CFR 412.3e].: Yes Medical Necessity: Significant Comorbidiites Make Outpatient Treatment Too Ri tiago, Need Close Monitoring Due to Risk of Patient Decompensation, Need For IV Fluids, Need For Continuous Telemetry Monitoring, Need for IV Antibiotics, Risk of Complication if Not Cared For in Hospital, Risk of Diagnosis Which Will Require Inpatient Eval/Care/Monitoring Post Hospital Care: D/C Data Base Design Analyst Documentation - Plan Summary Plan Summary: See admitting attending physician orders for details about care plan.
--- NOTE | 2019-11-06 00:13 | RADIOLOGY REPORT (SQ) ---
EXAM DESCRIPTION: XR ABDOMEN SUPINE AND ERECT WITH CHEST (ABD ACUTE SERIES) COMPLETED DATE/TME: 11/05/2019 00:00 CLINICAL HISTORY: 64 years Male ,persistent vomiting, abdominal pain COMPARISON: Abdomen pelvis 09/05/2019 TECHNIQUE: Frontal view chest x-ray and two views of the abdomen. FINDINGS: The cardiomediastinal silhouette appears unremarkable. No consolidating infiltrates or pleural effusions. No free air is identified beneath the hemidiaphragms. No dilated loops of bowel to suggest obstruction. 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 Femoral line on the right. Degenerative changes in the lumbar spine. Calcific densities in the region of the pancreas consistent with chronic calcific pancreatitis. IMPRESSION: No acute plain film abnormality is identified. Findings consistent with chronic calcific pancreatitis
[2019-11-06] MEDS: ONDANSETRON HCL INJ/PF 4 MG/2 ML SDV IV PRN ×4 (01:46→15:25)
[2019-11-06] MEDS: AMPICILLIN SODIUM/SULBACTAM NA 1.5 GM in NORMAL SALINE 50 ML IV SCH ×2 (02:54→10:17)
[2019-11-06] MEDS: PANTOPRAZOLE SODIUM 40 MG TABLET.DR PO SCH (05:04)
[2019-11-06 05:57] LABS: ABSOLUTE MONOCYTES (AUTO) 0.9 10^3/uL (0.1-1.4); BASOPHILS % (AUTO) 0.1 % (0-2); HEMATOCRIT 42.1 % (37.9-51.0); LYMPHOCYTES % (AUTO) 6.4 % (13-45); MEAN CORPUSCULAR HEMOGLOBIN 31.5 pg (27.0-33.4); MEAN CORPUSCULAR HGB CONC 34.5 g/dL (32.0-36.0); MEAN CORPUSCULAR VOLUME 91 fl (80-97); MONOCYTES % (AUTO) 5.8 % (3-13); RED BLOOD COUNT 4.61 10^6/uL (4.35-5.55); RED CELL DISTRIBUTION WIDTH 14.2 % (11.5-14.0); SEGMENTED NEUTROPHILS % (AUTO) 87.7 % (42-78); TOTAL CELLS COUNTED % (AUTO) 100 %
[2019-11-06 06:15] LABS: ALBUMIN 3.8 g/dL (3.5-5.0); ALKALINE PHOSPHATASE 62 U/L (38-126); ANION GAP 8 (5-19); ASPARTATE AMINO TRANSFERASE 56 U/L (17-59); BILIRUBIN,DIRECT 0.9 mg/dL (0.0-0.4); BLOOD UREA NITROGEN 22 mg/dL (7-20); CALCIUM 8.1 mg/dL (8.4-10.2); CARBON DIOXIDE 33 mmol/L (22-30); CHLORIDE 96 mmol/L (98-107); GLUCOSE 119 mg/dL (75-110); PHOSPHORUS 2.6 mg/dL (2.5-4.5); TOTAL PROTEIN 6.7 g/dL (6.3-8.2)
[2019-11-06 06:18] LABS: HEMOGLOBIN 14.6 g/dL (13.5-17.0)
[2019-11-06 06:19] LABS: PLATELET COUNT 101 10^3/uL (150-450)
[2019-11-06 06:20] LABS: POTASSIUM 2.5 mmol/L (3.6-5.0)
[2019-11-06] MEDS: POTASSIUM CHLORIDE 20 MEQ/50 ML RTU IV SCH ×2 (06:50→08:18)
[2019-11-06] MEDS: HEPARIN SOD (PORCINE) 5,000 UNIT/ML 1 ML VIAL SUBCUT SCH ×3 (07:25→22:00)
[2019-11-06] MEDS: NORMAL SALINE 1000 ML 1,000 ML IV PRN ×2 (08:18→22:20)
[2019-11-06] MEDS: PIPERACILLIN SODIUM/TAZOBACTAM 3.375 GM in NORMAL SALINE 100 ML IV SCH ×3 (11:55→23:57)
[2019-11-06] MEDS: MORPHINE SULFATE 10 MG/ML INJ IV PRN ×2 (17:26→21:26)
[2019-11-06] MEDS: THIAMINE HCL 100 MG, FOLIC ACID 1 MG in NORMAL SALINE 250 ML IV SCH (17:27)
--- NOTE | 2019-11-06 18:05 | PDOC PROGRESS REPORT ---
Subjective Progress Note for:: 11/06/19 Subjective:: Reported continued abdominal pain, nausea and vomiting with any attempt at eating or drinking. No diarrhea, fever or chills. No chest pain or difficulty with breathing. Reason For Visit: NITA, GASTROENTERITIS; ALCOHOL ABUSE, HTN, CAD, Physical Exam Vital Signs: Temp Pulse Resp BP Pulse Ox 98.1 F 87 18 118/78 97 11/06/19 08:51 11/06/19 07:00 11/06/19 08:51 11/06/19 08:51 11/06/19 08:51 Intake & Output 11/05/19 11/06/19 11/07/19 06:59 06:59 06:59 Intake Total 1100 951.2 379 Output Total 375 Balance 1100 576.2 379 Weight 79.8 kg 81.8 kg General appearance: PRESENT: no acute distress Head exam: PRESENT: atraumatic, normocephalic Eye exam: PRESENT: conjunctiva pink. ABSENT: scleral icterus Mouth exam: PRESENT: moist Respiratory exam: PRESENT: crackles - scattered, decreased breath sounds Cardiovascular exam: PRESENT: RRR, +S1, +S2. ABSENT: diastolic murmur, rubs, systolic murmur Vascular exam: ABSENT: pallor GI/Abdominal exam: PRESENT: normal bowel sounds, soft. ABSENT: organolmegaly, tenderness Extremities exam: ABSENT: pedal edema Neurological exam: PRESENT: alert, awake, oriented to person, oriented to place, oriented to time, oriented to situation, CN II-XII grossly intact. ABSENT: motor sensory deficit Psychiatric exam: PRESENT: appropriate affect, normal mood. ABSENT: homicidal ideation, suicidal ideation Skin exam: PRESENT: dry, warm Results Laboratory Results: 11/06/19 05:13 11/06/19 05:13 11/06/19 11/06/19 05:13 05:13 WBC 16.0 H RBC 4.61 Hgb 14.6 D Hct 42.1 MCV 91 MCH 31.5 MCHC 34.5 RDW 14.2 H Plt Count 101 L Seg Neutrophils % 87.7 H Sodium 137.2 Potassium 2.5 L* Chloride 96 L Carbon Dioxide 33 H Anion Gap 8 BUN 22 H Creatinine 0.98 Est GFR ( Amer) > 60 Glucose 119 H Calcium 8.1 L Phosphorus 2.6 Magnesium 2.1 Total Bilirubin 3.0 H AST 56 Alkaline Phosphatase 62 Total Protein 6.7 Albumin 3.8 11/04/19 11/05/19 21:51 01:48 Troponin I Cancelled 0.091 Impressions: Acute Abdomen Series 11/05/19 00:00 IMPRESSION: No acute plain film abnormality is identified. Findings consistent with chronic calcific pancreatitis Chest X-Ray 11/05/19 00:00 IMPRESSION: COPD. No acute findings. Assessment & Plan - Diagnosis (1) Intractable nausea and vomiting Is this a current diagnosis for this admission?: Yes (2) Abdominal pain Qualifiers: Abdominal location: generalized Qualified Code(s): R10.84 - Generalized abdominal pain Is this a current diagnosis for this admission?: Yes (3) Acute kidney failure Qualifiers: Acute renal failure type: unspecified Qualified Code(s): N17.9 - Acute kidney failure, unspecified Is this a current diagnosis for this admission?: Yes (5) Hypokalemia Is this a current diagnosis for this admission?: Yes - Time Time Spent with patient: 25-34 minutes Level of Care: IMCU Medications reviewed and adjusted accordingly: Yes Anticipated discharge: Home with Homehealth Anticipated DC Timeframe: within 72 hours - Inpatient Certification Based on my medical assessment, after consideration of the patient's comorbidities, presenting symptoms, or acuity I expect that the services needed warrant INPATIENT care.: Yes I certify that my determination is in accordance with my understanding of Medicare's requirements for reasonable and necessary INPATIENT services [42 CFR 412.3e].: Yes Medical Necessity: Significant Comorbidiites Make Outpatient Treatment Too Risky, Need Close Monitoring Due to Risk of Patient Decompensation, Need For IV Fluids, Need For Continuous Telemetry Monitoring, Need for Pain Control, Need for IV Antibiotics, Risk of Complication if Not Cared For in Hospital, Risk of Diagnosis Which Will Require Inpatient Eval/Care/Monitoring Post Hospital Care: D/C Counselor/Art Therapist Documentation - Plan Summary Plan Summary: Adjust antibiotic therapy due to worsening leukocytosis and continue abdominal pain. So far no identified source of infection. Awaiting COVID-19 test result. Start on IV Morphine 1 mg q 4 hours prn for pain management.
[2019-11-06] MEDS ORDERED: DEXTROSE 40% GEL 15 GM TUBE PO PRN ×2 (18:07)
[2019-11-06] MEDS ORDERED: DEXTROSE 50%-WATER 25 GM/50 ML DISP.SYRIN IV PRN ×2 (18:07)
[2019-11-06] MEDS ORDERED: GLUCAGON,HUMAN RECOMB 1 MG INJ SUBCUT PRN (18:07)
[2019-11-06] MEDS: PROMETHAZINE HCL INJ 25 MG/1 ML VIAL IV PRN (19:48)
[2019-11-07] MEDS: PROMETHAZINE HCL INJ 25 MG/1 ML VIAL IV PRN ×5 (00:39→21:01)
[2019-11-07] MEDS: MORPHINE SULFATE 10 MG/ML INJ IV PRN ×4 (01:50→21:01)
[2019-11-07] MEDS: HEPARIN SOD (PORCINE) 5,000 UNIT/ML 1 ML VIAL SUBCUT SCH ×3 (05:00→22:33)
[2019-11-07] MEDS: PIPERACILLIN SODIUM/TAZOBACTAM 3.375 GM in NORMAL SALINE 100 ML IV SCH ×4 (05:04→23:00)
[2019-11-07] MEDS: PANTOPRAZOLE SODIUM 40 MG TABLET.DR PO SCH (05:04)
[2019-11-07 05:23] LABS: ABSOLUTE LYMPHOCYTES (AUTO) 0.7 10^3/uL (0.5-4.7); ABSOLUTE MONOCYTES (AUTO) 0.7 10^3/uL (0.1-1.4); ABSOLUTE NEUT (AUTO) 10.8 10^3/uL (1.7-8.2); BASOPHILS % (AUTO) 0.1 % (0-2); HEMATOCRIT 39.5 % (37.9-51.0); HEMOGLOBIN 13.4 g/dL (13.5-17.0); LYMPHOCYTES % (AUTO) 5.8 % (13-45); MEAN CORPUSCULAR HEMOGLOBIN 31.1 pg (27.0-33.4); MEAN CORPUSCULAR VOLUME 92 fl (80-97); MONOCYTES % (AUTO) 5.9 % (3-13); RED BLOOD COUNT 4.31 10^6/uL (4.35-5.55); RED CELL DISTRIBUTION WIDTH 13.9 % (11.5-14.0); SEGMENTED NEUTROPHILS % (AUTO) 88.2 % (42-78); TOTAL CELLS COUNTED % (AUTO) 100 %; WHITE BLOOD COUNT 12.2 10^3/uL (4.0-10.5)
[2019-11-07 05:27] LABS: ALBUMIN 3.6 g/dL (3.5-5.0); ALKALINE PHOSPHATASE 56 U/L (38-126); ANION GAP 11 (5-19); ASPARTATE AMINO TRANSFERASE 43 U/L (17-59); BILIRUBIN,DIRECT 0.7 mg/dL (0.0-0.4); BILIRUBIN,TOTAL 2.5 mg/dL (0.2-1.3); BLOOD UREA NITROGEN 17 mg/dL (7-20); CARBON DIOXIDE 32 mmol/L (22-30); CHLORIDE 97 mmol/L (98-107); GLUCOSE 108 mg/dL (75-110); TOTAL PROTEIN 6.5 g/dL (6.3-8.2)
[2019-11-07 05:43] LABS: POTASSIUM 2.7 mmol/L (3.6-5.0)
[2019-11-07 05:47] LABS: PLATELET COUNT 99 10^3/uL (150-450)
[2019-11-07] MEDS: POTASSIUM CHLORIDE 20 MEQ/50 ML RTU IV SCH ×4 (06:14→11:23)
[2019-11-07] MEDS: NORMAL SALINE 1000 ML 1,000 ML IV PRN ×2 (10:01→22:53)
--- NOTE | 2019-11-07 16:22 | PDOC PROGRESS REPORT ---
Subjective Progress Note for:: 11/07/19 Subjective:: Patient reported improvement in his nausea and no vomiting. His abdominal pain is fairly controlled on current regimen. No diarrhea. No fever or chills. No chest pain or difficulty with breathing. Reason For Visit: NITA, GASTROENTERITIS; ALCOHOL ABUSE, HTN, CAD, Physical Exam Vital Signs: Temp Pulse Resp BP Pulse Ox 98.9 F 64 18 133/81 H 100 11/07/19 07:20 11/07/19 07:17 11/07/19 03:47 11/07/19 07:17 11/07/19 07:17 Intake & Output 11/06/19 11/07/19 11/08/19 06:59 06:59 06:59 Intake Total 951.2 1838.2 780 Output Total 375 1975 420 Balance 576.2 -136.8 360 Weight 81.8 kg 78.9 kg Physical Exam: General appearance: PRESENT: no acute distress Head exam: PRESENT: atraumatic, normocephalic Eye exam: PRESENT: conjunctiva pink. ABSENT: pallor, scleral icterus Mouth exam: PRESENT: moist Respiratory exam: PRESENT: decreased breath sounds Cardiovascular exam: PRESENT: RRR, +S1, +S2. ABSENT: diastolic murmur, rubs, systolic murmur GI/Abdominal exam: PRESENT: normal bowel sounds, soft. ABSENT: organomegaly, tenderness Extremities exam: ABSENT: pedal edema Neurological exam: PRESENT: alert, awake, oriented to person, oriented to place, oriented to time, oriented to situation, CN II-XII grossly intact. ABSENT: motor sensory deficit Psychiatric exam: PRESENT: appropriate affect, normal mood. ABSENT: homicidal ideation, suicidal ideation Skin exam: PRESENT: dry, warm Results Laboratory Results: 11/07/19 04:50 11/07/19 04:50 11/07/19 11/07/19 11/07/19 04:50 04:50 04:50 WBC 12.2 H RBC 4.31 L Hgb 13.4 L Hct 39.5 MCV 92 MCH 31.1 MCHC 34.0 RDW 13.9 Plt Count 99 L Seg Neutrophils % 88.2 H Sodium 139.9 Potassium 2.7 L* Chloride 97 L Carbon Dioxide 32 H Anion Gap 11 BUN 17 Creatinine 1.03 Est GFR ( Amer) > 60 Glucose 108 Lactic Acid 0.9 Calcium 8.0 L Total Bilirubin 2.5 H AST 43 Alkaline Phosphatase 56 Total Protein 6.5 Albumin 3.6 Lipase 2230.8 H 11/04/19 11/05/19 21:51 01:48 Troponin I Cancelled 0.091 Impressions: Acute Abdomen Series 11/05/19 00:00 IMPRESSION: No acute plain film abnormality is identified. Findings consistent with chronic calcific pancreatitis Chest X-Ray 11/05/19 00:00 IMPRESSION: COPD. No acute findings. Assessment & Plan - Diagnosis (1) Intractable nausea and vomiting Is this a current diagnosis for this admission?: Yes (2) Abdominal pain Qualifiers: Abdominal location: generalized Qualified Code(s): R10.84 - Generalized abdominal pain Is this a current diagnosis for this admission?: Yes (3) Acute kidney failure Qualifiers: Acute renal failure type: unspecified Qualified Code(s): N17.9 - Acute kidney failure, unspecified Is this a current diagnosis for this admission?: Yes (5) Hypokalemia Is this a current diagnosis for this admission?: Yes (6) Chronic recurrent pancreatitis Is this a current diagnosis for this admission?: Yes Plan: Obtain serum lipase level. Start on clear liquid diet. - Time Time Spent with patient: 25-34 minutes Level of Care: IMCU Medications reviewed and adjusted accordingly: Yes Anticipated discharge: Home Anticipated DC Timeframe: within 72 hours - Inpatient Certification Based on my medical assessment, after consideration of the patient's comorbidities, presenting symptoms, or acuity I expect that the services needed warrant INPATIENT care.: Yes I certify that my determination is in accordance with my understanding of Medicare's requirements for reasonable and necessary INPATIENT services [42 CFR 412.3e].: Yes Medical Necessity: Significant Comorbidiites Make Outpatient Treatment Too Risky, Need Close Monitoring Due to Risk of Patient Decompensation, Need For Continuous Telemetry Monitoring, Need for IV Antibiotics, Risk of Complication if Not Cared For in Hospital, Risk of Diagnosis Which Will Require Inpatient Eval/Care/Monitoring Post Hospital Care: D/C Disposal Man Documentation - Plan Summary Plan Summary: Continue current medication management. Patient received potassium replacement earlier today. Start on clear liquid diet. Obtain serum lipase level, CBC with diff, and BMP in am.
[2019-11-07] MEDS: THIAMINE HCL 100 MG, FOLIC ACID 1 MG in NORMAL SALINE 250 ML IV SCH (18:46)
[2019-11-08] MEDS: PROMETHAZINE HCL INJ 25 MG/1 ML VIAL IV PRN ×4 (02:36→20:01)
[2019-11-08] MEDS: MORPHINE SULFATE 10 MG/ML INJ IV PRN ×4 (02:36→20:00)
[2019-11-08] MEDS: HEPARIN SOD (PORCINE) 5,000 UNIT/ML 1 ML VIAL SUBCUT SCH ×3 (06:00→22:44)
[2019-11-08] MEDS: PANTOPRAZOLE SODIUM 40 MG TABLET.DR PO SCH (06:26)
[2019-11-08] MEDS: PIPERACILLIN SODIUM/TAZOBACTAM 3.375 GM in NORMAL SALINE 100 ML IV SCH ×4 (06:27→23:01)
[2019-11-08 06:50] LABS: HEMOGLOBIN 13.2 g/dL (13.5-17.0); MEAN CORPUSCULAR HGB CONC 33.8 g/dL (32.0-36.0); MEAN CORPUSCULAR VOLUME 92 fl (80-97); RED BLOOD COUNT 4.26 10^6/uL (4.35-5.55); RED CELL DISTRIBUTION WIDTH 13.7 % (11.5-14.0); WHITE BLOOD COUNT 15.2 10^3/uL (4.0-10.5)
[2019-11-08 07:04] LABS: ANION GAP 8 (5-19); BLOOD UREA NITROGEN 11 mg/dL (7-20); CALCIUM 7.8 mg/dL (8.4-10.2); CARBON DIOXIDE 31 mmol/L (22-30); CHLORIDE 98 mmol/L (98-107); GLUCOSE 120 mg/dL (75-110)
[2019-11-08 07:14] LABS: POTASSIUM 2.6 mmol/L (3.6-5.0)
[2019-11-08 07:46] LABS: ABSOLUTE LYMPHOCYTES# (MANUAL) 0.8 10^3/uL (0.5-4.7); ABSOLUTE MONOCYTES # (MANUAL) 1.5 10^3/uL (0.1-1.4); BAND NEUTROPHILS % (MANUAL) 1 % (3-5); BASOPHILS % (MANUAL) 0 % (0-2); EOSINOPHILS % (MANUAL) 0 % (0-6); LYMPHOCYTES % (MANUAL) 5 % (13-45); MONOCYTES % (MANUAL) 10 % (3-13); NUCLEATED RED BLOOD CELLS 1 /100 WBC (0); SEGMENTED NEUTROPHILS % (MAN) 84 % (42-78); TOTAL CELLS COUNTED 100
[2019-11-08 07:50] LABS: OVALOCYTES 1+; PLATELET COMMENT DECREASED
[2019-11-08 08:07] LABS: PLATELET COUNT 95 10^3/uL (150-450)
[2019-11-08] MEDS: POTASSIUM CHLORIDE 20 MEQ/50 ML RTU IV SCH ×2 (10:33→12:34)
--- NOTE | 2019-11-08 10:35 | PDOC PROGRESS REPORT ---
Subjective Progress Note for:: 11/08/19 Subjective:: Patient is feeling better Just mild abdominal discomfort Currently on a clear liquid diet Patient's potassium is 2.6 No chest pain no short of breath Reason For Visit: NITA, GASTROENTERITIS; ALCOHOL ABUSE, HTN, CAD, Physical Exam Vital Signs: Temp Pulse Resp BP Pulse Ox 100.2 F 80 18 133/81 H 98 11/08/19 07:50 11/08/19 07:50 11/08/19 07:50 11/08/19 07:50 11/08/19 07:50 Intake & Output 11/07/19 11/08/19 11/09/19 06:59 06:59 06:59 Intake Total 1838.2 3885.2 0 Output Total 1975 1300 Balance -136.8 2585.2 0 Weight 78.9 kg 76.8 kg General appearance: PRESENT: no acute distress, well-developed, well-nourished Head exam: PRESENT: atraumatic, normocephalic Eye exam: PRESENT: conjunctiva pink, EOMI, PERRLA. ABSENT: scleral icterus Ear exam: PRESENT: normal external ear exam Mouth exam: PRESENT: moist, tongue midline Neck exam: PRESENT: full ROM. ABSENT: carotid bruit, JVD, lymphadenopathy, thyromegaly Respiratory exam: PRESENT: clear to auscultation taryn Cardiovascular exam: PRESENT: RRR. ABSENT: diastolic murmur, rubs, systolic murmur Pulses: PRESENT: normal dorsalis pedis pul, +2 pedal pulses bilateral Vascular exam: PRESENT: normal capillary refill GI/Abdominal exam: PRESENT: normal bowel sounds, soft. ABSENT: distended, guarding, mass, organolmegaly, rebound, tenderness Rectal exam: PRESENT: deferred Neurological exam: PRESENT: alert, awake, oriented to person, oriented to place, oriented to time, oriented to situation, CN II-XII grossly intact. ABSENT: motor sensory deficit Psychiatric exam: PRESENT: appropriate affect, normal mood. ABSENT: homicidal ideation, suicidal ideation Skin exam: PRESENT: dry, intact, warm. ABSENT: cyanosis, rash Results Laboratory Results: 11/08/19 06:25 11/08/19 06:25 11/08/19 11/08/19 06:25 06:25 WBC 15.2 H RBC 4.26 L Hgb 13.2 L Hct 39.0 MCV 92 MCH 31.0 MCHC 33.8 RDW 13.7 Plt Count 95 L Seg Neutrophils % Not Reportable Sodium 137.0 Potassium 2.6 L* Chloride 98 Carbon Dioxide 31 H Anion Gap 8 BUN 11 Creatinine 0.74 Est GFR ( Amer) > 60 Glucose 120 H Calcium 7.8 L Lipase 2090.2 H 11/04/19 11/05/19 21:51 01:48 Troponin I Cancelled 0.091 Impressions: Acute Abdomen Series 11/05/19 00:00 IMPRESSION: No acute plain film abnormality is identified. Findings consistent with chronic calcific pancreatitis Chest X-Ray 11/05/19 00:00 IMPRESSION: COPD. No acute findings. Assessment & Plan - Diagnosis (1) Abdominal pain Qualifiers: Abdominal location: generalized Qualified Code(s): R10.84 - Generalized abdominal pain Is this a current diagnosis for this admission?: Yes (2) Chronic recurrent pancreatitis Is this a current diagnosis for this admission?: Yes (3) Hypokalemia Is this a current diagnosis for this admission?: Yes (4) Intractable nausea and vomiting Is this a current diagnosis for this admission?: Yes (5) Acute encephalopathy Is this a current diagnosis for this admission?: Yes - Time Time Spent with patient: 15-24 minutes Level of Care: IMCU Medications reviewed and adjusted accordingly: Yes Anticipated discharge: Other Anticipated DC Timeframe: Other - Plan Summary Plan Summary: Replace the potassiums recheck today at 4 PM
[2019-11-08] MEDS: POTASSIUM CHLORIDE 10 MEQ TABLET.ER PO SCH ×2 (12:35→18:51)
[2019-11-08] MEDS: NORMAL SALINE 1000 ML 1,000 ML IV PRN (14:30)
[2019-11-08] MEDS ORDERED: POTASSIUM CHLORIDE 20 MEQ/50 ML RTU IV ONE (18:30)
[2019-11-08] MEDS ORDERED: POTASSIUM CHLORIDE 10 MEQ TABLET.ER PO ONE (18:35)
[2019-11-08] MEDS: THIAMINE HCL 100 MG, FOLIC ACID 1 MG in NORMAL SALINE 250 ML IV SCH (18:51)
[2019-11-08] MEDS ORDERED: ACETAMINOPHEN 0 MG/0 ML RTUPB IV ONE (19:00)
[2019-11-09] MEDS: MORPHINE SULFATE 10 MG/ML INJ IV PRN ×6 (01:06→23:55)
[2019-11-09] MEDS: PROMETHAZINE HCL INJ 25 MG/1 ML VIAL IV PRN (01:07)
[2019-11-09] MEDS: NORMAL SALINE 1000 ML 1,000 ML IV PRN ×2 (03:27→17:20)
[2019-11-09] MEDS: PANTOPRAZOLE SODIUM 40 MG TABLET.DR PO SCH (05:23)
[2019-11-09] MEDS: PIPERACILLIN SODIUM/TAZOBACTAM 3.375 GM in NORMAL SALINE 100 ML IV SCH ×4 (05:23→23:54)
[2019-11-09] MEDS: HEPARIN SOD (PORCINE) 5,000 UNIT/ML 1 ML VIAL SUBCUT SCH ×3 (05:23→22:08)
[2019-11-09 06:42] LABS: ABSOLUTE LYMPHOCYTES (AUTO) 0.8 10^3/uL (0.5-4.7); ABSOLUTE NEUT (AUTO) 12.7 10^3/uL (1.7-8.2); BASOPHILS % (AUTO) 0.1 % (0-2); EOSINOPHILS % (AUTO) 0.1 % (0-6); HEMATOCRIT 40.7 % (37.9-51.0); HEMOGLOBIN 13.7 g/dL (13.5-17.0); LYMPHOCYTES % (AUTO) 5.1 % (13-45); MEAN CORPUSCULAR HEMOGLOBIN 30.9 pg (27.0-33.4); MEAN CORPUSCULAR HGB CONC 33.7 g/dL (32.0-36.0); MEAN CORPUSCULAR VOLUME 92 fl (80-97); MONOCYTES % (AUTO) 12.8 % (3-13); PLATELET COUNT 105 10^3/uL (150-450); RED BLOOD COUNT 4.45 10^6/uL (4.35-5.55); RED CELL DISTRIBUTION WIDTH 13.7 % (11.5-14.0); SEGMENTED NEUTROPHILS % (AUTO) 81.9 % (42-78); TOTAL CELLS COUNTED % (AUTO) 100 %; WHITE BLOOD COUNT 15.5 10^3/uL (4.0-10.5)
[2019-11-09 07:10] LABS: ALBUMIN 3.2 g/dL (3.5-5.0); ALKALINE PHOSPHATASE 67 U/L (38-126); ANION GAP 9 (5-19); ASPARTATE AMINO TRANSFERASE 32 U/L (17-59); BILIRUBIN,DIRECT 0.7 mg/dL (0.0-0.4); BILIRUBIN,TOTAL 1.6 mg/dL (0.2-1.3); BLOOD UREA NITROGEN 8 mg/dL (7-20); CALCIUM 8.1 mg/dL (8.4-10.2); CARBON DIOXIDE 28 mmol/L (22-30); CHLORIDE 100 mmol/L (98-107); GLUCOSE 105 mg/dL (75-110); TOTAL PROTEIN 6.2 g/dL (6.3-8.2)
[2019-11-09 07:15] LABS: POTASSIUM 2.9 mmol/L (3.6-5.0)
--- NOTE | 2019-11-09 09:58 | PDOC PROGRESS REPORT ---
Subjective Progress Note for:: 11/09/19 Subjective:: Patient is currently doing same Patient's lipase is coming down to 1200 range Patient's potassium is low Reason For Visit: NITA, GASTROENTERITIS; ALCOHOL ABUSE, HTN, CAD, Physical Exam Vital Signs: Temp Pulse Resp BP Pulse Ox 100.4 F 77 12 129/89 H 100 11/09/19 07:33 11/09/19 07:33 11/09/19 07:33 11/09/19 07:33 11/09/19 07:33 Intake & Output 11/08/19 11/09/19 11/10/19 06:59 06:59 06:59 Intake Total 3885.2 2769.2 Output Total 1300 425 Balance 2585.2 2344.2 Weight 76.8 kg General appearance: PRESENT: no acute distress, well-developed, well-nourished Head exam: PRESENT: atraumatic, normocephalic Eye exam: PRESENT: conjunctiva pink, EOMI, PERRLA. ABSENT: scleral icterus Ear exam: PRESENT: normal external ear exam Mouth exam: PRESENT: moist, tongue midline Neck exam: PRESENT: full ROM. ABSENT: carotid bruit, JVD, lymphadenopathy, thyromegaly Respiratory exam: PRESENT: clear to auscultation taryn Cardiovascular exam: PRESENT: RRR. ABSENT: diastolic murmur, rubs, systolic murmur Pulses: PRESENT: normal dorsalis pedis pul, +2 pedal pulses bilateral Vascular exam: PRESENT: normal capillary refill GI/Abdominal exam: PRESENT: normal bowel sounds, soft. ABSENT: distended, guarding, mass, organolmegaly, rebound, tenderness Rectal exam: PRESENT: deferred Neurological exam: PRESENT: alert, awake, oriented to person, oriented to place, oriented to time, oriented to situation, CN II-XII grossly intact. ABSENT: motor sensory deficit Psychiatric exam: PRESENT: appropriate affect, normal mood. ABSENT: homicidal ideation, suicidal ideation Skin exam: PRESENT: dry, intact, warm. ABSENT: cyanosis, rash Results Laboratory Results: 11/09/19 05:35 11/09/19 05:35 11/09/19 11/09/19 05:35 05:35 WBC 15.5 H RBC 4.45 Hgb 13.7 Hct 40.7 MCV 92 MCH 30.9 MCHC 33.7 RDW 13.7 Plt Count 105 L Seg Neutrophils % 81.9 H Sodium 137.1 Potassium 2.9 L* Chloride 100 Carbon Dioxide 28 Anion Gap 9 BUN 8 Creatinine 0.81 Est GFR ( Amer) > 60 Glucose 105 Calcium 8.1 L Total Bilirubin 1.6 H AST 32 Alkaline Phosphatase 67 Total Protein 6.2 L Albumin 3.2 L Lipase 1238.9 H 11/04/19 11/05/19 21:51 01:48 Troponin I Cancelled 0.091 Impressions: Acute Abdomen Series 11/05/19 00:00 IMPRESSION: No acute plain film abnormality is identified. Findings consistent with chronic calcific pancreatitis Chest X-Ray 11/05/19 00:00 IMPRESSION: COPD. No acute findings. Assessment & Plan - Diagnosis (1) Abdominal pain Qualifiers: Abdominal location: generalized Qualified Code(s): R10.84 - Generalized abdominal pain Is this a current diagnosis for this admission?: Yes (2) Chronic recurrent pancreatitis Is this a current diagnosis for this admission?: Yes (3) Hypokalemia Is this a current diagnosis for this admission?: Yes (4) Intractable nausea and vomiting Is this a current diagnosis for this admission?: Yes (5) Acute encephalopathy Is this a current diagnosis for this admission?: Yes - Time Time Spent with patient: 15-24 minutes Level of Care: IMCU Medications reviewed and adjusted accordingly: Yes Anticipated discharge: Other Anticipated DC Timeframe: Other - Plan Summary Plan Summary: Replace the potassiums
[2019-11-09] MEDS ORDERED: POTASSI CL 20 MEQ/50 ML RIDER 20 MEQ/50 ML RTUPB IV ONE (10:30)
[2019-11-09] MEDS ORDERED: POTASSIUM CHLORIDE 10 MEQ TABLET.ER PO ONE (10:30)
[2019-11-09] MEDS: THIAMINE HCL 100 MG, FOLIC ACID 1 MG in NORMAL SALINE 250 ML IV SCH (17:28)
[2019-11-10] MEDS: MORPHINE SULFATE 10 MG/ML INJ IV PRN ×4 (04:19→19:30)
[2019-11-10] MEDS: HEPARIN SOD (PORCINE) 5,000 UNIT/ML 1 ML VIAL SUBCUT SCH ×3 (06:16→21:21)
[2019-11-10] MEDS: PANTOPRAZOLE SODIUM 40 MG TABLET.DR PO SCH (06:26)
[2019-11-10] MEDS: PIPERACILLIN SODIUM/TAZOBACTAM 3.375 GM in NORMAL SALINE 100 ML IV SCH ×4 (06:26→23:52)
[2019-11-10] MEDS: NORMAL SALINE 1000 ML 1,000 ML IV PRN ×2 (06:27→18:20)
[2019-11-10 07:00] LABS: HEMATOCRIT 38.8 % (37.9-51.0); HEMOGLOBIN 13.4 g/dL (13.5-17.0); MEAN CORPUSCULAR HEMOGLOBIN 31.3 pg (27.0-33.4); MEAN CORPUSCULAR HGB CONC 34.6 g/dL (32.0-36.0); MEAN CORPUSCULAR VOLUME 91 fl (80-97); PLATELET COUNT 124 10^3/uL (150-450); RED BLOOD COUNT 4.29 10^6/uL (4.35-5.55); RED CELL DISTRIBUTION WIDTH 14.1 % (11.5-14.0); WHITE BLOOD COUNT 13.2 10^3/uL (4.0-10.5)
[2019-11-10 07:20] LABS: ANION GAP 9 (5-19); BLOOD UREA NITROGEN 7 mg/dL (7-20); CALCIUM 7.9 mg/dL (8.4-10.2); CARBON DIOXIDE 27 mmol/L (22-30); CHLORIDE 99 mmol/L (98-107); GLUCOSE 107 mg/dL (75-110); POTASSIUM 3.1 mmol/L (3.6-5.0)
[2019-11-10 07:30] LABS: ABSOLUTE LYMPHOCYTES# (MANUAL) 0.7 10^3/uL (0.5-4.7); ABSOLUTE MONOCYTES # (MANUAL) 2.5 10^3/uL (0.1-1.4); BASOPHILS % (MANUAL) 0 % (0-2); EOSINOPHILS % (MANUAL) 1 % (0-6); LYMPHOCYTES % (MANUAL) 5 % (13-45); MONOCYTES % (MANUAL) 19 % (3-13); SEGMENTED NEUTROPHILS % (MAN) 75 % (42-78); TOTAL CELLS COUNTED 100
[2019-11-10 07:34] LABS: ANISOCYTOSIS SLIGHT
[2019-11-10 07:35] LABS: PLATELET COMMENT DECREASED; POLYCHROMASIA SLIGHT
[2019-11-10] MEDS: POTASSIUM CHLORIDE 10 MEQ TABLET.ER PO SCH ×4 (14:30→18:21)
[2019-11-10] MEDS: PROMETHAZINE HCL INJ 25 MG/1 ML VIAL IV PRN (14:43)
--- NOTE | 2019-11-10 17:45 | PDOC PROGRESS REPORT ---
Subjective Progress Note for:: 11/10/19 Subjective:: Patient reported low grade fever at 100.5F earlier today. Tolerating oral feeding. No abdominal pain, nausea, or vomiting. No diarrhea. No chest pain or difficulty with breathing. Reason For Visit: NITA, GASTROENTERITIS; ALCOHOL ABUSE, HTN, CAD, Physical Exam Vital Signs: Temp Pulse Resp BP Pulse Ox 100.7 F H 85 16 141/83 H 98 11/10/19 10:00 11/10/19 07:41 11/10/19 07:41 11/10/19 07:41 11/10/19 07:41 Intake & Output 11/09/19 11/10/19 11/11/19 06:59 06:59 06:59 Intake Total 2769.2 3811.2 Output Total 425 800 Balance 2344.2 3011.2 Weight 86.8 kg Physical Exam: General appearance: PRESENT: no acute distress Head exam: PRESENT: atraumatic, normocephalic Eye exam: PRESENT: conjunctiva pink. ABSENT: pallor, sclera icterus Mouth exam: PRESENT: moist Respiratory exam: PRESENT: decreased breath sounds Cardiovascular exam: PRESENT: RRR, +S1, +S2. ABSENT: diastolic murmur, rubs, systolic murmur GI/Abdominal exam: PRESENT: normal bowel sounds, soft. ABSENT: organomegaly, tenderness Extremities exam: ABSENT: pedal edema Neurological exam: PRESENT: alert, awake, oriented to person, oriented to place, oriented to time, oriented to situation, CN II-XII grossly intact. ABSENT: motor sensory deficit Psychiatric exam: PRESENT: appropriate affect, normal mood. ABSENT: homicidal ideation, suicidal ideation Skin exam: PRESENT: dry, warm Results Laboratory Results: 11/10/19 06:30 11/10/19 06:30 11/10/19 11/10/19 06:30 06:30 WBC 13.2 H RBC 4.29 L Hgb 13.4 L Hct 38.8 MCV 91 MCH 31.3 MCHC 34.6 RDW 14.1 H Plt Count 124 L Seg Neutrophils % Not Reportable Sodium 134.8 L Potassium 3.1 L Chloride 99 Carbon Dioxide 27 Anion Gap 9 BUN 7 Creatinine 0.72 Est GFR ( Amer) > 60 Glucose 107 Calcium 7.9 L Lipase 848.9 H 11/09/19 12:15 Blood Blood Culture (PCR) - Final 11/04/19 23:23 Blood Blood Culture - Final NO GROWTH IN 5 DAYS 11/04/19 21:51 Blood Blood Culture - Final NO GROWTH IN 5 DAYS 11/04/19 11/05/19 21:51 01:48 Troponin I Cancelled 0.091 Impressions: Acute Abdomen Series 11/05/19 00:00 IMPRESSION: No acute plain film abnormality is identified. Findings consistent with chronic calcific pancreatitis Chest X-Ray 11/05/19 00:00 IMPRESSION: COPD. No acute findings. Assessment & Plan - Diagnosis (1) Intractable nausea and vomiting Is this a current diagnosis for this admission?: Yes (2) Abdominal pain Qualifiers: Abdominal location: generalized Qualified Code(s): R10.84 - Generalized abdominal pain Is this a current diagnosis for this admission?: Yes (3) Acute kidney failure Qualifiers: Acute renal failure type: unspecified Qualified Code(s): N17.9 - Acute kidney failure, unspecified Is this a current diagnosis for this admission?: Yes (5) Hypokalemia Is this a current diagnosis for this admission?: Yes (6) Chronic recurrent pancreatitis Is this a current diagnosis for this admission?: Yes - Time Time Spent with patient: 25-34 minutes Level of Care: IMCU Medications reviewed and adjusted accordingly: Yes Anticipated discharge: Home Anticipated DC Timeframe: within 72 hours - Inpatient Certification Based on my medical assessment, after consideration of the patient's comorbidities, presenting symptoms, or acuity I expect that the services needed warrant INPATIENT care.: Yes I certify that my determination is in accordance with my understanding of Medicare's requirements for reasonable and necessary INPATIENT services [42 CFR 412.3e].: Yes Medical Necessity: Significant Comorbidiites Make Outpatient Treatment Too Risky, Need Close Monitoring Due to Risk of Patient Decompensation, Need For IV Fluids, Need For Continuous Telemetry Monitoring, Need for IV Antibiotics, Risk of Complication if Not Cared For in Hospital, Risk of Diagnosis Which Will Requi re Inpatient Eval/Care/Monitoring Post Hospital Care: D/C Superintendent Measurement Documentation - Plan Summary Plan Summary: Advance diet to mechanical soft. Maintain on current antibiotic coverage. Oral Potassium replacement in progress. Continue all other current medication management. Obtain CBC with diff, BMP, Lipase, and Mag in am.
[2019-11-11] MEDS: MORPHINE SULFATE 10 MG/ML INJ IV PRN ×4 (01:23→20:15)
[2019-11-11] MEDS: PANTOPRAZOLE SODIUM 40 MG TABLET.DR PO SCH (06:11)
[2019-11-11] MEDS: HEPARIN SOD (PORCINE) 5,000 UNIT/ML 1 ML VIAL SUBCUT SCH ×3 (06:12→21:44)
[2019-11-11] MEDS: PIPERACILLIN SODIUM/TAZOBACTAM 3.375 GM in NORMAL SALINE 100 ML IV SCH ×3 (06:15→17:34)
[2019-11-11 07:16] LABS: HEMATOCRIT 35.4 % (37.9-51.0); HEMOGLOBIN 12.3 g/dL (13.5-17.0); MEAN CORPUSCULAR HEMOGLOBIN 31.3 pg (27.0-33.4); MEAN CORPUSCULAR HGB CONC 34.8 g/dL (32.0-36.0); MEAN CORPUSCULAR VOLUME 90 fl (80-97); PLATELET COUNT 154 10^3/uL (150-450); RED BLOOD COUNT 3.93 10^6/uL (4.35-5.55); RED CELL DISTRIBUTION WIDTH 13.8 % (11.5-14.0); WHITE BLOOD COUNT 12.9 10^3/uL (4.0-10.5)
[2019-11-11 07:45] LABS: ANION GAP 9 (5-19); BLOOD UREA NITROGEN 7 mg/dL (7-20); CALCIUM 7.7 mg/dL (8.4-10.2); CARBON DIOXIDE 26 mmol/L (22-30); CHLORIDE 101 mmol/L (98-107); GLUCOSE 102 mg/dL (75-110)
[2019-11-11 08:01] LABS: POTASSIUM 2.9 mmol/L (3.6-5.0)
[2019-11-11 09:09] LABS: ABSOLUTE LYMPHOCYTES# (MANUAL) 0.6 10^3/uL (0.5-4.7); ABSOLUTE MONOCYTES # (MANUAL) 2.3 10^3/uL (0.1-1.4); BAND NEUTROPHILS % (MANUAL) 1 % (3-5); BASOPHILS % (MANUAL) 0 % (0-2); EOSINOPHILS % (MANUAL) 0 % (0-6); LYMPHOCYTES % (MANUAL) 4 % (13-45); MONOCYTES % (MANUAL) 18 % (3-13); SEGMENTED NEUTROPHILS % (MAN) 76 % (42-78); TOTAL CELLS COUNTED 100
[2019-11-11 09:10] LABS: BURR CELLS SLIGHT; OVALOCYTES SLIGHT; POIKILOCYTOSIS SLIGHT; POLYCHROMASIA 1+
[2019-11-11 09:11] LABS: PLATELET COMMENT ADEQUATE
[2019-11-11] MEDS: MAGNESIUM SULFATE/D5W 1 GM/100 ML RTUPB IV SCH ×2 (09:55→11:38)
[2019-11-11] MEDS: POTASSIUM CHLORIDE 10 MEQ TABLET.ER PO SCH ×3 (09:55→17:34)
[2019-11-11] MEDS: NORMAL SALINE 1000 ML 1,000 ML IV PRN (09:55)
[2019-11-11] MEDS: THIAMINE HCL 100 MG TABLET PO SCH (09:55)
--- NOTE | 2019-11-11 16:01 | PDOC PROGRESS REPORT ---
Subjective Progress Note for:: 11/11/19 Subjective:: No chest pain or difficulty with breathing. Tolerating oral feeding with intermittent abdominal pain. No abdominal pain, nausea, or vomiting. Reason For Visit: NITA, GASTROENTERITIS; ALCOHOL ABUSE, HTN, CAD, Physical Exam Vital Signs: Temp Pulse Resp BP Pulse Ox 100.0 F 85 18 132/89 H 98 11/11/19 08:09 11/11/19 07:55 11/11/19 07:55 11/11/19 07:55 11/11/19 07:55 Intake & Output 11/10/19 11/11/19 11/12/19 06:59 06:59 06:59 Intake Total 3811.2 1800 Output Total 800 775 Balance 3011.2 1025 Weight 86.8 kg 85.2 kg Physical Exam: General appearance: PRESENT: no acute distress Head exam: PRESENT: atraumatic, normocephalic Eye exam: PRESENT: conjunctiva pink. ABSENT: pallor, sclera icterus Mouth exam: PRESENT: moist Respiratory exam: PRESENT: Clear to auscultation, decreased breath sounds Cardiovascular exam: PRESENT: RRR, +S1, +S2. ABSENT: diastolic murmur, rubs, systolic murmur GI/Abdominal exam: PRESENT: normal bowel sounds, soft. ABSENT: organomegaly, tenderness Extremities exam: ABSENT: pedal edema Neurological exam: PRESENT: alert, awake, oriented to person, oriented to place, oriented to time, oriented to situation, CN II-XII grossly intact. ABSENT: motor sensory deficit Psychiatric exam: PRESENT: appropriate affect, normal mood. ABSENT: homicidal ideation, suicidal ideation Skin exam: PRESENT: dry, warm Results Laboratory Results: 11/11/19 06:15 11/11/19 06:15 11/11/19 11/11/19 06:15 06:15 WBC 12.9 H RBC 3.93 L Hgb 12.3 L Hct 35.4 L MCV 90 MCH 31.3 MCHC 34.8 RDW 13.8 Plt Count 154 Seg Neutrophils % Not Reportable Sodium 135.9 L Potassium 2.9 L* Chloride 101 Carbon Dioxide 26 Anion Gap 9 BUN 7 Creatinine 0.73 Est GFR ( Amer) > 60 Glucose 102 Calcium 7.7 L Magnesium 1.5 L Lipase 754.1 H 11/09/19 12:15 Blood Blood Culture (PCR) - Final 11/09/19 12:15 Blood Blood Culture - Final Bacillus Sp. Not Anthracis 11/04/19 11/05/19 21:51 01:48 Troponin I Cancelled 0.091 Impressions: Acute Abdomen Series 11/05/19 00:00 IMPRESSION: No acute plain film abnormality is identified. Findings consistent with chronic calcific pancreatitis Chest X-Ray 11/05/19 00:00 IMPRESSION: COPD. No acute findings. Assessment & Plan - Diagnosis (1) Intractable nausea and vomiting Is this a current diagnosis for this admission?: Yes (2) Abdominal pain Qualifiers: Abdominal location: generalized Qualified Code(s): R10.84 - Generalized abdominal pain Is this a current diagnosis for this admission?: Yes (3) Acute kidney failure Qualifiers: Acute renal failure type: unspecified Qualified Code(s): N17.9 - Acute kidney failure, unspecified Is this a current diagnosis for this admission?: Yes (5) Hypokalemia Is this a current diagnosis for this admission?: Yes (6) Chronic recurrent pancreatitis Is this a current diagnosis for this admission?: Yes - Time Time Spent with patient: 25-34 minutes Level of Care: IMCU Medications reviewed and adjusted accordingly: Yes Anticipated discharge: Home with Homehealth Anticipated DC Timeframe: within 72 hours - Inpatient Certification Based on my medical assessment, after consideration of the patient's comorbidities, presenting symptoms, or acuity I expect that the services needed warrant INPATIENT care.: Yes I certify that my determination is in accordance with my understanding of Medicare's requirements for reasonable and necessary INPATIENT services [42 CFR 412.3e].: Yes Medical Necessity: Significant Comorbidiites Make Outpatient Treatment Too Risk y, Need Close Monitoring Due to Risk of Patient Decompensation, Need For IV Fluids, Need For Continuous Telemetry Monitoring, Need for IV Antibiotics, Risk of Complication if Not Cared For in Hospital, Risk of Diagnosis Which Will Require Inpatient Eval/Care/Monitoring Post Hospital Care: D/C Dental Chair Assembler Documentation - Plan Summary Plan Summary: Continue current medication management. Potassium and Magnesium replacement in progress. Obtain CBC with diff, BMP, Mag, Lipase level in am.
[2019-11-12] MEDS: PIPERACILLIN SODIUM/TAZOBACTAM 3.375 GM in NORMAL SALINE 100 ML IV SCH ×5 (00:30→23:35)
[2019-11-12] MEDS: MORPHINE SULFATE 10 MG/ML INJ IV PRN ×5 (02:42→23:27)
[2019-11-12] MEDS: NORMAL SALINE 1000 ML 1,000 ML IV PRN ×2 (02:42→18:04)
[2019-11-12] MEDS: HEPARIN SOD (PORCINE) 5,000 UNIT/ML 1 ML VIAL SUBCUT SCH ×4 (05:16→22:57)
[2019-11-12] MEDS: PANTOPRAZOLE SODIUM 40 MG TABLET.DR PO SCH (05:16)
[2019-11-12] MEDS: THIAMINE HCL 100 MG TABLET PO SCH (11:11)
[2019-11-13] MEDS: MORPHINE SULFATE 10 MG/ML INJ IV PRN ×3 (04:35→21:44)
[2019-11-13] MEDS: PANTOPRAZOLE SODIUM 40 MG TABLET.DR PO SCH (05:47)
[2019-11-13] MEDS: PIPERACILLIN SODIUM/TAZOBACTAM 3.375 GM in NORMAL SALINE 100 ML IV SCH (05:47)
[2019-11-13] MEDS: HEPARIN SOD (PORCINE) 5,000 UNIT/ML 1 ML VIAL SUBCUT SCH ×3 (05:47→21:45)
[2019-11-13 07:02] LABS: HEMATOCRIT 37.4 % (37.9-51.0); HEMOGLOBIN 12.8 g/dL (13.5-17.0); MEAN CORPUSCULAR HEMOGLOBIN 30.9 pg (27.0-33.4); MEAN CORPUSCULAR HGB CONC 34.1 g/dL (32.0-36.0); MEAN CORPUSCULAR VOLUME 91 fl (80-97); PLATELET COUNT 191 10^3/uL (150-450); RED BLOOD COUNT 4.13 10^6/uL (4.35-5.55); RED CELL DISTRIBUTION WIDTH 13.9 % (11.5-14.0); WHITE BLOOD COUNT 18.9 10^3/uL (4.0-10.5)
[2019-11-13 07:21] LABS: ALKALINE PHOSPHATASE 70 U/L (38-126); ANION GAP 8 (5-19); ASPARTATE AMINO TRANSFERASE 36 U/L (17-59); BILIRUBIN,DIRECT 0.6 mg/dL (0.0-0.4); BILIRUBIN,TOTAL 1.2 mg/dL (0.2-1.3); BLOOD UREA NITROGEN 6 mg/dL (7-20); CALCIUM 8.4 mg/dL (8.4-10.2); CARBON DIOXIDE 25 mmol/L (22-30); CHLORIDE 103 mmol/L (98-107); GLUCOSE 100 mg/dL (75-110); POTASSIUM 3.5 mmol/L (3.6-5.0); TOTAL PROTEIN 5.8 g/dL (6.3-8.2)
[2019-11-13 07:55] LABS: ABSOLUTE LYMPHOCYTES# (MANUAL) 0.8 10^3/uL (0.5-4.7); ABSOLUTE MONOCYTES # (MANUAL) 1.7 10^3/uL (0.1-1.4); BAND NEUTROPHILS % (MANUAL) 1 % (3-5); BASOPHILS % (MANUAL) 0 % (0-2); EOSINOPHILS % (MANUAL) 0 % (0-6); LYMPHOCYTES % (MANUAL) 4 % (13-45); MONOCYTES % (MANUAL) 9 % (3-13); SEGMENTED NEUTROPHILS % (MAN) 86 % (42-78); TOTAL CELLS COUNTED 100
[2019-11-13 07:58] LABS: OVALOCYTES SLIGHT; POIKILOCYTOSIS SLIGHT; POLYCHROMASIA SLIGHT
[2019-11-13 08:00] LABS: PLATELET COMMENT ADEQUATE; TEAR DROP CELLS SLIGHT
[2019-11-13] MEDS: POTASSIUM CHLORIDE 10 MEQ TABLET.ER PO SCH ×2 (09:41→13:25)
[2019-11-13] MEDS: THIAMINE HCL 100 MG TABLET PO SCH (09:41)
[2019-11-13 11:49] LABS: APPEARANCE,URINE CLEAR; BILIRUBIN,URINE NEGATIVE (NEGATIVE); COLOR,URINE YELLOW; GLUCOSE, URINE NEGATIVE (NEGATIVE); KETONES,URINE NEGATIVE (NEGATIVE); PROTEIN,URINE NEGATIVE (NEGATIVE); URINE SPECIFIC GRAVITY 1.018
--- NOTE | 2019-11-13 12:51 | RADIOLOGY REPORT (SQ) ---
EXAM DESCRIPTION: CHEST 2 VIEWS IMAGES COMPLETED DATE/TIME: 11/13/2019 9:02 am REASON FOR STUDY: worsening leukocytosis with recurrent pancreatitis COMPARISON: 11/05/2019. EXAM PARAMETERS: NUMBER OF VIEWS: two views TECHNIQUE: Digital Frontal and Lateral radiographic views of the chest acquired. RADIATION DOSE: NA LIMITATIONS: none FINDINGS: LUNGS AND PLEURA: Faint basilar densities with linear markings in the right lower lobe. P ossible small pleural effusions. MEDIASTINUM AND HILAR STRUCTURES: No masses or contour abnormalities. HEART AND VASCULAR STRUCTURES: Heart normal size. No evidence for failure. BONES: No acute findings. HARDWARE: None in the chest. OTHER: No other significant finding. IMPRESSION: FAINT BASILAR DENSITIES, PROBABLY ATELECTASIS. POSSIBLE SMALL PLEURAL EFFUSIONS. TECHNICAL DOCUMENTATION: JOB ID: [id number] [employer]- All Rights Reserved Reading location - IP/workstation name: [email or web address]
--- NOTE | 2019-11-13 14:39 | PDOC PROGRESS REPORT ---
Subjective Progress Note for:: 11/12/19 Subjective:: No chest pain or difficulty with breathing. No abdominal pain, nausea, or vomiting. Tolerating oral feeding. Reason For Visit: NITA, GASTROENTERITIS; ALCOHOL ABUSE, HTN, CAD, Physical Exam Vital Signs: Temp Pulse Resp BP Pulse Ox 98.2 F 80 18 130/83 H 99 11/12/19 11:27 11/12/19 14:00 11/12/19 11:27 11/12/19 11:27 11/12/19 11:27 Intake & Output 11/11/19 11/12/19 11/13/19 06:59 06:59 06:59 Intake Total 2800 1980 Output Total 775 1500 Balance 2024 480 Weight 85.2 kg 78.8 kg Physical Exam: General appearance: PRESENT: no acute distress Head exam: PRESENT: atraumatic, normocephalic Eye exam: PRESENT: conjunctiva pink. ABSENT: pallor, sclera icterus Mouth exam: PRESENT: moist Respiratory exam: PRESENT: Clear to auscultation, decreased breath sounds Cardiovascular exam: PRESENT: RRR, +S1, +S2. ABSENT: diastolic murmur, rubs, systolic murmur GI/Abdominal exam: PRESENT: normal bowel sounds, soft. ABSENT: organomegaly, tenderness Extremities exam: ABSENT: pedal edema Neurological exam: PRESENT: alert, awake, oriented to person, oriented to place, oriented to time, oriented to situation, CN II-XII grossly intact. ABSENT: motor sensory deficit Psychiatric exam: PRESENT: appropriate affect, normal mood. ABSENT: homicidal ideation, suicidal ideation Skin exam: PRESENT: dry, warm Results Laboratory Results: 11/11/19 06:15 11/11/19 06:15 11/04/19 11/05/19 21:51 01:48 Troponin I Cancelled 0.091 Impressions: Acute Abdomen Series 11/05/19 00:00 IMPRESSION: No acute plain film abnormality is identified. Findings consistent with chronic calcific pancreatitis Chest X-Ray 11/05/19 00:00 IMPRESSION: COPD. No acute findings. Assessment & Plan - Diagnosis (1) Intractable nausea and vomiting Is this a current diagnosis for this admission?: Yes (2) Abdominal pain Qualifiers: Abdominal location: generalized Qualified Code(s): R10.84 - Generalized abdominal pain Is this a current diagnosis for this admission?: Yes (3) Acute kidney failure Qualifiers: Acute renal failure type: unspecified Qualified Code(s): N17.9 - Acute kidney failure, unspecified Is this a current diagnosis for this admission?: Yes (5) Hypokalemia Is this a current diagnosis for this admission?: Yes (6) Chronic recurrent pancreatitis Is this a current diagnosis for this admission?: Yes - Time Time Spent with patient: 25-34 minutes Level of Care: IMCU Medications reviewed and adjusted accordingly: Yes Anticipated discharge: Home with Homehealth Anticipated DC Timeframe: within 48 hours - Inpatient Certification Based on my medical assessment, after consideration of the patient's comorbidities, presenting symptoms, or acuity I expect that the services needed warrant INPATIENT care.: Yes I certify that my determination is in accordance with my understanding of Medicare's requirements for reasonable and necessary INPATIENT services [42 CFR 412.3e].: Yes Medical Necessity: Significant Comorbidiites Make Outpatient Treatment Too Risky, Need Close Monitoring Due to Risk of Patient Decompensation, Need For IV Fluids, Need For Continuous Telemetry Monitoring, Need for IV Antibiotics, Risk of Complication if Not Cared For in Hospital, Risk of Diagnosis Which Will Require Inpatient Eval/Care/Monitoring Post Hospital Care: D/C Residence Leasing Agent Documentation - Plan Summary Plan Summary: Continue current medication management. Obtain CBC with diff, CMP, Lipase level in AM.
--- NOTE | 2019-11-13 14:59 | PDOC PROGRESS REPORT ---
Subjective Progress Note for:: 11/13/19 Subjective:: Patient denied any fever or chills. No chest pain or difficulty with breathing. Patient denied any dental pain or issues. No abdominal pain, diarrhea, nausea, or vomiting. No dysuria or flank pain. Reason For Visit: NITA, GASTROENTERITIS; ALCOHOL ABUSE, HTN, CAD, Physical Exam Vital Signs: Temp Pulse Resp BP Pulse Ox 99.2 F 75 19 136/75 H 99 11/13/19 07:13 11/13/19 07:13 11/13/19 07:13 11/13/19 07:13 11/13/19 07:13 Intake & Output 11/12/19 11/13/19 11/14/19 06:59 06:59 06:59 Intake Total 1980 1380 Output Total 1500 1790 Balance 480 -410 Weight 78.8 kg 78.5 kg Physical Exam: General appearance: PRESENT: no acute distress Head exam: PRESENT: atraumatic, normocephalic Eye exam: PRESENT: conjunctiva pink. ABSENT: pallor, sclera icterus Mouth exam: PRESENT: moist Respiratory exam: PRESENT: Clear to auscultation, decreased breath sounds Cardiovascular exam: PRESENT: RRR, +S1, +S2. ABSENT: diastolic murmur, rubs, systolic murmur GI/Abdominal exam: PRESENT: normal bowel sounds, soft. ABSENT: organomegaly, tenderness Extremities exam: ABSENT: pedal edema Neurological exam: PRESENT: alert, awake, oriented to person, oriented to place, oriented to time, oriented to situation, CN II-XII grossly intact. ABSENT: motor sensory deficit Psychiatric exam: PRESENT: appropriate affect, normal mood. ABSENT: homicidal ideation, suicidal ideation Skin exam: PRESENT: dry, warm Results Laboratory Results: 11/13/19 06:42 11/13/19 06:42 11/13/19 11/13/19 06:42 06:42 WBC 18.9 H RBC 4.13 L Hgb 12.8 L Hct 37.4 L MCV 91 MCH 30.9 MCHC 34.1 RDW 13.9 Plt Count 191 Seg Neutrophils % Not Reportable Sodium 136.1 L Potassium 3.5 L Chloride 103 Carbon Dioxide 25 Anion Gap 8 BUN 6 L Creatinine 0.71 Est GFR ( Amer) > 60 Glucose 100 Calcium 8.4 Total Bilirubin 1.2 AST 36 Alkaline Phosphatase 70 Total Protein 5.8 L Albumin 3.0 L Lipase 326.7 H 11/04/19 11/05/19 21:51 01:48 Troponin I Cancelled 0.091 Impressions: Acute Abdomen Series 11/05/19 00:00 IMPRESSION: No acute plain film abnormality is identified. Findings consistent with chronic calcific pancreatitis Chest X-Ray 11/05/19 00:00 IMPRESSION: COPD. No acute findings. Assessment & Plan - Diagnosis (1) Intractable nausea and vomiting Is this a current diagnosis for this admission?: Yes (2) Abdominal pain Qualifiers: Abdominal location: generalized Qualified Code(s): R10.84 - Generalized abdominal pain Is this a current diagnosis for this admission?: Yes (3) Acute kidney failure Qualifiers: Acute renal failure type: unspecified Qualified Code(s): N17.9 - Acute kidney failure, unspecified Is this a current diagnosis for this admission?: Yes (5) Hypokalemia Is this a current diagnosis for this admission?: Yes (6) Chronic recurrent pancreatitis Is this a current diagnosis for this admission?: Yes - Time Time Spent with patient: 25-34 minutes Level of Care: IMCU Medications reviewed and adjusted accordingly: Yes Anticipated discharge: Home with Homehealth Anticipated DC Timeframe: within 72 hours - Inpatient Certification Based on my medical assessment, after consideration of the patient's comorbidities, presenting symptoms, or acuity I expect that the services needed warrant INPATIENT care.: Yes I certify that my determination is in accordance with my understanding of Medicare's requirements for reasonable and necessary INPATIENT services [42 CFR 412.3e].: Yes Medical Necessity: Significant Comorbidiites Make Outpatient Treatment Too Risky, Need Close Monitoring Due to Risk of Patient Decompensation, Need For IV Fluids, Need For Continuous Telemetry Monitoring, Need for IV Antibiotics, Risk of Complication if Not Cared For in Hospital, Risk of Diagnosis Which Will Require Inpatient Eval/Care/Monitoring Post Hospital Care: D/C Home Care Manager Rn Documentation - Plan Summary Plan Summary: Obtain chest X ray 2 views, U/A, stool for C. difficile toxin titer in view of his worsening leukocytosis on IV antibiotic therapy. Maintain in all other current medication management.
[2019-11-14] MEDS: MORPHINE SULFATE 10 MG/ML INJ IV PRN ×5 (03:32→22:22)
[2019-11-14] MEDS: PANTOPRAZOLE SODIUM 40 MG TABLET.DR PO SCH (05:25)
[2019-11-14] MEDS: HEPARIN SOD (PORCINE) 5,000 UNIT/ML 1 ML VIAL SUBCUT SCH ×3 (05:25→22:22)
[2019-11-14] MEDS: THIAMINE HCL 100 MG TABLET PO SCH (09:18)
--- NOTE | 2019-11-14 16:57 | PDOC PROGRESS REPORT ---
Subjective Progress Note for:: 11/14/19 Subjective:: Patient denied chest pain or difficulty with breathing. No abdominal pain, diarrhea, nausea, or vomiting. Patient continue to refuse CT abdomen/pelvis for further evaluation in view of his persistent leukocytosis. Reason For Visit: NITA, GASTROENTERITIS; ALCOHOL ABUSE, HTN, CAD, Physical Exam Vital Signs: Temp Pulse Resp BP Pulse Ox 100.0 F 90 16 135/77 H 95 11/14/19 11:50 11/14/19 14:00 11/14/19 11:50 11/14/19 11:50 11/14/19 11:50 Intake & Output 11/13/19 11/14/19 11/15/19 06:59 06:59 06:59 Intake Total 1380 Output Total 1790 400 Balance -410 -400 Weight 78.5 kg 78.7 kg Physical Exam: General appearance: PRESENT: no acute distress Head exam: PRESENT: atraumatic, normocephalic Eye exam: PRESENT: conjunctiva pink. ABSENT: pallor, sclera icterus Mouth exam: PRESENT: moist Respiratory exam: PRESENT: Clear to auscultation, decreased breath sounds Cardiovascular exam: PRESENT: RRR, +S1, +S2. ABSENT: diastolic murmur, rubs, systolic murmur GI/Abdominal exam: PRESENT: normal bowel sounds, soft. ABSENT: organomegaly, tenderness Extremities exam: ABSENT: pedal edema Neurological exam: PRESENT: alert, awake, oriented to person, oriented to place, oriented to time, oriented to situation, CN II-XII grossly intact. ABSENT: motor sensory deficit Psychiatric exam: PRESENT: appropriate affect, normal mood. ABSENT: homicidal ideation, suicidal ideation Skin exam: PRESENT: dry, warm Results Laboratory Results: 11/13/19 06:42 11/13/19 06:42 11/09/19 12:20 Blood Blood Culture - Final NO GROWTH IN 5 DAYS 11/04/19 11/05/19 21:51 01:48 Troponin I Cancelled 0.091 Impressions: Acute Abdomen Series 11/05/19 00:00 IMPRESSION: No acute plain film abnormality is identified. Findings consistent with chronic calcific pancreatitis Chest X-Ray 11/13/19 00:00 IMPRESSION: FAINT BASILAR DENSITIES, PROBABLY ATELECTASIS. POSSIBLE SMALL PLEURAL EFFUSIONS. Assessment & Plan - Diagnosis (1) Intractable nausea and vomiting Is this a current diagnosis for this admission?: Yes (2) Abdominal pain Qualifiers: Abdominal location: generalized Qualified Code(s): R10.84 - Generalized abdominal pain Is this a current diagnosis for this admission?: Yes (3) Acute kidney failure Qualifiers: Acute renal failure type: unspecified Qualified Code(s): N17.9 - Acute kidney failure, unspecified Is this a current diagnosis for this admission?: Yes (5) Hypokalemia Is this a current diagnosis for this admission?: Yes (6) Chronic recurrent pancreatitis Is this a current diagnosis for this admission?: Yes - Time Time Spent with patient: 25-34 minutes Level of Care: IMCU Medications reviewed and adjusted accordingly: Yes Anticipated discharge: Home with Homehealth Anticipated DC Timeframe: within 72 hours - Inpatient Certification Based on my medical assessment, after consideration of the patient's comorbidities, presenting symptoms, or acuity I expect that the services needed warrant INPATIENT care.: Yes I certify that my determination is in accordance with my understanding of Medicare's requirements for reasonable and necessary INPATIENT services [42 CFR 412.3e].: Yes Medical Necessity: Significant Comorbidiites Make Outpatient Treatment Too Risky, Need Close Monitoring Due to Risk of Patient Decompensation, Need For IV Fluids, Need For Continuous Telemetry Monitoring, Need for IV Antibiotics, Risk of Complication if Not Cared For in Hospital, Risk of Diagnosis Which Will Require Inpatient Eval/Care/Monitoring Post Hospital Care: D/C Day Camp Counselor Documentation - Plan Summary Plan Summary: Continue current medication management. Patient continue to refuse CT scan for further evaluation. Obtain CBC with diff, CMP, and Lipase level in AM.
[2019-11-14] MEDS: NORMAL SALINE 1000 ML 1,000 ML IV PRN (18:25)
[2019-11-14 18:44] LABS: HEMATOCRIT 35.3 % (37.9-51.0); MEAN CORPUSCULAR HEMOGLOBIN 30.7 pg (27.0-33.4); MEAN CORPUSCULAR VOLUME 90 fl (80-97); PLATELET COUNT 242 10^3/uL (150-450); RED BLOOD COUNT 3.91 10^6/uL (4.35-5.55); WHITE BLOOD COUNT 19.7 10^3/uL (4.0-10.5)
[2019-11-14 18:56] LABS: ALBUMIN 2.9 g/dL (3.5-5.0); ALKALINE PHOSPHATASE 75 U/L (38-126); ANION GAP 9 (5-19); ASPARTATE AMINO TRANSFERASE 35 U/L (17-59); BILIRUBIN,DIRECT 0.4 mg/dL (0.0-0.4); BILIRUBIN,TOTAL 0.8 mg/dL (0.2-1.3); BLOOD UREA NITROGEN 6 mg/dL (7-20); CALCIUM 8.3 mg/dL (8.4-10.2); CARBON DIOXIDE 26 mmol/L (22-30); CHLORIDE 101 mmol/L (98-107); GLUCOSE 109 mg/dL (75-110); POTASSIUM 3.2 mmol/L (3.6-5.0); TOTAL PROTEIN 5.9 g/dL (6.3-8.2)
[2019-11-14 19:03] LABS: ABSOLUTE LYMPHOCYTES# (MANUAL) 1.2 10^3/uL (0.5-4.7); ABSOLUTE MONOCYTES # (MANUAL) 1.2 10^3/uL (0.1-1.4); BAND NEUTROPHILS % (MANUAL) 3 % (3-5); BASOPHILS % (MANUAL) 0 % (0-2); EOSINOPHILS % (MANUAL) 0 % (0-6); LYMPHOCYTES % (MANUAL) 6 % (13-45); METAMYELOCYTES % (MANUAL) 2 % (0-1); MONOCYTES % (MANUAL) 6 % (3-13); SEGMENTED NEUTROPHILS % (MAN) 83 % (42-78); TOTAL CELLS COUNTED 100
[2019-11-14 19:05] LABS: ANISOCYTOSIS SLIGHT; PLATELET COMMENT ADEQUATE
[2019-11-15] MEDS: MORPHINE SULFATE 10 MG/ML INJ IV PRN ×4 (02:47→19:55)
[2019-11-15] MEDS: HEPARIN SOD (PORCINE) 5,000 UNIT/ML 1 ML VIAL SUBCUT SCH ×3 (05:58→21:36)
[2019-11-15] MEDS: PANTOPRAZOLE SODIUM 40 MG TABLET.DR PO SCH (05:58)
[2019-11-15] MEDS: THIAMINE HCL 100 MG TABLET PO SCH (10:07)
[2019-11-15] MEDS: NORMAL SALINE 1000 ML 1,000 ML IV PRN (15:34)
--- NOTE | 2019-11-15 16:02 | PDOC PROGRESS REPORT ---
Subjective Progress Note for:: 11/15/19 Subjective:: Patient seen by the bedside, he has persistent leukocytosis, he refused CT scan of the abdomen for evaluation, he stated that he knows why he is sick, it is because he went back again drinking alcohol. There is persistent hypokalemia, there is increased white blood cell count to 19,000, ultrasound of the upper abdomen is ordered. He was empirically treated with IV antibiotic no specific pathogen isolated Reason For Visit: NITA, GASTROENTERITIS; ALCOHOL ABUSE, HTN, CAD, Physical Exam Vital Signs: Temp Pulse Resp BP Pulse Ox 99.4 F 87 21 H 143/80 H 94 11/15/19 11:25 11/15/19 11:25 11/15/19 11:25 11/15/19 11:25 11/15/19 11:25 Intake & Output 11/14/19 11/15/19 11/16/19 06:59 06:59 06:59 Intake Total 1480 120 Output Total 400 1545 100 Balance -400 -65 20 Weight 78.7 kg 78.7 kg General appearance: PRESENT: no acute distress, well-developed, well-nourished Head exam: PRESENT: atraumatic, normocephalic Eye exam: PRESENT: conjunctiva pink, EOMI, PERRLA Ear exam: PRESENT: normal external ear exam Mouth exam: PRESENT: moist, tongue midline Neck exam: PRESENT: full ROM. ABSENT: carotid bruit, JVD, lymphadenopathy, thyromegaly Respiratory exam: PRESENT: clear to auscultation taryn Cardiovascular exam: PRESENT: RRR, +S1, +S2 Pulses: PRESENT: normal dorsalis pedis pul, +2 pedal pulses bilateral Vascular exam: PRESENT: normal capillary refill GI/Abdominal exam: PRESENT: normal bowel sounds, soft Rectal exam: PRESENT: deferred Neurological exam: PRESENT: alert, awake, oriented to person, oriented to place, oriented to time, oriented to situation, CN II-XII grossly intact Psychiatric exam: PRESENT: appropriate affect, normal mood Skin exam: PRESENT: dry, intact, warm Results Laboratory Results: 11/14/19 17:08 11/14/19 17:08 11/14/19 11/14/19 17:08 17:08 WBC 19.7 H RBC 3.91 L Hgb 12.0 L Hct 35.3 L MCV 90 MCH 30.7 MCHC 34.0 RDW 14.0 Plt Count 242 Seg Neutrophils % Not Reportable Sodium 135.7 L Potassium 3.2 L Chloride 101 Carbon Dioxide 26 Anion Gap 9 BUN 6 L Creatinine 0.73 Est GFR ( Amer) > 60 Glucose 109 Calcium 8.3 L Total Bilirubin 0.8 AST 35 Alkaline Phosphatase 75 Total Protein 5.9 L Albumin 2.9 L 11/09/19 12:20 Blood Blood Culture - Final NO GROWTH IN 5 DAYS 11/04/19 11/05/19 21:51 01:48 Troponin I Cancelled 0.091 Impressions: Acute Abdomen Series 11/05/19 00:00 IMPRESSION: No acute plain film abnormality is identified. Findings consistent with chronic calcific pancreatitis Chest X-Ray 11/13/19 00:00 IMPRESSION: FAINT BASILAR DENSITIES, PROBABLY ATELECTASIS. POSSIBLE SMALL PLEURAL EFFUSIONS. Assessment & Plan - Diagnosis (1) Chronic recurrent pancreatitis Is this a current diagnosis for this admission?: Yes Plan: This is alcohol related pancreatitis (2) Nausea with vomiting, unspecified Qualifiers: Vomiting type: unspecified Vomiting Intractability: intractable Qualified Code(s): R11.2 - Nausea with vomiting, unspecified Is this a current diagnosis for this admission?: Yes (3) Leucocytosis Qualifiers: Leukocytosis type: bandemia Qualified Code(s): D72.825 - Bandemia Is this a current diagnosis for this admission?: Yes Plan: The differential diagnosis is long, patient refused CAT scan of the abdomen and pelvis, ultrasound of the abdomen is ordered he is agreeable to ultrasound of the abdomen, he refused CT scan because of risk of radiation which he said it is intolerable (4) Hypokalemia Is this a current diagnosis for this admission?: Yes Plan: Replace potassium - Time Time Spent with patient: 35 or more minutes Level of Care: IMCU Medications reviewed and adjusted accordingly: Yes Anticipated discharge: Home Anticipated DC Timeframe: within 72 hours
--- NOTE | 2019-11-15 18:47 | RADIOLOGY REPORT (SQ) ---
EXAM DESCRIPTION: U/S ABDOMEN COMPLETE W/O DOP IMAGES COMPLETED DATE/TIME: 11/15/2019 6:32 pm REASON FOR STUDY: abdominal pain COMPARISON: 09/05/2019 CT TECHNIQUE: Dynamic and static grayscale images acquired of the abdomen and recorded on PACS. Additio nal selected color Doppler and spectral images recorded. Note: Study does not meet criteria for complete doppler/duplex scan LIMITATIONS: None. FINDINGS: PANCREAS: Pancreatic calcifications and ductal dilatation similar to the prior CT. LIVER: Nodular contour of the liver with coarse echotexture. 1.6 cm complex left lobe cyst. LIVER VASCULATURE: Normal directional flow of the main portal vein and hepatic veins. GALLBLADDER: Multiple gallstones and moderate sludge. Borderline gallbladder wall thickness, 3.2 mm. No pericholecystic fluid. ULTRASOUND-DETECTED REGALADO'S SIGN: Negative. INTRAHEPATIC DUCTS AND COMMON DUCT: CBD and intrahepatic ducts normal caliber. No filling defects. INFERIOR VENA CAVA: Normal flow. AORTA: No aneurysm. RIGHT KIDNEY:Normal size. Small parenchymal cyst. No solid or suspicious masses. No hydronephrosis. No calcifications. LEFT KIDNEY: Normal size. Normal echogenicity. No solid or suspicious masses. No hydronephrosis. No calcifications. SPLEEN: Normal size. No solid masses. PERITONEAL AND PLEURAL SPACES: No ascites. Small left pleural effusion. . OTHER: No other significant finding. IMPRESSION: Small left pleural effusion. Multiple gallstones and moderate sludge. Borderline gallbl adder wall thickness, 3.2 mm. No pericholecystic fluid.Nodular contour of the liver with coarse echot exture. 1.6 cm complex left lobe cyst. Pancreatic calcifications and ductal dilatation similar to the prior CT. TECHNICAL DOCUMENTATION: JOB ID: [id number] [place]-72 2010 [employer]- All Rights Reserved Reading location - IP/workstation name: [employer]
[2019-11-15] MEDS: POTASSI CL 20 MEQ/50 ML RIDER 20 MEQ/50 ML RTUPB IV SCH ×2 (19:46→21:37)
[2019-11-16] MEDS: MORPHINE SULFATE 10 MG/ML INJ IV PRN ×5 (00:06→22:14)
[2019-11-16] MEDS: HEPARIN SOD (PORCINE) 5,000 UNIT/ML 1 ML VIAL SUBCUT SCH ×4 (05:41→23:36)
[2019-11-16] MEDS: PANTOPRAZOLE SODIUM 40 MG TABLET.DR PO SCH (05:41)
[2019-11-16] MEDS: THIAMINE HCL 100 MG TABLET PO SCH (09:45)
[2019-11-16] MEDS: NORMAL SALINE 1000 ML 1,000 ML IV PRN (09:49)
--- NOTE | 2019-11-16 12:47 | PDOC PROGRESS REPORT ---
Subjective Progress Note for:: 11/16/19 Subjective:: Patient seen by the bedside, ultrasound of the abdomen was obtained, it demonstrated pancreatic calcifications and ductal dilatation, nodular contour of the liver, multiple gallstones and moderate sludge. Borderline gallbladder wall thickness, 3.2 mm no pericholecystic fluid patient probably have cholecystitis, he has been on antibiotics since admission we will consult surgery for guidance Reason For Visit: NITA, GASTROENTERITIS; ALCOHOL ABUSE, HTN, CAD, Physical Exam Vital Signs: Temp Pulse Resp BP Pulse Ox 98.5 F 71 19 134/81 H 97 11/16/19 08:14 11/16/19 07:07 11/16/19 07:07 11/16/19 07:07 11/16/19 07:07 Intake & Output 11/15/19 11/16/19 11/17/19 06:59 06:59 06:59 Intake Total 1480 1896 Output Total 1545 1225 Balance -65 671 Weight 78.7 kg 81.1 kg General appearance: PRESENT: no acute distress Eye exam: PRESENT: PERRLA Respiratory exam: PRESENT: clear to auscultation taryn Cardiovascular exam: PRESENT: +S1, +S2 GI/Abdominal exam: PRESENT: soft Neurological exam: PRESENT: alert Results Laboratory Results: 11/14/19 17:08 11/14/19 17:08 11/04/19 11/05/19 21:51 01:48 Troponin I Cancelled 0.091 Impressions: Acute Abdomen Series 11/05/19 00:00 IMPRESSION: No acute plain film abnormality is identified. Findings consistent with chronic calcific pancreatitis Chest X-Ray 11/13/19 00:00 IMPRESSION: FAINT BASILAR DENSITIES, PROBABLY ATELECTASIS. POSSIBLE SMALL PLEURAL EFFUSIONS. Abdomen Ultrasound 11/15/19 00:00 IMPRESSION: Small left pleural effusion. Multiple gallstones and moderate sludge. Borderline gallbladder wall thickness, 3.2 mm. No pericholecystic fluid.Nodular contour of the liver with coarse echotexture. 1.6 cm complex left lobe cyst. Pancreatic calcifications and ductal dilatation similar to the prior CT. Assessment & Plan - Diagnosis (1) Chronic recurrent pancreatitis Is this a current diagnosis for this admission?: Yes (2) Nausea with vomiting, unspecified Qualifiers: Vomiting type: unspecified Vomiting Intractability: intractable Qualified Code(s): R11.2 - Nausea with vomiting, unspecified Is this a current diagnosis for this admission?: Yes (3) Leucocytosis Qualifiers: Leukocytosis type: bandemia Qualified Code(s): D72.825 - Bandemia Is this a current diagnosis for this admission?: Yes (4) Hypokalemia Is this a current diagnosis for this admission?: Yes (5) Chronic alcoholic pancreatitis Is this a current diagnosis for this admission?: Yes (6) Chronic pancreatitis Qualifiers: Pancreatitis type: alcohol induced Qualified Code(s): K86.0 - Alcohol- induced chronic pancreatitis Is this a current diagnosis for this admission?: Yes (7) Acute calculous cholecystitis Is this a current diagnosis for this admission?: Yes Plan: Continue antibiotic, consult surgery - Time Time Spent with patient: 35 or more minutes Level of Care: IMCU Anticipated discharge: Home Anticipated DC Timeframe: within 72 hours
[2019-11-16 13:20] LABS: HEMATOCRIT 34.2 % (37.9-51.0); HEMOGLOBIN 11.6 g/dL (13.5-17.0); MEAN CORPUSCULAR HEMOGLOBIN 30.7 pg (27.0-33.4); MEAN CORPUSCULAR HGB CONC 33.8 g/dL (32.0-36.0); MEAN CORPUSCULAR VOLUME 91 fl (80-97); PLATELET COUNT 243 10^3/uL (150-450); RED BLOOD COUNT 3.77 10^6/uL (4.35-5.55); RED CELL DISTRIBUTION WIDTH 14.5 % (11.5-14.0)
[2019-11-16 13:24] LABS: ALBUMIN 2.7 g/dL (3.5-5.0); ALKALINE PHOSPHATASE 66 U/L (38-126); ANION GAP 6 (5-19); ASPARTATE AMINO TRANSFERASE 30 U/L (17-59); BILIRUBIN,DIRECT 0.4 mg/dL (0.0-0.4); BILIRUBIN,TOTAL 0.6 mg/dL (0.2-1.3); BLOOD UREA NITROGEN 9 mg/dL (7-20); CALCIUM 8.2 mg/dL (8.4-10.2); CARBON DIOXIDE 27 mmol/L (22-30); CHLORIDE 105 mmol/L (98-107); GLUCOSE 96 mg/dL (75-110); TOTAL PROTEIN 5.5 g/dL (6.3-8.2)
[2019-11-16 13:26] LABS: POTASSIUM 3.6 mmol/L (3.6-5.0)
[2019-11-16 13:46] LABS: ABSOLUTE LYMPHOCYTES# (MANUAL) 0.9 10^3/uL (0.5-4.7); ABSOLUTE MONOCYTES # (MANUAL) 1.2 10^3/uL (0.1-1.4); ANISOCYTOSIS SLIGHT; BAND NEUTROPHILS % (MANUAL) 2 % (3-5); BASOPHILS % (MANUAL) 0 % (0-2); EOSINOPHILS % (MANUAL) 0 % (0-6); LYMPHOCYTES % (MANUAL) 6 % (13-45); MONOCYTES % (MANUAL) 8 % (3-13); NUCLEATED RED BLOOD CELLS 1 /100 WBC (0); PLATELET COMMENT ADEQUATE; SEGMENTED NEUTROPHILS % (MAN) 84 % (42-78); TOTAL CELLS COUNTED 100
[2019-11-16 13:47] LABS: OVALOCYTES 1+; POIKILOCYTOSIS 1+; POLYCHROMASIA SLIGHT
--- NOTE | 2019-11-16 17:37 | PDOC CONSULTATION ---
Consultation Consult Date: 11/16/19 Attending physician:: KALANI DURAN Provider Consulted: ZANA MORIN Consult reason:: Gallstones History of Present Illness Admission Date/PCP: 11/05/19 05:15 ONESIMO PERALES History of Present Illness: CEM MONROY is a 64 year old male Presents emergency department 11 days ago with abdominal pain nausea vomiting. Patient has a long history of alcoholic pancreatitis, gastritis, alcohol abuse, and cirrhosis. Patient refused CT scan on admission. Last CT scan in August showing chronic pancreatitis and dilated pancreatic duct., And made of gallstones. Patient hospitalized, treated for gastritis, pancreatitis with diminution of the lipase level. Dr. Duran made rounds this morning and found patient to have right upper quadrant tenderness, and a gallbladder ultrasound was obtained which showed gallstones, gallbladder wall thickening, no pericholecystic fluid. The liver was felt to have a nodular surface. Biliary ductal system without dilatation. The blood flow was hepatopetal. Surgery was consult for cholecystitis with cholelithiasis Past Medical History Cardiac Medical History: Reports: Coronary Artery Disease, Myocardial Infarction, Hypertension Pulmonary Medical History: Denies: Asthma, Bronchitis, Chronic Obstructive Pulmonary Disease (COPD), Pneumonia Neurological Medical History: Reports: Seizures - ETOH withdrawal seizures Endocrine Medical History: Denies: Diabetes Mellitus Type 1, Diabetes Mellitus Type 2 GI Medical History: Reports: Cirrhosis, Hepatitis - Hepatitis C Musculoskeltal Medical History: Denies: Arthritis Psychiatric Medical History: Denies: Depression Hematology: Denies: Anemia Past Surgical History Past Surgical History: Colonoscopy Past Surgical History: Reports: Orthopedic Surgery - R hip replacement Social History Information Source: Patient Smoking Status: Current Some Day Smoker Frequency of Alcohol Use: Heavy Hx Recreational Drug Use: Yes Drugs: Marijuana Hx Prescription Drug Abuse: No Family History Family History: None, Hypertension, Malignancy - Brother with pancreatic cancer and mother with breast cancer, Other - Father was murdered, sister with lupus Parental Family History Reviewed: No Children Family History Reviewed: NA Sibling(s) Family History Reviewed.: NA Medication/Allergy Home Medications: No Home Medications 11/05/19 Allergies/Adverse Reactions: haloperidol [From Haldol] Adverse Reaction (Intermediate, Verified 09/05/19 13:45) Cramping, "couldn't breathe" lorazepam [From Ativan] Adverse Reaction (Intermediate, Verified 09/05/19 13:45) Nausea, nightmares promethazine HCl [From Phenergan] Adverse Reaction (Unknown, Verified 09/05/19 13:45) "Messes my veins up" Review of Systems ROS unobtainable: Other - Patient is poor historian Constitutional: ABSENT: chills, fever(s), headache(s), weight gain, weight loss Eyes: ABSENT: visual disturbances Ears: ABSENT: hearing changes Cardiovascular: PRESENT: orthropnea Endocrine: ABSENT: cold intolerance, heat intolerance, polydipsia, polyuria Hematologic/Lymphatic: ABSENT: easy bleeding, easy bruising Physical Exam Vital Signs: Temp Pulse Resp BP Pulse Ox 98.3 F 90 18 125/80 97 11/16/19 11:14 11/16/19 14:00 11/16/19 11:14 11/16/19 11:14 11/16/19 11:14 Intake & Output 11/15/19 11/16/19 11/17/19 06:59 06:59 06:59 Intake Total 1480 1896 120 Output Total 1545 1225 450 Balance -65 671 -330 Weight 78.7 kg 81.1 kg General appearance: PRESENT: no acute distress Head exam: PRESENT: normocephalic Eye exam: PRESENT: other - Patient with disconjugate gaze, right eye drift to the right Teeth exam: PRESENT: poor dentation Neck exam: PRESENT: full ROM Respiratory exam: PRESENT: rhonchi Cardiovascular exam: PRESENT: RRR Pulses: PRESENT: normal carotid pulses GI/Abdominal exam: PRESENT: other - Tender right upper quadrant with moderate guarding; No umbilical hernia no groin hernias. Rectal exam: PRESENT: deferred Extremities exam: PRESENT: +1 edema Neurological exam: PRESENT: alert, awake, oriented to person, oriented to place, oriented to time, oriented to situation Skin exam: PRESENT: dry Results Laboratory Results: 11/16/19 12:22 11/16/19 12:22 11/16/19 11/16/19 12:22 12:22 WBC 15.0 H RBC 3.77 L Hgb 11.6 L Hct 34.2 L MCV 91 MCH 30.7 MCHC 33.8 RDW 14.5 H Plt Count 243 Seg Neutrophils % Not Reportable Sodium 137.9 Potassium 3.6 Chloride 105 Carbon Dioxide 27 Anion Gap 6 BUN 9 Creatinine 0.80 Est GFR ( Amer) > 60 Glucose 96 Calcium 8.2 L Total Bilirubin 0.6 AST 30 Alkaline Phosphatase 66 Total Protein 5.5 L Albumin 2.7 L 11/04/19 11/05/19 21:51 01:48 Troponin I Cancelled 0.091 Impressions: Acute Abdomen Series 11/05/19 00:00 IMPRESSION: No acute plain film abnormality is identified. Findings consistent with chronic calcific pancreatitis Chest X-Ray 11/13/19 00:00 IMPRESSION: FAINT BASILAR DENSITIES, PROBABLY ATELECTASIS. POSSIBLE SMALL PLEURAL EFFUSIONS. Abdomen Ultrasound 11/15/19 00:00 IMPRESSION: Small left pleural effusion. Multiple gallstones and moderate sludge. Borderline gallbladder wall thickness, 3.2 mm. No pericholecystic fluid.Nodular contour of the liver with coarse echotexture. 1.6 cm complex left lobe cyst. Pancreatic calcifications and ductal dilatation similar to the prior CT. Assessment & Plan - Diagnosis (1) Acute calculous cholecystitis Is this a current diagnosis for this admission?: Yes Plan: Impression: Superimposed on chronic cholecystitis, cholelithiasis and alcoholic chronic pancreas headache with nodular liver disease hospitalized for 11 days with persisting leukocytosis and abdominal pain. Recommendations: 1. Patient would be an appropriate candidate for interval cholecystectomy, laparoscopic versus open; patient COVID test on 11/06/2019-. 2. Of concern, patient has nodular liver disease, platelets 84,000; no coags checked; will check them today 3. Patient expresses his disinterest in having his gallbladder removed because he wants to go home. I told him that would not be in his best interest as he is likely to deteriorate, come back into the hospital with a more acute addition increasing his risk of perioperative complications. I discussed the above with Dr. Duran. 4. We will keep him n.p.o., and reassess in the morning. (2) Liver disease Is this a current diagnosis for this admission?: Yes (3) Alcohol abuse Is this a current diagnosis for this admission?: Yes (4) Smoker Is this a current diagnosis for this admission?: Yes (5) Abdominal pain Qualifiers: Abdominal location: generalized Qualified Code(s): R10.84 - Generalized abdominal pain Is this a current diagnosis for this admission?: Yes (6) Chronic recurrent pancreatitis Is this a current diagnosis for this admission?: Yes
[2019-11-16 18:36] LABS: INTERNATIONAL RATION (INR) 1.16
[2019-11-17] MEDS: MORPHINE SULFATE 10 MG/ML INJ IV PRN ×4 (02:40→14:58)
[2019-11-17] MEDS: HEPARIN SOD (PORCINE) 5,000 UNIT/ML 1 ML VIAL SUBCUT SCH ×3 (05:11→22:13)
[2019-11-17] MEDS: PANTOPRAZOLE SODIUM 40 MG TABLET.DR PO SCH (05:59)
[2019-11-17] MEDS ORDERED: CIPROFLOXACIN 400 MG/D5W RTU 400 MG/200 ML RTUPB IV ONE (08:00)
[2019-11-17] MEDS: THIAMINE HCL 100 MG TABLET PO SCH (10:40)
--- NOTE | 2019-11-17 13:53 | PDOC PROGRESS REPORT ---
Subjective Progress Note for:: 11/17/19 Subjective:: 64-year-old male with thickening of the gallbladder wall and gallstones. The patient does have chronic abdominal pain. Surgery was recommended to remove his gallbladder, however he has declined surgical intervention. Today he does report abdominal pain, but appears to be eating without difficulty. He denies chest pain, shortness of breath, fevers, chills, dizziness, blurry vision, headache. Reason For Visit: NITA, GASTROENTERITIS; ALCOHOL ABUSE, HTN, CAD, Physical Exam Vital Signs: Temp Pulse Resp BP Pulse Ox 98.6 F 89 18 136/80 H 97 11/17/19 11:20 11/17/19 11:20 11/17/19 11:20 11/17/19 11:20 11/17/19 11:20 Intake & Output 11/16/19 11/17/19 11/18/19 06:59 06:59 06:59 Intake Total 1896 1620 Output Total 1225 2500 Balance 671 -880 Weight 81.1 kg 79.5 kg General appearance: PRESENT: no acute distress, thin Head exam: PRESENT: atraumatic, normocephalic Eye exam: ABSENT: scleral icterus Mouth exam: PRESENT: moist, neck supple Neck exam: ABSENT: tenderness, tracheal deviation, tracheostomy Respiratory exam: PRESENT: unlabored. ABSENT: tachypnea, wheezes Cardiovascular exam: ABSENT: tachycardia Vascular exam: PRESENT: normal capillary refill GI/Abdominal exam: PRESENT: soft. ABSENT: tenderness Rectal exam: PRESENT: deferred Extremities exam: ABSENT: clubbing Musculoskeletal exam: ABSENT: deformity Neurological exam: PRESENT: alert, awake, oriented to person, oriented to place, oriented to time, oriented to situation Psychiatric exam: ABSENT: agitated, anxious, depressed Focused psych exam: ABSENT: delusional Skin exam: ABSENT: cyanosis, erythema, jaundice Results Laboratory Results: 11/16/19 12:22 11/16/19 12:22 11/16/19 12:22 WBC 15.0 H RBC 3.77 L Hgb 11.6 L Hct 34.2 L MCV 91 MCH 30.7 MCHC 33.8 RDW 14.5 H Plt Count 243 11/04/19 11/05/19 21:51 01:48 Troponin I Cancelled 0.091 Impressions: Acute Abdomen Series 11/05/19 00:00 IMPRESSION: No acute plain film abnormality is identified. Findings consistent with chronic calcific pancreatitis Chest X-Ray 11/13/19 00:00 IMPRESSION: FAINT BASILAR DENSITIES, PROBABLY ATELECTASIS. POSSIBLE SMALL PLEURAL EFFUSIONS. Abdomen Ultrasound 11/15/19 00:00 IMPRESSION: Small left pleural effusion. Multiple gallstones and moderate sludge. Borderline gallbladder wall thickness, 3.2 mm. No pericholecystic fluid.Nodular contour of the liver with coarse echotexture. 1.6 cm complex left lobe cyst. Pancreatic calcifications and ductal dilatation similar to the prior CT. Assessment & Plan - Diagnosis (1) Cholecystitis Is this a current diagnosis for this admission?: Yes - Time Anticipated Discharge Disposition: unknown Anticipated Discharge Timeframe: unknown - Plan Summary Plan Summary: 64-year-old male with gallstones and gallbladder wall thickening. He has chronic abdominal pain. Cholecystectomy was recommended to assist him with his abdominal pain. The patient has declined surgical intervention. Surgery will sign off at this time. Please renotify with any questions or concerns.
[2019-11-17] MEDS ORDERED: CIPROFLOXACIN 400 MG/D5W RTU 400 MG/200 ML RTUPB IV SCH (18:00)
[2019-11-17] MEDS: CIPROFLOXACIN HCL 500 MG TABLET PO SCH ×2 (22:00→22:13)
[2019-11-17] MEDS: ACETAMINOPHEN 325 MG TABLET PO PRN (22:16)
[2019-11-18] MEDS: PANTOPRAZOLE SODIUM 40 MG TABLET.DR PO SCH (05:38)
[2019-11-18] MEDS: HEPARIN SOD (PORCINE) 5,000 UNIT/ML 1 ML VIAL SUBCUT SCH ×2 (05:44→14:32)
[2019-11-18] MEDS: THIAMINE HCL 100 MG TABLET PO SCH (09:11)
[2019-11-18] MEDS: CIPROFLOXACIN HCL 500 MG TABLET PO SCH (09:11)
[2019-11-18] MEDS: ACETAMINOPHEN 325 MG TABLET PO PRN (09:11)
--- NOTE | 2019-11-18 09:31 | PDOC PROGRESS REPORT ---
Subjective Progress Note for:: 11/17/19 Subjective:: Patient refused IV Ciprofloxacin administration. As noted in surgical team notation he refused surgical intervention for his ongoing cholecystitis with multiple gallstones and moderate sludge. No abdominal pain, diarrhea, nausea, or vomiting. No chest pain or difficulty with breathing. Reason For Visit: NITA, GASTROENTERITIS; ALCOHOL ABUSE, HTN, CAD, Physical Exam Vital Signs: Temp Pulse Resp BP Pulse Ox 98.6 F 88 18 136/80 H 97 11/17/19 11:20 11/17/19 14:00 11/17/19 11:20 11/17/19 11:20 11/17/19 11:20 Intake & Output 11/16/19 11/17/19 11/18/19 06:59 06:59 06:59 Intake Total 1896 1620 Output Total 1225 2500 Balance 671 -880 Weight 81.1 kg 79.5 kg Physical Exam: General appearance: PRESENT: no acute distress Head exam: PRESENT: atraumatic, normocephalic Eye exam: PRESENT: conjunctiva pink. ABSENT: pallor, sclera icterus Mouth exam: PRESENT: moist Respiratory exam: PRESENT: Clear to auscultation, decreased breath sounds Cardiovascular exam: PRESENT: RRR, +S1, +S2. ABSENT: diastolic murmur, rubs, systolic murmur GI/Abdominal exam: PRESENT: normal bowel sounds, soft. ABSENT: organomegaly, tenderness Extremities exam: ABSENT: pedal edema Neurological exam: PRESENT: alert, awake, oriented to person, oriented to place, oriented to time, oriented to situation, CN II-XII grossly intact. ABSENT: motor sensory deficit Psychiatric exam: PRESENT: appropriate affect, normal mood. ABSENT: homicidal ideation, suicidal ideation Skin exam: PRESENT: dry, warm Results Laboratory Results: 11/16/19 12:22 11/16/19 12:22 11/04/19 11/05/19 21:51 01:48 Troponin I Cancelled 0.091 Impressions: Acute Abdomen Series 11/05/19 00:00 IMPRESSION: No acute plain film abnormality is identified. Findings consistent with chronic calcific pancreatitis Chest X-Ray 11/13/19 00:00 IMPRESSION: FAINT BASILAR DENSITIES, PROBABLY ATELECTASIS. POSSIBLE SMALL PLEURAL EFFUSIONS. Abdomen Ultrasound 11/15/19 00:00 IMPRESSION: Small left pleural effusion. Multiple gallstones and moderate sludge. Borderline gallbladder wall thickness, 3.2 mm. No pericholecystic fl uid.Nodular contour of the liver with coarse echotexture. 1.6 cm complex left lobe cyst. Pancreatic calcifications and ductal dilatation similar to the prior CT. Assessment & Plan - Diagnosis (1) Intractable nausea and vomiting Is this a current diagnosis for this admission?: Yes (2) Abdominal pain Qualifiers: Abdominal location: generalized Qualified Code(s): R10.84 - Generalized abdominal pain Is this a current diagnosis for this admission?: Yes (3) Acute kidney failure Qualifiers: Acute renal failure type: unspecified Qualified Code(s): N17.9 - Acute kidney failure, unspecified Is this a current diagnosis for this admission?: Yes (4) Probable sepsis Is this a current diagnosis for this admission?: Yes Plan: Less likely in view of his blood culture findings abut his ongoing cholecystitis and refusal of surgical intervention predispose him to this condition. Continue antibiotic therapy. (5) Hypokalemia Is this a current diagnosis for this admission?: Yes (6) Chronic recurrent pancreatitis Is this a current diagnosis for this admission?: Yes (7) Acute calculous cholecystitis Is this a current diagnosis for this admission?: Yes Plan: Patient continue to refuse recommended treatment. His leukocytosis is on downward trend. D/C IV Ciprofloxacin at patient insistence and refusal of administration. Start on Ciprofloxacin 500 mg po bid therapy. - Time Time Spent with patient: 25-34 minutes Level of Care: IMCU Medications reviewed and adjusted accordingly: Yes Anticipated discharge: Home Anticipated DC Timeframe: within 72 hours - Inpatient Certification Based on my medical assessment, after consideration of the patient's comorbidities, presenting symptoms, or acuity I expect that the services needed warrant INPATIENT care.: Yes I certify that my determination is in accordance with my understanding of Medicare's requirements for reasonable and necessary INPATIENT services [42 CFR 412.3e].: Yes Medical Necessity: Significant Comorbidiites Make Outpatient Treatment Too Risky, Need Close Monitoring Due to Risk of Patient Decompensation, Need For IV Fluids, Need For Continuous Telemetry Monitoring, Need for Pain Control, Need for IV Antibiotics, Need for Surgery, Risk of Complication if Not Cared For in Hospital, Risk of Diagnosis Which Will Require Inpatient Eval/Care/Monitoring Post Hospital Care: D/C Bilingual Account Manager Documentation - Plan Summary Plan Summary: Start on oral Ciprofloxacin. D/C IV Morphine and IV Ciprofloxacin usage. Obtain CBC with diff and BMP in am if in satisfactory range consider discharge home tomorrow. This plan was discussed with patient and he is in agreement.
[2019-11-18 09:33] LABS: HEMATOCRIT 37.1 % (37.9-51.0); HEMOGLOBIN 12.5 g/dL (13.5-17.0); MEAN CORPUSCULAR HEMOGLOBIN 30.6 pg (27.0-33.4); MEAN CORPUSCULAR HGB CONC 33.7 g/dL (32.0-36.0); MEAN CORPUSCULAR VOLUME 91 fl (80-97); PLATELET COUNT 294 10^3/uL (150-450); RED BLOOD COUNT 4.09 10^6/uL (4.35-5.55); RED CELL DISTRIBUTION WIDTH 14.6 % (11.5-14.0)
[2019-11-18 09:54] LABS: ANION GAP 10 (5-19); BLOOD UREA NITROGEN 11 mg/dL (7-20); CALCIUM 9.2 mg/dL (8.4-10.2); CARBON DIOXIDE 25 mmol/L (22-30); CHLORIDE 104 mmol/L (98-107); GLUCOSE 149 mg/dL (75-110); POTASSIUM 3.7 mmol/L (3.6-5.0)
[2019-11-18 09:59] LABS: ABSOLUTE LYMPHOCYTES# (MANUAL) 1.8 10^3/uL (0.5-4.7); ABSOLUTE MONOCYTES # (MANUAL) 1.1 10^3/uL (0.1-1.4); BAND NEUTROPHILS % (MANUAL) 1 % (3-5); BASOPHILS % (MANUAL) 0 % (0-2); EOSINOPHILS % (MANUAL) 1 % (0-6); LYMPHOCYTES % (MANUAL) 12 % (13-45); MONOCYTES % (MANUAL) 7 % (3-13); SEGMENTED NEUTROPHILS % (MAN) 79 % (42-78); TOTAL CELLS COUNTED 100
[2019-11-18 10:00] LABS: ANISOCYTOSIS SLIGHT; PLATELET COMMENT ADEQUATE
[2019-11-18 10:01] LABS: POLYCHROMASIA SLIGHT
[2019-11-18 10:02] LABS: POIKILOCYTOSIS SLIGHT; TEAR DROP CELLS SLIGHT
--- NOTE | 2019-11-18 18:04 | PDOC DISCHARGE SUMMARY ---
Impression - Admit/DC Date/PCP Admission Date/Primary Care Provider: 11/05/19 05:15 ONESIMO PERALES Discharge Date: 11/18/19 - Discharge Diagnosis (1) Intractable nausea and vomiting Is this a current diagnosis for this admission?: Yes (2) Abdominal pain Is this a current diagnosis for this admission?: Yes (3) Acute kidney failure Is this a current diagnosis for this admission?: Yes (4) Probable sepsis Is this a current diagnosis for this admission?: Yes (5) Hypokalemia Is this a current diagnosis for this admission?: Yes (6) Chronic recurrent pancreatitis Is this a current diagnosis for this admission?: Yes (7) Acute calculous cholecystitis Is this a current diagnosis for this admission?: Yes - Assessment Summary: Patient presented with abdominal pain, nausea, and vomiting. 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 He refused CT scan abdomen and pelvis for further evaluation despite slight increase in his serum Lipase upon presentation. He was admitted with concern for possible recurrent acute pancreatitis. He was made NPO with subsequent elevation in his serum Lipase level. Despite appropriate antibiotic coverage and improvement in his serum lipase level, his leukocytosis worsen. Patient continue to refuse CT scan evaluation but eventually had ultrasound abdomen that revealed gallbladder disease process including multiple gallstones and gallbladder wall thickness suggestive of cholecystitis. He was evaluated by the surgical team with recommendation for cholecystectomy which the patient refused. He was started on IV Ciprofloxacin with subsequent but gradual improvement in his leukocytosis. Patient refused IV Ciprofloxacin infusion on 11/17/2019 evening dose and was sub sequently changed to oral dosing at 500 mg po bid. He is tolerating mediation satisfactorily. He is tolerating oral feeding without nausea or vomiting. He reported intermittent abdominal pain that resolved with administration of Tylenol 650 mg on prn basis. He will be discharged home today with 10 days course of antibiotic coverage. He will follow up with his PCP Dr. Duran as instructed upon discharge. - Additional Information Resuscitation Status: Full Code Discharge Diet: As Tolerated Discharge Activity: Activity As Tolerated Referrals: ONESIMO PERALES MD [Primary Care Provider] - KALANI DURAN MD [ACTIVE STAFF] - (As directed upon discharge) Home Medications: No Home Medications 11/05/19 History of Present Illiness History of Present Illness: CEM MONROY is a 64 year old male patient known to my practice who presented to the ED via EMS for worsening abdominal pain and vomiting over preceding 2 days. Patient has significant history of alcohol abuse with pancreatitis. There is associated nausea. He denied ongoing alcohol ingestion, diarrhea, tarry or bloody stool. He admitted to chills but denied associated fever, headache, or dizziness. His initial ED evaluation was significant for leukocytosis, lactic acidosis, acute kidney injury and elevated bilirubin level. His lipase is marginally elevated but could be explained by his vomiting. Patient refused recommended CT scan of abdomen and pelvis. His morbidities are listed below. He was advised hospitalization for further evaluation and management. Hospital Course Hospital Course: Patient presented with abdominal pain, nausea, and vomiting. 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 He refused CT scan abdomen and pelvis for further evaluation despite slight increase in his serum Lipase upon presentation. He was admitted with concern for possible recurrent acute pancreatitis. He was made NPO with subsequent elevation in his serum Lipase level. Despite appropriate antibiotic coverage and improvement in his serum lipase level, his leukocytosis worsen. Patient continue to refuse CT scan evaluation but eventually had ultrasound abdomen that revealed gallbladder disease process including multiple gallstones and gallbladder wall thickness suggestive of cholecystitis. He was evaluated by the surgical team with recommendation for cholecystectomy which the patient refused. He was started on IV Ciprofloxacin with subsequent but gradual improvement in his leukocytosis. Patient refused IV Ciprofloxacin infusion on 11/17/2019 evening dose and was subsequently changed to oral dosing at 500 mg po bid. He is tolerating mediation satisfactorily. He is tolerating oral feeding without nausea or vomiting. He reported intermittent abdominal pain that resolved with administration of Tylenol 650 mg on prn basis. He will be discharged home today with 10 days course of antibiotic coverage. He will follow up with his PCP Dr. Duran as instructed upon discharge. Physical Exam Vital Signs: Temp Pulse Resp BP Pulse Ox 98.2 F 78 18 138/91 H 95 11/18/19 15:50 11/18/19 15:50 11/18/19 15:50 11/18/19 15:50 11/18/19 15:50 Intake & Output 11/17/19 11/18/19 11/19/19 06:59 06:59 06:59 Intake Total 1620 480 820 Output Total 4772 2075 460 Balance -880 -1595 360 Weight 79.5 kg 71.1 kg General appearance: PRESENT: no acute distress Head exam: PRESENT: atraumatic, normocephalic Eye exam: PRESENT: conjunctiva pink. ABSENT: pallor, sclera icterus Mouth exam: PRESENT: moist Respiratory exam: PRESENT: Clear to auscultation, decreased breath sounds Cardiovascular exam: PRESENT: RRR, +S1, +S2. ABSENT: diastolic murmur, rubs, systolic murmur GI/Abdominal exam: PRESENT: normal bowel sounds, soft. ABSENT: organomegaly, tenderness Extremities exam: ABSENT: pedal edema Neurological exam: PRESENT: alert, awake, oriented to person, oriented to place, oriented to time, oriented to situation, CN II-XII grossly intact. ABSENT: motor sensory deficit Psychiatric exam: PRESENT: appropriate affect, normal mood. ABSENT: homicidal ideation, suicidal ideation Skin exam: PRESENT: dry, warm Results Laboratory Results: WBC 15.0 10^3/uL (4.0-10.5) H 11/18/19 09:10 RBC 4.09 10^6/uL (4.35-5.55) L 11/18/19 09:10 Hgb 12.5 g/dL (13.5-17.0) L 11/18/19 09:10 Hct 37.1 % (37.9-51.0) L 11/18/19 09:10 MCV 91 fl (80-97) 11/18/19 09:10 MCH 30.6 pg (27.0-33.4) 11/18/19 09:10 MCHC 33.7 g/dL (32.0-36.0) 11/18/19 09:10 RDW 14.6 % (11.5-14.0) H 11/18/19 09:10 Plt Count 294 10^3/uL (150-450) 11/18/19 09:10 Lymph % (Auto) Not Reportable 11/18/19 09:10 [place] % (Auto) Not Reportable 11/18/19 09:10 Eos % (Auto) Not Reportable 11/18/19 09:10 Baso % (Auto) Not Reportable 11/18/19 09:10 Absolute Neuts (auto) Not Reportable 11/18/19 09:10 Absolute Lymphs (auto) Not Reportable 11/18/19 09:10 Absolute Monos (auto) Not Reportable 11/18/19 09:10 Absolute Eos (auto) Not Reportable 11/18/19 09:10 Absolute Basos (auto) Not Reportable 11/18/19 09:10 Total Counted 100 11/18/19 09:10 Seg Neutrophils % Not Reportable 11/18/19 09:10 Seg Neuts % (Manual) 79 % (42-78) H 11/18/19 09:10 Band Neutrophils % 1 % (3-5) L 11/18/19 09:10 Lymphocytes % (Manual) 12 % (13-45) L 11/18/19 09:10 Atypical Lymphs % 1 % (0) 11/11/19 06:15 Monocytes % (Manual) 7 % (3-13) 11/18/19 09:10 Eosinophils % (Manual) 1 % (0-6) 11/18/19 09:10 Basophils % (Manual) 0 % (0-2) 11/18/19 09:10 Metamyelocytes % 2 % (0-1) H 11/14/19 17:08 Abs Neuts (Manual) 12.0 10^3/uL (1.7-8.2) H 11/18/19 09:10 Abs Lymphs (Manual) 1.8 10^3/uL (0.5-4.7) 11/18/19 09:10 Abs Monocytes (Manual) 1.1 10^3/uL (0.1-1.4) 11/18/19 09:10 Absolute Eos (Manual) 0.2 10^3/uL (0.0-0.6) 11/18/19 09:10 Abs Basophils (Manual) 0.0 10^3/uL (0.0-0.2) 11/18/19 09:10 Nucleated RBCs 1 /100 WBC (0) 11/16/19 12:22 Toxic Granulation SLIGHT 11/04/19 21:51 Platelet Comment ADEQUATE 11/18/19 09:10 Polychromasia SLIGHT 11/18/19 09:10 Poikilocytosis SLIGHT 11/18/19 09:10 Anisocytosis SLIGHT 11/18/19 09:10 Tear Drop Cells SLIGHT 11/18/19 09:10 Ovalocytes 1+ 11/16/19 12:22 Milla Cells SLIGHT 11/11/19 06:15 Schistocytes SLIGHT 11/04/19 21:51 PT 15.0 SEC (11.4-15.4) 11/16/19 18:08 INR 1.16 11/16/19 18:08 Sodium 139.3 mmol/L (137-145) 11/18/19 09:10 Potassium 3.7 mmol/L (3.6-5.0) 11/18/19 09:10 Chloride 104 mmol/L (98-107) 11/18/19 09:10 Carbon Dioxide 25 mmol/L (22-30) 11/18/19 09:10 Anion Gap 10 (5-19) 11/18/19 09:10 BUN 11 mg/dL (7-20) 11/18/19 09:10 Creatinine 0.77 mg/dL (0.52-1.25) 11/18/19 09:10 Est GFR ( Amer) > 60 (>60) 11/18/19 09:10 Est GFR (Non-Af Amer) Cancelled 11/04/19 21:51 Est GFR (MDRD) Non-Af > 60 (>60) 11/18/19 09:10 Glucose 149 mg/dL (75-110) H 11/18/19 09:10 POC Glucose 118 mg/dL (70-110) H 11/18/19 08:18 Lactic Acid 0.9 mmol/L (0.7-2.1) 11/07/19 04:50 Calcium 9.2 mg/dL (8.4-10.2) 11/18/19 09:10 Phosphorus 2.6 mg/dL (2.5-4.5) 11/06/19 05:13 Magnesium 1.7 mg/dL (1.6-2.3) 11/13/19 06:42 Total Bilirubin 0.6 mg/dL (0.2-1.3) 11/16/19 12:22 Direct Bilirubin 0.4 mg/dL (0.0-0.4) 11/16/19 12:22 Neonat Total Bilirubin Not Reportable 11/16/19 12:22 Neonat Direct Bilirubin Not Reportable 11/16/19 12:22 Neonat Indirect Bili Not Reportable 11/16/19 12:22 AST 30 U/L (17-59) 11/16/19 12:22 ALT 13 U/L (<50) 11/16/19 12:22 Alkaline Phosphatase 66 U/L (38-126) 11/16/19 12:22 Troponin I 0.091 ng/mL 11/05/19 01:48 Total Protein 5.5 g/dL (6.3-8.2) L 11/16/19 12:22 Albumin 2.7 g/dL (3.5-5.0) L 11/16/19 12:22 Lipase 326.7 U/L (23-300) H 11/13/19 06:42 EGFR Cancelled 11/04/19 21:51 Urine Color YELLOW 11/13/19 10:00 Urine Appearance CLEAR 11/13/19 10:00 Urine pH 6.0 (5.0-9.0) 11/13/19 10:00 Ur Specific [place] 1.018 11/13/19 10:00 Urine Protein NEGATIVE mg/dL (NEGATIVE) 11/13/19 10:00 Urine Glucose (UA) NEGATIVE mg/dL (NEGATIVE) 11/13/19 10:00 Urine Ketones NEGATIVE mg/dL (NEGATIVE) 11/13/19 10:00 Urine Blood SMALL (NEGATIVE) H 11/13/19 10:00 Urine Nitrite NEGATIVE (NEGATIVE) 11/04/19 23:55 Urine Nitrite (Reflex) NEGATIVE (NEGATIVE) 11/13/19 10:00 Urine Bilirubin NEGATIVE (NEGATIVE) 11/13/19 10:00 Urine Urobilinogen 4.0 mg/dL (<2.0) H 11/13/19 10:00 Ur Leukocyte Esterase NEGATIVE (NEGATIVE) 11/04/19 23:55 Leukocyte Esterase Rfl NEGATIVE (NEGATIVE) 11/13/19 10:00 Urine WBC (Auto) 2 /HPF 11/04/19 23:55 Urine RBC (Auto) 3 /HPF 11/13/19 10:00 U Hyaline Cast (Auto) 182 /LPF 11/04/19 23:55 Urine WBC (Reflex) < 1 /HPF 11/13/19 10:00 Squamous Epi Cells Auto 2 /HPF 11/04/19 23:55 Calcium Oxalate Cr Auto RARE /HPF 11/04/19 23:55 Urine Mucus (Auto) RARE /LPF 11/13/19 10:00 Urine Ascorbic Acid NEGATIVE (NEGATIVE) 11/13/19 10:00 Serum Alcohol < 10 mg/dL (NONE DETECTED) 11/04/19 23:23 COVID-19 Source See comment 11/06/19 02:20 COVID-19 (SU) Not Detected (Not Detect) 11/06/19 02:20 11/04/19 11/05/19 21:51 01:48 Troponin I Cancelled 0.091 Impressions: Acute Abdomen Series 11/05/19 00:00 IMPRESSION: No acute plain film abnormality is identified. Findings consistent with chronic calcific pancreatitis Chest X-Ray 11/05/19 00:00 IMPRESSION: COPD. No acute findings. Chest X-Ray 11/13/19 00:00 IMPRESSION: FAINT BASILAR DENSITIES, PROBABLY ATELECTASIS. POSSIBLE SMALL PLEURAL EFFUSIONS. Abdomen Ultrasound 11/15/19 00:00 IMPRESSION: Small left pleural effusion. Multiple gallstones and moderate sludge. Borderline gallbladder wall thickness, 3.2 mm. No pericholecystic fluid.Nodular contour of the liver with coarse echotexture. 1.6 cm complex left lobe cyst. Pancreatic calcifications and ductal dilatation similar to the prior CT. Plan Health Concerns: Compliance with medication, avoidance of Alcohol consumption, follow up with post acute care plan. Plan of Treatment: Maintain on Ciprofloxacin coverage. Advised close follow up with PCP upon discharge. Goals: Close monitoring and encouragement to accept recommended treatment Time Spent: Greater than 30 Minutes Stroke Is this a Stroke Patient?: No Acute Heart Failure Is this a Heart Failure Patient?: No
[2019-11-18 20:05] VITALS: BP 145/84
== END 2019-11-18 20:45 | disposition home or self-care (01) | DRG 445 ==
LOC: ER 19:49 → EH 11-05 05:15 → 3W 11-05 11:30 → 3N 11-05 23:06 → 3S 11-07 10:51
PROVIDERS: ADMIT Internal Medicine Geriatric Medicine; ATTEND Internal Medicine Geriatric Medicine
PROC: 06HM33Z Insertion of Infusion Device into Right Femoral Vein, Percutaneous Approach (ICD-10-PCS; principal; 2019-11-05)
PROC: B54BZZA Ultrasonography of Right Lower Extremity Veins, Guidance (ICD-10-PCS; 2019-11-05)
DX: K80.10 Calculus of gallbladder with chronic cholecystitis without obstruction (principal); K86.0 Alcohol-induced chronic pancreatitis; N17.9 Acute kidney failure, unspecified; K70.30 Alcoholic cirrhosis of liver without ascites; E87.6 Hypokalemia; F17.200 Nicotine dependence, unspecified, uncomplicated; I10 Essential (primary) hypertension; B18.2 Chronic viral hepatitis C; D72.825 Bandemia; Z96.641 Presence of right artificial hip joint; F10.10 Alcohol abuse, uncomplicated; Z80.3 Family history of malignant neoplasm of breast; Z80.0 Family history of malignant neoplasm of digestive organs; I25.2 Old myocardial infarction; Z88.8 Allergy status to other drugs, medicaments and biological substances; Z20.828 Contact with and (suspected) exposure to other viral communicable diseases
CPT/HCPCS: 36415; 71046; 74022; 76700; 80048; 80053; 80076; 80307; 81001; 82962; 83605; 83690; 83735; 84100; 84484; 85025; 85610; 87040; 87077; 87150; 87635; 93005; 93010; 96361; 96374; 96375; 99291; C9803; J0295; J0744; J1642; J1644; J2270; J2405; J2543; J2550; J2765; J3411; J3475; J3480; J3490; J7030; J7050